=== PATIENT | female | born 1945 | race Caucasian/White ===

== ENCOUNTER 2023-01-19 08:57 | Emergency (ER) | payer MEDICARE, OTHER, SELFPAY ==
[2023-01-19] VITALS (32 sets, daily range): BP systolic 46–154; BP diastolic 27–82; PULSE 54–77; RESP 14–23; TEMP 36.8; O2SAT 68–100; BMI 22.9
[2023-01-19 09:04] LABS: Glucometer 115 mg/dL (74-106)
--- NOTE | 2023-01-19 09:04 | CT_ITS ---
The [address] [address] Patient Name: SONYA SPEAR MRN: [id number] date: 1945 Sex: F Assigned Patient Location: ER Current Patient Location: ER Accession/Order Number: [id number] Exam Date: 01/19/2023 09:00 Report Date: 01/19/2023 09:30 At the request of: MANJINDER PUGA Procedure: CT stroke head/brain wo con EXAMINATION: CT stroke head/brain wo con HISTORY: syncope , slurred speech COMPARISON: CT head 05/13/2014, MRI brain 03/05/2022 TECHNIQUE: Axial CT images were obtained without IV contrast. Dose reduction techniques were achieved by using automated exposure control and/or adjustment of mA and/or kV according to patient size and/or use of iterative reconstruction technique. FINDINGS: BRAIN: Areas of decreased attenuation of the periventricular and subcortical deep white matter. No edema, hemorrhage, mass, acute infarction, or inappropriate atrophy. CSF SPACES: No hydrocephalus, subarachnoid hemorrhage, or mass. Appropriate for age. SKULL: No fracture, mass, or other significant visible lesion. SINUSES: No significant mucosal thickening or fluid on the limited views. ORBITS: No appreciable abnormality on the limited views. OTHER: Negative CT/CT stroke head/brain wo con IMPRESSION: 1. No intracranial hemorrhage or appreciable acute abnormality. 2. Age consistent atrophy and chronic small vessel ischemic changes. Findings discussed with Liv in the emergency department via telephone to be relayed to Dr. Puga. Electronically authenticated by: ANNALEE OSMAN Date: 01/19/2023 09:30
--- NOTE | 2023-01-19 09:04 | XR_ITS ---
The [address] [address] Patient Name: SONYA SPEAR MRN: [id number] date: 1945 Sex: F Assigned Patient Location: ER Current Patient Location: ED.MAIN Accession/Order Number: [id number] Exam Date: 01/19/2023 09:00 Report Date: 01/19/2023 09:33 At the request of: MANJINDER PUGA Procedure: XR chest 1V EXAMINATION: XR chest 1V HISTORY: weak , syncope, slurred speech COMPARISON: No relevant comparison available. FINDINGS: LUNGS: Hyperexpanded lungs suggestive of COPD. No acute infiltrates or suspicious nodules. VASCULATURE: No increased pulmonary vasculature. PLEURA: No pneumothorax, effusion, or pleural thickening. CARDIAC: No cardiomegaly or cardiac silhouette abnormality. MEDIASTINUM: No visible mass or adenopathy. BONES: No fracture or visible bone lesion. OTHER: Negative. XR/XR chest 1V IMPRESSION: 1. No acute cardiopulmonary process. Electronically authenticated by: ANNALEE OSMAN Date: 01/19/2023 09:33
--- NOTE | 2023-01-19 09:05 | ECG_ITS ---
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
[2023-01-19 09:39] LABS: Basophils Absolute Auto 0.1 10^3/uL (0.0-0.1); Basophils Percent Auto 0.4 % (0.2-2.0); Eosinophils Absolute Auto 0.1 10^3/uL (0.0-0.7); Eosinophils Percent Auto 0.6 % (0.9-7.0); Hematocrit 37.3 % (36.0-48.0); Hemoglobin 12.1 g/dL (12.0-16.0); Immature Granulocytes Abs Auto 0.06 10^3/uL (0.00-0.03); Immature Granulocytes Pct Auto 0.4 % (0.0-0.5); Lymphocytes Absolute Auto 1.7 10^3/uL (1.2-3.8); Mean Corpuscular HGB Conc 32.4 g/dL (29.9-35.2); Mean Corpuscular Hemoglobin 30.3 pg (26.7-34.0); Mean Corpuscular Volume 93.3 fL (81.0-99.0); Mean Platelet Volume 10.3 fL (9.5-13.5); Monocytes Absolute Auto 0.7 10^3/uL (0.3-0.8); Monocytes Percent Auto 4.1 % (1.7-12.0); Neutrophils Absolute Auto 13.2 10^3/uL (1.4-6.5); Neutrophils Percent Auto 83.5 % (43.0-75.0); Platelet Count 356 10^3/uL (150-450); Red Cell Distribution Width 12.9 % (11.0-15.0); White Blood Count 15.9 10^3/uL (4.0-11.0)
[2023-01-19 09:50] LABS: Bilirubin Urine NEGATIVE (NEGATIVE); Blood Urine NEGATIVE (NEGATIVE); Clarity Urine CLEAR (CLEAR); Color Urine LT. YELLOW (YELLOW); Glucose Urine UA NEGATIVE (NEGATIVE); Ketones Urine NEGATIVE (NEGATIVE); Leukocyte Esterase Urine SMALL (NEGATIVE); Nitrite Urine NEGATIVE (NEGATIVE); Protein Urine NEGATIVE (NEG/TRACE); pH Urine 7.5 (5.0-9.0)
[2023-01-19 09:53] LABS: Anion Gap 13.9; BUN Creatinine Ratio 18.4; Calcium 9.1 mg/dL (8.5-10.1); Carbon Dioxide 26.7 mmol/L (21.0-32.0); Chloride 97 mmol/L (98-107); Estimated GFR (African America 56 (>=60); Estimated GFR (Non-African Ame 46 (>=60); Glucose 101 mg/dL (74-106); Potassium 3.6 mmol/L (3.5-5.1); Sodium 134 mmol/L (136-145)
[2023-01-19 09:57] LABS: Troponin I High Sensitivity 9.9 pg/mL (4.0-51.3)
[2023-01-19 10:02] LABS: Bacteria Urine MODERATE #/HPF (NONE SEEN); Mucus Urine NONE SEEN (NONE SEEN); RBC Urine 0-2 #/HPF (0-2); Squamous Epithelial Cell Urine FEW #/LPF (NONE/RARE)
[2023-01-19 10:05] LABS: Cast Seen? NONE SEEN #/LPF (NONE SEEN); Crystals Seen? None Seen #/HPF (None Seen)
--- NOTE | 2023-01-19 10:18 | PC.NURSE ---
Meal tray ordered. Patient awake and alert and is talking with significant other, alert and oriented at this time.
[2023-01-19] MEDS: MIDODRINE HCL 5 MG TABLET 10 MG PO (11:54)
[2023-01-19] MEDS: 0.9 % SODIUM CHLORIDE 1,000 ML 1000 ML IV (11:54)
--- NOTE | 2023-01-19 14:03 | ED.GENADUL1 ---
HPI - General Adult General Chief complaint: Neuro Symptoms/Deficit Stated complaint: SYNCOPE Time Seen by Provider: 01/19/23 08:58 Source: medical record and other Source information: EMS Mode of arrival: ambulance Limitations: altered mental status History of Present Illness HPI narrative: 77-year-old female presented because she passed out. She states that [facility] and was at physical therapy when this happened. She was found to have a low blood pressure but by the time she arrived here her blood pressure normalized. When she was able to communicate well with us she had no complaints of headache or fever or weakness. Her provides a great deal of history. She has had episodes of transient hypotension that has been worked up extensively in the past and it appears that she is on [place]rin for this issue at the [facility]. There was no injury. Related Data Home Medications Medication Instructions Recorded Confirmed midodrine 2.5 mg tablet 2.5 mg PO BID 01/19/23 01/19/23 omeprazole 20 mg capsule,delayed 20 mg PO DAILY 01/19/23 01/19/23 release pantoprazole 40 mg tablet,delayed 40 mg PO DAILY 01/19/23 01/19/23 release trospium 20 mg tablet 20 mg PO DAILY 01/19/23 01/19/23 Allergies Allergy/AdvReac Type Severity Reaction Status Date / Time codeine Allergy Unknown Verified 01/19/23 09:11 formoterol [From Dulera] Allergy Unknown Verified 01/19/23 09:11 ibuprofen [From Motrin] Allergy Unknown Verified 01/19/23 09:11 mometasone furoate Allergy Unknown Verified 01/19/23 09:11 [From Dulera] Penicillins Allergy Unknown Verified 01/19/23 09:11 pseudoephedrine Allergy Unknown Verified 01/19/23 09:11 risedronate sodium Allergy Unknown Verified 01/19/23 09:11 tolmetin Allergy Unknown Verified 01/19/23 09:11 triprolidine Allergy Unknown Verified 01/19/23 09:11 Review of Systems ROS Narrative A ten point review of systems is negative except as noted above. PFSH PFSH Social History Smoking status: Unknown if ever smoked Exam Narrative Exam Narrative: Nurses note and vital signs reviewed and patient is not hypoxic. General: The patient appears well and in no apparent distress. Patient is resting comfortably on cart. Skin: Warm, dry, no pallor noted. There is no rash noted. Head: Normocephalic, atraumatic Eye: Normal conjunctiva, no drainage Ears, Nose, Mouth, and Throat: oral mucosa is moist. Nares patent. Cardiovascular: Regular Rate and Rhythm Respiratory: Patient is in no distress, no accessory muscle use, lungs are clear to auscultation, no wheezing, rales or rhonchi Back: non-tender GI: soft and nontender and nondistended Musculoskeletal: The patient has no evidence of calf tenderness, no pitting edema, symmetrical pulses noted bilaterally Neurological: initially she wouldn't follow simple commands but was not communicating with us. Subsequently she was fully awake and alert and oriented and fully communicative. Psychiatric: Cooperative Constitutional Vital Signs, click to edit/add: Last Vital Signs Temp 98.3 F 01/19/23 10:05 Pulse 70 01/19/23 13:30 Resp 15 01/19/23 09:30 BP 140/72 01/19/23 13:30 Pulse Ox 98 01/19/23 13:30 O2 Del Method Room Air 01/19/23 09:02 Course Vital Signs Vital signs: Vital Signs Blood Pressure 145/69 H 01/19/23 09:00 Temperature 98.3 F 01/19/23 10:05 Pulse Rate 70 01/19/23 13:30 Respiratory Rate 15 01/19/23 09:30 Blood Pressure 140/72 01/19/23 13:30 Pulse Oximetry 98 01/19/23 13:30 Oxygen Delivery Method Room Air 01/19/23 09:02 Medical Decision Making MDM Narrative Medical decision making narrative: during her stay in the emergency department she had another episode of transient hypotension. Her explains that this is been happening for months or years and it's been worked up extensively. Blood pressure normalized. They were given the option of being admitted versus being discharged back to [facility]CF and they have elected to go back to ECF. All Differential Diagnosis Differential Diagnosis: hypotension, dehydration, anemia Lab Data Lab results reviewed: Yes I reviewed the patient's lab results Labs: Lab Results 01/19/23 01/19/23 01/19/23 Range/Units 09:03 09:30 09:45 WBC 15.9 H (4.0-11.0) 10^3/uL RBC 4.00 L (4.20-5.40) 10^6/uL Hgb 12.1 (12.0-16.0) g/dL Hct 37.3 (36.0-48.0) % MCV 93.3 (81.0-99.0) fL MCH 30.3 (26.7-34.0) pg MCHC 32.4 (29.9-35.2) g/dL RDW 12.9 (11.0-15.0) % Plt Count 356 (150-450) 10^3/uL MPV 10.3 (9.5-13.5) fL Neut % (Auto) 83.5 H (43.0-75.0) % Lymph % (Auto) 11.0 L (20.5-60.0) % [place] % (Auto) 4.1 (1.7-12.0) % Eos % (Auto) 0.6 L (0.9-7.0) % Baso % (Auto) 0.4 (0.2-2.0) % Neut # (Auto) 13.2 H (1.4-6.5) 10^3/uL Lymph # (Auto) 1.7 (1.2-3.8) 10^3/uL [place] # (Auto) 0.7 (0.3-0.8) 10^3/uL Eos # (Auto) 0.1 (0.0-0.7) 10^3/uL Baso # (Auto) 0.1 (0.0-0.1) 10^3/uL Abs Immat Gran (auto) 0.06 H (0.00-0.03) 10^3/uL Imm/Tot Granulo (auto) 0.4 (0.0-0.5) % Sodium 134 L (136-145) mmol/L Potassium 3.6 (3.5-5.1) mmol/L Chloride 97 L (98-107) mmol/L Carbon Dioxide 26.7 (21.0-32.0) mmol/L Anion Gap 13.9 BUN 21.0 H (7.0-18.0) mg/dL Creatinine 1.14 H (0.55-1.02) mg/dL Est GFR ( Amer) 56 L (>=60) Est GFR (Non-Af Amer) 46 L (>=60) BUN/Creatinine Ratio 18.4 Glucose 101 (74-106) mg/dL Calcium 9.1 (8.5-10.1) mg/dL Troponin I High Sens 9.9 (4.0-51.3) pg/mL Urine Color Lt. yellow (YELLOW) Urine Clarity Clear (CLEAR) Urine pH 7.5 (5.0-9.0) Ur Specific [place] 1.010 (1.005-1.025) Urine Protein Negative (NEG/TRACE) mg/dL Urine Glucose (UA) Negative (NEGATIVE) mg/dL Urine Ketones Negative (NEGATIVE) mg/dL Urine Occult Blood Negative (NEGATIVE) Urine Nitrite Negative (NEGATIVE) Urine Bilirubin Negative (NEGATIVE) Urine Urobilinogen 2.0 A (0.2-1.0) EU/dL Ur Leukocyte Esterase Small A (NEGATIVE) Urine RBC 0-2 (0-2) #/HPF Urine WBC 5-10 A (NONE SEEN) #/HPF Ur Squamous Epith Cells Few A (NONE/RARE) #/LPF Urine Crystals None seen (None Seen) #/HPF Urine Bacteria Moderate A (NONE SEEN) #/HPF Urine Casts None seen (NONE SEEN) #/LPF Urine Mucus None seen (NONE SEEN) POC Glucose 115 H (74-106) mg/dL Imaging Data CT brain: Radiologist's impression: Procedure: CT stroke head/brain wo con EXAMINATION: CT stroke head/brain wo con HISTORY: syncope , slurred speech COMPARISON: CT head 05/13/2014, MRI brain 03/05/2022 TECHNIQUE: Axial CT images were obtained without IV contrast. Dose reduction techniques were achieved by using automated exposure control and/or adjustment of mA and/or kV according to patient size and/or use of iterative reconstruction technique. FINDINGS: BRAIN: Areas of decreased attenuation of the periventricular and subcortical deep white matter. No edema, hemorrhage, mass, acute infarction, or inappropriate atrophy. CSF SPACES: No hydrocephalus, subarachnoid hemorrhage, or mass. Appropriate for age. SKULL: No fracture, mass, or other significant visible lesion. SINUSES: No significant mucosal thickening or fluid on the limited views. ORBITS: No appreciable abnormality on the limited views. OTHER: Negative IMPRESSION: 1. No intracranial hemorrhage or appreciable acute abnormality. 2. Age consistent atrophy and chronic small vessel ischemic changes. Findings discussed with Liv in the emergency department via telephone to be relayed to Dr. Zaragoza. Electronically authenticated by: ANNALEE OSMAN Date: 01/19/2023 09:30 Procedure: XR chest 1V EXAMINATION: XR chest 1V HISTORY: weak , syncope, slurred speech COMPARISON: No relevant comparison available. FINDINGS: LUNGS: Hyperexpanded lungs suggestive of COPD. No acute infiltrates or suspicious nodules. VASCULATURE: No increased pulmonary vasculature. PLEURA: No pneumothorax, effusion, or pleural thickening. CARDIAC: No cardiomegaly or cardiac silhouette abnormality. MEDIASTINUM: No visible mass or adenopathy. BONES: No fracture or visible bone lesion. OTHER: Negative. IMPRESSION: 1. No acute cardiopulmonary process. Electronically authenticated by: ANNALEE OSMAN Date: 01/19/2023 09:33 ECG Data Attestation: I personally reviewed and interpreted this ECG as follows: (EKG on my interpretation shows sinus rhythm with a rate of 80 and no acute findings.) Discharge Plan Discharge Chief Complaint: Neuro Symptoms/Deficit Clinical Impression: Transient hypotension, Syncope Patient Disposition: Home, Self-Care Time of Disposition Decision: 14:02 Condition: Good Mode of Transportation: Private Vehicle Prescriptions / Home Meds: No Action midodrine 2.5 mg tablet 2.5 mg PO BID omeprazole 20 mg capsule,delayed release(DR/EC) 20 mg PO DAILY pantoprazole 40 mg tablet,delayed release (DR/EC) 40 mg PO DAILY trospium 20 mg tablet 20 mg PO DAILY Rx Instructions: administer on an empty stomach Instructions: Syncope (ED), Hypotension (ED), Syncope in Older Adults (ED) Stand Alone Forms: Portal Instructions Referrals: ERICK GALEAS DO [Primary Care Provider] - 1 week
== END 2023-01-19 14:35 | disposition home or self-care (01) ==
PROVIDERS: Emergency Provider Emergency Medicine; PCP Family Medicine
DX: I95.89 Other hypotension (principal); R55 Syncope and collapse; Z79.899 Other long term (current) drug therapy
CPT/HCPCS: 36415; 51702; 70450; 71045; 80048; 81001; 84484; 85025; 87086; 93005; 96360; 99285

== ENCOUNTER 2023-02-18 13:45 | Inpatient (IN) | payer MEDICARE, OTHER, SELFPAY ==
[2023-02-18] VITALS (67 sets, daily range): BP systolic 58–163; BP diastolic 38–100; PULSE 63–95; RESP 12–23; TEMP 36.6–36.9; O2SAT 96–100; BMI 17.0; BMI 15.9
--- NOTE | 2023-02-18 14:12 | PC.NURSE ---
PT DIAGNOSED WITH COVID 02/14 AND UTI. PT SENT FROM [facility] FOR [facility]. PT BASELINE A&O TO SELF ONLY
--- OUTSIDE RECORDS SUMMARY | 2023-02-18 14:24 | XMS_ITS | CCD ---
Author Name Unknown Address [address] [place] [address] Organization [facility] Care Team Providers Care Health And Safety Tech Name Role Phone Cristy Sydnee L Primary Care Provider TOÑA AVALOS Attending Unavailable Fruvaleria, Alfred Moreno Primary Care Unavailable ALFRED PAL Consulting Unavailable Gene Cline Admitting Unavailable Gene Cline Attending Unavailable Fruvaleria, Alfredsandra Moreno Primary Care Unavailable Gene Cline Attending Unavailable Fruvaleria, Alfred Tiffanie Primary Care Unavailable KAE, ALFREDSANDRA MORENO Consulting Unavailable SATURNINO BRASHER Consulting Unavailable Gene Cline Attending Unavailable Kae, Alfred Tiffanie Primary Care Unavailable ALFRED PAL Consulting Unavailable Gene Cline Attending Unavailable SARAHE, SYDNEE CLIFTON Primary Care Unavailable SARAHE, SYDNEE CLIFTON Consulting Unavailable Unavailable Unavailable Yogesh Coffman MD Unavailable [phone] Rine, Sydnee L Primary Care Provider Rine, Sydnee L Primary Care Provider Rine, Sydnee L (Front Desk Administrator) Unavailable [phone] PHANI FRANCIS V Consulting Unavailable KAYLAN FERNANDEZ Attending Unavailable KAYLAN FERNANDEZ Admitting Unavailable KAYLAN FERNANDEZ Consulting Unavailable SHAYNE CONDE Attending Unavailable SHAYNE CONDE Referring Unavailable Rine, Sydnee L Primary Care Provider FAITH CARIAS Referring Unavailable RINE, SYDNEE L Primary Care Unavailable JOANNE HOLBROOK Referring Unavailable RINE, SYDNEE L Primary Care Unavailable FRUTH, ALFRED Referring Unavailable RINE, SYDNEE L Primary Care Unavailable DO Bret Wade Attending Provider Rine, JHONNP Sydnee L Primary Care Provider [phone] Rine, Sydnee L Primary Care Unavailable Bret Wade Attending Unavailabl e Bret Wade Admitting Unavailabl e Rine, Sydnee L Primary Care Unavailable Bret Wade Attending UnavailBret Barth Admitting Unavailabl e KAE, ALFRED Referring Unavailable RINE, SYDNEE L Primary Care Unavailable RINE, SYDNEE L Primary Care Unavailable RINE, SYDNEE L Referring Unavailable SOTO BRADY Attending Unavailable SOTO BRADY Referring Unavailable RINE, SYDNEE L Primary Care Unavailable RINE, SYDNEE L Primary Care Unavailable PHIL DYER Attending Unavailable RINE, SYDNEE L Primary Care Unavailable RINE, SYDNEE L Referring Unavailable RINE, SYDNEE L Primary Care Unavailable DONTE ORDOÑEZ Referring Unavailable RINE, SYDNEE L Attending Unavailable Allergies Allergy Classification Reported Allergen(s) Allergy Type Date of Onset Reaction(s) Facility Aluminum aspirin (3 sources) Aluminum aspirin Drug Allergy 7 [facility] formoterol / Mometasone (3 sources) formoterol / Mometasone Drug Allergy 9 [facility] NSAIDs (3 sources) NSAIDs Drug Allergy 6 [facility] Penicillins (antibiotic) (3 sources) Penicillins Drug Allergy 2 [facility] Risedronate (3 sources) Risedronate Drug Allergy 4 [facility] (14 sources) NSAIDs; Translations: [NSAIDs] Propensity to adverse reactions to drug 6 [place] (15 sources) Penicillins; Translations: [penicillins] Propensity to adverse reactions to drug 2 [place] (15 sources) Risedronate Drug Allergy 4 [place] (14 sources) Aluminum aspirin Drug Allergy 7 [place] (14 sources) formoterol / Mometasone Drug Allergy 9 [place] (1 source) formoterol / Mometasone; Translations: [Dulera] Drug Allergy [facility] Repository (1 source) Penicillins Drug Allergy 2 Rash [facility] (1 source) NSAIDs Drug allergy (disorder) 6 [facility] Repository (1 source) Penicillins Drug allergy (disorder) 5 [facility] Repository (2 sources) Non-steroidal anti-inflammator y agent Propensity to adverse reactions to drug 6 [facility] (2 sources) Penicillins Propensity to adverse reactions to drug 2 [facility] (1 source) Unable to Assess Drug allergy (disorder) 3 [facility] Repository Medications Current Medications Medication Drug Class(es) Dates Sig (Normalized) Sig (Original) acetaminophen 500 mg oral tablet (19 sources) take 1 tablet by mouth every six hours as needed for pain acetaminophen (TYLENOL) 500 MG tablet Take 500 mg by mouth every 6 hours as needed for Pain. 0 Active take 1 tablet by tee th every eight hours as needed acetaminophen (TYLENOL EXTRA STRENGTH) 5 00 mg tablet Take 500 mg by mouth every 8 hours as needed. 0 Active Comment on above: Take 500 mg by mouth every 8 hours as needed. acetaminophen 300 mg / codeine phosphate 30 mg oral tablet (1 source) Opioid Agonist Start: 6 take 1 tablet by mouth every four hours as needed for pain acetaminophen-code ine (TYLENOL/CODEINE #3) 300-30 MG per tablet Take 1 tablet by mouth every 4 hours as needed for Pain 12 tablet 0 06/20/2015 Active [id number] actuat albuterol 0.09 mg/actuat metered dose inhaler (19 sources) beta2-Adrenergic Agonist take 2 puff(s) by inhalation every six hours as needed albuterol (PROVENTIL;VENTOLI N) 90 MCG/ACT inhaler Inhale 2 puffs into the lungs every 6 hours as needed. 0 Active take 2 puff(s) by in halation every six hours as needed for wheezing albuterol HFA (PROVENTIL HFA) 90 mcg/actuation inhaler Inhale 2 Puffs as instructed every 6 hours as needed for wheezing/shortness of breath. 0 Active Comment on above: Inhale 2 Puffs as in structed every 6 hours as needed for wheezing/shortness of breath. amLODIPine 5 mg oral tablet (19 sources) Dihydropyridine Calcium Channel Fanny take 2 tablets by mouth once daily amLODIPine (NORVASC) 5 MG tablet Take 10 mg by mouth daily 0 Active take 1 tablet by mouth once hero y amLODIPine (NORVASC) 10 mg tablet Take 10 mg by mouth once daily. 0 Active take 1 tablet by mouth once hero y amLODIPine (NORVASC) 5 MG tablet Take 5 mg by mouth daily 0 Active Comment on above: Take 10 mg by mouth once daily. atorvastatin 10 mg oral tablet (19 sources) HMG-CoA Reductase Inhibitor take 1 tablet by mouth once daily atorvastatin (LIPITOR) 10 MG tablet Take 10 mg by mouth daily 0 Active Comment on above: Take 10 mg by mouth once daily. cholecalciferol 0.125 mg oral tablet (19 sources) Vitamin D Cholecalciferol (VITAMIN D3) 5000 units TABS Take by mouth daily 0 Active Comment on above: Take 5,000 Units by mouth once daily. 1 ml denosumab 60 mg/ml prefilled syringe (18 sources) RANK Ligand Inhibitor denosumab (PROLIA) 60 MG/ML SOSY SC injection Inject 60 mg into the skin Pt is to receive this TWICE a YEAR. 0 Active Comment on above: Inject 60 mg subcuta neously one time only. Twice yearly fludrocortisone acetate 0.1 mg oral tablet (18 sources) take 1 tablet by mouth once daily fludrocortisone (FLORINEF) 0.1 MG tablet Take 0.1 mg by mouth daily. 0 Active gabapentin 100 mg oral capsule (18 sources) Anti-epileptic Agent Start: 019 take 1 capsule by mouth twice daily as needed gabapentin (NEURONTIN) 100 MG capsule Take 100 mg by mouth 2 times daily as needed. 0 11/08/2018 Active Comment on above: Take 100 mg by mouth twice daily. Magnesium Chloride-Calcium (MAG-SR PLUS CALCIUM PO) (18 sources) Magnesium Chloride-Calcium (MAG-SR PLUS CALCIUM PO) Take by mouth daily 0 Active melatonin 3 mg oral tablet (15 sources) take 1 tablet by mouth once daily melatonin 3 MG TABS tablet Take 3 mg by mouth nightly 0 Active take 3 tablets by mo ut once daily at bedtime melatonin 1 mg tablet Take 3 mg by mouth daily at bedtime. 0 Active Comment on above: Take 3 mg by mouth d aily at bedtime. Multiple Vitamin (MULTI-DAY) TABS (4 sources) Multiple Vitamin (MULTI-DAY) TABS Take by mouth No iron 0 Active NONFORMULARY (14 sources) NONFORMULARY Pt states to be taking Echinacea PRN 0 Active Normal saline (15 sources) Start: 5 saline nasal gel (AYR) GEL by Nasal route as needed for Congestion. 1 Tube 3 06/10/2014 Active omeprazole 20 mg delayed release oral capsule (11 sources) Proton Pump Inhibitor Start: 2 omeprazole (PRILOSEC) 20 MG delayed release capsule Comment on above: Take 20 mg by mouth once daily. potassium chloride 10 meq extended release oral capsule (19 sources) take 2 tablets by mouth once daily potassium chloride (MICRO-K) 10 MEQ extended release capsule Take 10 mEq by mouth daily 2 tabs daily 0 Active take 20 mEq by mouth once daily potassium chloride (MICRO-K ORAL) Take 20 mEq by mouth once daily. 0 Active Comment on above: Take 20 mEq by mouth once daily. primidone 50 mg oral tablet (19 sources) Anti-epileptic Agent Start: 06-19-2021 End: 06-19-2022 take 4 tablets by mouth once daily at bedtime primidone (MYSOLINE) 50 mg tablet Indications: Essential tremor Take 4 tablets by mouth daily at bedtime. 360 tablet 3 06/19/2021 06/19/2022 Active Start: 11-04-2018 End: 06-19-2021 take 1 tablet by mouth once daily primidone (MYSOLINE) 50 MG tablet Take 50 mg by mouth daily 0 11/04/2018 Active Comment on above: Take 4 tablets by mo uth daily at bedtime. Take 50 mg by mouth daily at bedtime. sertraline 25 mg oral tablet (19 sources) Serotonin Reuptake Inhibitor take 2 tablets by mouth once daily sertraline (ZOLOFT) 25 MG tablet Take 50 mg by mouth daily 0 Active Comment on above: Take 50 mg by mouth once daily. sodium chloride [id number] meq/mg nasal gel (3 sources) Start: 015 saline nasal gel (AYR) GEL by Nasal route as needed for Congestion. 1 Tube 3 06/10/2014 Active 28 actuat tiotropium 0.01829 mg/actuat metered dose inhaler (2 sources) Anticholinergic Start: 019 tiotropium (SPIRIVA RESPIMAT) 1.25 MCG/ACT AERS inhaler Inhale 2 puffs into the lungs daily 1 Inhaler 5 12/08/2018 Active traMADol hydrochloride 50 mg oral tablet (5 sources) Opioid Agonist take 1 tablet by mouth every six hours as needed for pain traMADol (ULTRAM) 50 MG tablet Take 50 mg by mouth every 6 hours as needed for Pain. 0 Active 7 actuat umeclidinium 0.0625 mg/actuat dry powder inhaler (11 sources) Anticholinergic Start: 022 take 1 puff(s) by inhalation once daily Umeclidinium [place] (INCRUSE ELLIPTA) 62.5 MCG/INH AEPB Inhale 1 puff into the lungs daily 1 each 11 04/10/2021 Active Start: 12-15-2018 take 1 puff(s) by in halation once daily Umeclidinium [place] (INCRUSE ELLIPTA) 62.5 MCG/INH AEPB Inhale 1 puff into the lungs daily 1 each 5 12/15/2018 Active 30 actuat umeclidinium 0.0625 mg/actuat / vilanterol 0.025 mg/actuat dry powder inhaler (6 sources) Anticholinergic, beta2-Adrenergic Agonist Start: 09-04-2021 take 1 puff(s) by inhalation once daily in the morning umeclidinium-vilanterol (ANORO ELLIPTA) 62.5-25 MCG/INH AEPB inhaler Inhale 1 puff into the lungs every morning 1 each 09/04/2021 Active take 1 puff(s) by in halation once daily umeclidinium-vilanterol (ANORO ELLIPTA) 62.5-25 mcg/actuation inhaler Inhale 1 Puff as instructed once daily. 0 Active Comment on above: Inhale 1 Puff as ins tructed once daily. Vitamin B 12 (18 sources) Vitamin B12 Cyanocobalamin ( VITAMIN B 12 PO) Take by mouth daily 0 Active Completed/Discontinued Medications Medication Drug Class(es) Dates Sig (Normalized) Sig (Original) fludrocortisone oral liquid 0.1 mg/mL (CPD) (1 source) fludrocortisone oral liquid 0.1 mg/mL (CPD) Take by mouth once daily. 0 Active Comment on above: Take by mouth once d aily. gadobenate dimeglumine (MULTIHANCE) injection 10 mL (1 source) Start: 03-05-2022 End: 03-05-2022 gadobenate dimeglumine (MULTIHANCE) injection 10 mL Magnesium Chloride (1 source) MAGNESIUM CHLORI DE ORAL Take by mouth once daily. 0 Active Comment on above: Take by mouth once d aily. technetium sestamibi (CARDIOLITE) injection 30 millicurie (1 source) Start: 12-13-2018 End: 12-13-2018 technetium sestamibi (CARDIOLITE) injection 30 millicurie Problems Active Problems Problem Classification Problem Date Documented Da te Episodic/Chronic Acute cerebrovascular disease (1 source) Cerebral infarction, unspecified; Translations: [Cerebral infarction, unspecified] Onset: 3 Chronic Chronic obstructive pulmonary disease and bronchiectasis (4 sources) Centriacinar emphysema; Translations: [Centrilobular emphysema] Onset: 2 Chronic Deficiency and other anemia (18 sources) Anemia due to blood loss; 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 Disorders of lipid metabolism (1 source) Mixed hyperlipidemia; Translations: [Mixed hyperlipidemia] Chronic E Codes: Fall (1 source) Fall; Translations: [Unspecified fall, initial encounter] Episodic Essential hypertension (4 sources) Intermittent hypertension ; Translations: [Labile hypertension] 06-08-2014 Chronic Genitourinary symptoms and ill-defined conditions (2 sources) Urge incontinence; Translations: [Urge incontinence] Onset: 3 Chronic Osteoarthritis (1 source) Primary osteoarthritis, right shoulder; Translations: [PRIMARY OSTEOARTHRITIS RT SHOULDER] Onset: 2 Chronic Osteoporosis (2 sources) Osteoporosis; Translations: [Age-related osteoporosis without current pathological fracture] Onset: 2 Chronic Other acquired deformities (4 sources) Unspecified acquired deformity of right upper arm; Translations: [UNS ACQUIRED DEFORMITY RT UPPER ARM] Onset: 2 Episodic Other circulatory disease (19 sources) Orthostatic hypotension; Translations: [Orthostatic hypotension] 06-10-2014 Episodic Other circulatory disease (3 sources) Intermittent hypertension ; Translations: [Other specified symptoms and signs involving the circulatory and respiratory systems] 06-08-2014 Episodic Other circulatory disease (11 sources) Labile systemic arterial hypertension; Translations: [Other specified symptoms and signs involving the circulatory and respiratory systems] 06-08-2014 Episodic Other connective tissue disease (1 source) Pain in right arm; Translations: [Pain in right arm] Episodic Other connective tissue disease (1 source) Recurrent falls ; Translations: [Repeated falls] Episodic Other gastrointestinal disorders (18 sources) Constipation; Translations: [Constipation, unspecified] 06-12-2014 Episodic Other hereditary and degenerative nervous system conditions (1 source) Essential tremor; Translations: [Essential tremor] Chronic Other hereditary and degenerative nervous system conditions (1 source) Essential tremor; Translations: [Essential tremor] Onset: 2 Chronic Other injuries and conditions due to external causes (1 source) Injury of left knee; Translations: [Unspecified injury of left lower leg, initial encounter] Episodic Other lower respiratory disease (1 source) Cough; Translations: [Cough] Episodic Other lower respiratory disease (1 source) Rib pain; Translations: [Pleurodynia] Episodic Other lower respiratory disease (1 source) Pleurodynia; Translations: [PLEURODYNIA] Onset: 2 Episodic Other lower respiratory disease (2 sources) Solitary pulmonary nodule; Translations: [SOLITARY PULMONARY NODULE] Onset: 2 Episodic Other nervous system disorders (1 source) Tremor; Translations: [Tremor, unspecified] Episodic Other nervous system disorders (1 source) Shuffling gait; Translations: [Other abnormalities of gait and mobility] Episodic Other non-traumatic joint disorders (2 sources) Shoulder pain; Translations: [Pain in right shoulder] Episodic Other screening for suspected conditions (not mental disorders or infectious disease) (2 sources) Electrocardiogram abnormal; Translations: [Patient encounter status] Episodic Residual codes; unclassified (4 sources) Tobacco user; Translations: [Tobacco use] Onset: 5 06-10-2014 Chronic Residual codes; unclassified (1 source) Confusional state; Translations: [Disorientation, unspecified] Episodic Screening and history of mental health and substance abuse codes (1 source) Tobacco use and exposure - finding; Translations: [Tobacco use] Onset: 5 06-10-2014 Chronic Syncope (19 sources) Syncope; Translations: [Syncope and collapse] Onset: 3 06-09-2014 Episodic Past or Other Problems Problem Classification Problem Date Documented Date Episodic/Chronic Fluid and electrolyte disorders (18 sources) Hypokalemia; Translations: [Hypokalemia] Onset: 06-09-2014 06-09-2014 Episodic Genitourinary symptoms and ill-defined conditions (2 sources) Dysuria; Translations: [Dysuria] Onset: 03-03-2022 Episodic Immunizations and screening for infectious disease (5 sources) Encounter for immunization; Translations: [Encounter For Immunization] Onset: 05-23-2020 Episodic Other connective tissue disease (3 sources) Repeated falls; Translations: [Repeated falls] Onset: 03-03-2022 Episodic Other lower respiratory disease (1 source) Dyspnea on exertion; Translations: [Shortness of breath on exertion] Episodic Other nervous system disorders (3 sources) Tremor, unspecified; Translations: [Tremor, unspecified] Onset: 03-03-2022 Episodic Other nervous system disorders (3 sources) Other abnormalities of gait and mobility; Translations: [Other abnormalities of gait and mobility] Onset: 03-03-2022 Episodic Other non-traumatic joint disorders (4 sources) Pain in right knee; Translations: [Pain in joint, lower leg] Onset: 12-08-2021 Episodic Other upper respiratory disease (18 sources) Bleeding from nose; Translations: [Epistaxis] Onset: 06-06-2014 06-06-2014 Episodic Residual codes; unclassified (3 sources) Preoperative state; Translations: [Pre-operative clearance] Onset: 11-22-2018 Resolved: 12-22-2018 12-22-2018 Episodic Residual codes; unclassified (14 sources) Tobacco use and exposure - finding; Translations: [Tobacco use] Onset: 06-10-2014 06-10-2014 Episodic Residual codes; unclassified (3 sources) Disorientation, unspecified; Translations: [Disorientation, unspecified] Onset: 03-03-2022 Episodic Results Test Name Value Interpretation Reference Range Facility Brain Natri. Peptideon 11-23 Natriuretic peptide B (Bld) [Mass/Vol] 900 pg/mL High <300 [facility] Comment on above: Result Comment: An age-independent cutoff point of 300 pg/ml has a 98% negative predictive value excluding acute heart failure. Performed By: #### B MOTOR SCOOTER MECHANIC #### [facility] [address] [place], [place] [address] [employer]: Phani Patel MD CBC with Diffon 11-23-2022 Abs. Basophil 0.06 k/uL Normal 0.00-0.20 [facility] Comment on above: Performed By: #### C P, TROPI, CDP #### [facility] [address] [place], [place] [address] [employer]: Phani Patel MD Abs.Imm.Granulocyte 0.07 k/uL Normal 0.00-0.30 [facility] Comment on above: Performed By: #### C P TROPI, CDP #### [address] [place], [place] [address] [employer]: Phani Patel MD Abs.Neutrophil (Seg) 11.15 k/uL High 1.50-8.10 [facility] Comment on above: Performed By: #### C P TROPI, CDP #### [address] [place], [place] [address] [employer]: Phani Patel MD Basophils/100 WBC (Bld) 0 % Normal 0-2 [facility] Comment on above: Performed By: #### C P TROPI, CDP #### [address] [place], [place] [address] [employer]: Phani Patel MD Eosinophils (Bld) [#/Vol] 0.12 10*3/uL Normal 0.00-0.44 [facility] Comment on above: Performed By: #### C P, TROPI, CDP #### [facility] [address] [place], [place] [address] [employer]: Phani Patel MD Eosinophils/100 WBC (Bld) 1 % Normal 1-4 [facility] Comment on above: Performed By: #### C P, TROPI, CDP #### [facility] [address] [place] [address] [employer]: Phani Patel MD Erythrocyte distribution width (RBC) [Ratio] 13.6 % Normal 11.8-14.4 [facility] Comment on above: Performed By: #### C P, TROPI, CDP #### [address] [place], [place] [address] [employer]: Phani Patel MD Hematocrit (Bld) [Volume fraction] 32.5 % Low 36.3-47.1 [facility] Comment on above: Performed By: #### C P, TROPI, CDP #### [address] [place] [address] [employer]: Phani Patel MD Hemoglobin (Bld) [Mass/Vol] 10.7 g/dL Low 11.9-15.1 [facility] Comment on above: Performed By: #### C P, TROPI, CDP #### [address] [place], [facility] [employer]: Phani Patel MD Immature granulocytes/100 WBC (Bld) 1 % High 0 [facility] Comment on above: Performed By: #### C P, TROPI, CDP #### [address] [place], [place] [address] [employer]: Phani Patel MD Lymphocytes (Bld) [#/Vol] 1.83 10*3/uL Normal 1.10-3.70 [facility] Comment on above: Performed By: #### C P, TROPI, CDP #### [address] [place], [place] [id number] [employer]: Phani Patel MD Lymphocytes/100 WBC (Bld) 13 % Low 24-43 [facility] Comment on above: Performed By: #### C P, TROPI, CDP #### [facility] [address] [place], [facility] [employer]: Phani Patel MD MCH (RBC) [Entitic mass] 31.4 pg Normal 25.2-33.5 [facility] Comment on above: Performed By: #### C P, TROPI, CDP #### [address] [place], [facility] ( [employer]: Phani Patel MD MCHC (RBC) [Mass/Vol] 32.9 g/dL Normal 28.4-34.8 [facility] Comment on above: Performed By: #### C P, TROPI, CDP #### [address] [place] [address] [employer]: Phani Patel MD MCV (RBC) [Entitic vol] 95.3 fL Normal 82.6-102.9 [facility] Comment on above: Performed By: #### C P, TROPI, CDP #### [address] [place] [address] [employer]: Phani Patel MD Monocytes (Bld) [#/Vol] 0.70 10*3/uL Normal 0.10-1.20 [facility] Comment on above: Performed By: #### C P, TROPI, CDP #### [address] [place], [place] [address] [employer]: Phani Patel MD Monocytes/100 WBC (Bld) 5 % Normal 3-12 [facility] Comment on above: Performed By: #### C P, TROPI, CDP #### [address] [place] [id number] [employer]: Phani Patel MD Neutrophil (Seg) 80 % High 36-65 [facility] Comment on above: Performed By: #### C P, TROPI, CDP #### [address] [place] [facility] [employer]: Phani Patel MD NRBC Automated 0.0 per 100 WBC Normal 0.0 [facility] Comment on above: Performed By: #### C P, TROPI, CDP #### [facility] [address] [place], [place] [id number] [employer]: Phani Patel MD Platelet mean volume (Bld) [Entitic vol] 11.0 fL Normal 8.1-13.5 [facility] Comment on above: Performed By: #### C P, TROPI, CDP #### [facility] [address] [place], [place] [address] [employer]: Phani Patel MD Platelets (Bld) [#/Vol] 217 10*3/uL Normal 138-453 [facility] Comment on above: Performed By: #### C P TROPI, CDP #### [facility] [address] [place], [facility] [employer]: Phani Patel MD RBC (Bld) [#/Vol] 3.41 10*6/uL Low 3.95-5.11 [facility] Comment on above: Performed By: #### C P, TROPI, CDP #### [address] [place], [facility] [employer]: Phani Patel MD WBC (Bld) [#/Vol] 13.9 10*3/uL High 3.5-11.3 [facility] Comment on above: Performed By: #### C P, TROPI, CDP #### [facility] [address] [place], [place] [id number] [employer]: Phani Patel MD Comp Metabolic Profon 2022 Albumin [Mass/Vol] 3.9 g/dL Normal 3.5-5.2 [facility] Comment on above: Performed By: #### C P, TROPI, CDP #### [facility] [address] [place], [place] [id number] [employer]: Phani Patel MD Albumin/Glob Ratio 1.3 Normal 1.0-2.5 [facility] Comment on above: Performed By: #### C P, TROPI, CDP #### [facility] [address] [place], [place] [id number] [employer]: Phani Patel MD Alkaline Phos 62 U/L Normal 35-104 [facility] Comment on above: Performed By: #### C P, TROPI, CDP #### [address] [place], [place] [id number] [employer]: Phani Patel MD ALT [Catalytic activity/Vol] 13 U/L Normal 5-33 [facility] Comment on above: Performed By: #### C P, TROPI, CDP #### [address] [place], [place] [id number] [employer]: Phani Patel MD Anion gap [Moles/Vol] 13 mmol/L Normal 9-17 [facility] Comment on above: Performed By: #### C P, TROPI, CDP #### [address] [place], [place] [phone] [employer]: Phani Patel MD AST [Catalytic activity/Vol] 17 U/L Normal <32 [facility] Comment on above: Performed By: #### C P, TROPI, CDP #### [facility] [address] [place] [address] [place] [place], [place] [phone] [employer]: Phani Patel MD Bilirubin [Mass/Vol] 0.2 mg/dL Low 0.3-1.2 [facility] Comment on above: Performed By: #### C P, TROPI, CDP #### [address] [place], [place] [phone] [employer]: Phani Patel MD BUN/CRE Ratio 13 Normal 9-20 [facility] Comment on above: Performed By: #### C P, TROPI, CDP #### [facility] [address] [place], [place] [phone] [employer]: Phani Patel MD Calcium [Mass/Vol] 8.6 mg/dL Normal 8.6-10.4 [facility] Comment on above: Performed By: #### C P, TROPI, CDP #### [facility] [address] [place], [place] [phone] [employer]: Phani Patel MD Chloride [Moles/Vol] 104 mmol/L Normal 98-107 [facility] Comment on above: Performed By: #### C P, TROPI, CDP #### [facility] [address] [place], [place] [phone] [employer]: Phani Patel MD CO2 [Moles/Vol] 21 mmol/L Normal 20-31 [facility] Comment on above: Performed By: #### C P, TROPI, CDP #### [facility] [address] [place], [place] [phone] [employer]: Phani Patel MD Creatinine [Mass/Vol] 1.1 mg/dL High 0.5-0.9 [facility] Comment on above: Performed By: #### C P, TROPI, CDP #### [facility] [address] [place], [place] [phone] [employer]: Phani Patel MD GFR/1.73 sq M.predicted among non-blacks MDRD (S/P/Bld) [Vol rate/Area] 51 mL/min/{1.73_m2} Low >60 [facility] Comment on above: Result Comment: These results are not intended for use in patients <18 years of age. eGFR results are calculated without a race factor using the 2020 CKD-EPI equation. Careful clinical correlation is recommended, particularly when comparing to results calculated using previous equations. The CKD-EPI equation is less accurate in patients with extremes of muscle mass, extra-renal metabolism of creatine, excessive creatine ingestion, or following therapy that affects renal tubular secretion. Performed By: #### C ONEL Carrizales, CDP #### [facility] [address] [place], [place] [phone] [employer]: Phani Patel MD Glucose [Mass/Vol] 130 mg/dL High 70-99 [facility] Comment on above: Performed By: #### C LAURITA CarrizalesI, CDP #### [facility] [address] [place], [place] [phone] [employer]: Phani Patel MD Potassium [Moles/Vol] 3.6 mmol/L Low 3.7-5.3 [facility] Comment on above: Performed By: #### ONEL Conti, CDP #### [address] [place], [place] [phone] [employer]: Phani Patel MD Protein [Mass/Vol] 6.8 g/dL Normal 6.4-8.3 [facility] Comment on above: Performed By: #### C ONEL Carrizales, CDP #### [address] [place], [place] [phone] [employer]: Phani Patel MD Sodium [Moles/Vol] 138 mmol/L Normal 135-144 [facility] Comment on above: Performed By: #### C ONEL Carrizales, CDP #### [facility] [address] [place], [place] [phone] [employer]: Phani Patel MD Urea nitrogen [Mass/Vol] 14 mg/dL Normal 8-23 [facility] Comment on above: Performed By: #### C ONEL Carrizales, CDP #### [facility] [address] [place] [address] [employer]: Phani Patel MD Troponinon 11-23-2022 Troponin, High Sens 14 ng/L Normal 0-14 [facility] Comment on above: Result Comment: High Sensitivity Troponin values cannot be compared with other Troponin methodologies. Performed By: #### C P, TROPI, CDP #### [facility] [address] [place] [address] [employer]: Phani Patel MD XR CHEST PORTABLEon 11-24-19 XR CHEST PORTABLE EXAMINATION: ONE XRAY VIEW OF THE CHEST 11/23/2022 8:24 pm COMPARISON: 11/06/2022, 08/26/2021 HISTORY: ORDERING SYSTEM PROVIDED HISTORY: syncope TECHNOLOGIST PROVIDED HISTORY: syncope FINDINGS: The cardiomediastinal silhouette is within normal limits. There is no consolidation, pneumothorax or evidence for edema. No evidence for effusion. No acute osseous abnormality is identified. Advanced arthropathy in the right shoulder again demonstrated. IMPRESSION: No acute airspace disease identified. Interpreted by: Matt Zarco MD Signed by: Matt Zarco MD 11/23/22 Final result Normal [facility] CT CHEST LOW DOSE (LDCT)on 0 11-06-2022 CT CHEST LOW DOSE (LDCT) EXAMINATION: LOW DOSE OF THE CT CHEST WITHOUT CONTRAST 11/06/2022 2:31 pm TECHNIQUE: Low Dose of the CT Chest without the administration of intravenous contrast (MA=40). Multiplanar reformatted images are provided for review. Automated exposure control, iterative reconstruction, and/or weight based adjustment of the mA/kV was utilized to reduce the radiation dose to as low as reasonably achievable. COMPARISON: March 21, 2021 HISTORY: ORDERING SYSTEM PROVIDED HISTORY: Lung nodule, solitary TECHNOLOGIST PROVIDED HISTORY: RUL nodule with high risk factor profile;interval change FINDINGS: Mediastinum: Thoracic aorta normal in course and caliber. No enlarged mediastinal or hilar lymph nodes by imaging size criteria. Heart size within normal limits. Coronary artery calcifications present. Lungs/Pleura: Stable emphysema. No consolidation, pneumothorax or pleural effusion. Central airways are patent. Stable right upper lobe and left lung base atelectasis or scar. Stable 7 mm right upper lobe noncalcified pulmonary nodule no new or suspicious nodule has developed. Upper Abdomen: Limited visualization upper abdomen demonstrates no acute findings. Soft Tissues/Bones: Spinal degenerative changes with no acute findings. IMPRESSION: Stable pulmonary nodule right upper lobe. No new or suspicious nodule. Stable emphysema. Coronary artery calcification. LUNG RADS: Lung-RADS 2 - Benign (v2022) Management: 12 month screening LDCT Interpreted by: Flaco Salgado DO Signed by: Flaco Salgado DO 11/06/22 Final result Normal [facility] Creatinine (Bld) [Mass/Vol]O rdered By: Delfino Wade on 04-07-2022 Creatinine [Mass/Vol] 1.1 mg/dL 0.6-1.[address] [facility] Comment on above: ER/ESD physician is notified/shown all ISTAT results.Critical values may be confirmed by laboratory testing ifdeemed necessary by ER attending doctor. ISTAT XRay CREon 04-07-2022 Creatinine [Mass/Vol] 1.1 mg/dL Normal 0.6-1.[address] [facility] Comment on above: Result Comment: ER/E SD physician is notified/shown all ISTAT results. Critical values may be confirmed by laboratory testing if deemed necessary by ER attending doctor. Performed By: #### I SCRE #### [facility] [address] [place] [address] Point of Care testing , ISTAT GFR ( 58 Normal [facility] Comment on above: Result Comment: GFR estimated reference range: According to KDOQI guidelines, <60 ml/min/1.73m2 is sufficient to diagnose a patient with chronic kidney disease. PERFORMED BY: [place] [address] PATHOLOGIST [employer]LECT[employer] RAJ AGUILAR M.D. Performed By: #### I SCRE #### [address] Point of Care testing , ISTAT GFR (Non- Am 48 [facility] Comment on above: Performed By: #### I SCRE #### [address] Point of Care testing , MR angio neck wo/w conon MR angio neck wo/w con [facility] [place] [address] [place] [address] MRI Report Signed Patient: Stephanie Spear MR#: [id number] [birth year] : 1945 Acct:[id number] Age/Sex: 77 / F ADM Date: 04/07/22 Loc: MR Room: Type: [facility] Attending Dr: Bret Wade DO Copies to: Delfino Wade DO Ordering Provider: Delfino Wade DO Date of Service: 04/07/22 MR/MR angio neck wo/w con: I63.9 MRA OF THE CAROTID ARTERIES WITHOUT AND WITH INTRAVENOUS CONTRAST CLINICAL DATA: Balance issues. COMPARISON: None [id number] imaging of the carotid arteries was performed before and after intravenous administration of 10 mL of ProHance. There are patent symmetric caliber vertebral arteries, without focal stenosis or evidence of dissection. The right carotid artery is mildly tortuous. There is a potential short segment of mild narrowing at the proximal right internal carotid artery with the degree of luminal narrowing thought to be less and 50%. There is no significant stenosis involving the carotid artery on the left. 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 NO VASCULAR OCCLUSIVE DISEASE. Impression dictated by: Kierra Field M.D.04/07/2022 5:33 PM Dictation Location: [place] [address] Transcribed By: [facility] 04/07/221732 Dictated By: Kierra Field MD 04/07/221726 Signed By: 04/07/221732 [facility] No Panel InformationOrdered By: Delfino Wade on 04-07-2022 POC Estimated GFR 58 [facility] Comment on above: GFR estimated refere nce range: According to KDOQI guidelines, <60 ml/min/1.73m2 is sufficient to diagnose a patient with chronic kidney disease. POC Estimated GFR Non- Amer 48 [facility] MR angio MR brain w/oon 03-25 MR angio MR brain w/o [facility] Main [place] [address] [place] [address] MRI Report Signed Patient: Stephanie Spear MR#: [id number] [birth year] : 1945 Acct:[id number] Age/Sex: 77 / F ADM Date: 04/03/22 Loc: MR Room: Type: [facility] Attending Dr: Bret Wade DO Copies to: Delfino Wade DO Ordering Provider: Delfino Wade DO Date of Service: 04/03/22 MR/MR angio MR brain w/o: I63.9 MRI/MRA BRAIN WITHOUT CONTRAST CLINICAL DATA: Loss of balance, tremors at the hands and memory issues. COMPARISON: None Multiecho, multiplanar imaging of the brain was performed without contrast. 3-D [id number] imaging of the wiyot of Velasquez was also performed. There is generalized atrophy. The ventricles are within normal limits for size and position. There is mild patchy increased T2 and FLAIR signal within the periventricular and subcortical white matter with extension into the basal ganglia region superiorly, greater on the left. Appearance suggests chronic microvascular disease. There is suspected basal ganglia mineralization on the gradient echo sequence. No additional areas of abnormal signal are seen within the supra or infratentorial brain. No restricted diffusion is identified to suggest a recent ischemic event. There are no extra-axial collections or mass effect. No midline abnormalities are noted. The imaged paranasal sinuses and mastoid air cells are clear. 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 The remaining vessels of the anterior and posterior circulation are patent. There our couple potential areas of luminal narrowing involving the left posterior cerebral artery. No other areas of significant stenosis or suspected thrombosis are identified. No aneurysms are seen. MR/MR angio MR brain w/o IMPRESSION: ATROPHY AND CHRONIC MICROVASCULAR DISEASE. NO VASCULAR OCCLUSIVE DISEASE. NO ACUTE INTRACRANIAL FINDINGS. Impression dictated by: Kierra Field M.D.04/03/2022 5:37 PM Dictation Location: [place] [address] Transcribed By: [facility] 04/03/22 173 Dictated By: Kierra Field MD 04/03/22 172 Signed By: 04/03/221736 [facility] MRI BRAIN W WO CONTRASTon MRI BRAIN W WO CONTRAST EXAM: MRI BRAIN W WO CONTRAST HISTORY: Unsteady gait, frequent falls COMPARISON: Head CT 04/07/2013 TECHNIQUE: Multiplanar, multisequence MR imaging of the head was performed prior to and following the administration of 10 L MultiHance contrast intravenously. FINDINGS: There is a small 4 mm linear focus of restricted diffusion within the left splenium of the corpus callosum. No acute hemorrhage, mass effect, midline shift or extra axial fluid collection. There is moderate cerebral atrophy with concordant prominence of the ventricles. Moderate patchy areas of increased FLAIR signal seen within the periventricular and subcortical white matter. Expected flow voids are noted within the intracranial internal carotid, vertebral and basilar artery. The cerebellopontine angles and internal auditory canals are unremarkable. Pituitary gland and midline structures are unremarkable. Bone marrow signal is within normal limits. Orbits and globes are unremarkable. There has been bilateral cataract eye surgery. Expected signal voids are seen within the paranasal sinuses and mastoid air cells. No abnormal enhancement. Small developmental venous anomaly is noted within the posterior upper right frontal lobe. Note: The radiology staff was asked to call these findings at 2:40 PM on 03/05/2022. IMPRESSION: 1. Nonspecific small 4 mm linear focus of restricted diffusion within the left splenium of the corpus callosum, may reflect an acute to subacute infarct. No hemorrhage, mass effect or abnormal enhancement. Short-term follow-up noncontrast enhanced brain MRI within 3-4 months is recommended. 2. Moderate atrophy and small vessel ischemic changes of the supratentorial white matter. : Interpreted by: Phani Doll MD Signed by: Phani Doll MD 03/05/22 Final result Normal [facility] 1. Nonspecific small 4 mm linear focus of restricted diffusion within the left splenium of the corpus callosum, may reflect an acute to subacute infarct. No hemorrhage, mass effect or abnormal enhancement. Short-term follow-up noncontrast enhanced brain MRI within 3-4 months is recommended. 2. Moderate atrophy and small vessel ischemic changes of the supratentorial white matter. : PN RIS CONSOLIDATED EXAM: MRI BRAIN W WO CONTRAST HISTORY: Unsteady gait, frequent falls COMPARISON: Head CT 04/07/2013 TECHNIQUE: Multiplanar, multisequence MR imaging of the head was performed prior to and following the administration of 10 L MultiHance contrast intravenously. FINDINGS: There is a small 4 mm linear focus of restricted diffusion within the left splenium of the corpus callosum. No acute hemorrhage, mass effect, midline shift or extra axial fluid collection. There is moderate cerebral atrophy with concordant prominence of the ventricles. Moderate patchy areas of increased FLAIR signal seen within the periventricular and subcortical white matter. Expected flow voids are noted within the intracranial internal carotid, vertebral and basilar artery. The cerebellopontine angles and internal auditory canals are unremarkable. Pituitary gland and midline structures are unremarkable. Bone marrow signal is within normal limits. Orbits and globes are unremarkable. There has been bilateral cataract eye surgery. Expected signal voids are seen within the paranasal sinuses and mastoid air cells. No abnormal enhancement. Small developmental venous anomaly is noted within the posterior upper right frontal lobe. Note: The radiology staff was asked to call these findings at 2:40 PM on 03/05/2022. [facility] Phani Newton MD - 03/05/2022 EXAM: MRI BRAIN W WO CONTRAST HISTORY: Unsteady gait, frequent falls COMPARISON: Head CT 04/07/2013 TECHNIQUE: Multiplanar, multisequence MR imaging of the head was performed prior to and following the administration of 10 L MultiHance contrast intravenously. FINDINGS: There is a small 4 mm linear focus of restricted diffusion within the left splenium of the corpus callosum. No acute hemorrhage, mass effect, midline shift or extra axial fluid collection. There is moderate cerebral atrophy with concordant prominence of the ventricles. Moderate patchy areas of increased FLAIR signal seen within the periventricular and subcortical white matter. Expected flow voids are noted within the intracranial internal carotid, vertebral and basilar artery. The cerebellopontine angles and internal auditory canals are unremarkable. Pituitary gland and midline structures are unremarkable. Bone marrow signal is within normal limits. Orbits and globes are unremarkable. There has been bilateral cataract eye surgery. Expected signal voids are seen within the paranasal sinuses and mastoid air cells. No abnormal enhancement. Small developmental venous anomaly is noted within the posterior upper right frontal lobe. Note: The radiology staff was asked to call these findings at 2:40 PM on 03/05/2022. IMPRESSION: 1. Nonspecific small 4 mm linear focus of restricted diffusion within the left splenium of the corpus callosum, may reflect an acute to subacute infarct. No hemorrhage, mass effect or abnormal enhancement. Short-term follow-up noncontrast enhanced brain MRI within 3-4 months is recommended. 2. Moderate atrophy and small vessel ischemic changes of the supratentorial white matter. : [facility] [employer] Work Phone: Radiology Study observation (narrative) [employer] Phone: MRI BRAIN W WO CONTRASTOrder ed By: Phani Doll on 03-05-2022 [facility] Work Phone: Basic Metabolic Panelon 02-22 Anion gap [Moles/Vol] 9 mmol/L 9 - 17 mmol/L [facility] Calcium [Mass/Vol] 8.6 mg/dL 8.6 - 10. 4 mg/dL [facility] Chloride [Moles/Vol] 105 mmol/L 98 - 10 7 mmol/L [facility] CO2 [Moles/Vol] 26 mmol/L 20 - 31 mmol/L [facility] Creatinine [Mass/Vol] 0.93 mg/dL High 0.50 - 0.90 mg/dL [facility] GFR/1.73 sq M.predicted MDRD (S/P/Bld) [Vol rate/Area] - PINF [facility] Comment on above: Effective Nov 24, 2021 These results are not intended for use in patients <18 years of age. eGFR results are calculated without a race factor using the 2020 CKD-EPI equation. Careful clinical correlation is recommended, particularly when comparing to results calculated using previous equations. The CKD-EPI equation is less accurate in patients with extremes of muscle mass, extra-renal metabolism of creatine, excessive creatine ingestion, or following therapy that affects renal tubular secretion. Glucose [Mass/Vol] 83 mg/dL 70 - 99 mg/dL [facility] Interpretation and review of laboratory results Abnormal [facility] Potassium [Moles/Vol] 3.6 mmol/L Low 3.7 - 5.3 mmol/L [facility] Sodium [Moles/Vol] 140 mmol/L 135 - 144 mmol/L [facility] Urea nitrogen (BldV) [Mass/Vol] 15 mg/dL 8 - 23 mg/dL [facility] Urea nitrogen/Creatinine (Bld) [Mass ratio] 16 9 - 20 [facility] [employer] Basic Metabolic Profon 03-03 Anion gap [Moles/Vol] 9 mmol/L Normal 9-17 [facility] Comment on above: Performed By: #### B MP #### [facility] [address] [place], [place] [phone] [employer] Finisher: Phani Patel MD BUN/CRE Ratio 16 Normal 9-20 [facility] Comment on above: Performed By: #### B MP #### [facility] [address] [place], [place] [phone] [employer] Finisher: Phani Patel MD Calcium [Mass/Vol] 8.6 mg/dL Normal 8.6-10.4 [facility] Comment on above: Performed By: #### B MP #### [facility] [address] [place], [place] [phone] [employer] Finisher: Phani Patel MD Chloride [Moles/Vol] 105 mmol/L Normal 98-107 [facility] Comment on above: Performed By: #### B MP #### [facility] [address] [place], [place] [phone] [employer] Finisher: Phani Patel MD CO2 [Moles/Vol] 26 mmol/L Normal 20-31 [facility] Comment on above: Performed By: #### B MP #### [facility] [address] [place], [place] [phone] [employer] Finisher: Phani Patel MD Creatinine [Mass/Vol] 0.93 mg/dL High 0.50-0.90 [facility] Comment on above: Performed By: #### B MP #### [facility] [address] [place], [place] [phone] [employer] Finisher: Phani Patel MD GFR/1.73 sq M.predicted among non-blacks MDRD (S/P/Bld) [Vol rate/Area] mL/min/{1.73_m2} Normal >60 [facility] Comment on above: Result Comment: Effective Nov 24, 2021 These results are not intended for use in patients <18 years of age. eGFR results are calculated without a race factor using the 2020 CKD-EPI equation. Careful clinical correlation is recommended, particularly when comparing to results calculated using previous equations. The CKD-EPI equation is less accurate in patients with extremes of muscle mass, extra-renal metabolism of creatine, excessive creatine ingestion, or following therapy that affects renal tubular secretion. Performed By: #### B MP #### [facility] [address] [place] [address] [place] [address] [employer] Finisher: Phani Patel MD Glucose [Mass/Vol] 83 mg/dL Normal 70-99 [facility] Comment on above: Performed By: #### B MP #### [facility] [address] [place] [address] [employer] Finisher: Phani Patel MD Potassium [Moles/Vol] 3.6 mmol/L Low 3.7-5.3 [facility] Comment on above: Performed By: #### B MP #### [facility] [address] [place] [address] [employer] Finisher: Phani Patel MD Sodium [Moles/Vol] 140 mmol/L Normal 135-144 [facility] Comment on above: Performed By: #### B MP #### [address] [place], [place] [phone] [employer] Finisher: Phani Patel MD Urea nitrogen [Mass/Vol] 15 mg/dL Normal 8-23 [facility] Comment on above: Performed By: #### B MP #### [facility] [address] [place] [address] [place] [address] [employer] Finisher: MD Isha Moore 01-30-2022 CNOV Office Visit (NRESFV ) STEPHANIE SPEAR ([id number]) 1945 F Date Time Provider Department 01/30/22 10:00 AM SHAYNE CONDE NRESFV During your visit today, we recorded the following information about you: Pulse Blood pressure Weight Height 72/minute 159/84 52.2 kg 1.613 m Shayne Conde DO 02/02/2022 11:04 AM Signed [facility] - FOLLOW UP EVALUATION Shayne Conde [id number] [facility] [address] Stephanie Spear is a 76 year old female with a history of essential tremor (ET). She is seen with her . Interval History Since Last Visit: The tremor persists. The primidone(Mysoline) was initially helpful - it has worn off a bit. She is sleepy with it. She shows me how difficult it is to play solitaire on the cell phone due the tremor. She has trouble using a stylus. The made her a wrist weight of 3oz - it was helpful. We reviewed multiple types of arm weights available online. The patient denies any recent illness or infections. The patient denies any hospitalization since the last office visit. The patient denies any changes to their medical history or new diagnoses. The patient denies any surgery/procedure since their last visit. The patient denies any headache, chest pain, palpitations, shortness of breath or abdominal pain. The patient denies any seizures, numbness/tingling, lightheadedness or vertiginous symptoms. The patient denies any recent suicidal ideation or attempts to harm themselves or others. The patient denies any new pain. Movement Disorders Medications Schedule: Medications bedtime primidone 50mg 4 Allergies: ALLERGIES Allergen Reactions Penicillins Rash Current Medications: Current Outpatient Medications Medication Sig omeprazole (PRILOSEC) 20 mg capsule Take 20 mg by mouth once daily. umeclidinium-vilanter ol (ANORO ELLIPTA) 62.5-25 mcg/actuation inhaler Inhale 1 Puff as instructed once daily. melatonin 1 mg tablet Take 3 mg by mouth daily at bedtime. denosumab (PROLIA) 60 mg/mL Inject 60 mg subcutaneously one time only. Twice yearly gabapentin (NEURONTIN) 100 mg capsule Take 100 mg by mouth twice daily. atorvastatin (LIPITOR) 10 mg tablet Take 10 mg by mouth once daily. potassium chloride (MICRO-K ORAL) Take 20 mEq by mouth once daily. cholecalciferol (VITAMIN D-3) 5,000 unit tab Take 5,000 Units by mouth once daily. MAGNESIUM CHLORIDE ORAL Take by mouth once daily. amLODIPine (NORVASC) 10 mg tablet Take 10 mg by mouth once daily. sertraline (ZOLOFT) 25 mg tablet Take 50 mg by mouth once daily. fludrocortisone oral liquid 0.1 mg/mL (CPD) Take by mouth once daily. acetaminophen (TYLENOL EXTRA STRENGTH) 500 mg tablet Take 500 mg by mouth every 8 hours as needed. albuterol HFA (PROVENTIL HFA) 90 mcg/actuation inhaler Inhale 2 Puffs as instructed every 6 hours as needed for wheezing/shortness of breath. primidone (MYSOLINE) 50 mg tablet Take 4 tablets by mouth daily at bedtime. No current facility-administered medications for this visit. Objective: Vital Signs: BP 159/84 Pulse 72 Ht 161.3 cm (5' 3.5 ) Wt 52.2 kg (115 lb) SpO2 98% BMI 20.05 kg/m? General Medical Examination: General Description of Patient: Well appearing, comfortable Head:normocephalic, atraumatic Neck:No bruits, full range of movement, supple Cardiac: Regular rate and rhythm, no murmur Extremities: No leg edema, pulses intact, no rash or venous stasis changes. Neurological Exam Mental Status Awake and alert. Recent and remote memory are intact. Speech is normal. Language is fluent with no aphasia. Attention and concentration are normal. Fund of knowledge is appropriate for level of education. Cranial Nerves CN II to XII reported as normal . Motor No fasciculations present. Strength is 5/5 throughout all four extremities. No focal weakness appreciated on examination. Sensory There is no evidence for a stocking-glove gradient in bilateral extremities. Dual simultaneous stimulation is intact. Reflexes Right Left Brachioradialis 2+ 2+ Biceps 2+ 2+ Triceps 2+ 2+ Hamstring Tr Tr Patellar Tr Tr Right pathological reflexes: Greyson's absent. Left pathological reflexes: Greyson's absent. Coordination Right: [id number] normal. Rapid alternating movement normal.Left: [id number] normal. Rapid alternating movement normal. Gait The patient's gait was not assessed for patient safety reasons. A walker was not available. The patient did require assistive devices to ambulate. Movement Disorders There is no rest tremor. The patient has bilateral mild-moderate action tremor. The patient has no postural tremor. The patient does not have a vocal or lingual tremor. An orthostatic tremor is not noted bilaterally. There is no rigidity on examination. There is no bradykinesia on examination. Ther (more content not included)... Normal [facility] DEXA BONE DENSITY AXIAL SKEL Mar[place]eln 12-17-2021 DEXA BONE DENSITY AXIAL SKELETON EXAMINATION: BONE DENSITOMETRY 12/17/2021 9:26 am TECHNIQUE: A bone density dual x-ray absorptiometry (DXA) scan was performed of the lumbar spine and left hip on a [employer] system. COMPARISON: 12/12/2019 HISTORY: ORDERING SYSTEM PROVIDED HISTORY: Osteoporosis, unspecified osteoporosis type, unspecified pathological fracture presence TECHNOLOGIST PROVIDED HISTORY: Central skeletal Bone AND hip Gender: F Age: 76 y/o FINDINGS: LUMBAR SPINE: L1-L4 BMD: 1.022 g/cm2 T-score: -1.3 Z-score: 0.8 There has been no statistically significant change in the bone mineral density of the lumbar spine since the prior exam date listed above. LEFT TOTAL HIP: BMD: 0.674 g/cm2 T-score: -2.6 Z-score: -0.5 LEFT FEMORAL NECK: BMD: 0.699 g/cm2 T-score: -2.4 Z-score: -0.1 There has been no statistically significant change in the bone mineral density of the total hip since the prior exam date listed above. FRAX: Not Indicated. IMPRESSION: Osteoporosis by WHO criteria. RECOMMENDATIONS: 1. All patients should optimize their calcium and vitamin D intake. 2. Consider FDA-approved medical therapies in postmenopausal women and men aged 50 years and older, based on the following: - A hip or vertebral (clinical or morphometric) fracture - T-score less than or equal to -2.5 at the femoral neck or spine after appropriate evaluation to exclude secondary causes - Low bone density (T-score between -1.0 and -2.5 at the femoral neck or spine) and a 10-year probability of a hip fracture greater than or equal to 3% or a 10-year probability of a major osteoporosis-related fracture greater than or equal to 20% based on FRAX calculation. - Clinician judgment and/or patient preferences may indicate treatment for people with 10-year fracture probabilities above or below these levels - Further guidance on treatment can be found at the National Osteoporosis Foundation's website bonesource.org. 3. Patients with diagnosis of osteoporosis or at high risk for fracture should have regular bone mineral density tests. For patients eligible for Medicare, routine testing is allowed once every 2 years. The testing frequency can be increased to one year for patients who have rapidly progressing disease, those who are receiving or discontinuing medical therapy to restore bone mass or have additional risk factors. Template code: [id number] Interpreted by: Flaco Salgado DO Signed by: Flaco Salgado DO 12/17/21 Final result Normal [facility] XR KNEE RIGHT (3 VIEWS)on XR KNEE RIGHT (3 VIEWS) EXAMINATION: THREE XRAY VIEWS OF THE RIGHT KNEE 12/08/2021 2:35 pm COMPARISON: None. HISTORY: ORDERING SYSTEM PROVIDED HISTORY: Acute pain of right knee FINDINGS: Knee alignment anatomic. No acute osseous abnormality. Generalized osteopenia. No significant joint effusion. Joint spaces preserved. Soft tissues unremarkable. IMPRESSION: No acute findings. Interpreted by: Flaco Salgado DO Signed by: Flaco Salgado DO 12/08/21 Final result Normal [facility] No acute findings. [facility] EXAMINATION: THREE XRAY VIEWS OF THE RIGHT KNEE 12/08/2021 2:35 pm COMPARISON: None. HISTORY: ORDERING SYSTEM PROVIDED HISTORY: Acute pain of right knee FINDINGS: Knee alignment anatomic. No acute osseous abnormality. Generalized osteopenia. No significant joint effusion. Joint spaces preserved. Soft tissues unremarkable. [facility] Flaco Salgado DO - 12/08/2021 EXAMINATION: THREE XRAY VIEWS OF THE RIGHT KNEE 12/08/2021 2:35 pm COMPARISON: None. HISTORY: ORDERING SYSTEM PROVIDED HISTORY: Acute pain of right knee FINDINGS: Knee alignment anatomic. No acute osseous abnormality. Generalized osteopenia. No significant joint effusion. Joint spaces preserved. Soft tissues unremarkable. IMPRESSION: No acute findings. [facility] Phone: Radiology Study observation (narrative) [facility] Phone: XR KNEE RIGHT (3 VIEWS)Order ed By: Flaco Salgado on 12-08-2021 [facility] Phone: [facility] DIGITAL SCREEN SELF REFERRAL W OR WO CAD BILATERALon 10-16-2021 No mammographic evidence of malignancy BIRADS: BIRADS - CATEGORY 1 Negative. Normal interval follow-up is recommended in 12 months. OVERALL ASSESSMENT - NEGATIVE A letter of notification will be sent to the patient regarding the results. The [employer] recommends annual mammograms for women 40 years and older. [facility] EXAMINATION: SCREENING DIGITAL BILATERAL MAMMOGRAM WITH TOMOSYNTHESIS, 10/16/2021 TECHNIQUE: Screening mammography of the bilateral breasts was performed with tomosynthesis. 2D standard and 3D tomosynthesis combination imaging performed through both breasts in the MLO and CC projection. Computer aided detection was utilized in the interpretation of this exam. COMPARISON: December 12, 2019 and December 07, 2017 HISTORY: Screening. FINDINGS: Breasts are composed of scattered fibroglandular density. There is no dominant mass, architectural distortion or concerning grouping of microcalcification in either breast. [facility] Radiology Study observation (narrative) [facility] Phone: [facility] DIGITAL SCREEN SELF REFERRAL W OR WO CAD BILATERALOrdered By: Flaco Salgado on 10-16-2021 [facility] Phone: CT CHEST WO CONon 09-04-2021 CT CHEST WO CON EXAMINATION: CT CHES T WO CON HISTORY: Pleuritic pain , trauma COMPARISON: No relevant comparison available. TECHNIQUE: Multi-planar CT images were created with IV contrast. Axial, Coronal, and Sagittal images. Dose reduction techniques were achieved by using automated exposure control and/or adjustment of mA and/or kV according to patient size and/or use of iterative reconstruction technique. FINDINGS: LUNGS: Mild diffuse centrilobular emphysema. Spiculated nodule identified in the right upper lobe measuring 7 x 4.5 mm axial image 43. Linear opacities in the lung bases, atelectasis. PLEURA: 1 cm right pleural effusion VASCULATURE: No abnormality. NATALIIA: Calcified left hilar lymph nodes MEDIASTINUM: No mass or adenopathy. CARDIAC: No enlargement or pericardial thickening. Moderate coronary atherosclerosis AORTA: Moderate atherosclerosis CHEST WALL: No mass or axillary adenopathy. BONES: No bone lesion or fracture. LIMITED ABDOMEN: No suspicious findings. Limited images of the upper abdomen. OTHER: Negative. IMPRESSION: 6 mm spiculated right upper lobe nodule. This is located detectability limits for PET scan. 3 month follow-up is recommended Small right pleural effusion No acute fracture Electronically authenticated by: PHANI FRANCIS Date: 2021-09-04 07:26 Normal [facility] CT SHOULDER RT WO CONon 08-22 CT SHOULDER RT WO CON EXAMINATION: CT SHOULDER RT WO CON HISTORY: Acquired deformity of right upper arm COMPARISON: No relevant comparison available. TECHNIQUE: Multi-planar CT images were created without IV contrast. Dose reduction techniques were achieved by using automated exposure control and/or adjustment of mA and/or kV according to patient size and/or use of iterative reconstruction technique. FINDINGS: BONES: No acute fracture or dislocation. Severe osteoarthritis of the glenohumeral joint with [id number] articulation. Marginal osteophyte formation. High riding humeral head with remodeling of the acromial process consistent with a chronic rotator cuff tear. SOFT TISSUES: Negative. No visible soft tissue swelling. EFFUSION: None visible. OTHER: Moderate diffuse centrilobular emphysema IMPRESSION: Severe glenohumeral osteoarthritis with likely chronic rotator cuff tear/rupture No acute fracture or dislocation Electronically authenticated by: PHANI FRANCIS Date: 2021-09-03 19:58 Normal [facility] XR RIBS RIGHT (2 VIEWS)on No acute findings. [facility] EXAMINATION: XRAY VIEWS OF THE RIGHT RIBS 08/26/2021 3:00 pm COMPARISON: July 15, 2020 HISTORY: ORDERING SYSTEM PROVIDED HISTORY: Pain in rib FINDINGS: Lungs are clear. No pneumothorax or pleural effusion. Cardiac and mediastinal silhouettes unremarkable. Generalized osteopenia. No acute fracture. Specifically, no acute right rib fracture. [facility] Flaco Salgado DO - 08/27/2021 EXAMINATION: XRAY VIEWS OF THE RIGHT RIBS 08/26/2021 3:00 pm COMPARISON: July 15, 2020 HISTORY: ORDERING SYSTEM PROVIDED HISTORY: Pain in rib FINDINGS: Lungs are clear. No pneumothorax or pleural effusion. Cardiac and mediastinal silhouettes unremarkable. Generalized osteopenia. No acute fracture. Specifically, no acute right rib fracture. IMPRESSION: No acute findings. [facility] Phone: XR RIBS RIGHT (2 VIEWS)Order ed By: Flaco Salgado on 08-27-2021 [employer] Phone: XR SHOULDER RIGHT (MIN 2 VIE WS)on 08-27-2021 Marked degenerative and or post traumatic/postsurgica l changes in the right shoulder. No evidence of significant change when compared to the study of July 15, 2020. [facility] EXAMINATION: THREE XRAY VIEWS OF THE RIGHT SHOULDER 08/26/2021 3:00 pm COMPARISON: MRI of the shoulder January 27, 2007. Plain film images of the right shoulder July 15, 2020. HISTORY: ORDERING SYSTEM PROVIDED HISTORY: Right shoulder pain, unspecified chronicity FINDINGS: There are marked degenerative changes in the right shoulder. Again apparent is absence of the distal right clavicle. There is deformity of the humeral head and the acromion there is marked narrowing of the glenohumeral joint space and the space between the humeral head and the undersurface of the acromion no definite acute process is identified. Suggestion of some calcifications superolateral to the humeral head may represent calcific tendinitis/tendinosis . [facility] Blanquita Richmond MD - 08/27/2021 EXAMINATION: THREE XRAY VIEWS OF THE RIGHT SHOULDER 08/26/2021 3:00 pm COMPARISON: MRI of the shoulder January 27, 2007. Plain film images of the right shoulder July 15, 2020. HISTORY: ORDERING SYSTEM PROVIDED HISTORY: Right shoulder pain, unspecified chronicity FINDINGS: There are marked degenerative changes in the right shoulder. Again apparent is absence of the distal right clavicle. There is deformity of the humeral head and the acromion there is marked narrowing of the glenohumeral joint space and the space between the humeral head and the undersurface of the acromion no definite acute process is identified. Suggestion of some calcifications superolateral to the humeral head may represent calcific tendinitis/tendinosis . IMPRESSION: Marked degenerative and or post traumatic/postsurgica l changes in the right shoulder. No evidence of significant change when compared to the study of July 15, 2020. [facility] Phone: XR SHOULDER RIGHT (MIN 2 VIE WS)Ordered By: Blanquita Richmond on 08-27-2021 [facility] Phone: XR RIBS RIGHT (2 VIEWS)on Radiology Study observation (narrative) [facility] Phone: XR SHOULDER RIGHT (MIN 2 VIE WS)on 08-26-2021 Radiology Study observation (narrative) [facility] Phone: Calciumon 06-26-2021 Calcium [Mass/Vol] 9.6 mg/dL Normal 8.6-10.2 [employer] [place] [place] [employer] Comment on above: Performed By: #### LISA JIMENEZ #### [facility] [address], [place] [id number] Creatinineon 06-26-2021 Creatinine [Mass/Vol] 0.7 mg/dL Normal 0.6-1.4 [facility] Comment on above: Performed By: #### LISA JIMENEZ #### [facility] [address], [place] [id number] eGFRAA 95 mL/min/1.73m2 Normal >60 [facility] Comment on above: Performed By: ###LISA ALTAMIRANO #### [facility] [address], [place] [id number] eGFRNAA 78 mL/min/1.73m2 Normal >60 [facility] Specialist Comment on above: Performed By: #### LISA JIMENEZ #### [facility] [address], [place] [id number] CNOVon 06-19-2021 CNOV Office Visit (NRESAV ) STEPHANIE SPEAR ([id number]) 1945 F Date Time Provider Department 06/19/21 4:00 PM SHAYNE CONDE NRESAV During your visit today, we recorded the following information about you: Pulse Blood pressure 69/minute 157/75 Shayne Conde, 06/27/2021 4:48 PM Signed [facility] - NEW PATIENT EVALUATION Sydnee Tamez MD [address] [facility] [id number] Stephanie Spear is a 76 year old female who is self referred for evaluation of tremor. She is seen with her . History of Present Illness: The patient reports the development of tremor in both hands a couple of years ago. It has recently started to involve her legs. The tremor comes out when she tries to eat - food falls off fork. She will eat with her hands and fingers. Soup will shake off the spoon. The handwriting is all over the place . No smallness reported. She was given primidone(Mysoline) 50mg BID without benefit. No ADRs are reported. No family history of tremor. No use of EtOH is reported. The patient denies any recent illness or infections. The patient denies any hospitalization since the last office visit. The patient denies any changes to their medical history or new diagnoses. The patient denies any surgery/procedure since their last visit. The patient denies any headache, chest pain, palpitations, shortness of breath or abdominal pain. The patient denies any seizures, numbness/tingling, lightheadedness or vertiginous symptoms. The patient denies any recent suicidal ideation or attempts to harm themselves or others. The patient denies any new pain. In addition, the following activities of daily living that may be affected by tremors were evaluated: Speaking: Yes: Feeding: Yes: Bringing Liquids to Mouth: Yes: sometimes - she will use a straw Hygiene: Yes: Dressing: Yes: Writing: Yes: Working: No Depression: yes - takes Zoloft Anxiety: no Finally, the following table shows the patient's overall global physical and mental health using the PROMIS scale: *PROMIS-10 scoring scale: mean = 50, over 50 is above average, under 50 is below average Movement Disorders Medications Schedule: AM bedtime Primidone(Mysoline) 50mg 1 1 Review of Systems Respiratory: Positive for shortness of breath. Negative for difficulty breathing. Cardiovascular: Negative for chest pain. Gastrointestinal: Negative for abdominal pain. All other systems reviewed and are negative. ALLERGIES Allergen Reactions - Penicillins Rash Current Outpatient Medications Medication Sig - omeprazole (PRILOSEC) 20 mg capsule Take 20 mg by mouth once daily. - umeclidinium-vilanter ol (ANORO ELLIPTA) 62.5-25 mcg/actuation inhaler Inhale 1 Puff as instructed once daily. - melatonin 1 mg tablet Take 3 mg by mouth daily at bedtime. - denosumab (PROLIA) 60 mg/mL Inject 60 mg subcutaneously one time only. Twice yearly - gabapentin (NEURONTIN) 100 mg capsule Take 100 mg by mouth twice daily. - atorvastatin (LIPITOR) 10 mg tablet Take 10 mg by mouth once daily. - potassium chloride (MICRO-K ORAL) Take 20 mEq by mouth once daily. - cholecalciferol (VITAMIN D-3) 5,000 unit tab Take 5,000 Units by mouth once daily. - MAGNESIUM CHLORIDE ORAL Take by mouth once daily. - amLODIPine (NORVASC) 10 mg tablet Take 10 mg by mouth once daily. - sertraline (ZOLOFT) 25 mg tablet Take 50 mg by mouth once daily. - fludrocortisone oral liquid 0.1 mg/mL (CPD) Take by mouth once daily. - acetaminophen (TYLENOL EXTRA STRENGTH) 500 mg tablet Take 500 mg by mouth every 8 hours as needed. - albuterol HFA (PROVENTIL HFA) 90 mcg/actuation inhaler Inhale 2 Puffs as instructed every 6 hours as needed for wheezing/shortness of breath. - primidone (MYSOLINE) 50 mg tablet Take 4 tablets by mouth daily at bedtime. No current facility-administered medications for this visit. Past Medical and Surgical History: has a past medical history of Chronic obstructive pulmonary disease (COPD) (HCC) and Other emphysema (HCC). has a past surgical history that includes hysterectomy hx; past surgical history of (Right); and back surgery hx (12/2018). In addition, the patient denies a history of exposure to dopamine receptor blocking agents, denies history of encephalitis/meningit is and denies significant exposure to insecticides/ pesticides/ heavy metals/ carbon monoxide Social History Tobacco Use - Smoking status: Not on file - Smokeless tobacco: Not on file Substance Use Topics - Alcohol use: Not on file - Drug use: Not on file Family History: family history is not on file. In addition, the patient denies any family history of PD/parkinsonism, tremor, other involuntary movement disorders. Objective: Vital Signs: BP 157/75 (BP Site: Left Arm, BP Position: Sitting, BP Cuff Size: Regular Adult) Pulse 69 General Medic (more content not included)... Normal [facility] CBC with Auto Differentialon 05-20-2021 Absolute Eos # 0.35 [facility] th Absolute Immature Granulocyte 0.04 [facility] Absolute Lymph # 2.26 [facility] He alth Absolute Ness # 0.63 [facility] Basophils (Bld) [#/Vol] 0.08 10*3/uL [facility] Basophils/100 WBC (Bld) 1 % 0 - 2 % [facility] Eosinophils/100 WBC (Bld) 3 % 1 - 4 % [facility] Hematocrit (Bld) [Volume fraction] 39.4 % 36.3 - 47.1 % [facility] Hemoglobin.gastrointes tinal spec 1 Ql (Stl) 12.7 g/dL 11.9 - 15.1 g/dL [facility] Immature granulocytes/100 WBC (Bld) 0 % 0 [facility] Interpretation and review of laboratory results Abnormal [facility] Lymphocytes/100 WBC (Bld) 19 % Low 24 - 43 % [facility] MCH (RBC) [Entitic mass] 30.9 pg 25.2 - 33.5 pg [facility] MCHC (RBC) [Mass/Vol] 32.2 g/dL 28.4 - 34.8 g/dL [facility] MCV (RBC) [Entitic vol] 95.9 fL 82.6 - 102.9 fL [facility] Monocytes/100 WBC (Bld) 5 % 3 - 12 % [facility] NRBC Automated 0.0 0.0 per 100 WBC [facility] Platelet distribution width (Bld) [Ratio] 13.9 % 11.8 - 14.4 % [facility] Platelet mean volume (Bld) [Entitic vol] 10.7 fL 8.1 - 13.5 fL [facility] Platelets (Bld) [#/Vol] 271 10*3/uL [facility] RBC (Bld) [#/Vol] 4.11 10*6/uL 3.95 - 5.1 1 m/uL [facility] Segmented neutrophils/100 WBC (Bld) 72 % High 36 - 65 % [facility] Segs Absolute 8.72 High [facility] WBC (Bld) [#/Vol] 12.1 10*3/uL High [facility] 6 Minute Walk Teston 022 Distance Walked ft [facility] Work Phone: [place] [phone] Patient Name: Stephanie Spear 1945 A home oxygen evaluation has been completed. Patient arrived on room air with a walker at this time. SpO2 was 97 % on room air at rest. Patient was walked for 6 minutes. SpO2 was 98 % on room air during walking. Patient does not qualify for home oxygen at this time. [facility] Work Phone: [facility] Work Phone: Calciumon 04-23-2021 Calcium [Mass/Vol] 9.3 mg/dL Normal 8.6-10.2 [employer] [place] [employer] Comment on above: Performed By: #### CARLOTA Fuller CREIsaura #### [facility] [address], [place] [id number] Creatinineon 04-23-2021 Creatinine [Mass/Vol] 0.7 mg/dL Normal 0.6-1.4 [facility] Comment on above: Performed By: #### C Isaura VITD CREA #### [facility] [address], [place] [id number] eGFRAA 96 mL/min/1.73m2 Normal >60 [facility] Specialist Comment on above: Performed By: #### C Isarua VITD CREA #### [facility] [address], [place] [id number] eGFRNAA 80 mL/min/1.73m2 Normal >60 [facility] [employer] Comment on above: Performed By: #### C CARLOTA Delarosa CREA #### [facility] [address], [place] [id number] Vitamin D 25-OHon 04-23-2021 VIT D 25 OH 41 ng/ml Normal >29 [facility] [employer] Comment on above: Result Comment: Sury min D Status Deficiency <20 ng/mL Insufficiency 20-29 ng/mL Optimal 30-100 ng/mL Possible Toxicity >=150 ng/mL Performed By: #### C LISA BENJAMIN #### [facility] [address] [place], [place] [id number] PULMONARY FUNCTION (450)on 0 04-04-2021 PULMONARY FUNCTION (450) [facility] [address] [place] [address] PULMONARY FUNCTION PATIENT NAME: STEPHANIE SPEAR : 1945 MED REC NO: [id number] ROOM: ACCOUNT NO: [id number] ADMIT DATE: 04/03/2021 PROVIDER: Corey Balderas DATE OF PROCEDURE: 04/03/2021 PULMONARY FUNCTION TESTS WITH BRONCHODILATOR AND DLCO ATTENDING PHYSICIAN: Faith Carias MD PRIMARY CARE PROVIDER: Sydnee Tamez, Certified Nurse Practitioner. REASON FOR TEST: Emphysema. SUMMARY: 1. The respiratory therapist reports the patient's effort as being good. 2. The forced vital capacity is decreased at 78% of predicted. 3. The forced exhaled volume in 1 second is decreased at 68% of predicted. 4. The forced exhaled volume in 1 second/forced vital capacity is at 86% of predicted. 5. The forced exhaled flow at 25-75% is decreased at 44% of predicted. 6. A significant improvement was seen in the forced vital capacity, forced exhaled volume in 1 second, and forced exhaled flow at 25-75% after one time dose of bronchodilator. 7. Total lung capacity is normal at 93% of predicted. 8. Residual volume/total lung capacity is increased at 122% of predicted. 9. The DLCO is decreased at 52% of predicted, the DLCO/VA is decreased at 68% of predicted. IMPRESSION: 1. Pulmonary function test results suggest a moderate obstructive pulmonary disease (emphysema). 2. A significant improvement was seen in the forced vital capacity, forced exhaled volume in 1 second, and forced exhaled flow at 25-75% to suggest a significant reversible component (asthma). 3. An increased residual volume/total lung capacity suggests air trapping. 4. The DLCO is moderately decreased. COREY BALDERAS BB/[id number]_I Doc#: [id number] CC: Normal [facility] [place] [id number] 04-03-2021 SARS-CoV-2 (COVID-19) RNA DANIEL+probe Ql (Unsp spec) Not detected Normal NOTDET [facility] [place] Comment on above: Result Comment: Rapid NAAT: The specimen is NEGATIVE for SARS-CoV-2, the novel coronavirus associated with COVID-19. The ID NOW COVID-19 assay is designed to detect the virus that causes COVID-19 in patients with signs and symptoms of infection who are suspected of COVID-19. An individual without symptoms of COVID-19 and who is not shedding SARS-CoV-2 virus would expect to have a negative (not detected) result in this assay. Negative results should be treated as presumptive and, if inconsistent with clinical signs and symptoms or necessary for patient management, should be tested with an alternative molecular assay. Negative results do not preclude SARS-CoV-2 infection and should not be used as the sole basis for patient management decisions. Fact sheet for Healthcare Providers: https://www.fda.gov/media/671329/download Fact sheet for Patients: https://www.fda.gov/media/101204/download Methodology: Isothermal Nucleic Acid Amplification Performed By: #### C OVRB #### [facility] [address] [place] [address] [employer] Finisher: Phani Patel MD Urinalysison 03-12-2021 Bilirubin Urine Negative NEGATIVE [facility] Color, UA Yellow Yellow [facility] Glucose, Ur Negative NEGATIVE [facility] Ketones Ql (U) Negative NEGATIVE [facility] Leukocyte esterase Test strip Ql (U) Negative NEGATIVE [facility] Nitrite, Urine Negative NEGATIVE [facility] pH, UA 7.0 [facility] Protein, UA Negative NEGATIVE [facility] Specific [place], UA 1.010 [facility] Turbidity UA Clear Clear [facility] Urinalysis Comments NOT REPORTED [facility] Urine Hgb Negative NEGATIVE [facility] Urobilinogen, Urine Normal Normal [facility] Complete Blood Count with Au to Diffon 02-20-2021 Basophils (Bld) [#/Vol] 0.05 10*3/uL Normal 0.00-0.20 [facility] [employer] Comment on above: Performed By: #### C BCAD, VITD, FT4, TSH, CMP, LIPD #### [facility] [address], [place] [id number] Basophils/100 WBC (Bld) 0.6 % Normal [facility] [employer] Comment on above: Performed By: #### C BCAD, VITD, FT4, TSH, CMP, LIPD #### [facility] [address], [place] [id number] Eosinophils (Bld) [#/Vol] 0.27 10*3/uL Normal 0.02-0.50 [facility] [employer] Comment on above: Performed By: #### C BCAD, VITD, FT4, TSH, CMP, LIPD #### [facility] [address], [place] [id number] Eosinophils/100 WBC (Bld) 3.1 % Normal [facility] [employer] Comment on above: Performed By: #### C BCAD, VITD, FT4, TSH, CMP, LIPD #### [facility] [address], [place] [id number] Erythrocyte distribution width (RBC) [Ratio] 14.2 % Normal 11.0-15.0 [facility] [employer] Comment on above: Performed By: #### C BCAD, VITD, FT4, TSH, CMP, LIPD #### [facility] [address], [place] [id number] Hematocrit (Bld) [Volume fraction] 39.4 % Normal 35.0-47.0 [facility] [employer] Comment on above: Performed By: #### C BCAD, VITD, FT4, TSH, CMP, LIPD #### [facility] [address], [place] [id number] Hemoglobin (Bld) [Mass/Vol] 12.7 g/dL Normal 11.6-15.5 [facility] [employer] Comment on above: Performed By: #### C BCAD, VITD, FT4, TSH, CMP, LIPD #### [facility] [address], [place] [id number] Lymphocytes (Bld) [#/Vol] 2.0 10*3/uL Normal 0.9-3.9 [facility] Comment on above: Performed By: #### C BCAD, VITD, FT4, TSH, CMP, LIPD #### [facility] [address], [place] [id number] Lymphocytes/100 WBC (Bld) 22.1 % Normal [facility] Comment on above: Performed By: #### C BCAD, VITD, FT4, TSH, CMP, LIPD #### [facility] [address], [place] [id number] MCH (RBC) [Entitic mass] 29.6 pg Normal 27.0-33.0 [facility] Comment on above: Performed By: #### C BCAD, VITD, FT4, TSH, CMP, LIPD #### [facility] [address], [place] [id number] MCHC (RBC) [Mass/Vol] 32.2 g/dL Normal 32.0-36.0 [facility] Comment on above: Performed By: #### C BCAD, VITD, FT4, TSH, CMP, LIPD #### [facility] [address], [place] [id number] MCV (RBC) [Entitic vol] 92 fL Normal 80-100 [facility] Comment on above: Performed By: #### C BCAD, VITD, FT4, TSH, CMP, LIPD #### [facility] [address], [place] [id number] Monocytes (Bld) [#/Vol] 0.7 10*3/uL Normal 0.2-0.9 [facility] Comment on above: Performed By: #### C BCAD, VITD, FT4, TSH, CMP, LIPD #### [facility] [address], [place] [id number] Monocytes/100 WBC (Bld) 7.8 % Normal [facility] Comment on above: Performed By: #### C BCAD, VITD, FT4, TSH, CMP, LIPD #### [facility] [address], [place] [id number] Neutrophils (Bld) [#/Vol] 5.8 10*3/uL Normal 1.5-7.8 [facility] Specialist Comment on above: Performed By: #### C BCAD, VITD, FT4, TSH, CMP, LIPD #### [facility] [address], [place] [id number] Neutrophils/100 WBC (Bld) 66.2 % Normal [facility] Specialist Comment on above: Performed By: #### C BCAD, VITD, FT4, TSH, CMP, LIPD #### [facility] [address], [place] [id number] Platelet mean volume (Bld) [Entitic vol] 11.60 fL Normal 7.50-12.50 [facility] Comment on above: Performed By: #### C BCAD, VITD, FT4, TSH, CMP, LIPD #### [facility] [address], [place] [id number] Platelets (Bld) [#/Vol] 291 10*3/uL Normal 140-400 [facility] Specialist Comment on above: Performed By: #### C BCAD, VITD, FT4, TSH, CMP, LIPD #### [facility] [address], [place] [id number] RBC (Bld) [#/Vol] 4.29 10*6/uL Normal 3.90-5.20 [facility] Specialist Comment on above: Performed By: #### C BCAD, VITD, FT4, TSH, CMP, LIPD #### [facility] [address], [place] [id number] RDW-SD 47.6 fL Normal 37.0-50.0 [facility] Specialist Comment on above: Performed By: #### C BCAD, VITD, FT4, TSH, CMP, LIPD #### [facility] [address], [place] [id number] WBC (Bld) [#/Vol] 8.8 10*3/uL Normal 3.8-11.0 [place] [employer] [facility] Comment on above: Performed By: #### C BCAD, VITD, FT4, TSH, CMP, LIPD #### [facility] [address], [place] [id number] Comprehensive Metabolic Pane pro 02-20-2021 Albumin [Mass/Vol] 4.1 g/dL Normal 3.6-5.1 [place] [employer] [facility] Comment on above: Performed By: #### C BCAD, VITD, FT4, TSH, CMP, LIPD #### [facility] [address], [place] [id number] Albumin/Globulin [Mass ratio] 1.5 {ratio} Normal 1.0-2.5 [facility] [facility] Comment on above: Performed By: #### C BCAD, VITD, FT4, TSH, CMP, LIPD #### [facility] [address], [place] [id number] ALP [Catalytic activity/Vol] 74 U/L Normal 35-119 [facility] [facility] Comment on above: Performed By: #### C BCAD, VITD, FT4, TSH, CMP, LIPD #### [facility] [address], [place] [id number] ALT [Catalytic activity/Vol] 10 U/L Normal 6-33 [facility] [facility] Comment on above: Result Comment: 01/22 Female reference range changed. Performed By: #### C BCAD, VITD, FT4, TSH, CMP, LIPD #### [facility] [address], [place] [id number] Anion gap [Moles/Vol] 15 mmol/L Normal 12-20 [facility] Specialist Comment on above: Result Comment: Effe ctive 02/27/2019 reference range changed. Performed By: #### C BCAD, VITD, FT4, TSH, CMP, LIPD #### [facility] [address], [place] [id number] AST [Catalytic activity/Vol] 18 U/L Normal 9-34 [facility] Comment on above: Performed By: #### C BCAD, VITD, FT4, TSH, CMP, LIPD #### [facility] [address], [place] [id number] Bilirubin [Mass/Vol] 0.36 mg/dL Normal 0.30-1.20 [facility] Comment on above: Performed By: #### C BCAD, VITD, FT4, TSH, CMP, LIPD #### [facility] [address], [place] [id number] BUN/CREA 17 Ratio Normal 6-22 [facility] Comment on above: Performed By: #### C BCAD, VITD, FT4, TSH, CMP, LIPD #### [facility] [address], [place] [id number] Calcium [Mass/Vol] 9.2 mg/dL Normal 8.6-10.2 [facility] Comment on above: Performed By: #### C BCAD, VITD, FT4, TSH, CMP, LIPD #### [facility] [address], [place] [id number] Chloride [Moles/Vol] 102 mmol/L Normal 98-107 [facility] Comment on above: Performed By: #### C BCAD, VITD, FT4, TSH, CMP, LIPD #### [facility] [address], [place] [id number] CO2 [Moles/Vol] 25 mmol/L Normal 20-31 [facility] Comment on above: Performed By: #### C BCAD, VITD, FT4, TSH, CMP, LIPD #### [facility] [address], [place] [id number] Creatinine [Mass/Vol] 0.7 mg/dL Normal 0.6-1.4 [facility] Comment on above: Performed By: #### C BCAD, VITD, FT4, TSH, CMP, LIPD #### [facility] [address], [place] [id number] eGFRAA 103 mL/min/1.73m2 Normal >60 [facility] Comment on above: Performed By: #### C BCAD, VITD, FT4, TSH, CMP, LIPD #### [facility] [address], [place] [id number] eGFRNAA 85 mL/min/1.73m2 Normal >60 [facility] [employer] Comment on above: Performed By: #### C BCAD, VITD, FT4, TSH, CMP, LIPD #### [facility] [address], [place] [id number] Globulin (S) [Mass/Vol] 2.7 g/dL Normal 1.9-3.7 [facility] [employer] Comment on above: Performed By: #### C BCAD, VITD, FT4, TSH, CMP, LIPD #### [facility] [address], [place] [id number] Glucose [Mass/Vol] 80 mg/dL Normal 65-99 [place] [employer] [facility] Comment on above: Result Comment: For FASTING Glucose --- ADA reference ranges: Normal 65-99 mg/dl Prediabetes 100-125 Diabetes >/= 126 Performed By: #### C BCAD, VITD, FT4, TSH, CMP, LIPD #### [facility] [address], [place] [id number] Potassium [Moles/Vol] 3.8 mmol/L Normal 3.5-5.5 [facility] Comment on above: Performed By: #### C BCAD, VITD, FT4, TSH, CMP, LIPD #### [facility] [address], [place] [id number] Protein [Mass/Vol] 6.8 g/dL Normal 6.1-8.1 [place] [employer] [facility] Comment on above: Performed By: #### C BCAD, VITD, FT4, TSH, CMP, LIPD #### [facility] [address], [place] [id number] Sodium [Moles/Vol] 138 mmol/L Normal 135-146 [place] [employer] [facility] Comment on above: Performed By: #### C BCAD, VITD, FT4, TSH, CMP, LIPD #### [facility] [address], [place] [id number] Urea nitrogen [Mass/Vol] 11 mg/dL Normal 7-25 [facility] [facility] Comment on above: Performed By: #### C BCAD, VITD, FT4, TSH, CMP, LIPD #### [facility] [address], [place] [id number] Free T4on 02-20-2021 Free T4 [Mass/Vol] 1.28 ng/dL Normal 0.80-1.80 [facility] Comment on above: Performed By: #### C BCAD, VITD, FT4, TSH, CMP, LIPD #### [facility] [address], [place] [id number] Lipid Panelon 02-20-2021 Cholesterol [Mass/Vol] 164 mg/dL Normal 125-200 [facility] on above: Result Comment: Low risk < 200mg/dL Borderline risk 201-239 mg/dl High risk > or equal to 240 Performed By: #### C BCAD, VITD, FT4, TSH, CMP, LIPD #### [facility] [address], [place] [id number] Cholesterol in HDL [Mass/Vol] 57 mg/dL Normal >40 [facility] Specialist Comment on above: Result Comment: High Cardiovascular Risk HDL <40 mg/dL Low Cardiovascular Risk HDL > or equal to 60 mg/dl Performed By: #### C BCAD, VITD, FT4, TSH, CMP, LIPD #### [facility] [address], [place] [id number] Cholesterol in LDL [Mass/Vol] 92 mg/dL Normal [facility] Comment on above: Result Comment: LDL ATP III CLASSIFICATION LDL less than 100 mg/dl Optimal LDL 100-129 mg/dl Near or above optimal LDL 130-159 Borderline high LDL 160-189 High LDL greater than 189 mg/dl Very High Performed By: #### C BCAD, VITD, FT4, TSH, CMP, LIPD #### [facility] [address], [place] [id number] Cholesterol in VLDL [Mass/Vol] 15 mg/dL Normal [facility] Comment on above: Performed By: #### C BCAD, VITD, FT4, TSH, CMP, LIPD #### [facility] [address], [place] [id number] Cholesterol.total/Chol esterol in HDL [Mass ratio] 3 {ratio} Normal [place] [employer] [facility] Comment on above: Performed By: #### C BCAD, VITD, FT4, TSH, CMP, LIPD #### [facility] [address], [place] [id number] Triglyceride [Mass/Vol] 75 mg/dL Normal 30-150 [facility] [facility] Comment on above: Result Comment: TRIG ATPIII CLASSIFICATIONS TRIG less than 150 mg/dl Normal TRIG 150-199 mg/dl Borderline High TRIG 200-500 mg/dl High TRIG greather than 500 mg/dl Very High Performed By: #### C BCAD, VITD, FT4, TSH, CMP, LIPD #### [facility] [address], [place] [id number] Q - CULTURE,URINE,ROUTINEon 02-20-2021 CULTURE, URINE, ROUTINE SEE NOTE Abnormal [facility] [facility] Comment on above: Order Comment: [facility] performed at: [facility], [facility], [address] [place] [address], [address] [place] [address], [phone], Gluing Crew Leader: Boby Diaz MDQuest Collection Date/Time: [id number] Results Received Date/Time: [id number] Reported Date/Time: Result Comment: CULT URE, URINE, ROUTINE Micro Number: [id number] Test Status: Final Specimen Source: Urine Specimen Quality: Adequate Result: Greater than 100,000 CFU/mL of Escherichia coli E.coli INT GIN AMOX/CLAVULANATE S <=2 AMPICILLIN S 4 AMP/SULBACTAM S <=2 CEFAZOLIN NR <=4 2 CEFEPIME S <=1 CEFTRIAXONE S <=1 CIPROFLOXACIN S <=0.25 ERTAPENEM S <=0.5 GENTAMICIN S <=1 IMIPENEM S <=0.25 LEVOFLOXACIN S <=0.12 NITROFURANTOIN S <=16 PIP/TAZOBACTAM S <=4 TOBRAMYCIN S <=1 TRIMETHOPRIM/SULFA S <=20 S=Susceptible I=Intermediate R=Resistant * = Not Tested NR = Not Reported NN = See Therapy Comments THERAPY COMMENTS Note 1: For infections other than uncomplicated UTI caused by E. coli, K. pneumoniae or P. mirabilis: Cefazolin is resistant if GIN > or = 8 mcg/mL. (Distinguishing susceptible versus intermediate for isolates with GIN < or = 4 mcg/mL requires additional testing.) Note 2: For uncomplicated UTI caused by E. coli, K. pneumoniae or P. mirabilis: Cefazolin is susceptible if GIN <32 mcg/mL and predicts susceptible to the oral agents cefaclor, cefdinir, cefpodoxime, cefprozil, cefuroxime, cephalexin and loracarbef. Performed By: #### LISA JIMENEZ #### [facility] [address], [place] [id number] Q - UR CULT [id number] 2020 REFLEXIVE URINE CULTURE SEE NOTE Normal [facility] Specialist Comment on above: Order Comment: [facility] performed at: [facility], [address] [facility], [address] [place] [address], [phone], Gluing Crew Leader: Boby Ovalle Collection Date/Time: [id number] Results Received Date/Time: [id number] Reported Date/Time: Result Comment: CULT URE INDICATED - RESULTS TO FOLLOW Performed By: #### LISA JIMENEZ #### [facility] [address], [place] [id number] Q - URINALYSIS,COMPLETE,WITH REFLEX TO CULTUREon 02-20-2021 Appearance (U) CLEAR Normal CLEAR [place] Specialist Comment on above: Order Comment: [facility] performed at: [facility], [address] , [address] [place] [address], [phone], Gluing Crew Leader: Boby Ovalle Collection Date/Time: [id number] Results Received Date/Time: [id number] Reported Date/Time: Performed By: #### LISA JIMENEZ #### [facility] [address], [place] [id number] BACTERIA FEW Abnormal NONE SEEN [facility] [facility] Comment on above: Order Comment: [facility] performed at: [facility], [facility], [address] , [address] [place] [address], [phone], Gluing Crew Leader: Boby Ovalle Collection Date/Time: [id number] Results Received Date/Time: [id number] Reported Date/Time: Performed By: #### LISA JIMENEZ #### [facility] [address], [place] [id number] Bilirubin Ql (U) Negative Normal NEGATIVE [facility] [facility] Comment on above: Order Comment: [facility] performed at: [facility], [facility], [address] [facility], [address] [place] [address], [address] [place] [address], Gluing Crew Leader: Boby Ovalle Collection Date/Time: [id number] Results Received Date/Time: [id number] Reported Date/Time: Performed By: #### Susannah BENJAMIN, [place] #### [facility] [address], [place] [id number] Color (U) YELLOW Normal YELLOW [facility] [facility] Comment on above: Order Comment: [facility] performed at: [facility], [address] [facility], [address] [place] [address], [phone], Gluing Crew Leader: Boby Ovalle Collection Date/Time: [id number] Results Received Date/Time: [id number] Reported Date/Time: Performed By: #### Susannah BENJAMIN [place] #### [facility] [address], [place] [id number] Glucose Ql (U) Negative Normal NEGATIVE [facility] [employer] Operator Comment on above: Order Comment: [facility] performed at: [facility], [address], [address] [place] [address], [phone], Gluing Crew Leader: Boby Ovalle Collection Date/Time: [id number] Results Received Date/Time: [id number] Reported Date/Time: Performed By: #### LISA JIMENEZ #### [facility] [address], [place] [id number] HYALINE CAST NONE SEEN Normal NONE SEEN [facility] [employer] [facility] Comment on above: Order Comment: [facility] performed at: [facility], [facility], [address] [place] [address], [address] [place] [address], [address] [place] [address], Gluing Crew Leader: Boby Diaz MDQuest Collection Date/Time: [id number] Results Received Date/Time: [id number] Reported Date/Time: Performed By: #### LISA JIMENEZ #### [facility] [address], [place] [id number] Ketones Ql (U) Negative Normal NEGATIVE [facility] [facility] Comment on above: Order Comment: [facility] performed at: [facility], [facility], [address] [place] [address], [address] [place] [address], [address] [place] [address], Gluing Crew Leader: Boby Diaz MDQuest Collection Date/Time: [id number] Results Received Date/Time: [id number] Reported Date/Time: Performed By: #### LISA JIMENEZ #### [facility] [address], [place] [id number] Leukocyte esterase Test strip Ql (U) 1+ Abnormal NEGATIVE [facility] Specialist Comment on above: Order Comment: [facility] performed at: [facility], [facility], [address] [place] [address], [address] [place] [address], [address] [place] [address], Gluing Crew Leader: Boby Ovalle Collection Date/Time: [id number] Results Received Date/Time: [id number] Reported Date/Time: Performed By: #### LISA JIMENEZ #### [facility] [address], [place] [id number] Nitrite Ql (U) Negative Normal NEGATIVE [facility] [facility] Comment on above: Order Comment: [facility] performed at: [facility], [facility], [address], [address] [place] [address], [phone], Gluing Crew Leader: Boby Ovalle Collection Date/Time: [id number] Results Received Date/Time: [id number] Reported Date/Time: Performed By: #### Susannah BENJAMIN [place] #### [facility] [address], [place] [id number] OCCULT BLOOD TRACE Abnormal NEGATIVE [facility] [employer] [facility] Comment on above: Order Comment: [facility] performed at: [facility], [facility], [address] , [address] [place] [address], [phone], Gluing Crew Leader: Boby Ovalle Collection Date/Time: [id number] Results Received Date/Time: [id number] Reported Date/Time: Performed By: #### Susannah BENJAM[place], [place] #### [facility] [address], [place] [id number] pH (U) 7.5 [pH] Normal 5.0-8.0 [facility] [employer] [facility] Comment on above: Order Comment: [facility] performed at: [facility], [facility], [address], [address] [place] [address], [address], Gluing Crew Leader: Boby Ovalle Collection Date/Time: [id number] Results Received Date/Time: [id number] Reported Date/Time: Performed By: #### Susannah BENJAMIN, [place] #### [facility] [address], [place] [id number] Protein Ql (U) Negative Normal NEGATIVE [facility] [facility] Comment on above: Order Comment: [facility] performed at: [facility], [facility], [address], [address] [place] [address], [address], Gluing Crew Leader: Boby Ovalle Collection Date/Time: [id number] Results Received Date/Time: [id number] Reported Date/Time: Performed By: #### LISA IJMENEZ #### [facility] [address], [place] [id number] RBC NONE SEEN Normal < OR = 2 [facility] Operator Comment on above: Order Comment: [facility] performed at: [facility], [facility], [address] [facility], [address] [place] [address], [address] [place] [address], Gluing Crew Leader: Boby Ovalle Collection Date/Time: [id number] Results Received Date/Time: [id number] Reported Date/Time: Performed By: #### LISA JIMENEZ #### [facility] [address], [place] [id number] Specific gravity (U) [Rel density] 1.007 Normal 1.001-1.035 [facility] Operator Comment on above: Order Comment: [facility] performed at: [facility], [facility], [address] [facility], [address] [place] [address], [address] [place] [address], Gluing Crew Leader: Boby Ovalle Collection Date/Time: [id number] Results Received Date/Time: [id number] Reported Date/Time: Performed By: #### LISA JIMENEZ #### [facility] [address], [place] [id number] SQUAMOUS EPITHELIAL CELLS 0-5 Normal < OR = 5 [facility] Operator Comment on above: Order Comment: [facility] performed at: [facility], [facility], [address] [facility], [address] [place] [address], [address] [place] [address], Gluing Crew Leader: Boby Ovalle Collection Date/Time: [id number] Results Received Date/Time: [id number] Reported Date/Time: Performed By: #### LISA JIMENEZ #### [facility] [address], [place] [id number] WBC 0-5 Normal < OR = 5 [facility] [facility] Operator Comment on above: Order Comment: [facility] performed at: [facility], [facility], [address], [address] [place], [address], Gluing Crew Leader: Boby Diaz MDQuest Collection Date/Time: [id number] Results Received Date/Time: [id number] Reported Date/Time: Performed By: #### C SOURAV, [place] #### [facility] [address], [place] [id number] TSHon 02-20-2021 TSH 1.650 uIU/mL Normal 0.400-4.500 [facility] [facility] Operator Comment on above: Performed By: #### C BCAD, VITD, FT4, TSH, CMP, LIPD #### [facility] [address], [place] [id number] Vitamin D 25-OHon 02-20-2021 VIT D 25 OH 25 ng/ml Low >29 [facility] [employer] Comment on above: Result Comment: Sury min D Status Deficiency <20 ng/mL Insufficiency 20-29 ng/mL Optimal 30-100 ng/mL Possible Toxicity >=150 ng/mL Performed By: #### C BCAD, VITD, FT4, TSH, CMP, LIPD #### [facility] [address], [place] [id number] No Panel InformationOrdered By: Sydnee Tamez on 07-15-2020 Left knee: Mild degenerative changes. No acute osseous abnormality. Right humerus: Advanced arthritic changes in the glenohumeral aspect of the joint without evidence of acute fracture. Right shoulder: Advanced degenerative changes. Apparent resection of the distal right clavicle. No acute fracture. Lexara Phone: EXAMINATION: THREE XRAY VIEWS OF THE LEFT KNEE; TWO XRAY VIEWS OF THE RIGHT HUMERUS; THREE XRAY VIEWS OF THE RIGHT SHOULDER 07/15/2020 3:30 pm COMPARISON: None. HISTORY: ORDERING SYSTEM PROVIDED HISTORY: Injury of left knee, initial encounter FINDINGS: Left knee: Mild degenerative changes are present without acute fracture, dislocation, or effusion. Right humerus: Advanced arthritic changes are present in the shoulder in the glenohumeral aspects of the joint with articular irregularity and sclerosis with inferior spurring in the glenohumeral joint. No acute fracture or dislocation is noted. Right shoulder: The patient has advanced glenohumeral degenerative change with significant joint space narrowing, articular sclerosis and articular irregularity with inferior spurring. Acromiohumeral space is narrowed suggesting chronic rotator cuff disease. The distal right clavicle appears resected. No acute fracture or dislocation is noted. Lexara Phone: Cory, [facility] Incoming Radiant Results From [employer] - 07/15/2020 3:49 PM EDT EXAMINATION: THREE XRAY VIEWS OF THE LEFT KNEE; TWO XRAY VIEWS OF THE RIGHT HUMERUS; THREE XRAY VIEWS OF THE RIGHT SHOULDER 07/15/2020 3:30 pm COMPARISON: None. HISTORY: ORDERING SYSTEM PROVIDED HISTORY: Injury of left knee, initial encounter FINDINGS: Left knee: Mild degenerative changes are present without acute fracture, dislocation, or effusion. Right humerus: Advanced arthritic changes are present in the shoulder in the glenohumeral aspects of the joint with articular irregularity and sclerosis with inferior spurring in the glenohumeral joint. No acute fracture or dislocation is noted. Right shoulder: The patient has advanced glenohumeral degenerative change with significant joint space narrowing, articular sclerosis and articular irregularity with inferior spurring. Acromiohumeral space is narrowed suggesting chronic rotator cuff disease. The distal right clavicle appears resected. No acute fracture or dislocation is noted. IMPRESSION: Left knee: Mild degenerative changes. No acute osseous abnormality. Right humerus: Advanced arthritic changes in the glenohumeral aspect of the joint without evidence of acute fracture. Right shoulder: Advanced degenerative changes. Apparent resection of the distal right clavicle. No acute fracture. Lexara Phone: Lexara Phone: DEXA BONE DENSITY AXIAL SKEL ETONon 12-12-2019 1. The T-score in th e lumbar spine is -1.3, consistent with osteopenia. 2. Lowest T-score in the left hip is -2.7, consistent with osteoporosis. 3. Findings are consistent with osteoporosis. 4. Fracture risk/FRAX: Lumbar spine: 17.0 %. Hip: 5.0 %. World Health Organization classification of bone mass: Normal: T-score Greater than -1. Osteopenia (low bone mass ): T-score between -1 and -2.5. Osteoporosis: T-score less than -2.5. FRAX calculator fracture probability submitted validated front treated postmenopausal women ages 40 years to 90 years and in men ages 50 years and older. The FRAX algorithm may overestimate fracture risk in premenopausal women, postmenopausal women less than 40 years of age, and women and men previously treated with FDA approved therapies for osteoporosis. The FRAX algorithm may underestimate the fracture risk in women and men older than the age of 90 years. DEXA scan for this exam: [employer] RECOMMENDATIONS: The patient is at high risk of an osteoporotic fracture of the left hip. If not already instituted, suggest a assertive therapy to increase bone mass. Follow-up study in 2 years may be considered on a [employer] system. . [facility] EX[facility]ATION: BONE DENSITOMETRY 12/12/2019 10:39 am OT left hip lumbar combination DEXA. TECHNIQUE: DEXA evaluation of the patient's lumbar spine and left hip. COMPARISON: 07 December 2017 HISTORY: Osteoporosis screening. Postmenopausal patient. FINDINGS: Lumbar spine: Mean BMD measured from L1 through L4 is 1.023 grams/cm2, T-score -1.3, consistent with osteopenia. Compared to prior study there has been improvement in the BMD. Left hip: BMD of the entire left hip is 0.673 grams/cm2, consistent with T-score of -2.7 and representing osteoporosis. Compared to prior study, there has been no significant interval change in the BMD. BMD of the left femoral neck is 0.716 grams/cm2, with young adult T-score of -2.3 representing osteopenia. [facility] [place] Cory, [facility] Incoming Radiant Results From [employer] [facility] - 12/12/2019 10:58 AM EDT EXAMINATION: BONE DENSITOMETRY 12/12/2019 10:39 am OT left hip lumbar combination DEXA. TECHNIQUE: DEXA evaluation of the patient's lumbar spine and left hip. COMPARISON: 07 December 2017 HISTORY: Osteoporosis screening. Postmenopausal patient. FINDINGS: Lumbar spine: Mean BMD measured from L1 through L4 is 1.023 grams/cm2, T-score -1.3, consistent with osteopenia. Compared to prior study there has been improvement in the BMD. Left hip: BMD of the entire left hip is 0.673 grams/cm2, consistent with T-score of -2.7 and representing osteoporosis. Compared to prior study, there has been no significant interval change in the BMD. BMD of the left femoral neck is 0.716 grams/cm2, with young adult T-score of -2.3 representing osteopenia. IMPRESSION: 1. The T-score in the lumbar spine is -1.3, consistent with osteopenia. 2. Lowest T-score in the left hip is -2.7, consistent with osteoporosis. 3. Findings are consistent with osteoporosis. 4. Fracture risk/FRAX: Lumbar spine: 17.0 %. Hip: 5.0 %. World Health Organization classification of bone mass: Normal: T-score Greater than -1. Osteopenia (low bone mass ): T-score between -1 and -2.5. Osteoporosis: T-score less than -2.5. FRAX calculator fracture probability submitted validated front treated postmenopausal women ages 40 years to 90 years and in men ages 50 years and older. The FRAX algorithm may overestimate fracture risk in premenopausal women, postmenopausal women less than 40 years of age, and women and men previously treated with FDA approved therapies for osteoporosis. The FRAX algorithm may underestimate the fracture risk in women and men older than the age of 90 years. DEXA scan for this exam: [employer] RECOMMENDATIONS: The patient is at high risk of an osteoporotic fracture of the left hip. If not already instituted, suggest a assertive therapy to increase bone mass. Follow-up study in 2 years may be considered on a [employer] system. . [facility] [place] Neurosurgery Office/Clinic N walter 04-03-2019 Neurosurgery Office/Clinic Note Chief Complaint Patient states being seen for back History of Present Illness Three month post op follow up appointment s/p Left L4-5-S1 hemilaminotomy/forami notomy with left L4-5 discectomy 01/06/2019 Left leg pain is gone now and she is off the narcotic. She still has left sided back pain and she says she can live with that. She is happy she had the surgery. 02/01/2019 visit: One month post op follow up appointment s/p Left L4-5-S1 hemilaminotomy/forami notomy with left L4-5 discectomy 01/06/2019 Stephanie echos the same history as last time with 10 days of relief of leg pain then a return of leg pain. It is slightly better than preop but always present. She requests percocet. She did not see a benefit from the steroid taper. No problems with the healing of her incision. 01/18/2019 visit: Dorothy is here for initial post operative visit after Left L4-5-S1 hemilaminotomy/forami notomy with Left L45 discectomy on 01/06/19. She had resolution of left leg pain until 1.5 weeks post op. Current pain is in a similar distribution to her preoperative pain. She is currently using percocet approximately every 4 hours. She denies any fever, chills, n/v, appetite loss, or incisional concerns. She ambulates with a cane. [1] [1] Review of Systems General Weakness: No Cardiovascular EENMT Gastrointestinal Genitourinary Hematologic/Lymphatic Musculoskeletal Back pain: Yes Neurological Numbness: No Psychiatric Respiratory Skin Physical Exam Vitals & Measurements BP: 144/72 HT: 16.56 cm WT: 54.5 kg DOSE WT: 54.5 kg Additional Vitals Peripheral Pulse Rate: 72 bpm General: [Alert and oriented, well nourished, no acute distress]. Eye: [normal conjunctiva, no scleral icterus]. HENT: [normocephalic, atraumatic, oral mucosa pink and moist, dentition intact]. Pulmonary: [non-labored respiration] Skin: [Normal temperature, turgor, and texture; no rashes]. Psychiatric: [Appropriate judgment and insight, appropriate mood and affect]. NEURO EXAM: Pupils are equal Face is symmetric. Hearing is intact. tongue is midline. Motor: Upper Extremity Strength: 5/5 Lower Extremity Strength: 5/5 Gait: Posture is normal. Gait is steady. Heel, toe intact. Incision: Well healed, well approximated; no erythema, edema or exudate No significant incisional tenderness she is able to heel and toe walk [2] Assessment/Plan Assessment: 1. s/p Left L4-5-S1 hemilaminotomy/forami notomy with Left L45 discectomy on 01/06/19 2. s/p left L34 discectomy 2003, unknown surgeon[facility] 3. tobacco use 1 ppd 4. osteoporosis 5. Xray of the left hip: normal Plan: Follow up as needed. Pain management and PT were offered and she declined both. Problem List/Past Medical History Ongoing Acute rhinitis Angina Back pain Constipation Cough Depression Depression Dry skin Emphysema of lung Epistaxis Foot callus HTN Hyperlipidemia Hypothyroid Impingement syndrome Iron deficiency Murmur Ocular migraine Osteoarthritis Smoker Snores SOB (shortness of breath) on exertion Syncope Tremors of nervous system Historical Ovarian cyst Procedure/Surgical History foot surgeries Hysterectomy SHOULDER ARTHROSCOPY/SURGERY Oophorectomy (1963) lumbar disc repair (2003) SHOULDER ARTHROSCOPY/SURGERY (2005) Extn - Extraction of tooth (02/2014) Cataract extraction (2016) colonscopy (2017) Laminectomy Lumbar Discectomy (Left) (01/06/2019) Medications amLODIPine 2.5 mg oral tablet, 2.5 mg, 1 tabs, Oral, Daily, Still taking, not as prescribed: TAKES IN AM increased to 5 mg atorvastatin 10 mg oral tablet, 10 mg, 1 tabs, Oral, Daily Colace 100 mg oral capsule, 100 mg, 1 caps, Oral, BID, PRN fludrocortisone 0.1 mg oral tablet, 0.1 mg, 1 tabs, Oral, Daily gabapentin 100 mg oral capsule, 100 mg, 1 caps, Oral, qAM Klor-Con, 1 tabs, Oral, Daily levothyroxine 25 mcg (0.025 mg) oral tablet, 25 mcg, 1 tabs, Oral, Daily Percocet 5/325 oral tablet, 1 tabs, Oral, q4hr, PRN Percocet 5/325 oral tablet, 1 tabs, Oral, q4hr, PRN primidone 50 mg oral tablet, 50 mg, 1 tabs, Oral, BID Prolia 60 mg/mL subcutaneous solution, 60 mg, 1 mL, Subcutaneous, q6mo sertraline 50 mg oral tablet, 50 mg, 1 tabs, Oral, Daily traMADol 50 mg oral tablet, 50 mg, 1 tabs, Oral, q4hr, PRN Allergies Dulera (Shaking) NSAIDs (Unknown) penicillins (Rash) Social History Alcohol Never Exercise Home/Environment Lives with Spouse, IS RESPOSIBLE FOR 2 [employer] GR[employer] KIDS. Injuries/Abuse/Neglec t in household: No. Nutrition/Health Regular, Caffeine intake amount: HOT TEA Q AM-. Sleeping concerns: No. Sexual History of sexual abuse: No. Substance Abuse Denies All Tobacco 10 or more cigarettes (1/2 pack or more)/day in last 30 days Use:. Cigarettes, 1 per day. Packs, Second-Hand Exposure, Ready to change: No. Family History Cancer: Mother. Diabetes mellitus: Mother. Heart disease: Mother. Hypertension: Mother and Sibling. Stroke: Mother. Diagnostic Results lumbar flex ex xrays: no intersegmental instability [1] Neurosurgery Office Visit Note; Gene Cline MD 02/01/2019 15:18 EST [2] Neurosurgery Office Visit Note; Gene Cline MD 02/01/2019 15:18 EST [3] Neurosurgery Office Visit Note; Gene Cline MD 02/01/2019 15:18 EST Electronically signed by Gene Cline MD 04/03/19 14:20 EST Electronically signed by Tawnya Maxwell 04/03/2019 14:12 EST [facility] XR Spine Lumbosacral 2/3 Vie ws w/Bendingon 04-03-2019 XR Spine Lumbosacral 2/3 Views w/Bending Procedure: AP, neutral lateral, flexion lateral, and extension lateral views of the lumbar spine. Clinical Information: 74-year-old female for follow-up of lower back surgery 01/06/2019. Current left-sided pain. No numbness or tingling in the legs. Comparison: Intraoperative lumbar spine fluoroscopy 01/06/2019. Findings: Bones: Osteopenia. Mild posterior spondylolisthesis at L5-S1. No radiographic evidence for fracture, dynamic subluxation, or aggressive abnormality. Intervertebral discs: Moderate L4-5 and severe L5-S1 degenerative disc disease. Facet joints: Roughly moderate multilevel degenerative changes. Soft tissues: Unremarkable. IMPRESSION: Advanced middle and lower lumbar degenerative changes. Final Dictated by: Matt Parmar MD Dictated DT/TM: 04/03/2019 3:50 pm Signed by: Ghulam MENDOZA, Matt Naik Signed (Electronic Signature): 04/03/2019 3:52 pm (If Report Is Signed, Electronically Signed in Other Vendor System) [facility] Neurosurgery Office/Clinic N oteon 02-01-2019 Neurosurgery Office/Clinic Note History of Present Illness One month post op follow up appointment s/p Left L4-5-S1 hemilaminotomy/forami notomy with left L4-5 discectomy 01/06/2019 Stephanie echos the same history as last time with 10 days of relief of leg pain then a return of leg pain. It is slightly better than preop but always present. She requests percocet. She did not see a benefit from the steroid taper. No problems with the healing of her incision. 01/18/2019 visit: Dorothy is here for initial post operative visit after Left L4-5-S1 hemilaminotomy/forami notomy with Left L45 discectomy on 01/06/19. She had resolution of left leg pain until 1.5 weeks post op. Current pain is in a similar distribution to her preoperative pain. She is currently using percocet approximately every 4 hours. She denies any fever, chills, n/v, appetite loss, or incisional concerns. She ambulates with a cane. [1] Review of Systems General Weakness: Yes Cardiovascular EENMT Gastrointestinal Genitourinary Hematologic/Lymphatic Musculoskeletal Back pain: No Neurological Numbness: No Psychiatric Respiratory Skin Physical Exam Vitals & Measurements BP: 162/78 HT: 162.56 cm WT: 59.7 kg DOSE WT: 59.7 kg BMI: 22.59 Additional Vitals Body Mass Index Measured: 22.59 kg/m2 Peripheral Pulse Rate: 80 bpm General: [Alert and oriented, well nourished, no acute distress]. Eye: [normal conjunctiva, no scleral icterus]. HENT: [normocephalic, atraumatic, oral mucosa pink and moist, dentition intact]. Pulmonary: [non-labored respiration] Skin: [Normal temperature, turgor, and texture; no rashes]. Psychiatric: [Appropriate judgment and insight, appropriate mood and affect]. NEURO EXAM: Pupils are equal Face is symmetric. Hearing is intact. tongue is midline. Motor: Upper Extremity Strength: 5/5 Lower Extremity Strength: 5/5 Gait: Posture is normal. Gait is steady. Heel, toe intact. Incision: Well healed, well approximated; no erythema, edema or exudate No significant incisional tenderness she is able to heel and toe walk Assessment/Plan Assessment: 1. s/p Left L4-5-S1 hemilaminotomy/forami notomy with Left L45 discectomy on 01/06/19 2. s/p left L34 discectomy 2003, unknown surgeon[facility] 3. tobacco use 1 ppd 4. osteoporosis 5. Xray of the left hip: normal 6. return of left leg pain 10 days after surgery Plan: I offered PT and she declined. I did give her a script for percocet. I will see her back in the office in 2 months with cervical xrays and a new lumbar mri if she is still in pain. Problem List/Past Medical History Ongoing Acute rhinitis Angina Back pain Constipation Cough Depression Depression Dry skin Emphysema of lung Epistaxis Foot callus HTN Hyperlipidemia Hypothyroid Impingement syndrome Iron deficiency Murmur Ocular migraine Osteoarthritis Smoker Snores SOB (shortness of breath) on exertion Syncope Tremors of nervous system Historical Ovarian cyst Procedure/Surgical History foot surgeries Hysterectomy SHOULDER ARTHROSCOPY/SURGERY Oophorectomy (1963) lumbar disc repair (2003) SHOULDER ARTHROSCOPY/SURGERY (2005) Extn - Extraction of tooth (02/2014) Cataract extraction (2016) colonscopy (2017) Laminectomy Lumbar Discectomy (Left) (01/06/2019) Medications amLODIPine 2.5 mg oral tablet, 2.5 mg, 1 tabs, Oral, Daily atorvastatin 10 mg oral tablet, 10 mg, 1 tabs, Oral, Daily Colace 100 mg oral capsule, 100 mg, 1 caps, Oral, BID, PRN fludrocortisone 0.1 mg oral tablet, 0.1 mg, 1 tabs, Oral, Daily gabapentin 100 mg oral capsule, 100 mg, 1 caps, Oral, qAM Klor-Con, 1 tabs, Oral, Daily levothyroxine 25 mcg (0.025 mg) oral tablet, 25 mcg, 1 tabs, Oral, Daily Percocet 5/325 oral tablet, 1 tabs, Oral, q4hr, PRN primidone 50 mg oral tablet, 50 mg, 1 tabs, Oral, BID Prolia 60 mg/mL subcutaneous solution, 60 mg, 1 mL, Subcutaneous, q6mo sertraline 50 mg oral tablet, 50 mg, 1 tabs, Oral, Daily traMADol 50 mg oral tablet, 50 mg, 1 tabs, Oral, q4hr, PRN Allergies Dulera (Shaking) NSAIDs (Unknown) penicillins (Rash) Social History Alcohol Never Exercise Home/Environment Lives with Spouse, IS RESPOSIBLE FOR 2 [employer] GR[employer] KIDS. Injuries/Abuse/Neglec t in household: No. Nutrition/Health Regular, Caffeine intake amount: HOT TEA Q AM-. Sleeping concerns: No. Sexual History of sexual abuse: No. Substance Abuse Denies All Tobacco 10 or more cigarettes (1/2 pack or more)/day in last 30 days Use:. Cigarettes, 1 per day. Packs, Second-Hand Exposure, Ready to change: No. Family History Cancer: Mother. Diabetes mellitus: Mother. Heart disease: Mother. Hypertension: Mother and Sibling. Stroke: Mother. Diagnostic Results none [1] Neurosurgery Office Visit Note; Toña Avalos CNP 01/18/2019 15:48 EST [2] Neurosurgery Office Visit Note; Toña Avalos CNP 01/18/2019 15:48 EST [3] Neurosurgery Office Visit Note; Toña Avalos CNP 01/18/2019 15:48 EST Electronically signed by Gene Cline MD 02/01/19 15:24 EST Electronically signed by Tawnya Maxwell 02/01/2019 15:19 EST [facility] Provider Letteron 02-01-2019 Provider Letter Alfred Pal [address] [facility] [address] [place] [id number] Re: Stephanie Spear Date of Visit: 02/01/2019 Dear Alfred Pal, Thank You for referring Stephanie Spear to our office for care. Attached you will find my office note. Please Contact our office if you have any questions or concerns. Sincerely, Gene Cline MD The following document(s) were included in the letter: February 01, 2019 15:18:29 EST - (02/01/2019) Neurosurgery Office Visit Note [facility] Neurosurgery Office/Clinic N oteon 01-18-2019 Neurosurgery Office/Clinic Note Chief Complaint patient states back History of Present Illness Dorothy is here for initial post operative visit after Left L4-5-S1 hemilaminotomy/forami notomy with Left L45 discectomy on 01/06/19. She had resolution of left leg pain until 1.5 weeks post op. Current pain is in a similar distribution to her preoperative pain. She is currently using percocet approximately every 4 hours. She denies any fever, chills, n/v, appetite loss, or incisional concerns. She ambulates with a cane. Review of Systems as above Physical Exam Vitals & Measurements BP: 138/72 HT: 162 cm WT: 54 kg DOSE WT: 54 kg BMI: 20.58 Additional Vitals Body Mass Index Measured: 20.58 kg/m2 Peripheral Pulse Rate: 76 bpm BP Position/Location: Sitting, Left arm General: [Alert and oriented, well nourished, no acute distress]. Eye: [normal conjunctiva, no scleral icterus]. HENT: [normocephalic, atraumatic, oral mucosa pink and moist, dentition intact]. Pulmonary: [non-labored respiration] Skin: [Normal temperature, turgor, and texture; no rashes]. Psychiatric: [Appropriate judgment and insight, appropriate mood and affect]. NEURO EXAM: Pupils are equal Face is symmetric. Hearing is intact. tongue is midline. Motor: Upper Extremity Strength: 5/5 Lower Extremity Strength: 5/5 Gait: Posture is normal. Gait is steady. Heel, toe intact. Incision: Well healed, well approximated; no erythema, edema or exudate No significant incisional tenderness ofelia removed Assessment: 1. Left L4-5-S1 hemilaminotomy/forami notomy with Left L45 discectomy on 01/06/19 2. s/p left L34 discectomy 2003, unknown surgeon, [facility] 3. tobacco use 1 ppd 4. osteoporosis 5. Xray of the left hip: normal Plan: 1. medrol dose cari 2. refill percocet 3. no change to activity, do not submerge incision 4. f/u here in [address] Cline call with any concerns in the interim Assessment/Plan 1. S/P lumbar laminectomy Ordered: oxyCODONE-acetaminoph en, 1 tabs, Oral, q4hr, PRN, # 42 tabs, 0 Refill(s) Orders: methylPREDNISolone, 1 packets, Oral, As Indicated, as directed on package labeling, X 6 days, # 21 tabs, 0 Refill(s), 01/24/19 15:46:00 EST, Pharmacy: [id number] Problem List/Past Medical History Ongoing Acute rhinitis Angina Back pain Constipation Cough Depression Depression Dry skin Emphysema of lung Epistaxis Foot callus HTN Hyperlipidemia Hypothyroid Impingement syndrome Iron deficiency Murmur Ocular migraine Osteoarthritis Smoker Snores SOB (shortness of breath) on exertion Syncope Tremors of nervous system Historical Ovarian cyst Procedure/Surgical History foot surgeries Hysterectomy SHOULDER ARTHROSCOPY/SURGERY Oophorectomy (1963) lumbar disc repair (2003) SHOULDER ARTHROSCOPY/SURGERY (2005) Extn - Extraction of tooth (02/2014) Cataract extraction (2016) colonscopy (2018) Laminectomy Lumbar Discectomy (Left) (01/06/2019) Medications amLODIPine 2.5 mg oral tablet, 2.5 mg, 1 tabs, Oral, Daily atorvastatin 10 mg oral tablet, 10 mg, 1 tabs, Oral, Daily Colace 100 mg oral capsule, 100 mg, 1 caps, Oral, BID, PRN fludrocortisone 0.1 mg oral tablet, 0.1 mg, 1 tabs, Oral, Daily gabapentin 100 mg oral capsule, 100 mg, 1 caps, Oral, qAM Klor-Con, 1 tabs, Oral, Daily levothyroxine 25 mcg (0.025 mg) oral tablet, 25 mcg, 1 tabs, Oral, Daily Medrol Dosepak 4 mg oral tablet, 1 packets, Oral, As Indicated Percocet 5/325 oral tablet, 1 tabs, Oral, q4hr, PRN primidone 50 mg oral tablet, 50 mg, 1 tabs, Oral, BID Prolia 60 mg/mL subcutaneous solution, 60 mg, 1 mL, Subcutaneous, q6mo sertraline 50 mg oral tablet, 50 mg, 1 tabs, Oral, Daily Allergies Dulera (Shaking) NSAIDs (Unknown) penicillins (Rash) Social History Alcohol Never Exercise Home/Environment Lives with Spouse, IS RESPOSIBLE FOR 2 [employer] GR[employer] KIDS. Injuries/Abuse/Neglec t in household: No. Nutrition/Health Regular, Caffeine intake amount: HOT TEA Q AM-. Sleeping concerns: No. Sexual History of sexual abuse: No. Substance Abuse Denies All Tobacco 10 or more cigarettes (1/2 pack or more)/day in last 30 days Use:. Cigarettes, 1 per day. Packs, Second-Hand Exposure, Ready to change: No. Family History Cancer: Mother. Diabetes mellitus: Mother. Heart disease: Mother. Hypertension: Mother and Sibling. Stroke: Mother. Electronically signed by Toña Avalos CNP 01/18/19 16:45 EST [facility] Provider Letteron 01-18-2019 Provider Letter Alfred Pal, Re: Stephanie Spear Date of Visit: 01/18/2019 Dear Alfred Pal, Thank you for referring Stephanie to my office. Attached you will find my office note. Please let me know if you have any questions or concerns. Sincerely, Toña Avalos CNP [facility] [address] [address] The following document(s) were included in the letter: January 18, 2019 15:48:45 EST - (01/18/2019) Neurosurgery Office Visit Note [facility] Inpatient Clinical Summaryon 01-07-2019 Inpatient Clinical Summary [address] [address] Clinical Summary Person Information Name: HungTaraStephaniela nena Stephens Age: 73 Years : 1945 Sex: Female PCP: Kae LUGO, Alfred Moreno Marital Status: Phone: PCP: [phone] Race: White Ethnicity: Not or Language: Pashto Visit Id: Visit Reason: Speciality: Acuity: Enc Type: Observation Med Service: Surgery Arrival: 01/06/2019 09:24:00 Discharge: Dispo Type: Address: [address] [place] [address] [place] [address] Diagnosis: Status post lumbar discectomy Discharged To: Home Treatments: Devices/Equipment: Walker Professional Skilled Services: Special Services and Community Resources: Other: none Mode of Discharge Transportation: Discharge Orders Diet Instruction Regular home diet Discharge Special Instructions You may drive when you are no longer taking pain medication Discharge Special Instructions Do not resume Aspirin, Plavix (Clopidogrel), Coumadin (Warfarin/Jantoven) and other blood thinners for 7 days, but you may resume all other medications. Discharge Special Instructions You may shower, but keep incision site dry for one week. Discharge Wound Care Remove dressing 72 hr after discharge Allergies penicillins (Rash) NSAIDs (Unknown) Dulera (Shaking) Functional Status: Sensory Deficits: None History of Falls: Mobility Assistance Prior to Admission: ADLs: Minimal assistance Gait: Steady Ambulation Assist: Assistive Device: Special Orthopedic Devices: Current Level of Assistance for Self-Care/Mobility: Cognitive Status: Orientation: Orientation Assessment Oriented x 4 Level of Consciousness: Alert Characteristics of Speech: Clear Aspiration Risk: None Affect/Behavior: Appropriate, Calm, Cooperative Laboratory or Other Results This Visit (last charted value for your 01/06/2019 visit) Chemistry 01/06/2019 10:05 AM Potassium Lvl: 3.7 mmol/L -- Normal range between ( 3.4 and 4.8 ) Blood Bank 12/12/2018 9:35 AM ABO/Rh: A POS Antibody Screen: Negative ABSC Diagnostic Radiology 01/06/2019 2:18 PM XR Spine Lumbosacral 2/3 Views in OR: XR Spine Lumbosacral 2/3 Views in OR Measurements: Height: Weight: Blood Pressure: 135 mmHg / BMI: Respiratory: Respirations: Unlabored Respiratory Symptoms: None Cardiovascular: Heart Sounds: Heart Rhythm: Regular Gastrointestinal: GI Symptoms: Bowel Sounds: Present Vital Signs: Temp Axillary: 35.9 degC Temp Temporal Artery: 36.0 degC Temp Oral: 36.9 degC Temp Rectal: Apical Heart Rate: 61 bpm Peripheral Pulse Rate: 68 bpm Heart Rate: 70 bpm Respiratory Rate: 16 br/min Diet Diet: Feeding Tolerance: Appetite: Fair Arjun Assessment: 19 Procedures Extn - Extraction of tooth (02/2014) Immunizations No Immunizations Documented This Visit HERE ARE THE MEDICATION CHANGES THAT OCCURRED DURING YOUR HOSPITAL STAY New Medications Printed Prescriptions docusate (Colace 100 mg oral capsule) 1 Capsules Oral (given by mouth) 2 times a day as needed for constipation. Refills: 0. Last Dose: ____ oxyCODONE-acetaminoph en (Percocet 5/325 oral tablet) 1 Tabs Oral (given by mouth) every 4 hours as needed for pain for 7 Days. Refills: 0. Last Dose: ____ Medications That Have Not Changed Other Medications amLODIPine (amLODIPine 2.5 mg oral tablet) 1 Tabs Oral (given by mouth) every day. Last Dose: ____ atorvastatin (atorvastatin 10 mg oral tablet) 1 Tabs Oral (given by mouth) every day. Last Dose: ____ denosumab (Prolia 60 mg/mL subcutaneous solution) 1 Milliliter Subcutaneous (under the skin) every 6 months. Last Dose: ____ fludrocortisone (fludrocortisone 0.1 mg oral tablet) 1 Tabs Oral (given by mouth) every day. Last Dose: ____ gabapentin (gabapentin 100 mg oral capsule) 1 Capsules Oral (given by mouth) once a day (in the morning). Last Dose: ____ levothyroxine (levothyroxine 25 mcg (0.025 mg) oral tablet) 1 Tabs Oral (given by mouth) every day. Last Dose: ____ potassium chloride (Klor-Con) 1 Tabs Oral (given by mouth) every day. Last Dose: ____ primidone (primidone 50 mg oral tablet) 1 Tabs Oral (given by mouth) 2 times a day. Last Dose: ____ sertraline (sertraline 50 mg oral tablet) 1 Tabs Oral (given by mouth) every day. Last Dose: ____ These Medications Were Removed and Should No Longer Be Taken acetaminophen (Tylenol) 1,000 Milligram Oral (given by mouth) every 6 hours as needed as needed for pain. Stop Taking Reason: Physician Request albuterol (albuterol 90 mcg/inh inhalation aerosol) 1 Puffs Inhale (breathe in) once as needed as needed for wheezing. Stop Taking Reason: Physician Request cyanocobalamin (Vitamin B12 50 mcg oral tablet) 1 Tabs Oral (given by mouth) every day. Stop Taking Reason: Physician Request levoFLOXacin 500 Milligram Oral (given by mouth) every 24 hours. Stop Taking Reason: Physician Request multivitamin with minerals (Vitamin D with Minerals oral tablet) 1 Tabs Oral (given by mouth) every day. Stop Taking Reason: Physician Request PROVIDED FOR YOU IS A LIST OF YOUR PATIENT?S CURRENT MEDICATIONS Printed Prescriptions docusate (Colace 100 mg oral capsule) 1 Capsules Oral (given by mouth) 2 times a day as needed for constipation. Refills: 0. oxyCODONE-acetaminoph en (Percocet 5/325 oral tablet) 1 Tabs Oral (given by mouth) every 4 hours as needed for pain for 7 Days. Refills: 0. Other Medications amLODIPine (amLODIPine 2.5 mg oral tablet) 1 Tabs Oral (given by mouth) every day. atorvastatin (atorvastatin 10 mg oral tablet) 1 Tabs Oral (given by mouth) every day. denosumab (Prolia 60 mg/mL subcutaneous solution) 1 Milliliter Subcutaneous (under the skin) every 6 months. fludrocortisone (fludrocortisone 0.1 mg oral tablet) 1 Tabs Oral (given by mouth) every day. gabapentin (gabapentin 100 mg oral capsule) 1 Capsules Oral (given by mouth) once a day (in the morning). levothyroxine (levothyroxine 25 mcg (0.025 mg) oral tablet) 1 Tabs Oral (given by mouth) every day. potassium chloride (Klor-Con) 1 Tabs Oral (given by mouth) every day. primidone (primidone 50 mg oral tablet) 1 Tabs Oral (given by mouth) 2 times a day. sertraline (sertraline 50 mg oral tablet) 1 Tabs Oral (given by mouth) every day. Care Team Members: Attending Physician: Gene Cline MD Consulting Physician: Referring Physician: Follow up: With: Address: When: Son MENDOZA, Gene Benavides [address] [place] [phone] Within 2 to 4 weeks Comments: Follow up in 2 weeks with Toña Avalos and follow up in [address] Cline Type Location Start Finish State Post Op Visit [facility] 01/18/2019 15:00:00 01/18/2019 15:30:00 Confirmed Normal [facility] Neurosurgery Progress Noteon 01-07-2019 Neurosurgery Progress Note Objective Vitals & Measurements T: 35.9 ?C (Axillary) T: 36.9 ?C (Oral) T: 36.0 ?C (Temporal Artery) HR: 61 (Apical) HR: 70 (Monitored) RR: 16 BP: 135/65 SpO2: 98% HT: 162 cm WT: 53.8 kg DOSE WT: 53.8 kg BMI: 20.5 Additional Vitals Peripheral Pulse Rate: 68 bpm Lab Results Microbiology No qualifying data available. Diagnostic Results Diagnostic Radiology XR Spine Lumbosacral 2/3 Views in OR 01/06/19 14:52:21 impression: Posterior approach demonstrated. Surgical instruments present at the posterior elements from L4 through S1. Please see the operative report for details. Signed By: Kody James MD Computed Tomography No qualifying data available. Ultrasound No qualifying data available. Magnetic Resonance Imaging No qualifying data available. Nuclear Medicine No qualifying data available. Medications Inpatient acetaminophen, 650 mg, Oral, q4hr, PRN amLODIPine, 2.5 mg, Oral, Daily atorvastatin, 10 mg, Oral, HS (at bedtime) ceFAZolin Colace, 100 mg, Oral, BID Dilaudid, 1 mg, 1 mL, IV Push, q2hr, PRN fludrocortisone, 0.1 mg, Oral, Daily gabapentin, 100 mg, Oral, qAM levothyroxine, 25 mcg, Oral, Daily magnesium hydroxide 8% oral suspension, 30 mL, Oral, TID Normal Saline Flush 0.9% injectable solution, 10 mL, IV Push, As Indicated, PRN Normal Saline Flush 0.9% injectable solution, 10 mL, IV Push, BID Percocet 5/325 oral tablet, 2 tabs, Oral, q4hr, PRN Percocet 5/325 oral tablet, 1 tabs, Oral, q4hr, PRN potassium chloride extended release, 10 mEq, Oral, Daily primidone, 25 mg, Oral, HS (at bedtime) sertraline, 50 mg, Oral, Daily Zofran, 4 mg, 2 mL, IV Push, q4hr, PRN Assessment/Plan Status post lumbar discectomy Subjective: Patient reports she is doing well Has already mobilized with therapy modalities Notes elimination of left radicular pain Denies headache, nausea, vomiting, chest pain, shortness of breath Eating breakfast Objective: general: Cooperative and in no distress lungs: clear abdomen: soft, nontender, nondistended incision: dressed, dry Neuro: mental status: awake, alert, appropriate with normal mental status exam cranial nerves: intract, no visual field deficit motor: 5/5 power all groups gait: [] Assessment/plan: Postoperative day 1 status post left decompression L4 through S1 with discectomy at L4 5 Patient appears to be doing well and has been evaluated by therapy modalities Able to discharge to home Instructions provided verbally and Cerner education form Patient grateful and all questions answered to her satisfaction. Patient indicates her had similar surgery 3 months ago and therefore she is well educated regarding postoperative instructions Electronically signed by Tony NAVARRETE MD, Magdy Morris 01/07/19 08:10 EST Normal [facility] Provider Letteron 01-07-2019 Provider Letter Alfred Pal, [address] [address] Re: Stephanie Spear Date of Visit: 01/06/2019 Dear Alfred Pal, Let me know if you have any questions or concerns. Sincerely, LANDON Dowd MD Providers: The following document(s) were included in the letter: January 07, 2019 08:12:35 EST - (01/07/2019) Discharge Summary Normal [facility] Operative Reporton 9 Operative Report Indication for Surgery 1. low back with left leg pain 2. MRI lumbar 09/21/18- T11 likely hemangioma, ddd, fa, L45 mild bilateral NF, mild/mod bilateral LR; L5S1 mod/severe NF, mild mod LR bilaterally 3. s/p left L34 discectomy 2003, unknown surgeon, [facility] 4. tobacco use 1 ppd 5. osteoporosis 6. XR lumbar flex ex: no intersegmental instability 7. Xray of the left hip: normal Preoperative Diagnosis 1. low back with left leg pain 2. MRI lumbar 09/21/18- T11 likely hemangioma, ddd, fa, L45 mild bilateral NF, mild/mod bilateral LR; L5S1 mod/severe NF, mild mod LR bilaterally 3. s/p left L34 discectomy 2003, unknown surgeon, [facility] 4. tobacco use 1 ppd 5. osteoporosis 6. XR lumbar flex ex: no intersegmental instability 7. Xray of the left hip: normal Postoperative Diagnosis 1. low back with left leg pain 2. MRI lumbar 09/21/18- T11 likely hemangioma, ddd, fa, L45 mild bilateral NF, mild/mod bilateral LR; L5S1 mod/severe NF, mild mod LR bilaterally 3. s/p left L34 discectomy 2003, unknown surgeon, [facility] 4. tobacco use 1 ppd 5. osteoporosis 6. XR lumbar flex ex: no intersegmental instability 7. Xray of the left hip: normal Operation Left L4-5-S1 hemilaminotomy and foraminotomy and Left L4-5 discectomy Surgeon(s) Gene Cline MD [employer] Chapis WEINBERG Anesthesia general endotracheal Estimated Blood Loss 50cc Urine Output no choi Findings stenosis and left L4-5 disc herniation and compression of L5 Specimen(s) none Complications none Technique The patient was brought to the OR under the care of anesthesia and after intubation was carefully turned prone on the deandre table with all pressure points padded. The back was prepped and draped and I created an incision with a scalpel and dissected to the left of midline at L4-5-s1 levels and placed my ammon retractor. I confirmed my level with the c arm image. I drilled a left L4-5 hemilaminotomy with the 6 extra coarse young bit and removed yellow ligament with the 3 punch. I removed the medial facet with the 3 and 4 punch and performed a foraminotomy on the left at L4-5 with the foraminotomy punch. I decompressed proximal L5 as well as L4. The L5 nerve was erythematous and had clearly been compressed in the lateral recess. I retracted the dura and origin of L5 and identified the disc herniation. I incised the annulus and removed disc with the straight and upbiting pituitary rongeur until the disc was flatter. I drilled a left L5-S1 hemilaminotomy with the 6 extra coarse young bit and removed yellow ligament with the 3 punch. I removed the medial facet with the 3 and 4 punch and performed a foraminotomy on the Left at L5-s1 with the foraminotomy punch. I decompressed proximal s1 as well as L5 as it exited through the foramen. I irrigated the back and obtained hemostasis and placed vanco powder superficial to fascia. I closed fascia with interrupted 0 vicryl and closed subcutaneous tissue with inverted interrupted 0 vicryl and closed skin with ofelia. All counts were correct and there were no complications. This surgical procedure was assisted by my physician?s news assistant. Her presence was needed throughout the case for positioning the surgical instruments as well as primarily assisting me through the procedure. Due to the complexity of condition, the skill set of a neurosurgical physician news assistant was needed throughout the case. During the surgical case, the salesperson surgical appliances was working the back table and was not available for assistance. Sponge/Needle Count all accounted for Fluid Count 700cc Electronically signed by Gene Cline MD 01/06/19 13:39 EST Normal [facility] Potassiumon 01-06-2019 Potassium [Moles/Vol] 3.7 mmol/L Normal 3.4-4.8 [facility] Comment on above: Performed By: #### K ####[place] [id number] [place] [id number] XR Spine Lumbosacral 2/3 Antonio Ralph 01-06-2019 XR Spine Lumbosacral 2/3 Views in OR Intraoperative fluoroscopy and 2 C-arm fluoroscopic images lumbosacral spine HISTORY: Left lumbar laminectomy and discectomy L4-S1 Technique and radiation: 3 seconds of fluoroscopy time. 2 C-arm fluoroscopic images. 1.96 mCi of radiation. Report and impression: Posterior approach demonstrated. Surgical instruments present at the posterior elements from L4 through S1. Please see the operative report for details. Final Dictated by: Kody James MD Dictated DT/TM: 01/06/2019 2:52 pm Signed by: Kody James MD Signed (Electronic Signature): 01/06/2019 2:54 pm (If Report Is Signed, Electronically Signed in Other Vendor System) Normal [facility] Neurosurgery Office/Clinic N walter 01-03-2019 Neurosurgery Office/Clinic Note Chief Complaint Patient states back History of Present Illness Stephanie is here preoperatively on behalf of planned L4-5-S1 hemilaminotomy and foraminotomy with L45 discectomy. She is currently scheduled for surgery on 01/06/19. She denies any change symptoms since her last visit. She denies any symptoms of illness today. She did recently complete Zpak for upper respiratory issues. She completed PSS on 10/31/18. She does not consume any blood thinners. She is aware of medications to take the day of surgery. She completed preoperative EKG on 10/31/18, labs on 12/12/18. She was evaluated per pulmonology on 12/08/18. New diagnoses: pulmonary nodule, emphysema. Clearance for surgery was provided. She was evaluated per cardiology on 12/19/18. Clearance for surgery was provided. She was evaluated per her PCP on 12/19/18. Clearance for surgery was provided. From 10/13/18: The purpose of this visit is to review imaging and symptoms and hip xrays and lumbar flex ex xrays and see how we can help her. She has zero interest in pain management based on her spouse's experience. The history was reviewed and is accurate. 10/06/18 visit: 73 year old female with history of osteoporosis, htn, and chronic intermittent epistaxis here for initial evaluation of back with left leg pain. She reports pain onset was early August without known injury. Back: left sided, 3-9/10, sharp, activity dependent Left leg: groin, lateral leg primarily to knee- occ to calf; occasional subjective weakness, constant daily pain since August 2018, 5-6/10 pain. no loss of bowel or bladder, no saddle paresthesia Conservative treatments: heat, chiro, hep, acetaminophen, tramadol Review of Systems CONSTITUTIONAL: No fever or chills RESPIRATORY: No cough GASTROINTESTINAL: No nausea, vomiting or diarrhea MUSCULOSKELETAL: Positive for leg pain NEUROLOGIC: Positive for weakness Physical Exam Vitals & Measurements BP: 124/82 HT: 162 cm WT: 53 kg DOSE WT: 53 kg BMI: 20.2 Additional Vitals Body Mass Index Measured: 20.2 kg/m2 Peripheral Pulse Rate: 82 bpm BP Position/Location: Sitting, Left arm General: [Alert and oriented, well nourished, no acute distress]. Eye: [normal conjunctiva, no scleral icterus]. HENT: [normocephalic, atraumatic, oral mucosa pink and moist, dentition intact]. Neck: [Supple, no carotid bruits]. Pulmonary: [Clear to auscultation, non-labored respiration]. Cardiovascular: [Normal rate, regular rhythm, systolic murmur, no edema, strong pulses with rapid capillary refill]. Abdomen: [soft, nontender] Skin: [Normal temperature and texture; no rashes; no digit clubbing or cyanosis]. Psychiatric: [Appropriate judgment and insight, appropriate mood and affect]. NEURO EXAM: Pupils are equal No eye deviation Face is symmetric Hearing is intact tongue is midline. Motor: Upper Extremity Strength: 5/5 Lower Extremity Strength: 5/5 Reflexes: Reflexes of upper 2+ and lower extremities are 1+. No clonus. Gait: Posture is normal. Gait is antalgic. Base and stride normal. Heel, toe intact. Musculoskeletal: Negative SSLR. Spine: no visible deformities Lumbar spine: tenderness noted in the left lumbar paraspinal musculature. Assessment: 1. low back with left leg pain 2. MRI lumbar 09/21/18- T11 likely hemangioma, ddd, fa, L45 mild bilateral NF, mild/mod bilateral LR; L5S1 mod/severe NF, mild mod LR bilaterally 3. s/p left L34 discectomy 2003, unknown surgeon, [facility] 4. tobacco use 1 ppd 5. osteoporosis 6. XR lumbar flex ex: no intersegmental instability 7. Xray of the left hip: normal Plan: I reviewed preoperative diagnostics, pulmonology, cardiology and PCP notes plan is to proceed with left L4-5-S1 hemilaminotomy and foraminotomy and discectomy L4-5. consents updated, all questions answered Assessment/Plan 1. DDD (degenerative disc disease), lumbar 2. Neuroforaminal stenosis of lumbar spine 3. Protrusion of lumbar intervertebral disc Problem List/Past Medical History Ongoing Acute rhinitis Angina Back pain Constipation Cough Depression Depression Dry skin Emphysema of lung Epistaxis Foot callus HTN Hyperlipidemia Hypothyroid Impingement syndrome Iron deficiency Murmur Ocular migraine Osteoarthritis Smoker Snores SOB (shortness of breath) on exertion Syncope Tremors of nervous system Historical Ovarian cyst Procedure/Surgical History foot surgeries Hysterectomy SHOULDER ARTHROSCOPY/SURGERY Oophorectomy (1963) lumbar disc repair (2003) SHOULDER ARTHROSCOPY/SURGERY (2005) Extn - Extraction of tooth (02/2014) Cataract extraction (2016) colonscopy (2017) Medications albuterol 90 mcg/inh inhalation aerosol, 1 puffs, Inhale, Once, PRN, Not taking amLODIPine 2.5 mg oral tablet, 2.5 mg, 1 tabs, Oral, Daily atorvastatin 10 mg oral tablet, 10 mg, 1 tabs, Oral, Daily fludrocortisone 0.1 mg oral tablet, 0.1 mg, 1 tabs, Oral, Daily gabapentin 100 mg oral capsule, 100 mg, 1 caps, Oral, qAM Klor-Con, 1 tabs, Oral, Daily levoFLOXacin, 500 mg, Oral, q24hr levothyroxine 25 mcg (0.025 mg) oral tablet, 25 mcg, 1 tabs, Oral, Daily primidone 50 mg oral tablet, 50 mg, 1 tabs, Oral, BID Prolia 60 mg/mL subcutaneous solution, 60 mg, 1 mL, Subcutaneous, q6mo sertraline 50 mg oral tablet, 50 mg, 1 tabs, Oral, Daily Tylenol, 1000 mg, Oral, q6hr, PRN Vitamin B12 50 mcg oral tablet, 50 mcg, 1 tabs, Oral, Daily, Not taking Vitamin D with Minerals oral tablet, 1 tabs, Oral, Daily, Not taking Allergies Dulera (Shaking) NSAIDs (Unknown) penicillins (Rash) Social History Alcohol Never Exercise Home/Environment Lives with Spouse, IS RESPOSIBLE FOR 2 [employer]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 Injuries/Abuse/Neglec t in household: No. Nutrition/Health Regular, Caffeine intake amount: HOT TEA Q AM-. Sleeping concerns: No. Sexual History of sexual abuse: No. Substance Abuse Denies All Tobacco 10 or more cigarettes (1/2 pack or more)/day in last 30 days Use:. Cigarettes, 1 per day. Packs, Second-Hand Exposure, Ready to change: No. Family History Cancer: Mother. Diabetes mellitus: Mother. Heart disease: Mother. Hypertension: Mother and Sibling. Stroke: Mother. Electronically signed by Toña Avalos CNP 01/03/19 12:31 EST Normal [facility] Provider Letteron 01-03-2019 Provider Letter Sydnee Tamez RN [facility] [address] [place] [phone] Re: Stephanie Spear Date of Visit: 01/03/2019 Dear Sydnee Tamez, Thank you for referring Stephanie to my office. Attached you will find my office note. Please let me know if you have any questions or concerns. Sincerely, Toña Avalos CNP [facility] [address] [address] The following document(s) were included in the letter: January 03, 2019 12:24:09 EST - (01/03/2019) Neurosurgery Office Visit Note Normal [facility] .UA Microscp Aon 12-12-2018 UA Mucus Present Abnormal Absent [facility] Comment on above: Performed By: #### C [id number] ####[address] [address] UA RBC Quant 0 /HPF Normal 0-5 [facility] Comment on above: Performed By: #### C [id number] ####[address] [address] UA Squepi Cells Quant <1 Normal 0-29 [facility] Comment on above: Performed By: #### C [id number] ####[address] [address] UA WBC Quant 0 /HPF Normal 0-5 [facility] Comment on above: Performed By: #### C [id number] ####[address] [address] .eGFRon 12-12-2018 eGFR AA >60 Normal >=60 [facility] Comment on above: Result Comment: Resu lt = 0-14.9 mL/min/1.73 m2 Kidney failure or Dialysis Result = 15-29 mL/min/1.73 m2 Severe decrease in GFR Result = 30-59 mL/min/1.73 m2 Moderate decrease in GFR Result >= 60 mL/min/1.73 m2 Normal or increased GFR Performed By: #### E GFR ####[place] [id number] eGFR Non-AA >60 Normal >=60 [facility] Comment on above: Result Comment: Resu lt = 0-14.9 mL/min/1.73 m2 Kidney failure or Dialysis Result = 15-29 mL/min/1.73 m2 Severe decrease in GFR Result = 30-59 mL/min/1.73 m2 Moderate decrease in GFR Result >= 60 mL/min/1.73 m2 Normal or increased GFR Chronic kidney disease is defined as either kidney damage or GFR < 60 mL/min/1.73 m2 for >= 3 months. Kidney damage is defined as pathologic abnormalities or markers of damage including abnormalities in blood or urine tests or imaging studies. This GFR is NOT used for medication dosing. Performed By: #### E GFR ####[address] [address] ABO/Rhon 12-12-2018 ABO/Rh SD 11.1.19 DCon: 0 ABO/Rh: A POS Normal [facility] Comment on above: Performed By: #### A ANGY ####[facility] (DEFAULT)[address] [place], [place] [id number] [address] [address] ABSC Autoon 12-12-2018 ABSC Auto Negative Normal [facility] Comment on above: Performed By: #### A SA ####[address] [address] CBC w/ Diffon 12-12-2018 Erythrocyte distribution width (RBC) [Ratio] 14.1 % Normal 11.6-14.8 [facility] Comment on above: Performed By: #### C BC ####[address] [address] Hematocrit (Bld) [Volume fraction] 38.3 % Normal 36.0-46.0 [facility] Comment on above: Performed By: #### C BC ####[address] [address] Hemoglobin (Bld) [Mass/Vol] 12.5 g/dL Normal 12.0-16.0 [facility] Comment on above: Performed By: #### C BC ####[address] [address] MCH (RBC) [Entitic mass] 29.9 pg Normal 27.0-35.0 [facility] Comment on above: Performed By: #### C BC ####[address] [address] MCHC (RBC) [Mass/Vol] 32.6 % Normal 31.0-37.0 [facility] Comment on above: Performed By: #### C BC ####[address] [address] MCV (RBC) [Entitic vol] 91.8 fL Normal 80.0-100.0 [facility] [facility] Comment on above: Performed By: #### C BC ####[address] [address] Platelet mean volume (Bld) [Entitic vol] 9.2 fL Normal 6.7-10.6 [facility] Comment on above: Performed By: #### C BC ####[address] [address] Platelets (Bld) [#/Vol] 331 x10*3/mcL Normal 150-350 [facility] Comment on above: Performed By: #### C BC ####[address] [address] RBC (Bld) [#/Vol] 4.17 x10*6/mcL Normal 3.80-5.20 [facility] Comment on above: Performed By: #### C BC ####[address] [address] WBC (Bld) [#/Vol] 9.1 x10*3/mcL Normal 4.5-11.0 [facility] Comment on above: Performed By: #### C BC ####[address] [address] CMPon 12-12-2018 Albumin [Mass/Vol] 3.8 g/dL Normal 3.2-4.9 [facility] Comment on above: Result Comment: [facility] Laboratory updated the methodology used for albumin testing on 09/29/17. Albumin measurement was performed using a bromcresol purple dye-binding assay. Performed By: #### C OMP ####[address] [address] Albumin/Globulin [Mass ratio] 1.1 {ratio} Normal 1.1-2.2 [facility] Comment on above: Performed By: #### C OMP ####[address] [address] Alk Phos 67 IU/L Normal 32-91 [facility] Comment on above: Performed By: #### C OMP ####[address] [address] ALT [Catalytic activity/Vol] 11 U/L Low 14-54 [facility] Comment on above: Performed By: #### C OMP ####[address] [address] Anion gap [Moles/Vol] 9 mmol/L Normal 7-17 [facility] Comment on above: Performed By: #### C OMP ####[address] [address] AST [Catalytic activity/Vol] 15 U/L Normal 15-41 [facility] Comment on above: Performed By: #### C OMP ####[address] [address] Bili Total 0.8 mg/dL Normal 0.3-1.2 [facility] Comment on above: Performed By: #### C OMP ####[address] [address] Calcium [Mass/Vol] 8.9 mg/dL Normal 8.5-10.3 [facility] Comment on above: Performed By: #### C OMP ####[address] [address] Chloride [Moles/Vol] 104 mmol/L Normal 98-110 [facility] Comment on above: Performed By: #### C OMP ####[address] [address] CO2 [Moles/Vol] 31 mmol/L Normal 22-32 [facility] Comment on above: Performed By: #### C OMP ####[address] [place] [address] Creatinine [Mass/Vol] 0.61 mg/dL Normal 0.44-1.03 [facility] Comment on above: Performed By: #### C OMP ####[address] [place] [address] Glucose [Mass/Vol] 99 mg/dL Normal 74-118 [facility] Comment on above: Performed By: #### C OMP ####[address] [place] [address] Potassium [Moles/Vol] 3.1 mmol/L Low 3.4-4.8 [facility] Comment on above: Performed By: #### C OMP ####[address] [address] Protein [Mass/Vol] 7.2 g/dL Normal 6.5-8.1 [facility] Comment on above: Performed By: #### C OMP ####[address] [address] Sodium [Moles/Vol] 141 mmol/L Normal 133-142 [facility] Comment on above: Performed By: #### C OMP ####[address] [address] Urea nitrogen [Mass/Vol] 10 mg/dL Normal 8-26 [facility] Comment on above: Performed By: #### C OMP ####[address] [address] Urea nitrogen/Creatinine [Mass ratio] 16.4 mg/mg Normal 10.0-20.0 [facility] Comment on above: Performed By: #### C OMP ####[address] [address] Diff Autoon 12-12-2018 Baso Absolute 0.1 x10*3/mcL Normal 0.0-0.2 [facility] Comment on above: Performed By: #### . Automated Diff ####[address] [address] Basophils/100 WBC (Bld) 0.6 % Normal 0.0-1.5 [facility] Comment on above: Performed By: #### . Automated Diff ####[address] [address] Eos Absolute 0.2 x10*3/mcL Normal 0.0-0.4 [facility] Comment on above: Performed By: #### . Automated Diff ####[address] [address] Eosinophils/100 WBC (Bld) 1.7 % Normal 0.0-5.4 [facility] Comment on above: Performed By: #### . Automated Diff ####[address] [address] Lymphocytes (Bld) [#/Vol] 1.5 x10*3/mcL Normal 1.0-4.8 [facility] Comment on above: Performed By: #### . Automated Diff ####[address] [address] Lymphocytes/100 WBC (Bld) 16.9 % Low 27.2-40.8 [facility] Comment on above: Performed By: #### . Automated Diff ####[address] [address] Ness Absolute 0.4 x10*3/mcL Normal 0.1-1.1 [facility] Comment on above: Performed By: #### . Automated Diff ####[address] [address] Monocytes/100 WBC (Bld) 4.6 % Normal 3.7-11.9 [facility] Comment on above: Performed By: #### . Automated Diff ####[address] [address] Neutro Absolute 6.9 x10*3/mcL Normal 1.8-7.7 [facility] Comment on above: Performed By: #### . Automated Diff ####[place] [id number] Neutro Auto 76.2 % High 47.2-70.8 [facility] Comment on above: Performed By: #### . Automated Diff ####[place] [id number] PTon 12-12-2018 INR Coag (PPP) [Relative time] 1.0 {INR} Normal <=3.5 [facility] Comment on above: Result Comment: INR has no normal range. INR Therapeutic range is: 2.0-3.0 (AF, CVA, TIAs, DVT prophylaxis, acute DVT) 2.5-3.5 ([facility] heart valves, recurrent thrombosis/emboli) Performed By: #### P TINR ####[address] [address] PT Coag (PPP) [Time] 10.2 s Normal 9.2-11.7 [facility] Comment on above: Performed By: #### P TINR ####[address] [address] PTTon 12-12-2018 aPTT Coag (Bld) [Time] 25.0 s Normal 20.6-28.0 [facility] Comment on above: Performed By: #### P TT ####[address] [address] UA w Culture if Indon 2018 Color (U) Yellow Normal [facility] Comment on above: Performed By: #### U CI ####[address] [address] Glucose (U) [Mass/Vol] Negative Normal Negative [facility] Comment on above: Performed By: #### U CI ####[address] [address] Ketones Ql (U) Negative Normal Negative [facility] Comment on above: Performed By: #### U CI ####[address] [address] UA Blood Negative Normal Negative [facility] Comment on above: Performed By: #### U CI ####[address] [address] UA Clarity Clear Normal [facility] Comment on above: Performed By: #### U CI ####[address] [address] UA Leukocyte Esterase Negative Normal Negative [facility] Comment on above: Performed By: #### U CI ####[address] [address] UA Nitrite Negative Normal Negative [facility] Comment on above: Performed By: #### U CI ####[address] [address] UA pH 8.0 Abnormal 4.5 - 7.8 [facility] Comment on above: Performed By: #### U CI ####[address] [address] UA Protein Negative Normal Negative [facility] Comment on above: Performed By: #### U CI ####[address] [address] UA Source Clean Catch Normal [facility] Comment on above: Performed By: #### U CI ####[address] [address] UA Spec Grav 1.010 Normal 1.003-1.035 [facility] Comment on above: Performed By: #### U CI ####[address] [address] UA Urobilinogen 0.2 mg/dL Normal 0.2 - 1.0 [facility] Comment on above: Performed By: #### U CI ####[address] [address] Urobilinogen Qn (U) Negative Normal Negative [facility] Comment on above: Performed By: #### U CI ####[address] [address] XR CHEST STANDARD (2 VW)on 0 11-02-2018 No acute cardiopulmonary disease or interval change. COPD[facility] TWO XRA Y VIEWS OF THE CHEST 11/02/2018 3:35 pm COMPARISON: Two-view chest from 11/02/2017 HISTORY: ORDERING SYSTEM PROVIDED HISTORY: Cough History of hypertension and tobacco abuse. Anemia. FINDINGS: Borderline enlarged but stable appearing cardiac silhouette. Mediastinal structures midline unchanged, again with some calcification aortic knob. Hyperinflated lungs without localized pulmonary opacity or blunting of the costophrenic angles. Bones and soft tissues stable. [facility] Incoming Radiant Results From [facility] - 11/02/2018 5:50 PM EDT EXAMINATION: TWO XRAY VIEWS OF THE CHEST 11/02/2018 3:35 pm COMPARISON: Two-view chest from 11/02/2017 HISTORY: ORDERING SYSTEM PROVIDED HISTORY: Cough History of hypertension and tobacco abuse. Anemia. FINDINGS: Borderline enlarged but stable appearing cardiac silhouette. Mediastinal structures midline unchanged, again with some calcification aortic knob. Hyperinflated lungs without localized pulmonary opacity or blunting of the costophrenic angles. Bones and soft tissues stable. IMPRESSION: No acute cardiopulmonary disease or interval change. COPD. [place], [place] .UA Microscp Aon 10-31-2018 UA Bacteria Present Abnormal Absent [facility] Comment on above: Performed By: #### C [id number] ####[address] [address] UA Mucus Present Abnormal Absent [facility] Comment on above: Performed By: #### C [id number] ####[address] [address] UA RBC Quant 0 /HPF Normal 0-5 [facility] Comment on above: Performed By: #### C [id number] ####[address] [address] UA Squepi Cells Quant <1 Normal 0-29 [facility] Comment on above: Performed By: #### C [id number] ####[address] [address] UA WBC Quant 0 /HPF Normal 0-5 [facility] Comment on above: Performed By: #### C [id number] ####[address] [address] .eGFRon 10-31-2018 eGFR Non-AA >60 Normal >=60 [facility] Comment on above: Result Comment: Resu lt = 0-14.9 mL/min/1.73 m2 Kidney failure or Dialysis Result = 15-29 mL/min/1.73 m2 Severe decrease in GFR Result = 30-59 mL/min/1.73 m2 Moderate decrease in GFR Result >= 60 mL/min/1.73 m2 Normal or increased GFR Chronic kidney disease is defined as either kidney damage or GFR < 60 mL/min/1.73 m2 for >= 3 months. Kidney damage is defined as pathologic abnormalities or markers of damage including abnormalities in blood or urine tests or imaging studies. This GFR is NOT used for medication dosing. Performed By: #### E GFR ####[place] [id number] eGFR AA >60 Normal >=60 [facility] Comment on above: Result Comment: Resu lt = 0-14.9 mL/min/1.73 m2 Kidney failure or Dialysis Result = 15-29 mL/min/1.73 m2 Severe decrease in GFR Result = 30-59 mL/min/1.73 m2 Moderate decrease in GFR Result >= 60 mL/min/1.73 m2 Normal or increased GFR Performed By: #### E GFR ####[place] [id number] ABO/Rhon 10-31-2018 ABO/Rh SD 9.20.19 DCon: 0 ABO/Rh: A POS Normal [facility] Comment on above: Performed By: #### A BORH ####[facility] (DEFAULT)[address] [place], [place] [id number] [address] ABSC Autoon 10-31-2018 ABSC Auto Negative Normal [facility] Comment on above: Performed By: #### A SA ####[place] [id number] CBC w/ Diffon 10-31-2018 Erythrocyte distribution width (RBC) [Ratio] 16.6 % High 11.6-14.8 [facility] Comment on above: Performed By: #### C BC #### [address] [address] Hematocrit (Bld) [Volume fraction] 40.0 % Normal 36.0-46.0 [facility] Comment on above: Performed By: #### C BC #### [address] [address] Hemoglobin (Bld) [Mass/Vol] 12.9 g/dL Normal 12.0-16.0 [facility] Comment on above: Performed By: #### C BC #### [address] [address] MCH (RBC) [Entitic mass] 29.5 pg Normal 27.0-35.0 [facility] Comment on above: Performed By: #### C BC #### [address] [address] MCHC (RBC) [Mass/Vol] 32.2 % Normal 31.0-37.0 [facility] Comment on above: Performed By: #### C BC #### [address] [address] MCV (RBC) [Entitic vol] 91.5 fL Normal 80.0-100.0 [facility] Comment on above: Performed By: #### C BC #### [address] [address] Platelet mean volume (Bld) [Entitic vol] 8.8 fL Normal 6.7-10.6 [facility] Comment on above: Performed By: #### C BC #### [address] [address] Platelets (Bld) [#/Vol] 358 x10*3/mcL High 150-350 [facility] Comment on above: Performed By: #### C BC #### [address] [address] RBC (Bld) [#/Vol] 4.37 x10*6/mcL Normal 3.80-5.20 [facility] Comment on above: Performed By: #### C BC #### [address] [address] WBC (Bld) [#/Vol] 12.1 x10*3/mcL High 4.5-11.0 [facility] Comment on above: Performed By: #### C BC #### [address] [address] CMPon 10-31-2018 Albumin [Mass/Vol] 4.1 g/dL Normal 3.2-4.9 [facility] Comment on above: Result Comment: [facility] Laboratory updated the methodology used for albumin testing on 09/29/17. Albumin measurement was performed using a bromcresol purple dye-binding assay. Performed By: #### C OMP ####[address] [address] Albumin/Globulin [Mass ratio] 1.1 {ratio} Normal 1.1-2.2 [facility] Comment on above: Performed By: #### C OMP ####[address] [address] Alk Phos 70 IU/L Normal 32-91 [facility] Comment on above: Performed By: #### C OMP ####[address] [address] ALT [Catalytic activity/Vol] 16 U/L Normal 14-54 [facility] Comment on above: Performed By: #### C OMP ####[address] [address] AST [Catalytic activity/Vol] 19 U/L Normal 15-41 [facility] Comment on above: Performed By: #### C OMP ####[address] [address] Bili Total 0.7 mg/dL Normal 0.3-1.2 [facility] Comment on above: Performed By: #### C OMP ####[address] [address] Creatinine [Mass/Vol] 0.58 mg/dL Normal 0.44-1.03 [facility] Comment on above: Performed By: #### C OMP ####[address] [address] Protein [Mass/Vol] 7.7 g/dL Normal 6.5-8.1 [facility] Comment on above: Performed By: #### C OMP ####[address] [address] Urea nitrogen [Mass/Vol] 10 mg/dL Normal 8-26 [facility] Comment on above: Performed By: #### C OMP ####[address] [address] Urea nitrogen/Creatinine [Mass ratio] 17.2 mg/mg Normal 10.0-20.0 [facility] Comment on above: Performed By: #### C OMP ####[address] [address] Anion gap [Moles/Vol] 16 mmol/L Normal 7-17 [facility] Comment on above: Performed By: #### C OMP ####[address] [address] Calcium [Mass/Vol] 9.1 mg/dL Normal 8.5-10.3 [facility] Comment on above: Performed By: #### C OMP ####[address] [address] Chloride [Moles/Vol] 97 mmol/L Low 98-110 [facility] Comment on above: Performed By: #### C OMP ####[address] [address] CO2 [Moles/Vol] 27 mmol/L Normal 22-32 [facility] Comment on above: Performed By: #### C OMP ####[address] [address] Glucose [Mass/Vol] 92 mg/dL Normal 74-118 [facility] Comment on above: Performed By: #### C OMP ####[address] [address] Potassium [Moles/Vol] 3.4 mmol/L Normal 3.4-4.8 [facility] Comment on above: Performed By: #### C OMP ####[address] [address] Sodium [Moles/Vol] 137 mmol/L Normal 133-142 [facility] Comment on above: Performed By: #### C OMP ####[address] [place] [address] Diff Autoon 10-31-2018 Baso Absolute 0.1 x10*3/mcL Normal 0.0-0.2 [facility] Comment on above: Performed By: #### . Automated Diff #### [address] [address] Basophils/100 WBC (Bld) 0.8 % Normal 0.0-1.5 [facility] Comment on above: Performed By: #### . Automated Diff #### [address] [address] Eos Absolute 0.1 x10*3/mcL Normal 0.0-0.4 [facility] Comment on above: Performed By: #### . Automated Diff #### [address] [address] Eosinophils/100 WBC (Bld) 0.8 % Normal 0.0-5.4 [facility] Comment on above: Performed By: #### . Automated Diff #### [address] [address] Lymphocytes (Bld) [#/Vol] 1.8 x10*3/mcL Normal 1.0-4.8 [facility] Comment on above: Performed By: #### . Automated Diff #### [address] [address] Lymphocytes/100 WBC (Bld) 15.0 % Low 27.2-40.8 [facility] Comment on above: Performed By: #### . Automated Diff #### [address] [address] Ness Absolute 0.7 x10*3/mcL Normal 0.1-1.1 [facility] Comment on above: Performed By: #### . Automated Diff #### [address] [address] Monocytes/100 WBC (Bld) 5.5 % Normal 3.7-11.9 [facility] Comment on above: Performed By: #### . Automated Diff #### [address] [place] [address] Neutro Absolute 9.4 x10*3/mcL High 1.8-7.7 [facility] Comment on above: Performed By: #### . Automated Diff #### [address] [address] Neutro Auto 77.9 % High 47.2-70.8 [facility] Comment on above: Performed By: #### . Automated Diff #### [address] [address] PTon 10-31-2018 INR Coag (PPP) [Relative time] 1.0 {INR} Normal <=3.5 [facility] Comment on above: Result Comment: INR has no normal range. INR Therapeutic range is: 2.0-3.0 (AF, CVA, TIAs, DVT prophylaxis, acute DVT) 2.5-3.5 ([facility] heart valves, recurrent thrombosis/emboli) Performed By: #### P TINR #### [address] [address] PT Coag (PPP) [Time] 10.5 s Normal 9.2-11.7 [facility] Comment on above: Performed By: #### P TINR #### [address] [address] PTTon 10-31-2018 aPTT Coag (Bld) [Time] 25.0 s Normal 20.6-28.0 [facility] Comment on above: Performed By: #### P TT #### [address] [address] UA w Culture if Indon 2018 Color (U) Straw Normal [facility] Comment on above: Performed By: #### U CI #### [address] [address] Glucose (U) [Mass/Vol] Negative Normal Negative [facility] Comment on above: Performed By: #### U CI #### [address] [address] Ketones Ql (U) Negative Normal Negative [facility] Comment on above: Performed By: #### U CI #### [address] [place] [address] UA Blood Negative Normal Negative [facility] Comment on above: Performed By: #### U CI #### [address] [place] [address] UA Clarity Clear Normal [facility] Comment on above: Performed By: #### U CI #### [address] [place] [address] UA Leukocyte Esterase Negative Normal Negative [facility] Comment on above: Performed By: #### U CI #### [address] [place] [address] UA Nitrite Negative Normal Negative [facility] Comment on above: Performed By: #### U CI #### [address] [place] [address] UA pH 8.0 Abnormal 4.5 - 7.8 [facility] Comment on above: Performed By: #### U CI #### [address] [place] [address] UA Protein Negative Normal Negative [facility] Comment on above: Performed By: #### U CI #### [address] [place] [address] UA Source Clean Catch Normal [facility] Comment on above: Performed By: #### U CI #### [address] [place] [address] UA Spec Grav 1.005 Normal 1.003-1.035 [facility] Comment on above: Performed By: #### U CI #### [address] [place] [address] UA Urobilinogen 0.2 mg/dL Normal 0.2 - 1.0 [facility] Comment on above: Performed By: #### U CI #### [address] [place] [address] Urobilinogen Qn (U) Negative Normal Negative [facility] Comment on above: Performed By: #### U CI #### [facility] [address] [place] [address] Neurosurgery Office/Clinic N walter 10-13-2018 Neurosurgery Office/Clinic Note History of Present Illness The purpose of this visit is to review imaging and symptoms and hip xrays and lumbar flex ex xrays and see how we can help her. She has zero interest in pain management based on her spouse's experience. The history was reviewed and is accurate. 10/06/18 visit: 73 year old female with history of osteoporosis, htn, and chronic intermittent epistaxis here for initial evaluation of back with left leg pain. She reports pain onset was early August without known injury. Back: left sided, 3-9/10, sharp, activity dependent Left leg: groin, lateral leg primarily to knee- occ to calf; occasional subjective weakness, constant daily pain since August 2018, 5-6/10 pain. no loss of bowel or bladder, no saddle paresthesia Conservative treatments: heat, chiro, hep, acetaminophen, tramadol [1] Review of Systems General Adult ROS Fatigue: No Appetite change: No Other General: No Weakness: No Weight gain: No Weight Loss: No Cardiovascular EENMT Gastrointestinal Genitourinary Hematologic/Lymphatic Musculoskeletal Back pain: Yes Joint pain: Yes Joint stiffness: No Joint swelling: No Muscle aches: No Other Musculoskeletal: No Neurological Abnormal Gait: No Focal weakness: No Headache: No Incoordination: No Memory problems: No Numbness: Yes Other Neurological: No Seizures: No Slurred speech: No Tremor: Yes Psychiatric Respiratory Skin Physical Exam Additional Vitals No qualifying data available. General: [Alert and oriented, well nourished, no acute distress]. Eye: [normal conjunctiva, no scleral icterus]. HENT: [normocephalic, atraumatic, oral mucosa pink and moist, dentition intact]. Neck: [Supple, no carotid bruits]. Pulmonary: [Clear to auscultation, non-labored respiration]. Cardiovascular: [Normal rate, regular rhythm, systolic murmur, no edema, strong pulses with rapid capillary refill]. Abdomen: [soft, nontender] Skin: [Normal temperature and texture; no rashes; no digit clubbing or cyanosis]. Psychiatric: [Appropriate judgment and insight, appropriate mood and affect]. NEURO EXAM: Pupils are equal bilaterally and reactive to light. No eye deviation at primary gaze. Extraocular movements are full with normal pursuits. Facial sensation is intact. Face is symmetric with normal eye closure and smile Hearing is intact to finger rub bilaterally. Palate elevates symmetrically, shoulder shrug is full strength, tongue is midline. Motor: Upper Extremity Strength: 5/5 Lower Extremity Strength: 5/5 Reflexes: Reflexes of upper and lower extremities are 1+. Cortes?s sign is negative. Absent pectoral reflex. No clonus. Coordination: Tandem intact. Gait: Posture is normal. Gait is antalgic to left. Base and stride normal. Heel, toe, and march intact. Musculoskeletal: Negative SSLR. Positive left Alan?s (lateral hip, SI) Pain with external rotation left hip Spine: no visible deformities Lumbar spine: tenderness noted in the left lumbar paraspinal musculature. [2] Assessment/Plan Assessment: 1. low back with left leg pain 2. MRI lumbar 09/21/18- T11 likely hemangioma, ddd, fa, L45 mild bilateral NF, mild/mod bilateral LR; L5S1 mod/severe NF, mild mod LR bilaterally 3. s/p left L34 discectomy 2003, unknown surgeon[facility] 4. tobacco use 1 ppd 5. osteoporosis 6. XR lumbar flex ex: no intersegmental instability 7. Xray of the left hip: normal Plan: I recommend left L4-5-S1 hemilaminotomy and foraminotomy and discectomy L4-5. She wants to talk it over with her spouse and will call back when she is ready to schedule. Described risks include bleeding, infection, neurological injury, blindness, stroke, , csf leak, continued pain, medical complication, development of instability, and need for further procedures or surgeries. Problem List/Past Medical History Ongoing Acute rhinitis Angina Back pain Depression Epistaxis Foot callus HTN Hyperlipidemia Impingement syndrome Iron deficiency Ocular migraine Osteoarthritis Ovarian cyst Syncope Historical No qualifying data Procedure/Surgical History foot surgeries Hysterectomy SHOULDER ARTHROSCOPY/SURGERY Oophorectomy (1963) lumbar disc repair (2003) SHOULDER ARTHROSCOPY/SURGERY (2005) Cataract extraction (2017) colonscopy (2018) Medications albuterol 90 mcg/inh inhalation aerosol, 1 puffs, Inhale, Once, PRN amLODIPine 2.5 mg oral tablet, 2.5 mg, 1 tabs, Oral, Daily atorvastatin 10 mg oral tablet, 10 mg, 1 tabs, Oral, Daily fludrocortisone 0.1 mg oral tablet, 0.1 mg, 1 tabs, Oral, Daily Klor-Con, 1 tabs, Oral, Daily levothyroxine 25 mcg (0.025 mg) oral tablet, 25 mcg, 1 tabs, Oral, Daily primidone 50 mg oral tablet, 50 mg, 1 tabs, Oral, BID Prolia 60 mg/mL subcutaneous solution, 60 mg, 1 mL, Subcutaneous, q6mo sertraline 50 mg oral tablet, 50 mg, 1 tabs, Oral, Daily traMADol 50 mg oral tablet, 50 mg, 1 tabs, Oral, q4hr, PRN Vitamin B12 50 mcg oral tablet, 50 mcg, 1 tabs, Oral, Daily Vitamin D with Minerals oral tablet, 1 tabs, Oral, Daily Allergies Dulera (Shaking) NSAIDs (Unknown) penicillins (Rash) Social History Alcohol Never Home/Environment Injuries/Abuse/Neglec t in household: No. Sexual History of sexual abuse: No. Substance Abuse Denies All Tobacco 10 or more cigarettes (1/2 pack or more)/day in last 30 days Use:. Ready to change: No. Family History Cancer: Mother. Diabetes mellitus: Mother. Heart disease: Mother. Hypertension: Mother and Sibling. Stroke: Mother. Diagnostic Results Xray Hip 2-3 Views Left Results: IMPRESSION: 1. Normal left hip appearance for age. 2. Degenerative disc disease of the lower lumbar spine. [4] Xray Spine Lumbosacral Results: IMPRESSION: 1. No subluxation throughout. 2. Moderate chronic degenerative disc disease L5-S1 and L4-5 and L3-4. Possible mild arthropathy at L4-5 and L5-S1 as well. [5] [1] Neurosurgery Office Visit Note; Robbie ORTIZ Toña Mariscal 10/06/2018 13:26 EDT [2] Neurosurgery Office Visit Note; Robbie ORTIZ Toña Phany 10/06/2018 13:26 EDT [3] Neurosurgery Office Visit Note; Robbie ORTIZ Toña Mariscal 10/06/2018 13:26 EDT [4] XR Hip 2-3 Views Left; Inés Da Silva 10/06/2018 15:02 EDT [5] XR Spine Lumbosacral Bending 2-3 Views; Inés Da Silva 10/06/2018 15:02 EDT Electronically signed by Gene Cline MD 10/13/18 15:22 EDT Electronically signed by MonicaBri blum Noemi 10/13/2018 15:06 EDT Normal [facility] Neurosurgery Office/Clinic N walter 10-06-2018 Neurosurgery Office/Clinic Note Chief Complaint Patient present for a consult on her back. She states the pain is traveling down into her left leg. History of Present Illness 73 year old female with history of osteoporosis, htn, and chronic intermittent epistaxis here for initial evaluation of back with left leg pain. She reports pain onset was early August without known injury. Back: left sided, 3-9/10, sharp, activity dependent Left leg: groin, lateral leg primarily to knee- occ to calf; occasional subjective weakness no loss of bowel or bladder, no saddle paresthesia Conservative treatments: heat, chiro, hep, acetaminophen, tramadol Medical history: depression, htn, hld, ocular migraine, oa, syncope, epistaxis, osteoporosis, thyroid disease Social history: tobacco 1ppd Medications: as listed Surgical history: 2004- L34 disc (?)- unknown surgeon, [facility] Family history: as listed Imaging: MRI lumbar 09/21/18- T11 likely hemangioma, ddd, fa, L45 mild bilateral NF, mild/mod bilateral LR; L5S1 mod/severe NF, mild mod LR bilaterally Review of Systems General Adult ROS Fatigue: Yes Appetite change: Yes Other General: No Weakness: No Weight gain: No Weight Loss: Yes Cardiovascular Chest pain/pressure: No EENMT Vision Changes: No Gastrointestinal Abdominal pain: Yes Constipation: Yes Diarrhea: No Heartburn: No Nausea: No Vomiting: No Genitourinary Decreased urine output: No Frequency: No Hesitancy: No Hematologic/Lymphatic Bleeding tendencies: No Bruising: Yes Musculoskeletal Back pain: Yes Joint pain: Yes Joint stiffness: No Joint swelling: No Muscle aches: No Other Musculoskeletal: Yes Neurological Abnormal Gait: No Focal weakness: No Headache: No Incoordination: No Memory problems: No Numbness: No Other Neurological: No Seizures: No Slurred speech: No Tremor: Yes Psychiatric Anxiety: No Depression: No Respiratory Cough: No Shortness_of_breath: No Snoring: No Wheezing: No Skin Itching: No Lesion/change in moles: No Rash: No Physical Exam Vitals & Measurements BP: 138/80 HT: 52.3 cm WT: 115.4 kg DOSE WT: 52.3 kg BMI: 421.89 Additional Vitals Body Mass Index Measured: 421.89 kg/m2 Peripheral Pulse Rate: 76 bpm BP Position/Location: Sitting, Left arm General: [Alert and oriented, well nourished, no acute distress]. Eye: [normal conjunctiva, no scleral icterus]. HENT: [normocephalic, atraumatic, oral mucosa pink and moist, dentition intact]. Neck: [Supple, no carotid bruits]. Pulmonary: [Clear to auscultation, non-labored respiration]. Cardiovascular: [Normal rate, regular rhythm, systolic murmur, no edema, strong pulses with rapid capillary refill]. Abdomen: [soft, nontender] Skin: [Normal temperature and texture; no rashes; no digit clubbing or cyanosis]. Psychiatric: [Appropriate judgment and insight, appropriate mood and affect]. NEURO EXAM: Pupils are equal bilaterally and reactive to light. No eye deviation at primary gaze. Extraocular movements are full with normal pursuits. Facial sensation is intact. Face is symmetric with normal eye closure and smile Hearing is intact to finger rub bilaterally. Palate elevates symmetrically, shoulder shrug is full strength, tongue is midline. Motor: Upper Extremity Strength: 5/5 Lower Extremity Strength: 5/5 Reflexes: Reflexes of upper and lower extremities are 1+. Cortes?s sign is negative. Absent pectoral reflex. No clonus. Coordination: Tandem intact. Gait: Posture is normal. Gait is antalgic to left. Base and stride normal. Heel, toe, and march intact. Musculoskeletal: Negative SSLR. Positive left Alan?s (lateral hip, SI) Pain with external rotation left hip Spine: no visible deformities Lumbar spine: tenderness noted in the left lumbar paraspinal musculature. Assessment: 1. low back with left leg pain 2. MRI lumbar 09/21/18- T11 likely hemangioma, ddd, fa, L45 mild bilateral NF, mild/mod bilateral LR; L5S1 mod/severe NF, mild mod LR bilaterally 3. s/p left L34 discectomy 2003, unknown surgeon[facility] 4. tobacco use 1 ppd 5. osteoporosis Plan: 1. XR lumbar flex ex 2. XR left hip 3. f/u on completion referral packet reviewed, she did have XRs of the lumbar/sacrum- report/imaging not available we reviewed MRI imaging in office, with all questions answered recommend XRs lumbar with flex ex views, along with XRs of the left hip (plan to obtain at [facility]) she will f/u with Dr. Cline on completion Assessment/Plan 1. DDD (degenerative disc disease), lumbar Ordered: XR Hip 2-3 Views Left XR Spine Lumbosacral Bending 2-3 Views 2. Neuroforaminal stenosis of lumbar spine Ordered: XR Hip 2-3 Views Left XR Spine Lumbosacral Bending 2-3 Views 3. Facet arthropathy, lumbar Ordered: XR Hip 2-3 Views Left XR Spine Lumbosacral Bending 2-3 Views 4. Lumbago Ordered: XR Hip 2-3 Views Left XR Spine Lumbosacral Bending 2-3 Views Problem List/Past Medical History Ongoing Acute rhinitis Angina Back pain Depression Epistaxis Foot callus HTN Hyperlipidemia Impingement syndrome Iron deficiency Ocular migraine Osteoarthritis Ovarian cyst Syncope Historical No qualifying data Procedure/Surgical History foot surgeries Hysterectomy SHOULDER ARTHROSCOPY/SURGERY Oophorectomy (1963) lumbar disc repair (2003) SHOULDER ARTHROSCOPY/SURGERY (2005) Cataract extraction (2017) colonscopy (2018) Medications albuterol 90 mcg/inh inhalation aerosol, 1 puffs, Inhale, Once, PRN amLODIPine 2.5 mg oral tablet, 2.5 mg, 1 tabs, Oral, Daily atorvastatin 10 mg oral tablet, 10 mg, 1 tabs, Oral, Daily fludrocortisone 0.1 mg oral tablet, 0.1 mg, 1 tabs, Oral, Daily Klor-Con, 1 tabs, Oral, Daily levothyroxine 25 mcg (0.025 mg) oral tablet, 25 mcg, 1 tabs, Oral, Daily primidone 50 mg oral tablet, 50 mg, 1 tabs, Oral, BID Prolia 60 mg/mL subcutaneous solution, 60 mg, 1 mL, Subcutaneous, q6mo sertraline 50 mg oral tablet, 50 mg, 1 tabs, Oral, Daily traMADol 50 mg oral tablet, 50 mg, 1 tabs, Oral, q4hr, PRN Vitamin B12 50 mcg oral tablet, 50 mcg, 1 tabs, Oral, Daily Vitamin D with Minerals oral tablet, 1 tabs, Oral, Daily Allergies Dulera (Shaking) NSAIDs (Unknown) penicillins (Rash) Social History Alcohol Never Home/Environment Injuries/Abuse/Neglec t in household: No. Sexual History of sexual abuse: No. Substance Abuse Denies All Tobacco 10 or more cigarettes (1/2 pack or more)/day in last 30 days Use:. Ready to change: No. Family History Cancer: Mother. Diabetes mellitus: Mother. Heart disease: Mother. Hypertension: Mother and Sibling. Stroke: Mother. Diagnostic Results MRI lumbar 09/21/18- T11 likely hemangioma, ddd, fa, L45 mild bilateral NF, mild/mod bilateral LR; L5S1 mod/severe NF, mild mod LR bilaterally Electronically signed by Toña Avalos CNP 10/06/18 14:25 EDT Electronically signed by Romana Brumfield 10/06/2018 13:27 EDT Normal [facility] Provider Letteron 10-06-2018 Provider Letter Alfred Pal NP [address] [place] [id number] Re: Stephanie Spear Date of Visit: 10/06/2018 Dear Alfred Pal, Thank you for referring Stephanie to my office. Attached you will find my office note. Please let me know if you have any questions or concerns. Sincerely, Toña Avalos CNP [facility] [address] The following document(s) were included in the letter: October 06, 2018 13:26:08 EDT - (10/06/2018) Neurosurgery Office Visit Note Normal [facility] XR Hip 2-3 Views Lefton 09-22 XR Hip 2-3 Views Left AP pelvis and frog-leg view left hip HISTORY: Left lower back pain and left lower extremity radiculopathy TECHNIQUE: AP pelvis and frog-leg view left hip Report: No fracture or acute bony abnormality, no significant chronic or arthritic findings on either side. Soft tissues negative. There are degenerative changes in the lower lumbar spine. IMPRESSION: 1. Normal left hip appearance for age. 2. Degenerative disc disease of the lower lumbar spine. Final Dictated by: Kody James MD Dictated DT/TM: 10/06/2018 8:59 pm Signed by: Kody James MD Signed (Electronic Signature): 10/06/2018 9:00 pm (If Report Is Signed, Electronically Signed in Other Vendor System) Normal [facility] XR Spine Lumbosacral Bending 2-3 Viewson 10-06-2018 XR Spine Lumbosacral Bending 2-3 Views 3 standing bending views lumbosacral spine HISTORY: Left lower back pain and left lower extremity radiculopathy COMPARISON: Outside MRI 09/21/2018 TECHNIQUE: Lateral standing neutral and flexion and extension views. No subluxation with the neutral view, no subluxation elicited with either flexion or extension. Moderate chronic degenerative disc disease at the lower 3 levels. Sclerosis at L4-5 and L5-S1 posterior elements, probably just bony buttressing, could be mild arthropathy lobe. IMPRESSION: 1. No subluxation throughout. 2. Moderate chronic degenerative disc disease L5-S1 and L4-5 and L3-4. Possible mild arthropathy at L4-5 and L5-S1 as well. Final Dictated by: Kody James MD Dictated DT/TM: 10/06/2018 8:56 pm Signed by: Kody James MD Signed (Electronic Signature): 10/06/2018 8:59 pm (If Report Is Signed, Electronically Signed in Other Vendor System) Normal [facility] Vital Signs Date Time Vital Sign Value Performing Clinician Vahid marte 04-07-2022 14:26-0500 Body height 160.02 cm RETA Tamez Work Phone: [facility] 04-07-2022 14:26-0500 Body weight 52.16 kg RETA Tamez Work Phone: [facility] 06-19-2021 15:54-0400 Diastolic blood pressure 75 mm[Hg] Shayne PatsyJaeger DO Work Phone: [facility] 06-19-2021 15:54-0400 Heart rate 69 /min Shayne Elton DO Work Phone: [facility] 06-19-2021 15:54-0400 Systolic blood pressure 157 mm[Hg] Shayne [employer] DO Work Phone: [facility] 04-30-2021 14:00-0500 SaO2% (BldA) [Mass fraction] 97 % [facility] Work Phone: Encounters Encounter Date Encounter Type Care Provider Facility Start: 01-04-2023 End: 01-04-2023 ambulatory SYDNEE TAMEZ Not Available Start: 11-23-2022 End: 11-23-2022 Emergency department patient visit SYDNEE TAMEZ [facility] Start: 11-06-2022 End: 11-09-2022 ambulatory SOTO Delarosa [facility] Start: 04-07-2022 End: 04-07-2022 ambulatory Sydnee L Sarahe Facility:[facility] Start: 04-07-2022 End: 04-07-2022 ambulatory CFNP Sydnee L Cristy Work Phone: [facility] Work Phone: Start: 04-07-2022 End: 04-07-2022 Patient encounter procedure CFPARISH Tamez Work Phone: [facility] [place] Work Phone: Start: 04-03-2022 End: 04-03-2022 ambulatory Sydnee Tamez Facility:[facility] Start: 04-03-2022 End: 04-03-2022 ambulatory RETA Tamez Work Phone: [facility] Work Phone: Start: 04-03-2022 End: 04-03-2022 Patient encounter procedure RETA Tamez Work Phone: [facility] [place] Work Phone: Start: 03-05-2022 End: 03-08-2022 ambulatory [facility] Start: 03-05-2022 End: 03-07-2022 Subsequent hospital visit by physician [facility] MRI Comment on above: Falls frequently; Tremor; Confusion; Shuffling gait Start: 03-03-2022 End: 03-04-2022 ambulatory [facility] Start: 03-03-2022 End: 03-03-2022 Subsequent hospital visit by physician Sydnee Tamez Work Phone: [facility] Start: 01-30-2022 End: 01-30-2022 ambulatory SHAYNE CONDE Facility:[facility] Start: 12-17-2021 End: 12-20-2021 ambulatory SYDNEE L RINE [facility] Start: 12-08-2021 End: 12-11-2021 ambulatory SYDNEE L RINE [facility] Start: 12-08-2021 End: 12-10-2021 Subsequent hospital visit by physician Kaye Guzman Dr Room 4 [facility] Radiology Comment on above: Acute pain of right knee Start: 10-16-2021 End: 10-18-2021 Subsequent hospital visit by physician Kaye Mammography Room At [facility] Mammography Comment on above: Breast cancer screen ing by mammogram Start: 09-03-2021 End: 09-04-[address] PHANI FRANCIS Facility: Start: 08-26-2021 End: 08-28-2021 Subsequent hospital visit by physician Kaye Guzman Dr Room 4 [facility] Radiology Comment on above: Right shoulder pain, unspecified chronicity Pain in rib Start: 06-19-2021 End: 06-19-2021 Patient encounter procedure Shayne Pulido Philselwyn DO Work Phone: Neurology Comment on above: Essential tremor (Pr imary Dx) Start: 05-20-2021 End: 05-20-2021 Subsequent hospital visit by physician Sydnee Tamez Work Phone: [facility] Start: 04-30-2021 End: 04-30-2021 Subsequent hospital visit by physician Kaye Pulmonary Function Room [facility] PFT Comment on above: Centrilobular emphys rivera (HCC) Start: 04-03-2021 End: 04-04-[address] [facility] Start: 04-03-2021 End: 04-03-2021 ambulatory [facility] Start: 03-12-2021 End: 03-12-2021 Subsequent hospital visit by physician Sydnee Tamez Work Phone: [facility] Start: 07-15-2020 End: 07-17-2020 Subsequent hospital visit by physician Kaye Guzman Dr Room 4 [facility] Radiology Comment on above: Injury of left knee, initial encounter Right shoulder pain, unspecified chronicity; Fall, initial encounter; Right arm pain Start: 06-19-2020 End: 05-23-2020 General Olga BedollaD Work Phone: [facility] Work Phone: Start: 05-23-2020 End: 05-23-2020 Patient encounter procedure Shannan Benavides Work Phone: [facility] Work Phone: Start: 12-12-2019 End: 12-14-2019 Subsequent hospital visit by physician Kaye Dexa [facility] Mammography Comment on above: Osteoporosis, unspec ified osteoporosis type, unspecified pathological fracture presence Start: 04-03-2019 End: 04-04-2019 Patient encounter procedure Gene Cline Facility:[facility] Start: 01-24-2019 End: 01-26-2019 Subsequent hospital visit by physician Sydnee Tamez [facility] Radiology Start: 01-06-2019 End: 01-07-2019 Patient encounter procedure Gene Cline Facility:[facility] Start: 12-13-2018 End: 12-13-2018 Subsequent hospital visit by physician Kaye Cardiology Stress Room [facility] Comment on above: Abnormal EKG; Mixed hyperlipidemia; Orthostatic hypotension; Tobacco abuse; Shortness of breath on exertion Start: 12-12-2018 End: 12-13-2018 Patient encounter procedure Gene Cline Facility:[facility] Start: 11-22-2018 End: 12-22-2018 Preoperative state [address] Start: 11-02-2018 End: 11-04-2018 Subsequent hospital visit by physician Kaye Xr Dr Room 2 [facility] Radiology Comment on above: Cough Start: 10-31-2018 End: 11-01-2018 Patient encounter procedure Gene Cline Facility:[facility] Start: 10-06-2018 End: 10-07-2018 Patient encounter procedure TOÑA AVALOS Facility:[facility] Procedures Date Procedure Procedure Detail Performing Clinician Start: 04-07-2022 MRI of neck vessels with contrast CFPARISH Sydnee Cristy Work Phone: Start: 04-03-2022 Magnetic resonance angiography of head without contrast CFNP Sydnee Cristy Work Phone: Start: 03-05-2022 Mri brain brain stem w/o w/contrast material Alfred Fruvaleria Work Phone: Start: 03-03-2022 Basic metabolic pane l calcium total Alfred Fruth Work Phone: Start: 12-08-2021 Radiologic examinati on knee 3 views Sydnee L Rine Work Phone: Start: 10-16-2021 Screening mammograph y bi 2-view breast inc cad Sydnee L Rine Work Phone: Start: 08-26-2021 End: 08-26-2021 Radex shoulder complete minimum 2 views Sydnee L Rine Work Phone: Start: 05-20-2021 Blood count complete auto&auto difrntl wbc Gene Isaura Ham MD Work Phone: Start: 04-30-2021 Pulmonary stress testing Faith Carias MD Work Phone: Start: 03-12-2021 Urnls dip stick/tabl et rgnt auto w/o microscopy Sydnee Tamez Work Phone: Start: 07-15-2020 End: 07-15-2020 Radiologic examination knee 3 views Sydnee L Cristy Work Phone: Start: 06-19-2020 Imm. administration COVID19 Moderna dose 2 Olga Hoyng PharmD Work Phone: Start: 06-19-2020 SARS-CoV-2 vaccine, 0.5ml Moderna Olga Hoyng PharmD Work Phone: Start: 05-23-2020 Imm. administration COVID19 Moderna dose 1 Shannan Kennedy Work Phone: Start: 05-23-2020 SARS-CoV-2 vaccine, 0.5ml Moderna Shannan Kennedy Work Phone: Start: 12-12-2019 Dxa bone density jamshid dy 1/> sites axial skel Sydnee Tamez Work Phone: Start: 11-02-2018 Radiologic exam ches t 2 views Sydnee Tamez Work Phone: Plan of Treatment Date Care Activity Detail Author Start: 09-09-2022 End: 09-09-2022 Patient encounter procedure 09/09/2022 Office Visit Pulmonology Soto Brady, [address] [facility] [address] [place] [address] [facility] Start: 03-05-2022 End: 03-05-2022 Patient encounter procedure 03/05/2022 Appointment Radiology [facility] Start: 02-20-2022 Lipid panel Lipids [facility] Start: 12-08-2021 COVID-19 Vaccine (5 - Booster for Moderna series) COVID-19 Vaccine (5 - Booster for Moderna series) [facility] Start: 10-23-2021 Influenza vaccination Flu vaccine (#1) [facility] Start: 09-22-2021 Influenza vaccination Flu vaccine (#1) [facility] Start: 09-04-2021 End: 09-04-2021 Patient encounter procedure 09/04/2021 Office Visit Pulmonology Vadim Ortiz, 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 ENGINEER - [employer] [address] [facility] [address] [place], [place] [id number] [facility] Start: 08-07-2021 End: 08-07-2021 Patient encounter procedure 08/07/2021 Office Visit Pulmonology Faith Carias MD [address] [facility] [address] [place], [place] [id number] [facility] Start: 04-10-2021 End: 04-10-2021 Patient encounter procedure [facility] Start: 03-31-2021 End: 03-31-2021 Patient encounter procedure 03/31/2021 Appointment [facility]ography [facility] Start: 03-27-2021 Screening for malignant neoplasm of lung Low dose CT lung screening [facility] Start: 02-22-2021 ADVANCE DIRECTIVE DISCUSSION ADVANCE DIRECTIVE DISCUSSION [facility] Start: 12-19-2020 COVID-19 Vaccine (3 - Booster for Moderna series) COVID-19 Vaccine (3 - Booster for Moderna series) [facility] Start: 11-19-2020 COVID-19 Vaccine (3 - Booster for Moderna series) COVID-19 Vaccine (3 - Booster for Moderna series) [facility] Start: 11-04-2020 Lipid screen Lipid screen [facility], [place] Start: 10-23-2020 Influenza vaccination Flu vaccine (#1) [facility] Start: 06-19-2020 2nd Dose- COVID Vaccine [facility] Work Phone: Start: 04-04-2020 End: 04-04-2020 Office Visit 04/04/2020 Office Visit Pulmonology Faith Carias MD [address] [facility] [address] [place] [address] [facility] Start: 02-07-2020 Screening for malignant neoplasm of lung Low dose CT lung screening [place], [place] Start: 12-13-2019 Influenza vaccination Flu vaccine (#1) [place], [place] Comment on above: Postponed from 10/23/2018 (Patient Refus ed) Start: 11-03-[address] lung screening Low dose CT lung screening [place], [place] Start: 06-14-2019 Pneumococcal 65+ years Vaccine (2 - PPSV23 or PCV20) Pneumococcal 65+ years Vaccine (2 - PPSV23 or PCV20) [facility] Start: 06-14-2019 Pneumococcal 65+ years Vaccine (2 of 2 - PPSV23) Pneumococcal 65+ years Vaccine (2 of 2 - PPSV23) [facility] Start: 03-09-2019 End: 03-09-2019 Office Visit 03/09/2019 Office Visit Pulmonology Faith Carias MD [address] [facility] [address] [place] [address] [facility] [place] Start: 02-06-2019 End: 02-06-2019 Appointment 02/06/2019 Appointment Radiology [facility] CT Scan Start: 12-14-2018 End: 12-14-2018 Appointment 12/14/2018 Appointment Stress Lab [facility] Start: 10-23-2018 Influenza vaccination Flu vaccine (#1) [place], [place] Start: 08-14-2018 Annual Wellness Visit (AWV) Annual Wellness Visit (AWV) [facility] Start: 11-04-2016 Lipid panel [facility] Start: 11-04-2016 Lipid screen Lipid screen [place], [place] Start: 2008 BONE DENSITY BONE DENSITY [facility] Start: 2008 Pneumococcal 65+ years Vaccine (2 of 2 - PPSV23) Pneumococcal 65+ years Vaccine (2 of 2 - PPSV23) [place] Start: 2008 PNEUMOVAX AGE 65 AND OVER WITH 5YR LOOKBACK (#1) PNEUMOVAX AGE 65 AND OVER WITH 5YR LOOKBACK (#1) [facility] Start: 1993 Colon cancer screen colonoscopy Colon cancer screen colonoscopy [place], [place] Start: 1993 Shingles Vaccine (1 of 2) Shingles Vaccine (1 of 2) [facility] Start: 1993 SHINGRIX VACCINE (1 of 2) SHINGRIX VACCINE (1 of 2) [facility] Start: 1988 DIABETES SCREEN DIABETES SCREEN [facility] Start: 1962 DTaP/Tdap/Td vaccine (1 - Tdap) DTaP/Tdap/Td vaccine (1 - Tdap) [facility] Start: 1962 Urine microalbumin profile DTAP,TDAP,TD (1 - Tdap) [facility] Start: 1961 HEPATITIS C SCREENING HEPATITIS C SCREENING [facility] Start: 1961 Hepatitis C screening Hepatitis C screen [facility] Start: 1955 Adult depression screening assessment DEPRESSION SCREENING [facility] Start: 1955 Depression Screen Depression Screen [facility] Start: 1954 DTaP/Tdap/Td vaccine (1 - Tdap) DTaP/Tdap/Td vaccine (1 - Tdap) [place] Start: 1943 Annual Wellness Visit (AWV) Annual Wellness Visit (AWV) [facility] Start: 1943 Hepatitis C screening Hepatitis C screen [facility] End: 03-12-2021 Culture, Urine [facility] Work Phone: Comment on above: Once for 1 Occurrences starting 03/12/19 until 03/12/2021 [place] Westley cunha Immunizations Immunization Date Immunization Notes Care Provider Fa aleena 06-19-2020 2nd Dose MODERNA COVID-19 Vaccine; Translations: [Moderna COVID-19 Vaccine] Yogesh Scott MD Work Phone: [facility] Work Phone: Comment on above: Note: Patient tolera heidy well. No signs or symptoms of adverse reactions. Patient waited a minimum of 15 minutes. 05-23-2020 2nd Dose MODERNA COVID-19 Vaccine; Translations: [Moderna COVID-19 Vaccine] [facility] Work Phone: Comment on above: Note: Patient tolera heidy well. No signs or symptoms of adverse reactions. Patient waited a minimum of 15 minutes. Payers Date Payer Category Payer Self-pay 2018 Medicare 2018 Unknown 2014 Medicare MEDICARE MEDICAR E PART A AND B xxxxxxxxxxx 2014-Present [phone] [place] [address] xxxxxxxxxxx [id number] 2014 Unknown [employer] [place] MEDICARE SUPP xxxxxx-[id number] 2014-Present [phone] ATTN INDIVIDUAL CLAIMS 3300 [employer] [place] [address] xxxxxx-xx [id number] 2008 Unknown [id number] .[id number] 2008 Unknown [employer] [place] [employer] [place] MEDICARE SUPPLEMENT [id number] 2008-Present [phone] 3300 [employer] [place] DEEPAKFORMERLY [facility] [place] [address] Indemnity [id number] 2008 Medicare MEDICARE MEDICAR E A AND B [id number] 2008-Present [phone] [place] [address] Medicare [id number] 1959 Medicare [id number] .[id number] 1959 Unknown [id number] 2.16.840.1.914056.3.140.1.729 99.5.10.6.3 1943 Unknown [id number] 2.16.840.1.264016.3.579.2.196 1943 Unknown [id number] 2.16.840.1.275773.3.579.2.196 1943 Unknown [id number] 2.16.840.1.867674.3.579.2.196 1943 Unknown [id number] 2.16.840.1.226248.3.579.2.196 1943 Unknown [id number] 2.840.1.363288.3.579.2.196 1943 Unknown [id number] 2.16.840.1.664067.3.579.2.593 1943 Unknown [id number] 2.16.840.1.739883.3.579.2.174 1943 Unknown [id number] 2.16.840.1.547103.3.579.2.174 1943 Unknown [id number] 2.16.840.1.656169.3.579.2.174 1943 Unknown [id number] 2.16.840.1.407033.3.579.2.173 1943 Unknown [id number] 2.16.840.1.781427.3.579.2.173 1943 Unknown [id number] 2.16.840.1.281303.3.579.2.173 1943 Unknown [id number] 2.16.840.1.917023.3.579.2.173 1943 Unknown [id number] 2.16.840.1.745001.3.579.2.173 1943 Unknown [id number] 2.16.840.1.475060.3.579.2.173 1943 Unknown [id number] 2.16.840.1.153239.3.579.2.125 9 Unknown [id number] 2.16.840.1.788432.3.579.2.531 Unknown [id number] 2.16.840.1.622249.3.579.2.531 Social History Date Type Detail Facility Start: 06-20-2015 [facility] End: 06-04-2014 History of tobacco use Current smoker [place] Start: 06-20-2015 End: 10-16-2021 Cigarettes smoked current (pack per day) - Reported [place] Start: 06-20-2015 End: 12-08-2018 Alcohol intake No [place] Start: 1945 Sex Assigned At Not on file [place] Start: 12-08-2018 End: 10-16-2021 Tobacco smoking status [facility] Current every day smoker [place] Start: 12-08-2018 End: 10-16-2021 Alcohol intake Current non-drinker of alcohol (finding) [place] Start: 03-30-2019 End: 10-16-2021 Tobacco use and exposure Never used [place] Exposure to SARS-CoV -2 (event) Not sure [place] Tobacco smoking status Unknown if ever sm [facility] Work Phone: History of tobacco use Cigarette Smoker M [facility] Start: 1945 Sex Assigned At Female F [facility] Clinical Notes 06-19-2020 to 01-30-2022 Patient InstructionsShayne Conde, - 06/19/2021 4:08 PM Niurka Chowdhury, LEAD [employer]GRAMMER - 04/30/2021 3:30 PM EST Note Date & Type Note Facility 01-30-2022 Note HNO ID: [id number] Author: Shayne Conde, DO Service: ? Author Type: Physician Type: Progress Notes Filed: 02/02/2022 11:04 AM Note Text: [facility] - FOLLOW UP EVALUATION Shayne [place] [address] [facility] [address] Stephanie Spear is a 76 year old female with a history of essential tremor (ET). She is seen with her . Interval History Since Last Visit: The tremor persists. The primidone(Mysoline) was initially helpful - it has worn off a bit. She is sleepy with it. She shows me how difficult it is to play solitaire on the cell phone due the tremor. She has trouble using a stylus. The made her a wrist weight of 3oz - it was helpful. We reviewed multiple types of arm weights available online. The patient denies any recent illness or infections. The patient denies any hospitalization since the last office visit. The patient denies any changes to their medical history or new diagnoses. The patient denies any surgery/procedure since their last visit. The patient denies any headache, chest pain, palpitations, shortness of breath or abdominal pain. The patient denies any seizures, numbness/tingling, lightheadedness or vertiginous symptoms. The patient denies any recent suicidal ideation or attempts to harm themselves or others. The patient denies any new pain. Movement Disorders Medications Schedule: Medications bedtime primidone 50mg 4 Allergies: ALLERGIES Allergen Reactions Penicillins Rash Current Medications: Current Outpatient Medications Medication Sig omeprazole (PRILOSEC) 20 mg capsule Take 20 mg by mouth once daily. umeclidinium-vilanterol (ANORO ELLIPTA) 62.5-25 mcg/actuation inhaler Inhale 1 Puff as instructed once daily. melatonin 1 mg tablet Take 3 mg by mouth daily at bedtime. denosumab (PROLIA) 60 mg/mL Inject 60 mg subcutaneously one time only. Twice yearly gabapentin (NEURONTIN) 100 mg capsule Take 100 mg by mouth twice daily. atorvastatin (LIPITOR) 10 mg tablet Take 10 mg by mouth once daily. potassium chloride (MICRO-K ORAL) Take 20 mEq by mouth once daily. cholecalciferol (VITAMIN D-3) 5,000 unit tab Take 5,000 Units by mouth once daily. MAGNESIUM CHLORIDE ORAL Take by mouth once daily. amLODIPine (NORVASC) 10 mg tablet Take 10 mg by mouth once daily. sertraline (ZOLOFT) 25 mg tablet Take 50 mg by mouth once daily. fludrocortisone oral liquid 0.1 mg/mL (CPD) Take by mouth once daily. acetaminophen (TYLENOL EXTRA STRENGTH) 500 mg tablet Take 500 mg by mouth every 8 hours as needed. albuterol HFA (PROVENTIL HFA) 90 mcg/actuation inhaler Inhale 2 Puffs as instructed every 6 hours as needed for wheezing/shortness of breath. primidone (MYSOLINE) 50 mg tablet Take 4 tablets by mouth daily at bedtime. No current facility-administered medications for this visit. Objective: Vital Signs: BP 159/84 Pulse 72 Ht 161.3 cm (5' 3.5 ) Wt 52.2 kg (115 lb) SpO2 98% BMI 20.05 kg/m? General Medical Examination: General Description of Patient: Well appearing, comfortable Head:normocephalic, atraumatic Neck:No bruits, full range of movement, supple Cardiac: Regular rate and rhythm, no murmur Extremities: No leg edema, pulses intact, no rash or venous stasis changes. Neurological Exam Mental Status Awake and alert. Recent and remote memory are intact. Speech is normal. Language is fluent with no aphasia. Attention and concentration are normal. Fund of knowledge is appropriate for level of education. Cranial Nerves CN II to XII reported as normal . Motor No fasciculations present. Strength is 5/5 throughout all four extremities. No focal weakness appreciated on examination. Sensory There is no evidence for a stocking-glove gradient in bilateral extremities. Dual simultaneous stimulation is intact. Reflexes Right Left Brachioradialis 2+ 2+ Biceps 2+ 2+ Triceps 2+ 2+ Hamstring Tr Tr Patellar Tr Tr Right pathological reflexes: Greyson's absent. Left pathological reflexes: Greyson's absent. Coordination Right: Myskkq-ki-ixid normal. Rapid alternating movement normal.Left: Cserst-er-wlcp normal. Rapid alternating movement normal. Gait The patient's gait was not assessed for patient safety reasons. A walker was not available. The patient did require assistive devices to ambulate. Movement Disorders There is no rest tremor. The patient has bilateral mild-moderate action tremor. The patient has no postural tremor. The patient does not have a vocal or lingual tremor. An orthostatic tremor is not noted bilaterally. There is no rigidity on examination. There is no bradykinesia on examination. There is no reptilian stare. Hypophonia was not present. Assessment and Plan: Ms. Spear is a 76 year old female with essential tremor (ET). The following are the current problems noted and addressed during this visit: Essential tremor (primary encounter (more content not included)... [facility] 06-19-2021 Note HNO ID: [id number] Author: Shayne Conde, DO Service: ? Author Type: Physician Type: Progress Notes Filed: 06/27/2021 4:48 PM Note Text: [facility] - NEW PATIENT EVALUATION Sydnee Tamez MD [address] [facility] [address] Stephanie Spear is a 76 year old female who is self referred for evaluation of tremor. She is seen with her . History of Present Illness: The patient reports the development of tremor in both hands a couple of years ago. It has recently started to involve her legs. The tremor comes out when she tries to eat - food falls off fork. She will eat with her hands and fingers. Soup will shake off the spoon. The handwriting is all over the place . No smallness reported. She was given primidone(Mysoline) 50mg BID without benefit. No ADRs are reported. No family history of tremor. No use of EtOH is reported. The patient denies any recent illness or infections. The patient denies any hospitalization since the last office visit. The patient denies any changes to their medical history or new diagnoses. The patient denies any surgery/procedure since their last visit. The patient denies any headache, chest pain, palpitations, shortness of breath or abdominal pain. The patient denies any seizures, numbness/tingling, lightheadedness or vertiginous symptoms. The patient denies any recent suicidal ideation or attempts to harm themselves or others. The patient denies any new pain. In addition, the following activities of daily living that may be affected by tremors were evaluated: Speaking: Yes: Feeding: Yes: Bringing Liquids to Mouth: Yes: sometimes - she will use a straw Hygiene: Yes: Dressing: Yes: Writing: Yes: Working: No Depression: yes - takes Zoloft Anxiety: no Finally, the following table shows the patient's overall global physical and mental health using the PROMIS scale: *PROMIS-10 scoring scale: mean = 50, over 50 is above average, under 50 is below average Movement Disorders Medications Schedule: AM bedtime Primidone(Mysoline) 50mg 1 1 Review of Systems Respiratory: Positive for shortness of breath. Negative for difficulty breathing. Cardiovascular: Negative for chest pain. Gastrointestinal: Negative for abdominal pain. All other systems reviewed and are negative. ALLERGIES Allergen Reactions - Penicillins Rash Current Outpatient Medications Medication Sig - omeprazole (PRILOSEC) 20 mg capsule Take 20 mg by mouth once daily. - umeclidinium-vilanterol (ANORO ELLIPTA) 62.5-25 mcg/actuation inhaler Inhale 1 Puff as instructed once daily. - melatonin 1 mg tablet Take 3 mg by mouth daily at bedtime. - denosumab (PROLIA) 60 mg/mL Inject 60 mg subcutaneously one time only. Twice yearly - gabapentin (NEURONTIN) 100 mg capsule Take 100 mg by mouth twice daily. - atorvastatin (LIPITOR) 10 mg tablet Take 10 mg by mouth once daily. - potassium chloride (MICRO-K ORAL) Take 20 mEq by mouth once daily. - cholecalciferol (VITAMIN D-3) 5,000 unit tab Take 5,000 Units by mouth once daily. - MAGNESIUM CHLORIDE ORAL Take by mouth once daily. - amLODIPine (NORVASC) 10 mg tablet Take 10 mg by mouth once daily. - sertraline (ZOLOFT) 25 mg tablet Take 50 mg by mouth once daily. - fludrocortisone oral liquid 0.1 mg/mL (CPD) Take by mouth once daily. - acetaminophen (TYLENOL EXTRA STRENGTH) 500 mg tablet Take 500 mg by mouth every 8 hours as needed. - albuterol HFA (PROVENTIL HFA) 90 mcg/actuation inhaler Inhale 2 Puffs as instructed every 6 hours as needed for wheezing/shortness of breath. - primidone (MYSOLINE) 50 mg tablet Take 4 tablets by mouth daily at bedtime. No current facility-administered medications for this visit. Past Medical and Surgical History: has a past medical history of Chronic obstructive pulmonary disease (COPD) (HCC) and Other emphysema (HCC). has a past surgical history that includes hysterectomy hx; past surgical history of (Right); and back surgery hx (12/2018). In addition, the patient denies a history of exposure to dopamine receptor blocking agents, denies history of encephalitis/meningitis and denies significant exposure to insecticides/ pesticides/ heavy metals/ carbon monoxide Social History Tobacco Use - Smoking status: Not on file - Smokeless tobacco: Not on file Substance Use Topics - Alcohol use: Not on file - Drug use: Not on file Family History: family history is not on file. In addition, the patient denies any family history of PD/parkinsonism, tremor, other involuntary movement disorders. Objective: Vital Signs: BP 157/75 (BP Site: Left Arm, BP Position: Sitting, BP Cuff Size: Regular Adult) Pulse 69 General Medical Examination: General Description of Patient: Well appearing, comfortable Head:normocephalic, atraumatic Neck:No bruits, full range of movement, supple Cardiac: Regular rate and rhythm, no murmur Extremities: No leg edema, (more content not included)... [facility] 06-19-2021 Instructions Shayne Conde DO - 06/19/2021 4:41 PM EDT Primidone instructions Start Primidone 50mg for tremor 1 week: Take 1 tablet daily at bedtime. 1 week: Take 2 tablets daily at bedtime. 1 week: Take 3 tablets daily at bedtime. Continue: Take 4 tablets daily at bedtime. The patient will call ([phone]) if sedation, confusion or sleepiness occur. documented in this encounter [facility] 06-19-2021 History of Presen t illness Narrative [facility] - NEW PATIENT EVALUATION Sydnee Tamez MD [address] [facility] [address] Stephanie Spear is a 76 year old female who is self referred for evaluation of tremor. She is seen with her . History of Present Illness: The patient reports the development of tremor in both hands a couple of years ago. It has recently started to involve her legs. The tremor comes out when she tries to eat - food falls off fork. She will eat with her hands and fingers. Soup will shake off the spoon. The handwriting is all over the place . No smallness reported. She was given primidone(Mysoline) 50mg BID without benefit. No ADRs are reported. No family history of tremor. No use of EtOH is reported. The patient denies any recent illness or infections. The patient denies any hospitalization since the last office visit. The patient denies any changes to their medical history or new diagnoses. The patient denies any surgery/procedure since their last visit. The patient denies any headache, chest pain, palpitations, shortness of breath or abdominal pain. The patient denies any seizures, numbness/tingling, lightheadedness or vertiginous symptoms. The patient denies any recent suicidal ideation or attempts to harm themselves or others. The patient denies any new pain. In addition, the following activities of daily living that may be affected by tremors were evaluated: Speaking: Yes: Feeding: Yes: Bringing Liquids to Mouth: Yes: sometimes - she will use a straw Hygiene: Yes: Dressing: Yes: Writing: Yes: Working: No Depression: yes - takes Zoloft Anxiety: no Finally, the following table shows the patient's overall global physical and mental health using the PROMIS scale: *PROMIS-10 scoring scale: mean = 50, over 50 is above average, under 50 is below average Movement Disorders Medications Schedule: AM bedtime Primidone(Mysoline) 50mg 1 1 Review of Systems Respiratory: Positive for shortness of breath. Negative for difficulty breathing. Cardiovascular: Negative for chest pain. Gastrointestinal: Negative for abdominal pain. All other systems reviewed and are negative. ALLERGIES Allergen Reactions Penicillins Rash Current Outpatient Medications Medication Sig omeprazole (PRILOSEC) 20 mg capsule Take 20 mg by mouth once daily. umeclidinium-vilanterol (ANORO ELLIPTA) 62.5-25 mcg/actuation inhaler Inhale 1 Puff as instructed once daily. melatonin 1 mg tablet Take 3 mg by mouth daily at bedtime. denosumab (PROLIA) 60 mg/mL Inject 60 mg subcutaneously one time only. Twice yearly gabapentin (NEURONTIN) 100 mg capsule Take 100 mg by mouth twice daily. atorvastatin (LIPITOR) 10 mg tablet Take 10 mg by mouth once daily. potassium chloride (MICRO-K ORAL) Take 20 mEq by mouth once daily. cholecalciferol (VITAMIN D-3) 5,000 unit tab Take 5,000 Units by mouth once daily. MAGNESIUM CHLORIDE ORAL Take by mouth once daily. amLODIPine (NORVASC) 10 mg tablet Take 10 mg by mouth once daily. sertraline (ZOLOFT) 25 mg tablet Take 50 mg by mouth once daily. fludrocortisone oral liquid 0.1 mg/mL (CPD) Take by mouth once daily. acetaminophen (TYLENOL EXTRA STRENGTH) 500 mg tablet Take 500 mg by mouth every 8 hours as needed. albuterol HFA (PROVENTIL HFA) 90 mcg/actuation inhaler Inhale 2 Puffs as instructed every 6 hours as needed for wheezing/shortness of breath. primidone (MYSOLINE) 50 mg tablet Take 4 tablets by mouth daily at bedtime. No current facility-administered medications for this visit. Past Medical and Surgical History: has a past medical history of Chronic obstructive pulmonary disease (COPD) (HCC) and Other emphysema (HCC). has a past surgical history that includes hysterectomy hx; past surgical history of (Right); and back surgery hx (12/2018). In addition, the patient denies a history of exposure to dopamine receptor blocking agents, denies history of encephalitis/meningitis and denies significant exposure to insecticides/ pesticides/ heavy metals/ carbon monoxide Social History Tobacco Use Smoking status: Not on file Smokeless tobacco: Not on file Substance Use Topics Alcohol use: Not on file Drug use: Not on file Family History: family history is not on file. In addition, the patient denies any family history of PD/parkinsonism, tremor, other involuntary movement disorders. Objective: Vital Signs: BP 157/75 (BP Site: Left Arm, BP Position: Sitting, BP Cuff Size: Regular Adult) Pulse 69 General Medical Examination: General Description of Patient: Well appearing, comfortable Head:normocephalic, atraumatic Neck:No bruits, full range of movement, supple Cardiac: Regular rate and rhythm, no murmur Extremities: No leg edema, pulses intact, no rash or venous stasis changes. Neurological Exam Mental Status Awake and alert. Recent and remote memory are intact. Speech is normal. Language is fluent with no aphasia. Fund of knowledge is appropriate for level of education. Cranial Nerves CN II: Visual acuity is normal. Visual robertson full to confrontation. CN III, IV, : Extraocular movements intact bilaterally. Pupils equal round and reactive to light bilaterally. CN V: Facial sensation is normal. CN VII: Full and symmetric facial movement. CN VIII: Hearing is normal. CN IX, X: Palate elevates symmetrically CN XI: Shoulder shrug strength is normal. CN XII: Tongue midline without atrophy or fasciculations. Motor No fasciculations present. Strength is 5/5 throughout all four extremities. No focal weakness noted on examination. Sensory Sensation is intact to light touch, pinprick, vibration and proprioception in all four extremities. Reflexes Right Left Brachioradialis 2+ 2+ Biceps 2+ 2+ Triceps 2+ 2+ Hamstring 2+ 2+ Patellar 2+ 2+ Right pathological reflexes: Greyson's absent. Left pathological reflexes: Greyson's absent. Coordination Right: Ezimqs-ys-busr normal. Rapid alternating movement normal. Left: Fidpem-nv-zrey normal. Rapid alternating movement normal. Gait Casual gait is normal including stance, stride, and arm swing. The patient did not require assistive devices to ambulate. Movement Disorders There is no rest tremor. The patient has bilateral mild-moderate action tremor. The patient has no postural tremor. The patient does not have a vocal or lingual tremor. An orthostatic tremor is not noted bilaterally. There is no rigidity on examination. There is no bradykinesia on examination. There is no reptilian stare. Hypophonia was not present. Assessment and Plan: Ms. Spear is a 76 year old female with essential tremor (ET). The following are the current problems noted and addressed during this visit: Essential tremor (primary encounter diagnosis) Plan: 1. Increase primidone(Mysoline) Return in about 6 months (around 12/19/2021). Medical decision making was high complexity due to patient's, advancing disease, complex treatment regimen, multiple medications and risk of side effects, difficult medication management, and high side effect risk, counseling and review of mutliple symptoms and significant problems of which treatment limited, counseling, and development of a treatment plan concerning patients cognitvie difficulty, safety risks, caregiver involvement, diagnostic difficulties The total time spent on the patient care was 60 minutes with greater than 50% of the time spent on counseling regarding preparing to see the patient, [id number] patient care, completing clinical documentation, obtaining and/or reviewing separately obtained history, performing a medically appropriate examination, counseling and educating the patient/family/caregiver, ordering medications, tests, or procedures and communicating results to the patient/family/caregiver. I tried to answer all of the patient's questions and concerns during this visit. Shayne Conde DO Senior Staff Neurologist - [facility] documented in this encounter [facility] 04-30-2021 History of Presen t illness Narrative [place] [address] Patient Name: Stephanie Spear 1945 A home oxygen evaluation has been completed. Patient arrived on room air with a walker at this time. SpO2 was 97 % on room air at rest. Patient was walked for 6 minutes. SpO2 was 98 % on room air during walking. Patient does not qualify for home oxygen at this time. documented in this encounter [facility] Phone: 06-19-2020 Evaluation note Includes: Assessments for all patient encounters Findings Encounter for Immunization 2nd Dose- COV ID Vaccine with Olga Carey PharmD 06/19/2020 Encounter for Immunization 1st COVID Vac cine with Shannan Benavides PharmD 05/23/2020 [facility] Work Phone: Evaluation note* Diagnosis Injury of left knee, initial encounter documented in this encounter [facility] Phone: evaluation note* Diagnosis Right shoulder pain, unspecified chronicity Fall, initial encounter Right arm pain Pain in limb documented in this encounter [facility] Phone: evaluation note* Diagnosis Centrilobular emphysema (HCC) Other emphysema documented in this encounter [facility] Phone: evaluation note* Diagnosis Essential tremor- Primary Essential and other specified forms of tremor [facility] Right shoulder pain, unspecified chronicity documented in this encounter LU[facility] ANGEL SAN[facility] [employer] Phone: evaluation note* Diagnosis Pain in rib Chest pain, unspecified documented in this encounter [facility] Work Phone: evaluation note* Diagnosis Breast cancer screening by mammogram documented in this encounter [facility] Phone: evaluation note* Diagnosis Acute pain of right knee documented in this encounter [facility] Phone: evaluation note* Diagnosis Falls frequently Personal history of fall Tremor Abnormal involuntary movements Confusion Unspecified psychosis Shuffling gait Abnormality of gait documented in this encounter [facility] Work Phone: [email or web address] noteNo assessment information available [facility] Work Phone: History general Narrative - Reported Includes: Medical History in patient's chart No Medical History RecordedHealth [employer] [facility] Work Phone: History of Present illness Narrative History of Present Illness not supported for this document type No History of Present Illness Record[facility] [employer] [facility] Work Phone: Instructions Instructions not supported for this document type No Instructions [facility] [employer] [facility] Work Phone: Patient problem outcome Narrative Includes: Evaluations & Outcomes for active Goals No Outcomes [facility] [employer] [facility] Work Phone: Reason for referral (narrative)No Reason for Referral [facility] [employer] [facility] Work Phone: Review of systems Narrative - Reported Review of Systems not supported for this document type No Review of Systems Recorded[facility] Work Phone: Assessments Diagnosis Cough Diagnosis Abnormal EKG Nonspecific abnormal electrocardiogram (ECG) (EKG) Mixed hyperlipidemia Orthostatic hypotension Tobacco abuse Tobacco use disorder Shortness of breath on exertion Shortness of breath Diagnosis Osteoporosis, unspecified osteoporosis type, unspecified pathological fracture presence Findings Encounter Date Encounter for Immunization 1st COVID Vaccine kim Benavides PharmD 05/23/2020 Advance Directives No Advanced Directives Records FoundDocuments on File Type Date Recorded 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 Expl 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 Advance Directives and Living Will Power of Clerk [employer] Latest Code Status on File Code Status Date Activated Date Inactivated Comments Full Code 06/05/2014 11:47 PM 06/10/2014 3:31 PM Documents on File Type Date Recorded 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 Expl anation Advance Directives and Living Will Power of Clerk [employer] Latest Code Status on File Code Status Date Activated Date Inactivated Comments Full Code 06/05/2014 11:47 PM 06/10/2014 3:31 PM Documents on File Type Date Recorded 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 Expl anation ACP-Advance Directive ACP-Power of Clerk [employer] Documents on File Type Date Recorded 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 Expl anation ACP-Advance Directive ACP-Power of Clerk [employer] Advance Directive Response Recorded Date/ Time Advance Directives No March 27, 2022 11:30am Summary Purpose Family History No Family History Records Found Includes: Family History in patient's chart No Family History Recorded Includes: Family History in patient's chart No Family History RecordedNo Family History Records FoundNo Family History Records FoundNo Family History Records FoundNo Family History Records FoundNo Family History Records FoundNo Family History Records FoundNo Family History Records FoundNo Family History Records Found Hospital Course Note Hospital Course Pleasant 73- year-old female with a history of osteoporosis and chronic nicotine abuse who was admitted for elective decompression 01/06/[address] Gene Cline. She underwent uncomplicated L4 5 and L5-S1 hemilaminotomies with L4- L5 microdiscectomy left side. Postoperatively, patient noted elimination of radicular pain. She was hemodynamically stable and tolerant of mobilization. Patient had intact incision. She was evaluated by therapy modalities and deemed appropriate for discharge to home. She therefore is discharged home in good condition on postoperative day 1 Disposition: On postoperative recovery home with Condition: Good Diet: [facility] Follow[facility]: 2 weeks neurosurgery office Procedures while admitted: Left L4-5-S1 hemilaminotomy and foraminotomy and Left L4-5 discectomy Medications Home amLODIPine 2.5 mg oral tablet, 2.5 mg, 1 tabs, Oral, Daily atorvastatin 10 mg oral tablet, 10 mg, 1 tabs, Oral, Daily fludrocor (more content not included)... Reason for Referral Status Reason Specialty Diagnoses / Procedures Referred By Contact Referred To Contact Authorized Cardiology Diagnoses Abnormal EKG Mixed hyperlipidemia Orthostatic hypotension Tobacco abuse Shortness of breath on exertion Procedures Stress test, jose de jesus [place] SEST. REST STRESS MULT James Godoy MD [address] [place] [address] Status Reason Specialty Diagnoses / Procedures Referred By Contact Referred To Contact Pending Review Radiology Diagnoses Osteoporosis, unspecified osteoporosis type, unspecified pathological fracture presence Procedures DEXA BONE DENSITY AXIAL SKELETON Sydnee Tamez [address] [place] [phone] Specialty Diagnoses / Procedures Referred By Contac t Referred To Contact Diagnoses Centrilobular emphysema (HCC) Procedures 6 Minute Walk Test Faith Carias MD [address] [facility] [address] [place] [address] Referral ID Status Reason Start Date Expiration Date Visits Re quested Visits Authorized [id number] Open 04/17/2021 04/17/2022 1 1 Specialty Diagnoses / Procedures Referred By Contac t Referred To Contact [facility] Diagnoses Essential tremor Procedures CONSULT TO FRUIT GROWER OCCUPATIONAL THERAPY EVAL HIGH COMPLEX 60 MINS Shayne Conde, DO [address] [place] [address] [facility] [place] [address] [place] [address] Referral ID Status Reason Start Date Expiration Date Visits Requested Visits Authorized [id number] Authorized PCP Requested Referral Auto-Generate d Referral 06/19/2021 06/19/2022 99 99 Specialty Diagnoses / Procedures Referred By Contac t Referred To Contact Radiology Diagnoses Breast cancer screening by mammogram Procedures SHARON SOLIS DIGITAL SCREEN SELF REFERRAL W OR WO CAD BILATERAL Sydnee Tamez L [address] [place] [address] Referral ID Status Reason Start Date Expiration Date Visits Re quested Visits Authorized [id number] Closed 10/16/2021 10/16/2022 1 1 Specialty Diagnoses / Procedures Referred By Contac t Referred To Contact Radiology Diagnoses Falls frequently Tremor Confusion Shuffling gait Procedures MRI BRAIN W WO CONTRAST Alfred Pal [address] [place] [phone] Referral ID Status Reason Start Date Expiration Date Visits Re quested Visits Authorized [id number] Closed 03/03/2022 03/03/2023 1 1 Instructions Instructions not supported for this document type No Instructions Recorded History of Present Illness History of Present Illness not supported for this document type No History of Present Illness Recorded Review of System Review of Systems not supported for this document type No Review of Systems Recorded Physical Exam Physical Exam not supported for this document type No Physical Exam Recorded Physical Exam not supported for this document type No Physical Exam Recorded Chief Complaint and Reason for Visit Chief Complaint i63.9 Chief Complaint i63.9 i63.9 Additional Source Comments INFORMATION SOURCE (unrecogn ized section and content) DATE CREATED AUTHOR 04/04/2019 [facility] DATE CREATED AUTHOR AUTHOR'S ORGANIZ ATION 06/27/2021 [facility] dical Specialist DATE CREATED AUTHOR AUTHOR'S ORGANIZ ATION 06/28/2021 [facility] DATE CREATED AUTHOR AUTHOR'S ORGANIZ ATION 09/10/2021 [facility] DATE CREATED AUTHOR AUTHOR'S ORGANIZ ATION 02/03/2022 [facility] DATE CREATED AUTHOR AUTHOR'S ORGANIZ ATION 03/07/2022 [facility] DATE CREATED AUTHOR AUTHOR'S ORGANIZ ATION 05/16/2022 [facility] DATE CREATED AUTHOR AUTHOR'S ORGANIZ ATION 11/28/2022 [facility] [place] [facility] DATE CREATED AUTHOR AUTHOR'S ORGANIZ ATION 01/05/2023 [facility] dical Specialists EPIC Reason for Visit (unrecogniz ed section and content) Status Reason Specialty Diagnoses / Procedures Referred By Contact Referred To Contact Authorized Cardiology Diagnoses Abnormal EKG Mixed hyperlipidemia Orthostatic hypotension Tobacco abuse Shortness of breath on exertion Procedures Stress test, lexiscan HC [place] SEST. REST STRESS TRIT James Godoy MD [address] [place] [address] Status Reason Specialty Diagnoses / Procedures Referre d By Contact Referred To Contact Closed Radiology Diagnoses Age-related osteoporosis without current pathological fracture Procedures HC DEXA AXIAL SKELETON Sydnee Tamez [address] [place] [address] [facility] [address] [place] [address] Specialty Diagnoses / Procedures Referred By Contac t Referred To Contact Diagnoses Centrilobular emphysema (HCC) Procedures 6 Minute Walk Test Faith Carias MD [address] [facility] [address] [place] [address] Referral ID Status Reason Start Date Expiration Date Visits Re quested Visits Authorized [id number] Open 04/17/2021 04/17/2022 1 1 Reason Comments New Patient Specialty Diagnoses / Procedures Referred By Contac t Referred To Contact Radiology Diagnoses Breast cancer screening by mammogram Procedures SHARON SOLIS DIGITAL SCREEN SELF REFERRAL W OR WO CAD BILATERAL Sydnee Tamez L [address] [place] [phone] Referral ID Status Reason Start Date Expiration Date Visits Re quested Visits Authorized [id number] Closed 10/16/2021 10/16/2022 1 1 Specialty Diagnoses / Procedures Referred By Contac t Referred To Contact Radiology Diagnoses Falls frequently Tremor Confusion Shuffling gait Procedures MRI BRAIN W WO CONTRAST Fruth, Alfred [address] [place] [id number] Referral ID Status Reason Start Date Expiration Date Visits Re quested Visits Authorized [id number] Closed 03/03/2022 03/03/2023 1 1 Medical History (unrecognize d section and content) Includes: Medical History in patient's chartNo Medical History Recorded Evaluations & Outcomes (unre cognized section and content) Includes: Evaluations & Outcomes for active GoalsNo Outcomes Recorded Care Teams (unrecognized sec tion and content) Health And Safety Tech Relationship Specialty Start Date End Date Sydnee Tamez L [address] [place], [place] [phone] PCP - General 06/20/15 Health And Safety Tech Relationship Specialty Start Date End Date Jayant Tamezri L [address] [place], [place] [phone] PCP - General 06/20/15 Health And Safety Tech Relationship Specialty Start Date End Date Jayant Tamezri L [address] [place] [address] PCP - General 06/20/15 Health And Safety Tech Relationship Specialty Start Date End Date Sydnee Tamez (Front Desk Administrator) [address] [place] [address] Referring Family Practice 03/20/21 Health And Safety Tech Relationship Specialty Start Date End Date Sydnee Tamez [address] [place] [address] PCP - General 06/20/15 Health And Safety Tech Relationship Specialty Start Date End Date Sydnee Tamez [address] [place] [address] PCP - General 06/20/15 Health And Safety Tech Relationship Specialty Start Date End Date Sydnee Tamez [address] [place] [address] PCP - General 06/20/15 Health And Safety Tech Relationship Specialty Start Date End Date Sydnee Tamez [address] [place] [address] PCP - General 06/20/15 Team Status: Inactive Member Role Status Dates Bret Wade DO Attending Provider Active [facility] Primary Care Provider Active Team Status: Active Member Role Status Dates [facility] Primary Care Provider Active Source Comments (unrecognize d section and content) In the event this informatio n is protected by the Federal Confidentiality of Alcohol and Drug Abuse Patient Records regulations: The Federal rules restrict any use of the information to criminally investigate or prosecute any alcohol or drug abuse patient.[facility] Goals (unrecognized section and content) Goals may be documented in a n alternate section FOR RECORDS PERTAINING TO PATIENTS WHO ARE OR HAVE BEEN ENROLLED IN A CHEMICAL DEPENDENCY/SUBSTANCEABUSE PROGRAM, SOME INFORMATION MAY BE OMITTED. This clinical summary was aggregated from multiple sources. Caution should be exercised in using it in the provision of clinical care. This summary normalizes information from multiple sources, and as a consequence, information in this document may materially change the coding, format and clinical context of patient data. In addition, data may be omitted in some cases. CLINICAL DECISIONS SHOULD BE BASED ON THE PRIMARY CLINICAL RECORDS. [facility] [employer] [facility]. provides no warranty or guarantee of the accuracy or completeness of information in this document.
--- NOTE | 2023-02-18 14:26 | ECG_ITS ---
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
[2023-02-18 14:37] LABS: PCO2 VBG 38.2 mmHg (40.0-52.0)
[2023-02-18 14:39] LABS: Hematocrit 38.9 % (36.0-48.0); Hemoglobin 12.2 g/dL (12.0-16.0); Mean Corpuscular HGB Conc 31.4 g/dL (29.9-35.2); Mean Corpuscular Hemoglobin 30.2 pg (26.7-34.0); Mean Corpuscular Volume 96.3 fL (81.0-99.0); Mean Platelet Volume 12.9 fL (9.5-13.5); Platelet Count 274 10^3/uL (150-450); Red Blood Count 4.04 10^6/uL (4.20-5.40); Red Cell Distribution Width 14.3 % (11.0-15.0)
[2023-02-18 14:46] LABS: INR 1.28; Prothrombin Time 13.4 sec (9.0-11.6)
[2023-02-18 14:55] LABS: Anion Gap 18.1
[2023-02-18 14:58] LABS: Band Neutrophils Absolute 1.5 10^3/uL (0.0-0.3); Lymphocytes Absolute Manual 2.94 10^3/uL (1.20-3.80); Monocytes Absolute Manual 2.45 10^3/uL (0.30-0.80); Segmented Neut Absolute Manual 42.14 10^3/uL (1.4-6.5)
--- NOTE | 2023-02-18 14:59 | XR_ITS ---
The [address] [address] Patient Name: SONYA SPEAR MRN: [id number] date: 1945 Sex: F Assigned Patient Location: ER Current Patient Location: ER Accession/Order Number: [id number] Exam Date: 02/18/2023 15:15 Report Date: 02/18/2023 15:43 At the request of: NATALIE LEO Procedure: XR chest 1V EXAM: XR chest 1V HISTORY: sepsis COMPARISON: 01/19/2023 TECHNIQUE: Single view of the chest FINDINGS: [Size normal. No definitive focal consolidation, pleural effusion, pulmonary congestion or pneumothorax. Multiple external leads. XR/XR chest 1V IMPRESSION: No acute findings. Electronically authenticated by: ALOK MCCARTY Date: 02/18/2023 15:43
--- NOTE | 2023-02-18 15:00 | ED_ITS ---
HPI - General Adult General Chief complaint: Upper Respiratory Infection Stated complaint: UTI SYMPTOMS Time Seen by Provider: 02/18/23 14:26 Mode of arrival: ambulance History of Present Illness HPI narrative: this patient was transferred from a local custodial for evaluation of deterioration lethargy malaise fatigue. She did test positive for Covid recently. Also is concern for urinary tract infection. Her blood pressure on arrival was 126/88. She is an extremely poor historian and basically just can answer yes and no to some very simple questions only. I cannot discern on her medical record at this time if she's been on antibiotics. Related Data Home Medications Medication Instructions Recorded Confirmed midodrine 2.5 mg tablet 2.5 mg PO BID 01/19/23 02/18/23 omeprazole 20 mg capsule,delayed 20 mg PO DAILY 01/19/23 02/18/23 release pantoprazole 40 mg tablet,delayed 40 mg PO DAILY 01/19/23 02/18/23 release trospium 20 mg tablet 20 mg PO DAILY 01/19/23 02/18/23 atorvastatin 10 mg tablet 10 mg PO DAILY 02/18/23 02/18/23 bupropion HCl 150 mg 24 hr tablet, 150 mg PO DAILY 02/18/23 02/18/23 extended release (Wellbutrin XL) chlorthalidone 25 mg tablet 25 mg PO DAILY 02/18/23 02/18/23 docusate sodium 100 mg capsule 100 mg PO DAILY 02/18/23 02/18/23 (Col-Rite) gabapentin 100 mg capsule 100 mg PO TID 02/18/23 02/18/23 levothyroxine 50 mcg tablet 50 mcg PO DAILY 02/18/23 02/18/23 nirmatrelvir 300 mg (150 mg See Rx Instructions PO .COMPLEX 02/18/23 02/18/23 x2)-ritonavir 100 mg tablet,dose pack (Paxlovid) primidone 50 mg tablet 150 mg PO DAILY 02/18/23 02/18/23 rivastigmine 9.5 mg/24 hour 9.5 mg transdermal DAILY 02/18/23 02/18/23 transdermal patch sertraline 50 mg tablet 75 mg PO DAILY 02/18/23 02/18/23 tolterodine 4 mg capsule,extended 4 mg PO Q24H 02/18/23 02/18/23 release 24 hr topiramate 25 mg tablet 50 mg PO BID 02/18/23 02/18/23 Allergies Allergy/AdvReac Type Severity Reaction Status Date / Time codeine Allergy Unknown Verified 01/19/23 09:11 formoterol [From Dulera] Allergy Unknown Verified 01/19/23 09:11 ibuprofen [From Motrin] Allergy Unknown Verified 01/19/23 09:11 mometasone furoate Allergy Unknown Verified 01/19/23 09:11 [From Dulera] Penicillins Allergy Unknown Verified 01/19/23 09:11 pseudoephedrine Allergy Unknown Verified 01/19/23 09:11 risedronate sodium Allergy Unknown Verified 01/19/23 09:11 tolmetin Allergy Unknown Verified 01/19/23 09:11 triprolidine Allergy Unknown Verified 01/19/23 09:11 [facility] Social History Smoking status: Unknown if ever smoked Exam Narrative Exam Narrative: patient seen shortly after arrival here. She appears much older than stated age. Vital signs are noted. She moves extremities upon command but does not have an obvious focal weakness. On HEENT mucous membranes are dry. She has dentures upper and lower. There is no scleral icterus or pallor. She has no respiratory distress or labored or labored respirations. Heart rate and rhythm on 12-lead EKG shows a lot of artifact rate ninety-five Her abdomen is soft and nontender again poor skin turgor. Extremities show generalized wasting and emaciation with poor skin turgor but there is no diaphoresis and she does have pulses to the extremities. Constitutional Vital Signs, click to edit/add: Last Vital Signs Temp 97.8 F 02/18/23 13:51 Pulse 95 H 02/18/23 13:51 Resp 20 02/18/23 13:51 BP 141/62 02/18/23 17:30 Pulse Ox 96 02/18/23 13:51 O2 Del Method Room Air 02/18/23 13:51 Course Vital Signs Vital signs: Vital Signs Temperature 97.8 F 02/18/23 13:51 Pulse Rate 95 H 02/18/23 13:51 Respiratory Rate 20 02/18/23 13:51 Blood Pressure 126/88 02/18/23 13:51 Pulse Oximetry 96 02/18/23 13:51 Oxygen Delivery Method Room Air 02/18/23 13:51 Temperature 97.8 F 02/18/23 13:51 Pulse Rate 95 H 02/18/23 13:51 Respiratory Rate 20 02/18/23 13:51 Blood Pressure 141/62 02/18/23 17:30 Pulse Oximetry 96 02/18/23 13:51 Oxygen Delivery Method Room Air 02/18/23 13:51 Medical Decision Making MDM Narrative Medical decision making narrative: this patient has a rather impressive left shift with both bands and increase in her neutrophil count. The chest x-ray does not show any infectious process. The urine is consistent with an infection. After speaking the hospitalist we will get a CT scan to rule out any type of abscess or obstruction. Her BUN/creatinine are substantially elevated from her last visit here. She will be admitted unless there is a urological problem. Lab Data Labs: Lab Results 02/18/23 02/18/23 02/18/23 Range/Units 14:05 14:26 15:52 WBC 49.0 H* (4.0-11.0) 10^3/uL RBC 4.04 L (4.20-5.40) 10^6/uL Hgb 12.2 (12.0-16.0) g/dL Hct 38.9 (36.0-48.0) % MCV 96.3 (81.0-99.0) fL MCH 30.2 (26.7-34.0) pg MCHC 31.4 (29.9-35.2) g/dL RDW 14.3 (11.0-15.0) % Plt Count 274 (150-450) 10^3/uL MPV 12.9 (9.5-13.5) fL Seg Neuts % (Manual) 86.0 Band Neutrophils % 3.0 (0-5) % Lymphocytes % (Manual) 6.0 L (20.5-60.0) % Monocytes % (Manual) 5.0 (1.7-12.0) % Eosinophils % (Manual) 0.0 L (0.9-7.0) % Basophils % (Manual) 0.0 L (0.2-2.0) % Neutrophils # (Manual) 42.14 H (1.4-6.5) 10^3/uL Band Neutrophils # 1.5 H (0.0-0.3) 10^3/uL Lymphocytes # (Manual) 2.94 (1.20-3.80) 10^3/uL Monocytes # (Manual) 2.45 H (0.30-0.80) 10^3/uL Eosinophils # (Manual) 0.00 (0.00-0.70) 10^3/uL Basophils # (Manual) 0.00 (0.00-0.10) 10^3/uL PT 13.4 H (9.0-11.6) sec INR 1.28 D-Dimer 2.35 H* (<=0.59) mg/L FEU VBG pH 7.420 (7.330-7.430) VBG pCO2 38.2 L (40.0-52.0) mmHg Sodium 153 H (136-145) mmol/L Potassium 3.4 L (3.5-5.1) mmol/L Chloride 113 H (98-107) mmol/L Carbon Dioxide 25.3 (21.0-32.0) mmol/L Anion Gap 18.1 BUN 65.0 H (7.0-18.0) mg/dL Creatinine 1.68 H (0.55-1.02) mg/dL Est GFR ( Amer) 36 L (>=60) Est GFR (Non-Af Amer) 29 L (>=60) BUN/Creatinine Ratio 38.7 Glucose 120 H (74-106) mg/dL Lactate 2.6 H* (0.4-2.0) mmol/L Calcium 9.5 (8.5-10.1) mg/dL Total Bilirubin 0.6 (0.2-1.0) mg/dL AST 51 H (15-37) U/L ALT 41 (14-59) U/L Alkaline Phosphatase 86 (46-116) U/L NT-Pro-B Natriuret Pep 3513.0 H* (<=1800.0) pg/mL Total Protein 7.9 (6.4-8.2) g/dL Albumin 3.0 L (3.4-5.0) g/dL Globulin 4.9 g/dL Albumin/Globulin Ratio 0.6 Urine Color Yellow (YELLOW) Urine Clarity Clear (CLEAR) Urine pH 5.5 (5.0-9.0) Ur Specific Warren 1.015 (1.005-1.025) Urine Protein Trace (NEG/TRACE) mg/dL Urine Glucose (UA) Negative (NEGATIVE) mg/dL Urine Ketones Negative (NEGATIVE) mg/dL Urine Occult Blood Moderate A (NEGATIVE) Urine Nitrite Positive A (NEGATIVE) Urine Bilirubin Negative (NEGATIVE) Urine Urobilinogen 0.2 (0.2-1.0) EU/dL Ur Leukocyte Esterase Large A (NEGATIVE) Urine RBC 20-50 A (0-2) #/HPF Urine WBC 50-75 A (NONE SEEN) #/HPF Ur Squamous Epith Cells Moderate A (NONE/RARE) #/LPF Urine Crystals None seen (None Seen) #/HPF Urine Bacteria Large A (NONE SEEN) #/HPF Urine Casts None seen (NONE SEEN) #/LPF Urine Mucus None seen (NONE SEEN) Ur Culture Indicated? Yes 02/18/23 Range/Units 17:00 WBC (4.0-11.0) 10^3/uL RBC (4.20-5.40) 10^6/uL Hgb (12.0-16.0) g/dL Hct (36.0-48.0) % MCV (81.0-99.0) fL MCH (26.7-34.0) pg MCHC (29.9-35.2) g/dL RDW (11.0-15.0) % Plt Count (150-450) 10^3/uL MPV (9.5-13.5) fL Seg Neuts % (Manual) Band Neutrophils % (0-5) % Lymphocytes % (Manual) (20.5-60.0) % Monocytes % (Manual) (1.7-12.0) % Eosinophils % (Manual) (0.9-7.0) % Basophils % (Manual) (0.2-2.0) % Neutrophils # (Manual) (1.4-6.5) 10^3/uL Band Neutrophils # (0.0-0.3) 10^3/uL Lymphocytes # (Manual) (1.20-3.80) 10^3/uL Monocytes # (Manual) (0.30-0.80) 10^3/uL Eosinophils # (Manual) (0.00-0.70) 10^3/uL Basophils # (Manual) (0.00-0.10) 10^3/uL PT (9.0-11.6) sec INR D-Dimer (<=0.59) mg/L FEU VBG pH (7.330-7.430) VBG pCO2 (40.0-52.0) mmHg Sodium (136-145) mmol/L Potassium (3.5-5.1) mmol/L Chloride (98-107) mmol/L Carbon Dioxide (21.0-32.0) mmol/L Anion Gap BUN (7.0-18.0) mg/dL Creatinine (0.55-1.02) mg/dL Est GFR ( Amer) (>=60) Est GFR (Non-Af Amer) (>=60) BUN/Creatinine Ratio Glucose (74-106) mg/dL Lactate 2.8 H* (0.4-2.0) mmol/L Calcium (8.5-10.1) mg/dL Total Bilirubin (0.2-1.0) mg/dL AST (15-37) U/L ALT (14-59) U/L Alkaline Phosphatase (46-116) U/L NT-Pro-B Natriuret Pep (<=1800.0) pg/mL Total Protein (6.4-8.2) g/dL Albumin (3.4-5.0) g/dL Globulin g/dL Albumin/Globulin Ratio Urine Color (YELLOW) Urine Clarity (CLEAR) Urine pH (5.0-9.0) Ur Specific Warren (1.005-1.025) Urine Protein (NEG/TRACE) mg/dL Urine Glucose (UA) (NEGATIVE) mg/dL Urine Ketones (NEGATIVE) mg/dL Urine Occult Blood (NEGATIVE) Urine Nitrite (NEGATIVE) Urine Bilirubin (NEGATIVE) Urine Urobilinogen (0.2-1.0) EU/dL Ur Leukocyte Esterase (NEGATIVE) Urine RBC (0-2) #/HPF Urine WBC (NONE SEEN) #/HPF Ur Squamous Epith Cells (NONE/RARE) #/LPF Urine Crystals (None Seen) #/HPF Urine Bacteria (NONE SEEN) #/HPF Urine Casts (NONE SEEN) #/LPF Urine Mucus (NONE SEEN) Ur Culture Indicated? Discharge Plan Discharge Chief Complaint: Upper Respiratory Infection Clinical Impression: Sepsis Patient Disposition: Admitted As Inpatient Time of Disposition Decision: 18:16 Prescriptions / Home Meds: No Action midodrine 2.5 mg tablet 2.5 mg PO BID omeprazole 20 mg capsule,delayed release(DR/EC) 20 mg PO DAILY Hold Instructions: Order Change pantoprazole 40 mg tablet,delayed release (DR/EC) 40 mg PO DAILY trospium 20 mg tablet 20 mg PO DAILY Hold Instructions: Doctor's Order Rx Instructions: administer on an empty stomach primidone 50 mg tablet 150 mg PO DAILY atorvastatin 10 mg tablet 10 mg PO DAILY tolterodine 4 mg capsule,extended release 24hr 4 mg PO Q24H topiramate 25 mg tablet 50 mg PO BID Hold Instructions: Doctor's Order chlorthalidone 25 mg tablet 25 mg PO DAILY levothyroxine 50 mcg tablet 50 mcg PO DAILY gabapentin 100 mg capsule 100 mg PO TID sertraline 50 mg tablet 75 mg PO DAILY rivastigmine 9.5 mg/24 hour patch 24 hour 9.5 mg transdermal DAILY bupropion HCl [Wellbutrin XL] 150 mg tablet extended release 24 hr 150 mg PO DAILY docusate sodium [Col-Rite] 100 mg capsule 100 mg PO DAILY Paxlovid 300 mg (150 mg x 2)-100 mg tablets,dose pack See Rx Instructions .ROUTE .COMPLEX Rx Instructions: take TWO 150 mg tablets of nirmatrelvir with ONE 100 mg tablet of ritonavir twice daily for 5 days Referrals: ERICK GALEAS DO [Primary Care Provider] - 1 week
[2023-02-18 15:02] LABS: Alanine Aminotransferase 41 U/L (14-59); Albumin Globulin Ratio 0.6; Alkaline Phosphatase 86 U/L (46-116); Aspartate Amino Transferase 51 U/L (15-37); BUN Creatinine Ratio 38.7; Bilirubin Total 0.6 mg/dL (0.2-1.0); Calcium 9.5 mg/dL (8.5-10.1); Carbon Dioxide 25.3 mmol/L (21.0-32.0); Chloride 113 mmol/L (98-107); Estimated GFR (African America 36 (>=60); Estimated GFR (Non-African Ame 29 (>=60); Globulin 4.9 g/dL; Glucose 120 mg/dL (74-106); Potassium 3.4 mmol/L (3.5-5.1); Sodium 153 mmol/L (136-145); Total Protein 7.9 g/dL (6.4-8.2)
[2023-02-18 15:03] LABS: Lactate/Lactic Acid 2.6 mmol/L (0.4-2.0)
[2023-02-18 15:13] LABS: D Dimer 2.35 mg/L FEU (<=0.59)
[2023-02-18 16:17] LABS: Bilirubin Urine NEGATIVE (NEGATIVE); Blood Urine MODERATE (NEGATIVE); Clarity Urine CLEAR (CLEAR); Color Urine YELLOW (YELLOW); Glucose Urine UA NEGATIVE (NEGATIVE); Ketones Urine NEGATIVE (NEGATIVE); Leukocyte Esterase Urine LARGE (NEGATIVE); Nitrite Urine POSITIVE (NEGATIVE); Protein Urine TRACE mg/dL (NEG/TRACE); Specific Gravity Urine 1.015 (1.005-1.025); Urobilinogen Urine 0.2 EU/dL (0.2-1.0); pH Urine 5.5 (5.0-9.0)
[2023-02-18 16:19] LABS: Urine Microscopic Indicated YES
[2023-02-18] MEDS: CIPROFLOXACIN IN 5 % DEXTROSE 400 MG/200 ML PIGGYBACK 200 MG IV (16:24)
[2023-02-18 16:29] LABS: Bacteria Urine LARGE #/HPF (NONE SEEN); Cast Seen? NONE SEEN #/LPF (NONE SEEN); Crystals Seen? None Seen #/HPF (None Seen); Mucus Urine NONE SEEN (NONE SEEN); RBC Urine 20-50 #/HPF (0-2); Squamous Epithelial Cell Urine MODERATE #/LPF (NONE/RARE); Urine Culture Indicated YES; WBC Urine 50-75 #/HPF (NONE SEEN)
[2023-02-18 17:27] LABS: Lactate/Lactic Acid 2.8 mmol/L (0.4-2.0)
--- NOTE | 2023-02-18 18:12 | CT_ITS ---
The [address] [address] Patient Name: SONYA SPEAR MRN: [id number] date: 1945 Sex: F Assigned Patient Location: ED.MAIN Current Patient Location: ER Accession/Order Number: [id number] Exam Date: 02/18/2023 18:20 Report Date: 02/18/2023 18:49 At the request of: NATALIE LEO Procedure: CT abdomen pelvis wo con EXAM: CT scan of the abdomen and pelvis without contrast. Dose reduction technique used: Automated exposure control and/or adjustment of the mA and/or kV according to patient size and/or use of iterative reconstruction technique. REASON FOR EXAM: sepsis COMPARISON: None FINDINGS: Suggestion of mild rectal wall thickening. Small amount of right-sided perirectal and presacral fat stranding. Hysterectomy. Cholelithiasis. Possible nonobstructing bilateral calyceal tip renal stones versus vascular calcifications. Scattered colonic diverticula. No ureteral or bladder calculi. No hydronephrosis. No evidence of appendicitis. No free fluid in the abdomen or pelvis. No free intraperitoneal air. No dilated or thickened loops of small bowel or colon. Liver, pancreas, spleen, bilateral kidneys, and bilateral adrenal glands are otherwise unremarkable within the limitations of noncontrast CT. No lymphadenopathy in the abdomen or pelvis. Remainder unremarkable. CT/CT abdomen pelvis wo con IMPRESSION: 1. Possible changes of proctitis, correlate clinically. 2. Cholelithiasis. Electronically authenticated by: DA DE LA CRUZ Date: 02/18/2023 18:49
[2023-02-18 20:05] LABS: Lactate/Lactic Acid 1.1 mmol/L (0.4-2.0)
--- OUTSIDE RECORDS SUMMARY | 2023-02-18 20:10 | XMS_ITS | CCD ---
Author Name Unknown Address [address] [place] [address] Organization [facility] Care Team Providers Care Child Care Sitter Name Role Phone Cristy Sydnee L Primary Care Provider [phone] TOÑA AVALOS Attending Unavailable Fruvaleria, Alfred Moreno Primary Care Unavailable ALFRED PAL Consulting Unavailable Gene Cline Admitting Unavailable Gene Cline Attending Unavailable Fruvaleria, Alfredsandra Moreno Primary Care Unavailable Gene Cline Attending Unavailable Fruvaleria, Alfred Tiffanie Primary Care Unavailable KAE, ALFREDSANDRA MORENO Consulting Unavailable SATURNINO BRASHER Consulting Unavailable Gene lCine Attending Unavailable Kae, Alfred Tiffanie Primary Care Unavailable ALFRED PAL Consulting Unavailable Gene Cline Attending Unavailable SARAHE, SYDNEE CLIFTON Primary Care Unavailable SARAHE, SYDNEE CLIFTON Consulting Unavailable Unavailable Unavailable Yogesh Coffman MD Unavailable Rine, Sydnee L Primary Care Provider [phone] Rine, Sydnee L Primary Care Provider Rine, Sydnee L (Gas Plumbing Inspector) Unavailable DR PHANI FRANCIS V Consulting Unavailable KAYLAN [...] Care Unavailable DO Bret Wade Attending Provider [phone] Rine, JHONNP Sydnee L Primary Care Provider [phone] Rine, Sydnee L Primary Care Unavailable Bret [...] (3 sources) Aluminum aspirin Drug Allergy 7 [facility] formoterol / Mometasone (3 sources) formoterol / Mometasone Drug Allergy 9 [facility] NSAIDs (3 sources) NSAIDs Drug Allergy 6 [facility] Penicillins (antibiotic) (3 sources) Penicillins Drug Allergy 2 [facility] Risedronate (3 sources) Risedronate Drug Allergy 4 [facility] (14 sources) NSAIDs; Translations: [NSAIDs] Propensity to adverse reactions to drug 6 [place] (15 sources) Penicillins; Translations: [penicillins] Propensity to adverse reactions to drug 2 [place] (15 sources) Risedronate Drug Allergy 4 [place] (14 sources) Aluminum aspirin Drug Allergy 7 [place] (14 sources) formoterol / Mometasone Drug Allergy 9 [place] (1 source) formoterol / Mometasone; Translations: [Dulera] Drug Allergy [facility] Repository (1 source) Penicillins Drug Allergy 2 [facility] (1 source) NSAIDs Drug allergy (disorder) [address] [facility] Repository (1 source) Penicillins Drug allergy (disorder) [address] [facility] Repository (2 sources) Non-steroidal anti-inflammator y agent Propensity to adverse reactions to drug 6 [facility] (2 sources) Penicillins Propensity to adverse reactions to drug 2 [facility] (1 source) Unable to Assess Drug allergy (disorder) 3 [facility] Repository Medications Current Medications Medication Drug [...] for Pain 12 tablet 0 06/20/2015 Active [id number] actuat albuterol 0.09 mg/actuat metered dose [...] Active take 1 tablet by mouth once hreo y amLODIPine (NORVASC) 5 MG tablet Take [...] mg by mouth once daily. sodium chloride 0.1452463 meq/mg nasal gel (3 sources) Start: 015 saline nasal gel (AYR) GEL by Nasal route as needed for Congestion. 1 Tube 3 06/10/2014 Active 28 actuat tiotropium 0.68968 mg/actuat metered dose inhaler (2 sources) Anticholinergic [...] 1 puff(s) by inhalation once daily Umeclidinium [place] (INCRUSE ELLIPTA) 62.5 MCG/INH AEPB Inhale 1 puff into the lungs daily 1 each 11 04/10/2021 Active Start: 12-15-2018 take 1 puff(s) by in halation once daily Umeclidinium [place] (INCRUSE ELLIPTA) 62.5 MCG/INH AEPB Inhale 1 [...] B (Bld) [Mass/Vol] 900 pg/mL High <300 [facility] Comment on above: Result Comment: An age-independent cutoff point of 300 pg/ml has a 98% negative predictive value excluding acute heart failure. Performed By: #### B QUARANTINE OFFICER #### [facility] [address] [place], [place] [address] Cardiothoracic Physiotherapist: Phani Patel MD CBC with Diffon 11-23-2022 Abs. Basophil 0.06 k/uL Normal 0.00-0.20 [facility] Comment on above: Performed By: #### C P, TROPI, CDP #### [facility] [address] [place], [place] [address] Cardiothoracic Physiotherapist: Phani Patel MD Abs.Imm.Granulocyte 0.07 k/uL Normal 0.00-0.30 [facility] Comment on above: Performed By: #### C P TROPI, CDP #### [address] [place], [place] [address] Cardiothoracic Physiotherapist: Phani Patel MD Abs.Neutrophil (Seg) 11.15 k/uL High 1.50-8.10 [facility] Comment on above: Performed By: #### C P TROPI, CDP #### [address] [place], [place] [address] Cardiothoracic Physiotherapist: Phani Patel MD Basophils/100 WBC (Bld) 0 % Normal 0-2 [facility] Comment on above: Performed By: #### C P TROPI, CDP #### [address] [place], [place] [address] Cardiothoracic Physiotherapist: Phani Patel MD Eosinophils (Bld) [#/Vol] 0.12 10*3/uL Normal 0.00-0.44 [facility] Comment on above: Performed By: #### C P, TROPI, CDP #### [facility] [address] [place], [place] [address] Cardiothoracic Physiotherapist: Phani Patel MD Eosinophils/100 WBC (Bld) 1 % Normal 1-4 [facility] Comment on above: Performed By: #### C P, TROPI, CDP #### [facility] [address] [place] [address] Cardiothoracic Physiotherapist: Phani Patel MD Erythrocyte distribution width (RBC) [Ratio] 13.6 % Normal 11.8-14.4 [facility] Comment on above: Performed By: #### C P, TROPI, CDP #### [address] [place], [place] [address] Cardiothoracic Physiotherapist: Phani Patel MD Hematocrit (Bld) [Volume fraction] 32.5 % Low 36.3-47.1 [facility] Comment on above: Performed By: #### C P, TROPI, CDP #### [address] [place] [address] Cardiothoracic Physiotherapist: Phani Patel MD Hemoglobin (Bld) [Mass/Vol] 10.7 g/dL Low 11.9-15.1 [facility] Comment on above: Performed By: #### C P, TROPI, CDP #### [address] [place], [facility]83 Cardiothoracic Physiotherapist: Phani Patel MD Immature granulocytes/100 WBC (Bld) 1 % High 0 [facility] Comment on above: Performed By: #### C P, TROPI, CDP #### [address] [place], [place] [address] Cardiothoracic Physiotherapist: Phani Patel MD Lymphocytes (Bld) [#/Vol] 1.83 10*3/uL Normal 1.10-3.70 [facility] Comment on above: Performed By: #### C P, TROPI, CDP #### [address] [place], [place] [address]83 Cardiothoracic Physiotherapist: Phani Patel MD Lymphocytes/100 WBC (Bld) 13 % Low 24-43 [facility] Comment on above: Performed By: #### C P, TROPI, CDP #### [facility] [address] [place], [facility]83 Cardiothoracic Physiotherapist: Phani Patel MD MCH (RBC) [Entitic mass] 31.4 pg Normal 25.2-33.5 [facility] Comment on above: Performed By: #### C P, TROPI, CDP #### [address] [place], [facility]12 ( Cardiothoracic Physiotherapist: Phani Patel MD MCHC (RBC) [Mass/Vol] 32.9 g/dL Normal 28.4-34.8 [facility] Comment on above: Performed By: #### C P, TROPI, CDP #### [address] [place] [address] Cardiothoracic Physiotherapist: Phani Patel MD MCV (RBC) [Entitic vol] 95.3 fL Normal 82.6-102.9 [facility] Comment on above: Performed By: #### C P, TROPI, CDP #### [address] [place] [address] Cardiothoracic Physiotherapist: Phani Patel MD Monocytes (Bld) [#/Vol] 0.70 10*3/uL Normal 0.10-1.20 [facility] Comment on above: Performed By: #### C P, TROPI, CDP #### [address] [place], [place] [address] Cardiothoracic Physiotherapist: Phani Patel MD Monocytes/100 WBC (Bld) 5 % Normal 3-12 [facility] Comment on above: Performed By: #### C P, TROPI, CDP #### [address] [place] [address] Cardiothoracic Physiotherapist: Phani Patel MD Neutrophil (Seg) 80 % High 36-65 [facility] Comment on above: Performed By: #### C P, TROPI, CDP #### [address] [place] [facility]83 Cardiothoracic Physiotherapist: Phani Patel MD NRBC Automated 0.0 per 100 WBC Normal 0.0 [facility] Comment on above: Performed By: #### C P, TROPI, CDP #### [facility] [address] [place], [place] [id number] Cardiothoracic Physiotherapist: Phani Patel MD Platelet mean volume (Bld) [Entitic vol] 11.0 fL Normal 8.1-13.5 [facility] Comment on above: Performed By: #### C P, TROPI, CDP #### [facility] [address] [place], [place] [address] Cardiothoracic Physiotherapist: Phani Patel MD Platelets (Bld) [#/Vol] 217 10*3/uL Normal 138-453 [facility] Comment on above: Performed By: #### C P TROPI, CDP #### [facility] [address] [place], [facility]83 Cardiothoracic Physiotherapist: Phani Patel MD RBC (Bld) [#/Vol] 3.41 10*6/uL Low 3.95-5.11 [facility] Comment on above: Performed By: #### C P, TROPI, CDP #### [address] [place], [facility]83 Cardiothoracic Physiotherapist: Phani Patel MD WBC (Bld) [#/Vol] 13.9 10*3/uL High 3.5-11.3 [facility] Comment on above: Performed By: #### C P, TROPI, CDP #### [facility] [address] [place], [place] [id number] Cardiothoracic Physiotherapist: Phani Patel MD Comp Metabolic Profon 2022 Albumin [Mass/Vol] 3.9 g/dL Normal 3.5-5.2 [facility] Comment on above: Performed By: #### C P, TROPI, CDP #### [facility] [address] [place], [place] [address]83 Cardiothoracic Physiotherapist: Phani Patel MD Albumin/Glob Ratio 1.3 Normal 1.0-2.5 [facility] Comment on above: Performed By: #### C P, TROPI, CDP #### [facility] [address] [place], [place] 401[address]83 Cardiothoracic Physiotherapist: Phani Patel MD Alkaline Phos 62 U/L Normal 35-104 [facility] Comment on above: Performed By: #### C P, TROPI, CDP #### [address] [place], [place] [address]783 Cardiothoracic Physiotherapist: Phani Patel MD ALT [Catalytic activity/Vol] 13 U/L Normal 5-33 [facility] Comment on above: Performed By: #### C P, TROPI, CDP #### [address] [place], [place] [address]479183 Cardiothoracic Physiotherapist: Phani Patel MD Anion gap [Moles/Vol] 13 mmol/L Normal 9-17 [facility] Comment on above: Performed By: #### C P, TROPI, CDP #### [address] [place], [place] [address]83 Cardiothoracic Physiotherapist: Phani Patel MD AST [Catalytic activity/Vol] 17 U/L Normal <32 [facility] Comment on above: Performed By: #### C P, TROPI, CDP #### [facility] [address] [place] [address] [place] [place], [place] 1498783 Cardiothoracic Physiotherapist: Phani Patel MD Bilirubin [Mass/Vol] 0.2 mg/dL Low 0.3-1.2 [facility] Comment on above: Performed By: #### C P, TROPI, CDP #### [address] [place], [place] 160[address]383 Cardiothoracic Physiotherapist: Phani Patel MD BUN/CRE Ratio 13 Normal 9-20 [facility] Comment on above: Performed By: #### C P, TROPI, CDP #### [facility] [address] [place], [place] [address]83 Cardiothoracic Physiotherapist: Phani Patel MD Calcium [Mass/Vol] 8.6 mg/dL Normal 8.6-10.4 [facility] Comment on above: Performed By: #### C P, TROPI, CDP #### [facility] [address] [place], [place] [address]83 Cardiothoracic Physiotherapist: Phani Patel MD Chloride [Moles/Vol] 104 mmol/L Normal 98-107 [facility] Comment on above: Performed By: #### C P, TROPI, CDP #### [facility] [address] [place], [place] [address]83 Cardiothoracic Physiotherapist: Phani Patel MD CO2 [Moles/Vol] 21 mmol/L Normal 20-31 [facility] Comment on above: Performed By: #### C P, TROPI, CDP #### [facility] [address] [place], [place] [address] Cardiothoracic Physiotherapist: Phani Patel MD Creatinine [Mass/Vol] 1.1 mg/dL High 0.5-0.9 [facility] Comment on above: Performed By: #### C P, TROPI, CDP #### [facility] [address] [place], [place] [address] Cardiothoracic Physiotherapist: Phani Patel MD GFR/1.73 sq M.predicted among non-blacks MDRD (S/P/Bld) [Vol rate/Area] 51 mL/min/{1.73_m2} Low >60 [facility] Comment on above: Result Comment: These results [...] By: #### C ONEL Carrizales, CDP #### [facility] [address] [place], [place] [address] Cardiothoracic Physiotherapist: Phani Patel MD Glucose [Mass/Vol] 130 mg/dL High 70-99 [facility] Comment on above: Performed By: #### C LAURITA CarrizalesI, CDP #### [facility] [address] [place], [place] [address]67[address] Cardiothoracic Physiotherapist: Phani Patel MD Potassium [Moles/Vol] 3.6 mmol/L Low 3.7-5.3 [facility] Comment on above: Performed By: #### ONEL Conti, CDP #### [address] [place], [place] [address]166183 Cardiothoracic Physiotherapist: Phani Patel MD Protein [Mass/Vol] 6.8 g/dL Normal 6.4-8.3 [facility] Comment on above: Performed By: #### C ONEL Carrizales, CDP #### [address] [place], [place] [address]83 Cardiothoracic Physiotherapist: Phani Patel MD Sodium [Moles/Vol] 138 mmol/L Normal 135-144 [facility] Comment on above: Performed By: #### C ONEL Carrizales, CDP #### [facility] [address] [place], [place] [address] Cardiothoracic Physiotherapist: Phani Patel MD Urea nitrogen [Mass/Vol] 14 mg/dL Normal 8-23 [facility] Comment on above: Performed By: #### C ONEL Carrizales, CDP #### [facility] [address] [place] [address] Cardiothoracic Physiotherapist: Phani Patel MD Troponinon 11-23-2022 Troponin, High Sens 14 ng/L Normal 0-14 [facility] Comment on above: Result Comment: High Sensitivity Troponin values cannot be compared with other Troponin methodologies. Performed By: #### C P, TROPI, CDP #### [facility] [address] [place] [address] Cardiothoracic Physiotherapist: Phani Patel MD XR CHEST PORTABLEon 11-24-19 [...] Matt Zarco MD 11/23/22 Final result Normal [facility] CT CHEST LOW DOSE (LDCT)on 0 11-06-2022 [...] Flaco Salgado DO 11/06/22 Final result Normal [facility] Creatinine (Bld) [Mass/Vol]O rdered By: Delfino Wade on 04-07-2022 Creatinine [Mass/Vol] 1.1 mg/dL 0.6-1.3 [facility] Comment on above: ER/ESD physician is notified/shown all ISTAT results.Critical values may be confirmed by laboratory testing ifdeemed necessary by ER attending doctor. ISTAT XRay CREon 04-07-2022 Creatinine [Mass/Vol] 1.1 mg/dL Normal 0.6-1.3 [facility] Comment on above: Result Comment: ER/E SD physician is notified/shown all ISTAT results. Critical values may be confirmed by laboratory testing if deemed necessary by ER attending doctor. Performed By: #### I SCRE #### [facility] [address] [place] [address] Point of Care testing , ISTAT GFR ( 58 Normal [facility] Comment on above: Result Comment: GFR estimated reference range: According to KDOQI guidelines, <60 ml/min/1.73m2 is sufficient to diagnose a patient with chronic kidney disease. PERFORMED BY: [place] [address] PATHOLOGIST TELEVISION HOST RAJ AGUILAR M.D. Performed By: #### I SCRE #### [address] Point of Care testing , ISTAT GFR (Non- Am 48 [facility] Comment on above: Performed By: #### I SCRE #### [address] Point of Care testing , MR angio neck wo/w conon MR angio neck wo/w con [facility] [place] [address] [place] [address] MRI Report Signed Patient: Stephanie Spear MR#: [id number] [birth year] : 1945 Acct:[id number] Age/Sex: 77 / F ADM Date: 04/07/22 Loc: MR Room: Type: [facility] Attending Dr: Bret Wade DO Copies to: Delfino Wade DO Ordering Provider: Delfino Wade DO Date of Service: 04/07/22 MR/MR angio neck wo/w con: I63.9 MRA OF THE CAROTID ARTERIES WITHOUT AND WITH INTRAVENOUS CONTRAST CLINICAL DATA: Balance issues. COMPARISON: None Wfcp-cg-ohyvhj imaging of the carotid arteries was performed [...] Kierra Field M.D.04/07/2022 5:33 PM Dictation Location: [place] [address] Transcribed By: [facility] 04/07/221732 Dictated By: Kierra Field MD 04/07/221726 Signed By: 04/07/221732 [facility] No Panel InformationOrdered By: Delfino Wade on 04-07-2022 POC Estimated GFR 58 [facility] Comment on above: GFR estimated refere nce range: According to KDOQI guidelines, <60 ml/min/1.73m2 is sufficient to diagnose a patient with chronic kidney disease. POC Estimated GFR Non- Amer 48 [facility] MR angio MR brain w/oon 03-25 MR angio MR brain w/o [facility] [place] [address] [place] [address] MRI Report Signed Patient: Stephanie Spear MR#: [id number] 34 : 1945 Acct:[id number] Age/Sex: 77 / F ADM Date: 04/03/22 Loc: MR Room: Type: [facility] Attending Dr: Bret Wade DO Copies to: Delfino Wade DO Ordering Provider: Delfino Wade DO Date of Service: 04/03/22 MR/MR angio MR brain w/o: I63.9 MRI/MRA BRAIN WITHOUT CONTRAST CLINICAL DATA: Loss of balance, tremors at the hands and memory issues. COMPARISON: None Multiecho, multiplanar imaging of the brain was performed without contrast. 3-D liln-hg-mikvjh imaging of the [place] was also performed. There is [...] Kierra Field M.D.04/03/2022 5:37 PM Dictation Location: [place] [address] Transcribed By: [facility] 04/03/22 173 Dictated By: Kierra Field MD 04/03/22 172 Signed By: 04/03/221736 [facility] MRI BRAIN W WO CONTRASTon MRI BRAIN [...] Phani Doll MD 03/05/22 Final result Normal [facility] 1. Nonspecific small 4 mm linear focus [...] these findings at 2:40 PM on 03/05/2022. [facility] Phani Newton MD - 03/05/2022 EXAM: MRI [...] changes of the supratentorial white matter. : [facility] J C Lads Work Phone: Radiology Study observation (narrative) Phigital Phone: MRI BRAIN W WO CONTRASTOrder ed By: Phani Doll on 03-05-2022 [facility] Work Phone: Basic Metabolic Panelon 02-22 Anion gap [Moles/Vol] 9 mmol/L 9 - 17 mmol/L [facility] Calcium [Mass/Vol] 8.6 mg/dL 8.6 - 10. 4 mg/dL [facility] Chloride [Moles/Vol] 105 mmol/L 98 - 10 7 mmol/L [facility] CO2 [Moles/Vol] 26 mmol/L 20 - 31 mmol/L [facility] Creatinine [Mass/Vol] 0.93 mg/dL High 0.50 - 0.90 mg/dL [facility] GFR/1.73 sq M.predicted MDRD (S/P/Bld) [Vol rate/Area] - PINF [facility] Comment on above: Effective Nov 24, 2021 [...] [Mass/Vol] 83 mg/dL 70 - 99 mg/dL [facility] Interpretation and review of laboratory results Abnormal [facility] Potassium [Moles/Vol] 3.6 mmol/L Low 3.7 - 5.3 mmol/L [facility] Sodium [Moles/Vol] 140 mmol/L 135 - 144 mmol/L [facility] Urea nitrogen (BldV) [Mass/Vol] 15 mg/dL 8 - 23 mg/dL [facility] Urea nitrogen/Creatinine (Bld) [Mass ratio] 16 9 - 20 [facility] Basic Metabolic Profon 03-03 Anion gap [Moles/Vol] 9 mmol/L Normal 9-17 [facility] Comment on above: Performed By: #### B MP #### [facility] [address] [place], [place] 5787[address] Cardiothoracic Physiotherapist: Phani Patel MD BUN/CRE Ratio 16 Normal 9-20 [facility] Comment on above: Performed By: #### B MP #### [facility] [address] [place], [place] 1050483 Cardiothoracic Physiotherapist: Phani Patel MD Calcium [Mass/Vol] 8.6 mg/dL Normal 8.6-10.4 [facility] Comment on above: Performed By: #### B MP #### [facility] [address] [place], [place] [address] Cardiothoracic Physiotherapist: Phani Patel MD Chloride [Moles/Vol] 105 mmol/L Normal 98-107 [facility] Comment on above: Performed By: #### B MP #### [facility] [address] [place], [place] [address] Cardiothoracic Physiotherapist: Phani Patel MD CO2 [Moles/Vol] 26 mmol/L Normal 20-31 [facility] Comment on above: Performed By: #### B MP #### [facility] [address] [place], [place] 197[address]83 Cardiothoracic Physiotherapist: Phani Patel MD Creatinine [Mass/Vol] 0.93 mg/dL High 0.50-0.90 [facility] Comment on above: Performed By: #### B MP #### [facility] [address] [place], [place] [address] Cardiothoracic Physiotherapist: Phani Patel MD GFR/1.73 sq M.predicted among non-blacks MDRD (S/P/Bld) [Vol rate/Area] mL/min/{1.73_m2} Normal >60 [facility] Comment on above: Result Comment: Effective Nov [...] secretion. Performed By: #### B MP #### [facility] [address] [place] [address] [place] [address] Cardiothoracic Physiotherapist: Phani Patel MD Glucose [Mass/Vol] 83 mg/dL Normal 70-99 [facility] Comment on above: Performed By: #### B MP #### [facility] [address] [place] [address] Cardiothoracic Physiotherapist: Phani Patel MD Potassium [Moles/Vol] 3.6 mmol/L Low 3.7-5.3 [facility] Comment on above: Performed By: #### B MP #### [facility] [address] [place] [address] Cardiothoracic Physiotherapist: Phani Patel MD Sodium [Moles/Vol] 140 mmol/L Normal 135-144 [facility] Comment on above: Performed By: #### B MP #### [address] [place], [place] [address]383 Cardiothoracic Physiotherapist: Phani Patel MD Urea nitrogen [Mass/Vol] 15 mg/dL Normal 8-23 [facility] Comment on above: Performed By: #### B MP #### [facility] [address] [place] [address] [place] [address] Cardiothoracic Physiotherapist: MD Isha Moore 01-30-2022 CNOV Office Visit (NRESFV ) STEPHANIE SPEAR ([id number]) 1945 F Date Time Provider Department 01/30/22 10:00 AM SHAYNE CONDE NRESFV During your visit today, we recorded the following information about you: Pulse Blood pressure Weight Height 72/minute 159/84 52.2 kg 1.613 m Shayne Conde DO 02/02/2022 11:04 AM Signed [facility] - FOLLOW UP EVALUATION Shayne Conde [address] [facility] [address] Stephanie Spear is a 76 year old [...] Left pathological reflexes: Greyson's absent. Coordination Right: Bwephd-ph-gbon normal. Rapid alternating movement normal.Left: Ffhwtf-dg-adzs normal. Rapid alternating movement normal. Gait The [...] examination. Ther (more content not included)... Normal [facility] DEXA BONE DENSITY AXIAL SKEL [place] 12-17-2021 DEXA BONE DENSITY AXIAL SKELETON EXAMINATION: BONE DENSITOMETRY 12/17/2021 9:26 am TECHNIQUE: A bone density dual x-ray absorptiometry (DXA) scan was performed of the lumbar spine and left hip on a [employer] system. COMPARISON: 12/12/2019 HISTORY: ORDERING SYSTEM PROVIDED [...] Flaco Salgado DO 12/17/21 Final result Normal [facility] XR KNEE RIGHT (3 VIEWS)on XR KNEE [...] Flaco Salgado DO 12/08/21 Final result Normal [facility] No acute findings. [facility] EXAMINATION: THREE XRAY VIEWS OF THE RIGHT KNEE 12/08/2021 2:35 pm COMPARISON: None. HISTORY: ORDERING SYSTEM PROVIDED HISTORY: Acute pain of right knee FINDINGS: Knee alignment anatomic. No acute osseous abnormality. Generalized osteopenia. No significant joint effusion. Joint spaces preserved. Soft tissues unremarkable. [facility] Flaco Salgado DO - 12/08/2021 EXAMINATION: THREE XRAY VIEWS OF THE RIGHT KNEE 12/08/2021 2:35 pm COMPARISON: None. HISTORY: ORDERING SYSTEM PROVIDED HISTORY: Acute pain of right knee FINDINGS: Knee alignment anatomic. No acute osseous abnormality. Generalized osteopenia. No significant joint effusion. Joint spaces preserved. Soft tissues unremarkable. IMPRESSION: No acute findings. [employer] Phone: Radiology Study observation (narrative) [employer] Phone: XR KNEE RIGHT (3 VIEWS)Order ed By: Flaco Salgado on 12-08-2021 Phigital Phone: [facility] SOLIS DIGITAL SCREEN SELF REFERRAL W OR WO CAD BILATERALon 10-16-2021 No mammographic evidence of malignancy BIRADS: BIRADS - CATEGORY 1 Negative. Normal interval follow-up is recommended in 12 months. OVERALL ASSESSMENT - NEGATIVE A letter of notification will be sent to the patient regarding the results. [employer] recommends annual mammograms for women 40 years and older. [facility] EXAMINATION: SCREENING DIGITAL BILATERAL MAMMOGRAM [...] concerning grouping of microcalcification in either breast. [facility] Radiology Study observation (narrative) Phig[employer] Phone: [facility] SOLIS DIGITAL SCREEN SELF REFERRAL W OR WO CAD BILATERALOrdered By: Flaco Salgado on 10-16-2021 Phigital Phone: CT CHEST WO CONon 09-04-2021 CT [...] by: PHANI FRANCIS Date: 2021-09-04 07:[address] [facility] [address] SHOULDER RT WO CONon 08-22 [...] Severe osteoarthritis of the glenohumeral joint with [id number]-[id number] articulation. Marginal osteophyte formation. High riding humeral head with remodeling of the acromial process consistent with a chronic rotator cuff tear. SOFT TISSUES: Negative. No visible soft tissue swelling. EFFUSION: None visible. 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 XR RIBS RIGHT (2 VIEWS)on No acute findings. [facility] EXAMINATION: XRAY VIEWS OF THE RIGHT RIBS 08/26/2021 3:00 pm COMPARISON: July 15, 2020 HISTORY: ORDERING SYSTEM PROVIDED HISTORY: Pain in rib FINDINGS: Lungs are clear. No pneumothorax or pleural effusion. Cardiac and mediastinal silhouettes unremarkable. Generalized osteopenia. No acute fracture. Specifically, no acute right rib fracture. [facility] Flaco Salgado DO - 08/27/2021 EXAMINATION: XRAY VIEWS OF THE RIGHT RIBS 08/26/2021 3:00 pm COMPARISON: July 15, 2020 HISTORY: ORDERING SYSTEM PROVIDED HISTORY: Pain in rib FINDINGS: Lungs are clear. No pneumothorax or pleural effusion. Cardiac and mediastinal silhouettes unremarkable. Generalized osteopenia. No acute fracture. Specifically, no acute right rib fracture. IMPRESSION: No acute findings. [employer] Phone: XR RIBS RIGHT (2 VIEWS)Order ed By: Flaco Salgado on 08-27-2021 [employer] Phone: XR SHOULDER RIGHT (MIN 2 VIE WS)on 08-27-2021 Marked degenerative and or post traumatic/postsurgica l changes in the right shoulder. No evidence of significant change when compared to the study of July 15, 2020. [facility] EXAMINATION: THREE XRAY VIEWS OF [...] humeral head may represent calcific tendinitis/tendinosis . [facility] Blanquita Richmond MD - 08/27/2021 [...] to the study of July 15, 2020. [employer] Phone: XR SHOULDER RIGHT (MIN 2 VIE WS)Ordered By: Blanquita Richmond on 08-27-2021 [employer] Phone: XR RIBS RIGHT (2 VIEWS)on Radiology Study observation (narrative) [employer] Phone: XR SHOULDER RIGHT (MIN 2 VIE WS)on 08-26-2021 Radiology Study observation (narrative) [employer] Phone: Calciumon 06-26-2021 Calcium [Mass/Vol] 9.6 mg/dL Normal 8.6-10.2 [place] [employer] [employer] Comment on above: Performed By: #### LISA JIMENEZ #### [facility] [address], [place] [id number] Creatinineon 06-26-2021 Creatinine [Mass/Vol] 0.7 mg/dL Normal 0.6-1.4 [facility] [place], [facility] Comment on above: Performed By: #### LISA JIMENEZ #### [facility] [address], [place] [id number] eGFRAA 95 mL/min/1.73m2 Normal >60 [facility] Comment on above: Performed By: ###LISA ALTAMIRANO #### [facility] [address], [place] [id number] eGFRNAA 78 mL/min/1.73m2 Normal >60 [facility] Specialist Comment on above: Performed By: #### LISA JIMENEZ #### [facility] [address], [place] [id number] CNOVon 06-19-2021 CNOV Office Visit (NRESAV ) STEPHANIE SPEAR ([id number]) 1945 F Date Time Provider Department 06/19/21 4:00 PM SHAYNE CONDE NRESAV During your visit today, we recorded the following information about you: Pulse Blood pressure 69/minute 157/75 Shayne Conde, 06/27/2021 4:48 PM Signed [facility] - NEW PATIENT EVALUATION Sydnee Tamez MD [address] [facility] [address] Stephanie Spear is a 76 year old [...] General Medic (more content not included)... Normal [facility] CBC with Auto Differentialon 05-20-2021 Absolute Eos # 0.35 [facility] th Absolute Immature Granulocyte 0.04 [employer] Absolute Lymph # 2.26 [facility]th Absolute [place] [facility].63 [facility] Basophils (Bld) [#/Vol] 0.08 10*3/uL [facility] Basophils/100 WBC (Bld) 1 % 0 - 2 % [employer] Eosinophils/100 WBC (Bld) 3 % 1 - 4 % [facility] Hematocrit (Bld) [Volume fraction] 39.4 % 36.3 - 47.1 % [employer] Hemoglobin.gastrointes tinal spec 1 Ql (Stl) 12.7 g/dL 11.9 - 15.1 g/dL [employer] Immature granulocytes/100 WBC (Bld) 0 % 0 [facility] Interpretation and review of laboratory results Abnormal [facility] Lymphocytes/100 WBC (Bld) 19 % Low 24 - 43 % [facility] MCH (RBC) [Entitic mass] 30.9 pg 25.2 - 33.5 pg [facility] MCHC (RBC) [Mass/Vol] 32.2 g/dL 28.4 - 34.8 g/dL [facility] MCV (RBC) [Entitic vol] 95.9 fL 82.6 - 102.9 fL [employer] Monocytes/100 WBC (Bld) 5 % 3 - 12 % [employer] NRBC Automated 0.0 0.0 per 100 WBC [employer] Platelet distribution width (Bld) [Ratio] 13.9 % 11.8 - 14.4 % [employer] Platelet mean volume (Bld) [Entitic vol] 10.7 fL 8.1 - 13.5 fL [employer] Platelets (Bld) [#/Vol] 271 10*3/uL [employer] RBC (Bld) [#/Vol] 4.11 10*6/uL 3.95 - 5.1 1 m/uL [facility] Segmented neutrophils/100 WBC (Bld) 72 % High 36 - 65 % [facility] Segs Absolute 8.[address] [facility] WBC (Bld) [#/Vol] 12.1 10*3/uL High [facility] 6 Minute Walk Teston 022 Distance Walked ft [facility] Work Phone: [place] [phone] Patient Name: Stephanie Spear 1945 A home oxygen evaluation has been completed. Patient arrived on room air with a walker at this time. SpO2 was 97 % on room air at rest. Patient was walked for 6 minutes. SpO2 was 98 % on room air during walking. Patient does not qualify for home oxygen at this time. [facility] Work Phone: [facility] Work Phone: Calciumon 04-23-2021 Calcium [Mass/Vol] 9.3 mg/dL Normal 8.6-10.2 [place] [employer] Comment on above: Performed By: #### CARLOTA Fuller CREIsaura #### [facility] [address], [place] [id number] Creatinineon 04-23-2021 Creatinine [Mass/Vol] 0.7 mg/dL Normal 0.6-1.4 [facility] [place], [facility] Comment on above: Performed By: #### C Isaura VITD CREA #### [facility] [address], [place] [id number] eGFRAA 96 mL/min/1.73m2 Normal >60 [facility] Specialist Comment on above: Performed By: #### C Isaura VITD CREA #### [facility] [address], [place] [id number] eGFRNAA 80 mL/min/1.73m2 Normal >60 [facility] [employer] Comment on above: Performed By: #### C CARLOTA Delarosa CREA #### [facility] [address], [place] [id number] Vitamin D 25-OHon 04-23-2021 VIT D 25 OH 41 ng/ml Normal >29 [facility] [employer] Comment on above: Result Comment: Sury min D Status Deficiency <20 ng/mL Insufficiency 20-29 ng/mL Optimal 30-100 ng/mL Possible Toxicity >=150 ng/mL Performed By: #### C LISA BENJAMIN #### [facility] [address] [place], [place] [id number] PULMONARY FUNCTION (450)on 0 04-04-2021 PULMONARY FUNCTION (450) [facility] [address] [place] [address] PULMONARY FUNCTION PATIENT NAME: STEPHANIE SPEAR : 1945 MED REC NO: [id number] ROOM: ACCOUNT NO: [id number] ADMIT DATE: 04/03/2021 PROVIDER: Corey Balderas DATE OF PROCEDURE: 04/03/2021 PULMONARY FUNCTION TESTS WITH BRONCHODILATOR AND DLCO ATTENDING PHYSICIAN: Faith Carias MD PRIMARY CARE PROVIDER: Sdynee Tamez, Certified Nurse Practitioner. REASON FOR TEST: [...] is moderately decreased. COREY BALDERAS BB/[id number]_I Doc#: [id number] CC: Normal [facility] [id number] 04-03-2021 SARS-CoV-2 (COVID-19) RNA DANIEL+probe Ql (Unsp spec) Not detected Normal NOTDET [facility] Comment on above: Result Comment: Rapid NAAT: [...] management decisions. Fact sheet for Healthcare Providers: https://www.fda.gov/media/756684/download Fact sheet for Patients: https://www.fda.gov/media/237080/download Methodology: Isothermal Nucleic Acid Amplification Performed By: #### C OVRB #### [facility] [address] [place] [address] Cardiothoracic Physiotherapist: Phani Patel MD Urinalysison 03-12-2021 Bilirubin Urine Negative NEGATIVE [facility] Color, UA Yellow Yellow [facility] Glucose, Ur Negative NEGATIVE [facility] Ketones Ql (U) Negative NEGATIVE [facility] Leukocyte esterase Test strip Ql (U) Negative NEGATIVE [facility] Nitrite, Urine Negative NEGATIVE [facility] pH, UA 7.0 [facility] Protein, UA Negative NEGATIVE [facility] Specific [place], UA 1.010 [facility] Turbidity UA Clear Clear [facility] Urinalysis Comments NOT REPORTED [facility] Urine Hgb Negative NEGATIVE [facility] Urobilinogen, Urine Normal Normal [facility] Complete Blood Count with Au to Diffon 02-20-2021 Basophils (Bld) [#/Vol] 0.05 10*3/uL Normal 0.00-0.20 [facility] [employer] Comment on above: Performed By: #### C BCAD, VITD, FT4, TSH, CMP, LIPD #### [facility] [address], [place] [id number] Basophils/100 WBC (Bld) 0.6 % Normal [facility] [employer] Comment on above: Performed By: #### C BCAD, VITD, FT4, TSH, CMP, LIPD #### [facility] [address], [place] [id number] Eosinophils (Bld) [#/Vol] 0.27 10*3/uL Normal 0.02-0.50 [facility] [employer] Comment on above: Performed By: #### C BCAD, VITD, FT4, TSH, CMP, LIPD #### [facility] [address], [place] [id number] Eosinophils/100 WBC (Bld) 3.1 % Normal [facility] [employer] Comment on above: Performed By: #### C BCAD, VITD, FT4, TSH, CMP, LIPD #### [facility] [address], [place] [id number] Erythrocyte distribution width (RBC) [Ratio] 14.2 % Normal 11.0-15.0 [facility] [employer] Comment on above: Performed By: #### C BCAD, VITD, FT4, TSH, CMP, LIPD #### [facility] [address], [place] [id number] Hematocrit (Bld) [Volume fraction] 39.4 % Normal 35.0-47.0 [facility] [employer] Comment on above: Performed By: #### C BCAD, VITD, FT4, TSH, CMP, LIPD #### [facility] [address], [place] [id number] Hemoglobin (Bld) [Mass/Vol] 12.7 g/dL Normal 11.6-15.5 [facility] [employer] Comment on above: Performed By: #### C BCAD, VITD, FT4, TSH, CMP, LIPD #### [facility] [address], [place] [id number] Lymphocytes (Bld) [#/Vol] 2.0 10*3/uL Normal 0.9-3.9 [facility] Comment on above: Performed By: #### C BCAD, VITD, FT4, TSH, CMP, LIPD #### [facility] [address], [place] [id number] Lymphocytes/100 WBC (Bld) 22.1 % Normal [facility] Comment on above: Performed By: #### C BCAD, VITD, FT4, TSH, CMP, LIPD #### [facility] [address], [place] [id number] MCH (RBC) [Entitic mass] 29.6 pg Normal 27.0-33.0 [facility] Comment on above: Performed By: #### C BCAD, VITD, FT4, TSH, CMP, LIPD #### [facility] [address], [place] [id number] MCHC (RBC) [Mass/Vol] 32.2 g/dL Normal 32.0-36.0 [facility] Comment on above: Performed By: #### C BCAD, VITD, FT4, TSH, CMP, LIPD #### [facility] [address], [place] [id number] MCV (RBC) [Entitic vol] 92 fL Normal 80-100 [facility] Comment on above: Performed By: #### C BCAD, VITD, FT4, TSH, CMP, LIPD #### [facility] [address], [place] [id number] Monocytes (Bld) [#/Vol] 0.7 10*3/uL Normal 0.2-0.9 [facility] Comment on above: Performed By: #### C BCAD, VITD, FT4, TSH, CMP, LIPD #### [facility] [address], [place] [id number] Monocytes/100 WBC (Bld) 7.8 % Normal [facility] Comment on above: Performed By: #### C BCAD, VITD, FT4, TSH, CMP, LIPD #### [facility] [address], [place] [id number] Neutrophils (Bld) [#/Vol] 5.8 10*3/uL Normal 1.5-7.8 [facility] Specialist Comment on above: Performed By: #### C BCAD, VITD, FT4, TSH, CMP, LIPD #### [facility] [address], [place] [id number] Neutrophils/100 WBC (Bld) 66.2 % Normal [facility] Specialist Comment on above: Performed By: #### C BCAD, VITD, FT4, TSH, CMP, LIPD #### [facility] [address], [place] [id number] Platelet mean volume (Bld) [Entitic vol] 11.60 fL Normal 7.50-12.50 [facility] Comment on above: Performed By: #### C BCAD, VITD, FT4, TSH, CMP, LIPD #### [facility] [address], [place] [id number] Platelets (Bld) [#/Vol] 291 10*3/uL Normal 140-400 [facility] Specialist Comment on above: Performed By: #### C BCAD, VITD, FT4, TSH, CMP, LIPD #### [facility] [address], [place] [id number] RBC (Bld) [#/Vol] 4.29 10*6/uL Normal 3.90-5.20 [facility] Specialist Comment on above: Performed By: #### C BCAD, VITD, FT4, TSH, CMP, LIPD #### [facility] [address], [place] [id number] RDW-SD 47.6 fL Normal 37.0-50.0 [facility] Specialist Comment on above: Performed By: #### C BCAD, VITD, FT4, TSH, CMP, LIPD #### [facility] [address], [place] [id number] WBC (Bld) [#/Vol] 8.8 10*3/uL Normal 3.8-11.0 [place] [facility] [employer] Comment on above: Performed By: #### C BCAD, VITD, FT4, TSH, CMP, LIPD #### [facility] [address], [place] [id number] Comprehensive Metabolic Pane pro 02-20-2021 Albumin [Mass/Vol] 4.1 g/dL Normal 3.6-5.1 [place] [facility] [place] [employer] Comment on above: Performed By: #### C BCAD, VITD, FT4, TSH, CMP, LIPD #### [facility] [address], [place] [id number] Albumin/Globulin [Mass ratio] 1.5 {ratio} Normal 1.0-2.5 [facility] [employer] Comment on above: Performed By: #### C BCAD, VITD, FT4, TSH, CMP, LIPD #### [facility] [address], [place] [id number] ALP [Catalytic activity/Vol] 74 U/L Normal 35-119 [facility] [employer] Comment on above: Performed By: #### C BCAD, VITD, FT4, TSH, CMP, LIPD #### [facility] [address], [place] [id number] ALT [Catalytic activity/Vol] 10 U/L Normal 6-33 [facility] [employer] Comment on above: Result Comment: 01/22 Female reference range changed. Performed By: #### C BCAD, VITD, FT4, TSH, CMP, LIPD #### [facility] [address], [place] [id number] Anion gap [Moles/Vol] 15 mmol/L Normal 12-20 [facility] Specialist Comment on above: Result Comment: Effe ctive 02/27/2019 reference range changed. Performed By: #### C BCAD, VITD, FT4, TSH, CMP, LIPD #### [facility] [address], [place] [id number] AST [Catalytic activity/Vol] 18 U/L Normal 9-34 [facility] [employer] Comment on above: Performed By: #### C BCAD, VITD, FT4, TSH, CMP, LIPD #### [facility] [address], [place] [id number] Bilirubin [Mass/Vol] 0.36 mg/dL Normal 0.30-1.20 [facility] Comment on above: Performed By: #### C BCAD, VITD, FT4, TSH, CMP, LIPD #### [facility] [address], [place] [id number] BUN/CREA 17 Ratio Normal 6-22 [facility] Comment on above: Performed By: #### C BCAD, VITD, FT4, TSH, CMP, LIPD #### [facility] [address], [place] [id number] Calcium [Mass/Vol] 9.2 mg/dL Normal 8.6-10.2 [facility] Comment on above: Performed By: #### C BCAD, VITD, FT4, TSH, CMP, LIPD #### [facility] [address], [place] [id number] Chloride [Moles/Vol] 102 mmol/L Normal 98-107 [facility] Comment on above: Performed By: #### C BCAD, VITD, FT4, TSH, CMP, LIPD #### [facility] [address], [place] [id number] CO2 [Moles/Vol] 25 mmol/L Normal 20-31 [facility] Comment on above: Performed By: #### C BCAD, VITD, FT4, TSH, CMP, LIPD #### [facility] [address], [place] [id number] Creatinine [Mass/Vol] 0.7 mg/dL Normal 0.6-1.4 [facility] Comment on above: Performed By: #### C BCAD, VITD, FT4, TSH, CMP, LIPD #### [facility] [address], [place] [id number] eGFRAA 103 mL/min/1.73m2 Normal >60 [facility] Comment on above: Performed By: #### C BCAD, VITD, FT4, TSH, CMP, LIPD #### [facility] [address], [place] [id number] eGFRNAA 85 mL/min/1.73m2 Normal >60 [facility] [employer] Comment on above: Performed By: #### C BCAD, VITD, FT4, TSH, CMP, LIPD #### [facility] [address], [place] [id number] Globulin (S) [Mass/Vol] 2.7 g/dL Normal 1.9-3.7 [facility] [employer] Comment on above: Performed By: #### C BCAD, VITD, FT4, TSH, CMP, LIPD #### [facility] [address], [place] [id number] Glucose [Mass/Vol] 80 mg/dL Normal 65-99 [employer] [place] [employer] Comment on above: Result Comment: For FASTING Glucose --- ADA reference ranges: Normal 65-99 mg/dl Prediabetes 100-125 Diabetes >/= 126 Performed By: #### C BCAD, VITD, FT4, TSH, CMP, LIPD #### [facility] [address], [place] [id number] Potassium [Moles/Vol] 3.8 mmol/L Normal 3.5-5.5 [facility] Comment on above: Performed By: #### C BCAD, VITD, FT4, TSH, CMP, LIPD #### [facility] [address], [place] [id number] Protein [Mass/Vol] 6.8 g/dL Normal 6.1-8.1 [employer] [place] [employer] Comment on above: Performed By: #### C BCAD, VITD, FT4, TSH, CMP, LIPD #### [facility] [address], [place] [id number] Sodium [Moles/Vol] 138 mmol/L Normal 135-146 [employer] [place] [employer] Comment on above: Performed By: #### C BCAD, VITD, FT4, TSH, CMP, LIPD #### [facility] [address], [place] [id number] Urea nitrogen [Mass/Vol] 11 mg/dL Normal 7-25 [facility] [employer] Comment on above: Performed By: #### C BCAD, VITD, FT4, TSH, CMP, LIPD #### [facility] [address], [place] [id number] Free T4on 02-20-2021 Free T4 [Mass/Vol] 1.28 ng/dL Normal 0.80-1.80 [facility] Comment on above: Performed By: #### C BCAD, VITD, FT4, TSH, CMP, LIPD #### [facility] [address], [place] [id number] Lipid Panelon 02-20-2021 Cholesterol [Mass/Vol] 164 mg/dL Normal 125-200 [facility] Comment on above: Result Comment: Low risk < 200mg/dL Borderline risk 201-239 mg/dl High risk > or equal to 240 Performed By: #### C BCAD, VITD, FT4, TSH, CMP, LIPD #### [facility] [address], [place] [id number] Cholesterol in HDL [Mass/Vol] 57 mg/dL Normal >40 [facility] Specialist Comment on above: Result Comment: High Cardiovascular Risk HDL <40 mg/dL Low Cardiovascular Risk HDL > or equal to 60 mg/dl Performed By: #### C BCAD, VITD, FT4, TSH, CMP, LIPD #### [facility] [address], [place] [id number] Cholesterol in LDL [Mass/Vol] 92 mg/dL Normal [facility] Comment on above: Result Comment: LDL ATP III CLASSIFICATION LDL less than 100 mg/dl Optimal LDL 100-129 mg/dl Near or above optimal LDL 130-159 Borderline high LDL 160-189 High LDL greater than 189 mg/dl Very High Performed By: #### C BCAD, VITD, FT4, TSH, CMP, LIPD #### [facility] [address], [place] [id number] Cholesterol in VLDL [Mass/Vol] 15 mg/dL Normal [facility] Comment on above: Performed By: #### C BCAD, VITD, FT4, TSH, CMP, LIPD #### [facility] [address], [place] [id number] Cholesterol.total/Chol esterol in HDL [Mass ratio] 3 {ratio} Normal [place] [employer] Comment on above: Performed By: #### C BCAD, VITD, FT4, TSH, CMP, LIPD #### [facility] [address], [place] [id number] Triglyceride [Mass/Vol] 75 mg/dL Normal 30-150 [facility] [employer] Comment on above: Result Comment: TRIG ATPIII CLASSIFICATIONS TRIG less than 150 mg/dl Normal TRIG 150-199 mg/dl Borderline High TRIG 200-500 mg/dl High TRIG greather than 500 mg/dl Very High Performed By: #### C BCAD, VITD, FT4, TSH, CMP, LIPD #### [facility] [address], [place] [id number] Q - CULTURE,URINE,ROUTINEon 02-20-2021 CULTURE, URINE, ROUTINE SEE NOTE Abnormal [facility] [employer] Comment on above: Order Comment: [employer] performed at: [facility], [employer] [facility], [address] [place] [address], [address] [place] [address], [phone], Surgical Instruments Inspector: Boby Diaz MDQuest Collection Date/Time: [id number] Results Received Date/Time: [id number] Reported Date/Time: Result Comment: CULT URE, URINE, ROUTINE Micro Number: [id number] Test Status: Final Specimen Source: Urine Specimen [...] #### LISA JIMENEZ #### [facility] [address], [place] [id number] Q - UR CULT [id number] 2020 REFLEXIVE URINE CULTURE SEE NOTE Normal [facility] Specialist Comment on above: Order Comment: [facility] performed at: [employer] [facility], [facility], [address] [place] [address], [phone], Surgical Instruments Inspector: Boby Ovalle Collection Date/Time: [id number] Results Received Date/Time: [id number] Reported Date/Time: Result Comment: CULT URE INDICATED - RESULTS TO FOLLOW Performed By: #### LISA JIMENEZ #### [facility] [address], [place] [id number] Q - URINALYSIS,COMPLETE,WITH REFLEX TO CULTUREon 02-20-2021 Appearance (U) CLEAR Normal CLEAR [facility] Specialist Comment on above: Order Comment: [facility] performed at: [employer] [facility], [address] , [address] [place] [address], [phone], Surgical Instruments Inspector: Boby Ovalle Collection Date/Time: [id number] Results Received Date/Time: [id number] Reported Date/Time: Performed By: #### LISA JIMENEZ #### [facility] [address], [place] [id number] BACTERIA FEW Abnormal NONE SEEN [facility] [employer] Comment on above: Order Comment: [facility] performed at: [employer], [employer] [facility], [address] , [address] [place] [address], [phone], Surgical Instruments Inspector: Boby Ovalle Collection Date/Time: [id number] Results Received Date/Time: [id number] Reported Date/Time: Performed By: #### LISA JIMENEZ #### [facility] [address], [place] [id number] Bilirubin Ql (U) Negative Normal NEGATIVE [facility] [employer] Comment on above: Order Comment: [facility] performed at: [employer], [employer] [facility], [address] [facility], [address] [place] [address], [address] [place] [address], Surgical Instruments Inspector: Boby Ovalle Collection Date/Time: [id number] Results Received Date/Time: [id number] Reported Date/Time: Performed By: #### Susannah BEN[place], [place] #### [facility] [address], [place] [id number] Color (U) YELLOW Normal YELLOW [facility] [employer] Comment on above: Order Comment: Quest performed at: [facility], [address] [facility], [address] [place] [address], [phone], Surgical Instruments Inspector: Boby Ovalle Collection Date/Time: [id number] Results Received Date/Time: [id number] Reported Date/Time: Performed By: #### Susannah BENJAMIN [place] #### [facility] [address], [place] [id number] Glucose Ql (U) Negative Normal NEGATIVE [facility] [employer] Comment on above: Order Comment: [facility] performed at: [facility], [address], [address] [place] [address], [phone], Surgical Instruments Inspector: Boby Ovalle Collection Date/Time: [id number] Results Received Date/Time: [id number] Reported Date/Time: Performed By: #### LISA JIMENEZ #### [facility] [address], [place] [id number] HYALINE CAST NONE SEEN Normal NONE SEEN [facility] [employer] Comment on above: Order Comment: [facility] performed at: [facility], [facility], [address] [place] [address], [address] [place] [address], [address] [place] [address], Surgical Instruments Inspector: Boby Diaz MDQuest Collection Date/Time: [id number] Results Received Date/Time: [id number] Reported Date/Time: Performed By: #### LISA JIMENEZ #### [facility] [address], [place] [id number] Ketones Ql (U) Negative Normal NEGATIVE [facility] [employer] Comment on above: Order Comment: [facility] performed at: [employer], [facility], [address] [place] [address], [address] [place] [address], [address] [place] [address], Surgical Instruments Inspector: Boby Diaz MDQuest Collection Date/Time: [id number] Results Received Date/Time: [id number] Reported Date/Time: Performed By: #### LISA JIMENEZ #### [facility] [address], [place] [id number] Leukocyte esterase Test strip Ql (U) 1+ Abnormal NEGATIVE [facility] Specialist Comment on above: Order Comment: [facility] performed at: [employer], [facility], [address] [place] [address], [address] [place] [address], [address] [place] [address], Surgical Instruments Inspector: Boby Ovalle Collection Date/Time: [id number] Results Received Date/Time: [id number] Reported Date/Time: Performed By: #### ILSA JIMENEZ #### [facility] [address], [place] [id number] Nitrite Ql (U) Negative Normal NEGATIVE [facility] [employer] Comment on above: Order Comment: [facility] performed at: [employer], [facility], [address], [address] [place] [address], [phone], Surgical Instruments Inspector: Boby Ovalle Collection Date/Time: [id number] Results Received Date/Time: [id number] Reported Date/Time: Performed By: #### Susannah BENJAMIN [place] #### [facility] [address], [place] [id number] OCCULT BLOOD TRACE Abnormal NEGATIVE [facility] [employer] Comment on above: Order Comment: [facility] performed at: [employer], [facility], [address] , [address] [place] [address], [phone], Surgical Instruments Inspector: Boby Ovalle Collection Date/Time: [id number] Results Received Date/Time: [id number] Reported Date/Time: Performed By: #### Susannah [place]EN[place], [place] #### [facility] [address], [place] [id number] pH (U) 7.5 [pH] Normal 5.0-8.0 [facility] [employer] Comment on above: Order Comment: [facility] performed at: [employer], [facility], [address], [address] [place] [address], [address], Surgical Instruments Inspector: Boby Ovalle Collection Date/Time: [id number] Results Received Date/Time: [id number] Reported Date/Time: Performed By: #### Susannah BENJ[place], [place] #### [facility] [address], [place] [id number] Protein Ql (U) Negative Normal NEGATIVE [facility] [employer] Comment on above: Order Comment: [facility] performed at: [employer], [facility], [address], [address] [place] [address], [phone], Surgical Instruments Inspector: Boby Ovalle Collection Date/Time: [id number] Results Received Date/Time: [id number] Reported Date/Time: Performed By: #### LISA JIMENEZ #### [facility] [address], [place] [id number] RBC NONE SEEN Normal < OR = 2 [facility] [employer] Comment on above: Order Comment: [facility] performed at: [employer], [facility], [address] [facility], [address] [place] [address], [address] [place] [address], Surgical Instruments Inspector: Boby Ovalle Collection Date/Time: [id number] Results Received Date/Time: [id number] Reported Date/Time: Performed By: #### LISA JIMENEZ #### [facility] [address], [place] [id number] Specific gravity (U) [Rel density] 1.007 Normal 1.001-1.035 [facility] [employer] Comment on above: Order Comment: [facility] performed at: [employer], [facility], [address] [facility], [address] [place] [address], [address] [place] [address], Surgical Instruments Inspector: Boby Ovalle Collection Date/Time: [id number] Results Received Date/Time: [id number] Reported Date/Time: Performed By: #### LISA JIMENEZ #### [facility] [address], [place] [id number] SQUAMOUS EPITHELIAL CELLS 0-5 Normal < OR = 5 [facility] [employer] Comment on above: Order Comment: [facility] performed at: [employer], [facility], [address] [facility], [address] [place] [address], [address] [place] [address], Surgical Instruments Inspector: Boby Ovalle Collection Date/Time: [id number] Results Received Date/Time: [id number] Reported Date/Time: Performed By: #### LISA JIMENEZ #### [facility] [address], [place] [id number] WBC 0-5 Normal < OR = 5 [facility] [employer] Comment on above: Order Comment: [facility] performed at: [facility], [address], [address] [place], [address], Surgical Instruments Inspector: Boby Diaz MDQuest Collection Date/Time: [id number] Results Received Date/Time: [id number] Reported Date/Time: Performed By: #### C SOU[place]V, [place] #### [facility] [address], [place] [id number] TSHon 02-20-2021 TSH 1.650 uIU/mL Normal 0.400-4.500 [facility] [employer] Architect Comment on above: Performed By: #### C BCAD, VITD, FT4, TSH, CMP, LIPD #### [facility] [address], [place] [id number] Vitamin D 25-OHon 02-20-2021 VIT D 25 OH 25 ng/ml Low >29 [facility] [employer] Comment on above: Result Comment: Sury min D Status Deficiency <20 ng/mL Insufficiency 20-29 ng/mL Optimal 30-100 ng/mL Possible Toxicity >=150 ng/mL Performed By: #### C BCAD, VITD, FT4, TSH, CMP, LIPD #### [facility] [address], [place] [id number] No Panel InformationOrdered By: Sydnee Tamez on 07-15-2020 Left knee: Mild degenerative changes. No acute osseous abnormality. Right humerus: Advanced arthritic changes in the glenohumeral aspect of the joint without evidence of acute fracture. Right shoulder: Advanced degenerative changes. Apparent resection of the distal right clavicle. No acute fracture. [employer] Phone: EXAMINATION: THREE XRAY VIEWS OF THE [...] No acute fracture or dislocation is noted. [employer] Phone: Cory, [facility] Incoming Radiant Results From [employer] - 07/15/2020 3:49 PM EDT EXAMINATION: THREE [...] the distal right clavicle. No acute fracture. [employer] Phone: [employer] Phone: DEXA BONE DENSITY AXIAL SKEL ETONon [...] 88 years. DEXA scan for this exam: PAAY RECOMMENDATIONS: The patient is at high risk of an osteoporotic fracture of the left hip. If not already instituted, suggest a assertive therapy to increase bone mass. Follow-up study in 2 years may be considered on a [employer] system. . [facility] [place] [facility]: BONE DENSITOMETRY 12/12/2019 10:39 am [...] young adult T-score of -2.3 representing osteopenia. [facility] [place] Cory, [facility] Incoming Radiant Results From [employer] - 12/12/2019 10:58 AM EDT EXAMINATION: BONE [...] 88 years. DEXA scan for this exam: PAAY RECOMMENDATIONS: The patient is at high risk of an osteoporotic fracture of the left hip. If not already instituted, suggest a assertive therapy to increase bone mass. Follow-up study in 2 years may be considered on a [employer] system. . [facility], [place] Neurosurgery Office/Clinic N walter 04-03-2019 Neurosurgery [...] by Tawnya Maxwell 04/03/2019 14:12 EST Normal [facility] XR Spine Lumbosacral 2/3 Vie ws w/Bendingon [...] Electronically Signed in Other Vendor System) Normal [facility] Neurosurgery Office/Clinic N oteon 02-01-2019 Neurosurgery Office/Clinic [...] by Tawnya Maxwell 02/01/2019 15:19 EST Normal [facility] Provider Letteron 02-01-2019 Provider Letter Alfred Pal [address] [facility] [address] [place] [id number] Re: Stephanie Spear Date of Visit: 02/01/2019 Dear Alfred Pal, Thank You for referring Stephanie Spear to our office for care. Attached you will find my office note. Please Contact our office if you have any questions or concerns. Sincerely, Gene Cline MD The following document(s) were included in the letter: February 01, 2019 15:18:29 EST - (02/01/2019) Neurosurgery Office Visit Note Normal [facility] Neurosurgery Office/Clinic N oteon 01-18-2019 Neurosurgery Office/Clinic [...] tabs, 0 Refill(s), 01/24/19 15:46:00 EST, Pharmacy: [id number] Problem List/Past Medical History Ongoing Acute rhinitis [...] Toña Avalos CNP 01/18/19 16:45 EST Normal [facility] Provider Letteron 01-18-2019 Provider Letter Alfred Pal, Re: Stephanie Spear Date of Visit: 01/18/2019 Dear Alfred Pal, Thank you for referring Stephanie to my office. Attached you will find my office note. Please let me know if you have any questions or concerns. Sincerely, Toña Avalos CNP [facility] [address] [address] The following document(s) were included in the letter: January 18, 2019 15:48:45 EST - (01/18/2019) Neurosurgery Office Visit Note Normal [facility] Inpatient Clinical Summaryon 01-07-2019 Inpatient Clinical Summary [address] [address] Clinical Summary Person Information Name: HungTaraStepahniela nena Stephens Age: 73 Years : 1945 Sex: Female PCP: Kae LUGO, Alfred Moreno Marital Status: Phone: PCP: [phone] Race: White Ethnicity: Not or Language: Yi Visit Id: Visit Reason: Speciality: Acuity: Enc Type: Observation Med Service: Surgery Arrival: 01/06/2019 09:24:00 Discharge: Dispo Type: Address: [address] [place] [address] [place] [address] Diagnosis: Status post lumbar discectomy Discharged To: [...] With: Address: When: Son MENDOZA, Gene Benavides [address] [place] [id number] [phone] Within 2 to 4 weeks Comments: Follow up in 2 weeks with Toña Avalos and follow up in [address] Cline Type Location Start Finish State Post Op Visit [facility] 01/18/2019 15:00:00 01/18/2019 15:30:00 Confirmed Normal [facility] Neurosurgery Progress Noteon 01-07-2019 Neurosurgery Progress Note [...] MD, Magdy Morris 01/07/19 08:10 EST Normal [facility] Provider Letteron 01-07-2019 Provider Letter Alfred Pal, [address] [address] Re: Stephanie Spear Date of Visit: 01/06/2019 Dear Alfred Pal, Let me know if you have any questions or concerns. Sincerely, LANDON Dowd MD Providers: The following document(s) were included in the letter: January 07, 2019 08:12:35 EST - (01/07/2019) Discharge Summary Normal [facility] Operative Reporton 9 Operative Report Indication for [...] Left L4-5 discectomy Surgeon(s) Gene Cline MD [employer] Chapis [place]IN[place] Anesthesia general endotracheal Estimated Blood [...] surgical procedure was assisted by my physician?s practice assistant. Her presence was needed throughout the case for positioning the surgical instruments as well as primarily assisting me through the procedure. Due to the complexity of condition, the skill set of a neurosurgical physician practice assistant was needed throughout the case. During the surgical case, the surgical services coordinator was working the back table and was not available for assistance. Sponge/Needle Count all accounted for Fluid Count 700cc Electronically signed by Gene Cline MD 01/06/19 13:39 EST Normal [facility] Potassiumon 01-06-2019 Potassium [Moles/Vol] 3.7 mmol/L Normal 3.4-4.8 [facility] Comment on above: Performed By: #### K ####[place] [id number] [place] [id number] XR Spine Lumbosacral 2/3 Antonio Ralph 01-06-2019 [...] Electronically Signed in Other Vendor System) Normal [facility] Neurosurgery Office/Clinic N walter 01-03-2019 Neurosurgery Office/Clinic [...] Toña Avalos CNP 01/03/19 12:31 EST Normal [facility] Provider Letteron 01-03-2019 Provider Letter Sydnee Tamez RN [facility] [address] [place] [phone] Re: Stephanie Spear Date of Visit: 01/03/2019 Dear Sydnee Tamez, Thank you for referring Stephanie to my office. Attached you will find my office note. Please let me know if you have any questions or concerns. Sincerely, Toña Avalos CNP [facility] [address] [address] The following document(s) were included in the letter: January 03, 2019 12:24:09 EST - (01/03/2019) Neurosurgery Office Visit Note Normal [facility] .UA Microscp Aon 12-12-2018 UA Mucus Present Abnormal Absent [facility] Comment on above: Performed By: #### C [id number] ####[address] [address] UA RBC Quant 0 /HPF Normal 0-5 [facility] Comment on above: Performed By: #### C [id number] ####[address] [address] UA Squepi Cells Quant <1 Normal 0-29 [facility] Comment on above: Performed By: #### C D:[id number] ####[address] [address] UA WBC Quant 0 /HPF Normal 0-5 [facility] Comment on above: Performed By: #### C D:[id number] ####[address] [address] .eGFRon 12-12-2018 eGFR AA >60 Normal >=60 [facility] Comment on above: Result Comment: Resu lt = 0-14.9 mL/min/1.73 m2 Kidney failure or Dialysis Result = 15-29 mL/min/1.73 m2 Severe decrease in GFR Result = 30-59 mL/min/1.73 m2 Moderate decrease in GFR Result >= 60 mL/min/1.73 m2 Normal or increased GFR Performed By: #### E GFR ####[place] [id number] eGFR Non-AA >60 Normal >=60 [facility] Comment on above: Result Comment: Resu lt [...] medication dosing. Performed By: #### E GFR ####[address] [address] ABO/Rhon 12-12-2018 ABO/Rh SD 11.1.19 DCon: 0 ABO/Rh: A POS Normal [facility] Comment on above: Performed By: #### A ANGY ####[facility] (DEFAULT)[address] [place], [place] [address]DLSJISEJJ [address] [address] ABSC Autoon 12-12-2018 ABSC Auto Negative Normal [facility] Comment on above: Performed By: #### A SA ####[address] [address] CBC w/ Diffon 12-12-2018 Erythrocyte distribution width (RBC) [Ratio] 14.1 % Normal 11.6-14.8 [facility] Comment on above: Performed By: #### C BC ####[address] [address] Hematocrit (Bld) [Volume fraction] 38.3 % Normal 36.0-46.0 [facility] Comment on above: Performed By: #### C BC ####[address] [address] Hemoglobin (Bld) [Mass/Vol] 12.5 g/dL Normal 12.0-16.0 [facility] Comment on above: Performed By: #### C BC ####[address] [address] MCH (RBC) [Entitic mass] 29.9 pg Normal 27.0-35.0 [facility] Comment on above: Performed By: #### C BC ####[address] [address] MCHC (RBC) [Mass/Vol] 32.6 % Normal 31.0-37.0 [facility] Comment on above: Performed By: #### C BC ####[address] [address] MCV (RBC) [Entitic vol] 91.8 fL Normal 80.0-100.0 [facility] Comment on above: Performed By: #### C BC ####[address] [address] Platelet mean volume (Bld) [Entitic vol] 9.2 fL Normal 6.7-10.6 [facility] Comment on above: Performed By: #### C BC ####[address] [address] Platelets (Bld) [#/Vol] 331 x10*3/mcL Normal 150-350 [facility] Comment on above: Performed By: #### C BC ####[address] [address] RBC (Bld) [#/Vol] 4.17 x10*6/mcL Normal 3.80-5.20 [facility] Comment on above: Performed By: #### C BC ####[address] [address] WBC (Bld) [#/Vol] 9.1 x10*3/mcL Normal 4.5-11.0 [facility] Comment on above: Performed By: #### C BC ####[address] [address] CMPon 12-12-2018 Albumin [Mass/Vol] 3.8 g/dL Normal 3.2-4.9 [facility] Comment on above: Result Comment: [facility] Laboratory updated the methodology used for albumin testing on 09/29/17. Albumin measurement was performed using a bromcresol purple dye-binding assay. Performed By: #### C OMP ####[address] [address] Albumin/Globulin [Mass ratio] 1.1 {ratio} Normal 1.1-2.2 [facility] Comment on above: Performed By: #### C OMP ####[address] [address] Alk Phos 67 IU/L Normal 32-91 [facility] Comment on above: Performed By: #### C OMP ####[address] [address] ALT [Catalytic activity/Vol] 11 U/L Low 14-54 [facility] Comment on above: Performed By: #### C OMP ####[address] [address] Anion gap [Moles/Vol] 9 mmol/L Normal 7-17 [facility] Comment on above: Performed By: #### C OMP ####[address] [address] AST [Catalytic activity/Vol] 15 U/L Normal 15-41 [facility] Comment on above: Performed By: #### C OMP ####[address] [address] Bili Total 0.8 mg/dL Normal 0.3-1.2 [facility] Comment on above: Performed By: #### C OMP ####[address] [address] Calcium [Mass/Vol] 8.9 mg/dL Normal 8.5-10.3 [facility] Comment on above: Performed By: #### C OMP ####[address] [address] Chloride [Moles/Vol] 104 mmol/L Normal 98-110 [facility] Comment on above: Performed By: #### C OMP ####[address] [address] CO2 [Moles/Vol] 31 mmol/L Normal 22-32 [facility] Comment on above: Performed By: #### C OMP ####[address] [place] [address] Creatinine [Mass/Vol] 0.61 mg/dL Normal 0.44-1.03 [facility] Comment on above: Performed By: #### C OMP ####[address] [place] [address] Glucose [Mass/Vol] 99 mg/dL Normal 74-118 [facility] Comment on above: Performed By: #### C OMP ####[address] [place] [address] Potassium [Moles/Vol] 3.1 mmol/L Low 3.4-4.8 [facility] Comment on above: Performed By: #### C OMP ####[address] [address] Protein [Mass/Vol] 7.2 g/dL Normal 6.5-8.1 [facility] Comment on above: Performed By: #### C OMP ####[address] [address] Sodium [Moles/Vol] 141 mmol/L Normal 133-142 [facility] Comment on above: Performed By: #### C OMP ####[address] [address] Urea nitrogen [Mass/Vol] 10 mg/dL Normal 8-26 [facility] Comment on above: Performed By: #### C OMP ####[address] [address] Urea nitrogen/Creatinine [Mass ratio] 16.4 mg/mg Normal 10.0-20.0 [facility] Comment on above: Performed By: #### C OMP ####[address] [address] Diff Autoon 12-12-2018 Baso Absolute 0.1 x10*3/mcL Normal 0.0-0.2 [facility] Comment on above: Performed By: #### . Automated Diff ####[address] [address] Basophils/100 WBC (Bld) 0.6 % Normal 0.0-1.5 [facility] Comment on above: Performed By: #### . Automated Diff ####[address] [address] Eos Absolute 0.2 x10*3/mcL Normal 0.0-0.4 [facility] Comment on above: Performed By: #### . Automated Diff ####[address] [address] Eosinophils/100 WBC (Bld) 1.7 % Normal 0.0-5.4 [facility] Comment on above: Performed By: #### . Automated Diff ####[address] [address] Lymphocytes (Bld) [#/Vol] 1.5 x10*3/mcL Normal 1.0-4.8 [facility] Comment on above: Performed By: #### . Automated Diff ####[address] [address] Lymphocytes/100 WBC (Bld) 16.9 % Low 27.2-40.8 [facility] Comment on above: Performed By: #### . Automated Diff ####[address] [address] [place] Absolute 0.4 x10*3/mcL Normal 0.1-1.1 [facility] Comment on above: Performed By: #### . Automated Diff ####[address] [address] Monocytes/100 WBC (Bld) 4.6 % Normal 3.7-11.9 [facility] Comment on above: Performed By: #### . Automated Diff ####[address] [address] Neutro Absolute 6.9 x10*3/mcL Normal 1.8-7.7 [facility] Comment on above: Performed By: #### . Automated Diff ####[place] [id number] Neutro Auto 76.2 % High 47.2-70.8 [facility] Comment on above: Performed By: #### . Automated Diff ####[place] [id number] PTon 12-12-2018 INR Coag (PPP) [Relative time] 1.0 {INR} Normal <=3.5 [facility] Comment on above: Result Comment: INR has no normal range. INR Therapeutic range is: 2.0-3.0 (AF, CVA, TIAs, DVT prophylaxis, acute DVT) 2.5-3.5 ([facility] heart valves, recurrent thrombosis/emboli) Performed By: #### P TINR ####[address] [address] PT Coag (PPP) [Time] 10.2 s Normal 9.2-11.7 [facility] Comment on above: Performed By: #### P TINR ####[address] [address] PTTon 12-12-2018 aPTT Coag (Bld) [Time] 25.0 s Normal 20.6-28.0 [facility] Comment on above: Performed By: #### P TT ####[address] [address] UA w Culture if Indon 2018 Color (U) Yellow Normal [facility] Comment on above: Performed By: #### U CI ####[address] [address] Glucose (U) [Mass/Vol] Negative Normal Negative [facility] Comment on above: Performed By: #### U CI ####[address] [address] Ketones Ql (U) Negative Normal Negative [facility] Comment on above: Performed By: #### U CI ####[address] [address] UA Blood Negative Normal Negative [facility] Comment on above: Performed By: #### U CI ####[address] [address] UA Clarity Clear Normal [facility] Comment on above: Performed By: #### U CI ####[address] [address] UA Leukocyte Esterase Negative Normal Negative [facility] Comment on above: Performed By: #### U CI ####[address] [address] UA Nitrite Negative Normal Negative [facility] Comment on above: Performed By: #### U CI ####[address] [address] UA pH 8.0 Abnormal 4.5 - 7.8 [facility] Comment on above: Performed By: #### U CI ####[address] [address] UA Protein Negative Normal Negative [facility] Comment on above: Performed By: #### U CI ####[address] [address] UA Source Clean Catch Normal [facility] Comment on above: Performed By: #### U CI ####[address] [address] UA Spec Grav 1.010 Normal 1.003-1.035 [facility] Comment on above: Performed By: #### U CI ####[address] [address] UA Urobilinogen 0.2 mg/dL Normal 0.2 - 1.0 [facility] Comment on above: Performed By: #### U CI ####[address] [address] Urobilinogen Qn (U) Negative Normal Negative [facility] Comment on above: Performed By: #### U CI ####[address] [address] XR CHEST STANDARD (2 VW)on 0 11-02-2018 No acute cardiopulmonary disease or interval change. [facility] TWO XRA Y VIEWS OF THE [...] costophrenic angles. Bones and soft tissues stable. [facility] Cory, Mhpn Incoming Radiant Results From [employer] - 11/02/2018 5:50 PM EDT EXAMINATION: TWO [...] acute cardiopulmonary disease or interval change. COPD. [place], [place] .UA Microscp Aon 10-31-2018 UA Bacteria Present Abnormal Absent [facility] Comment on above: Performed By: #### C [id number] ####[address] [address] UA Mucus Present Abnormal Absent [facility] Comment on above: Performed By: #### C [id number] ####[address] [address] UA RBC Quant 0 /HPF Normal 0-5 [facility] Comment on above: Performed By: #### C [id number] ####[address] [address] UA Squepi Cells Quant <1 Normal 0-29 [facility] Comment on above: Performed By: #### C [id number] ####[address] [address] UA WBC Quant 0 /HPF Normal 0-5 [facility] Comment on above: Performed By: #### C [id number] ####[address] [address] .eGFRon 10-31-2018 eGFR Non-AA >60 Normal >=60 [facility] Comment on above: Result Comment: Resu lt [...] medication dosing. Performed By: #### E GFR ####[place] [id number] eGFR AA >60 Normal >=60 [facility] Comment on above: Result Comment: Resu lt = 0-14.9 mL/min/1.73 m2 Kidney failure or Dialysis Result = 15-29 mL/min/1.73 m2 Severe decrease in GFR Result = 30-59 mL/min/1.73 m2 Moderate decrease in GFR Result >= 60 mL/min/1.73 m2 Normal or increased GFR Performed By: #### E GFR ####[place] [id number] ABO/Rhon 10-31-2018 ABO/Rh SD 9.20.19 DCon: 0 ABO/Rh: A POS Normal [facility] Comment on above: Performed By: #### A BORH ####[facility] (DEFAULT)[address] [place], [place] [id number] [address] ABSC Autoon 10-31-2018 ABSC Auto Negative Normal [facility] Comment on above: Performed By: #### A SA ####[place] [id number] CBC w/ Diffon 10-31-2018 Erythrocyte distribution width (RBC) [Ratio] 16.6 % High 11.6-14.8 [facility] Comment on above: Performed By: #### C BC #### [address] [address] Hematocrit (Bld) [Volume fraction] 40.0 % Normal 36.0-46.0 [facility] Comment on above: Performed By: #### C BC #### [address] [address] Hemoglobin (Bld) [Mass/Vol] 12.9 g/dL Normal 12.0-16.0 [facility] Comment on above: Performed By: #### C BC #### [address] [address] MCH (RBC) [Entitic mass] 29.5 pg Normal 27.0-35.0 [facility] Comment on above: Performed By: #### C BC #### [address] [address] MCHC (RBC) [Mass/Vol] 32.2 % Normal 31.0-37.0 [facility] Comment on above: Performed By: #### C BC #### [address] [address] MCV (RBC) [Entitic vol] 91.5 fL Normal 80.0-100.0 [facility] Comment on above: Performed By: #### C BC #### [address] [address] Platelet mean volume (Bld) [Entitic vol] 8.8 fL Normal 6.7-10.6 [facility] Comment on above: Performed By: #### C BC #### [address] [address] Platelets (Bld) [#/Vol] 358 x10*3/mcL High 150-350 [facility] Comment on above: Performed By: #### C BC #### [address] [address] RBC (Bld) [#/Vol] 4.37 x10*6/mcL Normal 3.80-5.20 [facility] Comment on above: Performed By: #### C BC #### [address] [address] WBC (Bld) [#/Vol] 12.1 x10*3/mcL High 4.5-11.0 [facility] Comment on above: Performed By: #### C BC #### [address] [address] CMPon 10-31-2018 Albumin [Mass/Vol] 4.1 g/dL Normal 3.2-4.9 [facility] Comment on above: Result Comment: [facility] Laboratory updated the methodology used for albumin testing on 09/29/17. Albumin measurement was performed using a bromcresol purple dye-binding assay. Performed By: #### C OMP ####[address] [address] Albumin/Globulin [Mass ratio] 1.1 {ratio} Normal 1.1-2.2 [facility] Comment on above: Performed By: #### C OMP ####[address] [address] Alk Phos 70 IU/L Normal 32-91 [facility] Comment on above: Performed By: #### C OMP ####[address] [address] ALT [Catalytic activity/Vol] 16 U/L Normal 14-54 [facility] Comment on above: Performed By: #### C OMP ####[address] [address] AST [Catalytic activity/Vol] 19 U/L Normal 15-41 [facility] Comment on above: Performed By: #### C OMP ####[address] [address] Bili Total 0.7 mg/dL Normal 0.3-1.2 [facility] Comment on above: Performed By: #### C OMP ####[address] [address] Creatinine [Mass/Vol] 0.58 mg/dL Normal 0.44-1.03 [facility] Comment on above: Performed By: #### C OMP ####[address] [address] Protein [Mass/Vol] 7.7 g/dL Normal 6.5-8.1 [facility] Comment on above: Performed By: #### C OMP ####[address] [address] Urea nitrogen [Mass/Vol] 10 mg/dL Normal 8-26 [facility] Comment on above: Performed By: #### C OMP ####[address] [address] Urea nitrogen/Creatinine [Mass ratio] 17.2 mg/mg Normal 10.0-20.0 [facility] Comment on above: Performed By: #### C OMP ####[address] [address] Anion gap [Moles/Vol] 16 mmol/L Normal 7-17 [facility] Comment on above: Performed By: #### C OMP ####[address] [address] Calcium [Mass/Vol] 9.1 mg/dL Normal 8.5-10.3 [facility] Comment on above: Performed By: #### C OMP ####[address] [address] Chloride [Moles/Vol] 97 mmol/L Low 98-110 [facility] Comment on above: Performed By: #### C OMP ####[address] [address] CO2 [Moles/Vol] 27 mmol/L Normal 22-32 [facility] Comment on above: Performed By: #### C OMP ####[address] [address] Glucose [Mass/Vol] 92 mg/dL Normal 74-118 [facility] Comment on above: Performed By: #### C OMP ####[address] [address] Potassium [Moles/Vol] 3.4 mmol/L Normal 3.4-4.8 [facility] Comment on above: Performed By: #### C OMP ####[address] [address] Sodium [Moles/Vol] 137 mmol/L Normal 133-142 [facility] Comment on above: Performed By: #### C OMP ####[address] [place] [address] Diff Autoon 10-31-2018 Baso Absolute 0.1 x10*3/mcL Normal 0.0-0.2 [facility] Comment on above: Performed By: #### . Automated Diff #### [address] [address] Basophils/100 WBC (Bld) 0.8 % Normal 0.0-1.5 [facility] Comment on above: Performed By: #### . Automated Diff #### [address] [address] Eos Absolute 0.1 x10*3/mcL Normal 0.0-0.4 [facility] Comment on above: Performed By: #### . Automated Diff #### [address] [address] Eosinophils/100 WBC (Bld) 0.8 % Normal 0.0-5.4 [facility] Comment on above: Performed By: #### . Automated Diff #### [address] [address] Lymphocytes (Bld) [#/Vol] 1.8 x10*3/mcL Normal 1.0-4.8 [facility] Comment on above: Performed By: #### . Automated Diff #### [address] [address] Lymphocytes/100 WBC (Bld) 15.0 % Low 27.2-40.8 [facility] Comment on above: Performed By: #### . Automated Diff #### [address] [address] [place] Absolute 0.7 x10*3/mcL Normal 0.1-1.1 [facility] Comment on above: Performed By: #### . Automated Diff #### [address] [address] Monocytes/100 WBC (Bld) 5.5 % Normal 3.7-11.9 [facility] Comment on above: Performed By: #### . Automated Diff #### [address] [place] [address] Neutro Absolute 9.4 x10*3/mcL High 1.8-7.7 [facility] Comment on above: Performed By: #### . Automated Diff #### [address] [address] Neutro Auto 77.9 % High 47.2-70.8 [facility] Comment on above: Performed By: #### . Automated Diff #### [address] [address] PTon 10-31-2018 INR Coag (PPP) [Relative time] 1.0 {INR} Normal <=3.5 [facility] Comment on above: Result Comment: INR has no normal range. INR Therapeutic range is: 2.0-3.0 (AF, CVA, TIAs, DVT prophylaxis, acute DVT) 2.5-3.5 ([facility] heart valves, recurrent thrombosis/emboli) Performed By: #### P TINR #### [address] [address] PT Coag (PPP) [Time] 10.5 s Normal 9.2-11.7 [facility] Comment on above: Performed By: #### P TINR #### [address] [address] PTTon 10-31-2018 aPTT Coag (Bld) [Time] 25.0 s Normal 20.6-28.0 [facility] Comment on above: Performed By: #### P TT #### [address] [address] UA w Culture if Indon 2018 Color (U) Straw Normal [facility] Comment on above: Performed By: #### U CI #### [address] [address] Glucose (U) [Mass/Vol] Negative Normal Negative [facility] Comment on above: Performed By: #### U CI #### [address] [address] Ketones Ql (U) Negative Normal Negative [facility] Comment on above: Performed By: #### U CI #### [address] [place] [address] UA Blood Negative Normal Negative [facility] Comment on above: Performed By: #### U CI #### [address] [place] [address] UA Clarity Clear Normal [facility] Comment on above: Performed By: #### U CI #### [address] [place] [address] UA Leukocyte Esterase Negative Normal Negative [facility] Comment on above: Performed By: #### U CI #### [address] [place] [address] UA Nitrite Negative Normal Negative [facility] Comment on above: Performed By: #### U CI #### [address] [place] [address] UA pH 8.0 Abnormal 4.5 - 7.8 [facility] Comment on above: Performed By: #### U CI #### [address] [place] [address] UA Protein Negative Normal Negative [facility] Comment on above: Performed By: #### U CI #### [address] [place] [address] UA Source Clean Catch Normal [facility] Comment on above: Performed By: #### U CI #### [address] [place] [address] UA Spec Grav 1.005 Normal 1.003-1.035 [facility] Comment on above: Performed By: #### U CI #### [address] [place] [address] UA Urobilinogen 0.2 mg/dL Normal 0.2 - 1.0 [facility] Comment on above: Performed By: #### U CI #### [address] [place] [address] Urobilinogen Qn (U) Negative Normal Negative [facility] Comment on above: Performed By: #### U CI #### [facility] [address] [place] [address] Neurosurgery Office/Clinic N walter 10-13-2018 Neurosurgery Office/Clinic [...] MonicaBri blum Noemi 10/13/2018 15:06 EDT Normal [facility] Neurosurgery Office/Clinic N walter 10-06-2018 Neurosurgery Office/Clinic [...] the left hip (plan to obtain at [facility]) she will f/u with Dr. Cline on [...] by Romana Brumfield 10/06/2018 13:27 EDT Normal [facility] Provider Letteron 10-06-2018 Provider Letter Alfred Pal NP [address] [place] [phone] Re: Stephanie Spear Date of Visit: 10/06/2018 Dear Alfred Pal, Thank you for referring Stephanie to my office. Attached you will find my office note. Please let me know if you have any questions or concerns. Sincerely, Toña Avalos CNP [facility] [address] The following document(s) were included in the letter: October 06, 2018 13:26:08 EDT - (10/06/2018) Neurosurgery Office Visit Note Normal [facility] XR Hip 2-3 Views Lefton 09-22 XR [...] Electronically Signed in Other Vendor System) Normal [facility] XR Spine Lumbosacral Bending 2-3 Viewson [...] Electronically Signed in Other Vendor System) Normal [facility] Vital Signs Date Time Vital Sign Value Performing Clinician Vahid marte 04-07-2022 14:26-0500 Body height 160.02 cm RETA Tamez Work Phone: [facility] 04-07-2022 14:26-0500 Body weight 52.16 kg RETA Tamez Work Phone: [facility] 06-19-2021 15:54-0400 Diastolic blood pressure 75 mm[Hg] Shayne PatsyBrowsy DO Work Phone: [facility] 06-19-2021 15:54-0400 Heart rate 69 /min Shayne Elton DO Work Phone: [facility] 06-19-2021 15:54-0400 Systolic blood pressure 157 mm[Hg] Shayne [email or web address] DO Work Phone: [facility] 04-30-2021 14:00-0500 SaO2% (BldA) [Mass fraction] 97 % [facility] Work Phone: Encounters Encounter Date Encounter Type Care Provider Facility Start: 01-04-2023 End: 01-04-2023 ambulatory SYDNEE TAMEZ Not Available Start: 11-23-2022 End: 11-23-2022 Emergency department patient visit SYDNEE TAMEZ [facility] Start: 11-06-2022 End: 11-09-2022 ambulatory SOTO Delarosa [facility] Start: 04-07-2022 End: 04-07-2022 ambulatory Sydnee L Sarahe Facility:[facility] Start: 04-07-2022 End: 04-07-2022 ambulatory CFNP Sydnee L Cristy Work Phone: [facility] Work Phone: Start: 04-07-2022 End: 04-07-2022 Patient encounter procedure CFPARISH Tamez Work Phone: [facility] [place] Work Phone: Start: 04-03-2022 End: 04-03-2022 ambulatory Sydnee Tamez Facility:[facility] Start: 04-03-2022 End: 04-03-2022 ambulatory RETA Tamez Work Phone: [facility] Work Phone: Start: 04-03-2022 End: 04-03-2022 Patient encounter procedure RETA Tamez Work Phone: [facility] [place] Work Phone: Start: 03-05-2022 End: 03-08-2022 ambulatory [facility] Start: 03-05-2022 End: 03-07-2022 Subsequent hospital visit by physician [facility] MRI Comment on above: Falls frequently; Tremor; Confusion; Shuffling gait Start: 03-03-2022 End: 03-04-2022 [facility] Start: 03-03-2022 End: 03-03-2022 Subsequent hospital visit by physician Sydnee Tamez Work Phone: [facility] Start: 01-30-2022 End: 01-30-2022 ambulatory SHAYNE CONDE Facility:[facility] Start: 12-17-2021 End: 12-20-2021 ambulatory [facility]DNEE L RINE [facility] Start: 12-08-2021 End: 12-11-2021 ambulatory SYDNEE L RINE [facility] Start: 12-08-2021 End: 12-10-2021 Subsequent hospital visit by physician Kaye Guzman Dr Room 4 [facility] Comment on above: Acute pain of right knee Start: 10-16-2021 End: 10-18-2021 Subsequent hospital visit by physician Kaye Mammography Room At [facility] Mammography Comment on above: Breast cancer screen ing by mammogram Start: 09-03-2021 End: 09-04-[address] PHANI FRANCIS Facility: Start: 08-26-2021 End: 08-28-2021 Subsequent hospital visit by physician Kaye Guzman Dr Room 4 [facility] Radiology Comment on above: Right shoulder pain, unspecified chronicity Pain in rib Start: 06-19-2021 End: 06-19-2021 Patient encounter procedure Shayne Pulido Philselwyn DO Work Phone: Neurology Comment on above: Essential tremor (Pr imary Dx) Start: 05-20-2021 End: 05-20-2021 Subsequent hospital visit by physician Sydnee Tamez Work Phone: [facility] Start: 04-30-2021 End: 04-30-2021 Subsequent hospital visit by physician Kaye Pulmonary Function Room [facility] PFT Comment on above: Centrilobular emphys rivera (HCC) Start: 04-03-2021 End: 04-04-2021 ambulatory [facility] Start: 04-03-2021 End: 04-03-2021 ambulatory [facility] Start: 03-12-2021 End: 03-12-2021 Subsequent hospital visit by physician Sydnee Tamez Work Phone: [facility] Start: 07-15-2020 End: 07-17-2020 Subsequent hospital visit by physician Kaye Guzman Dr Room 4 [facility] Radiology Comment on above: Injury of left knee, initial encounter Right shoulder pain, unspecified chronicity; Fall, initial encounter; Right arm pain Start: 06-19-2020 End: 05-23-2020 General Olga BedollaD Work Phone: [facility] Work Phone: Start: 05-23-2020 End: 05-23-2020 Patient encounter procedure Shannan Benavides Work Phone: [facility] Work Phone: Start: 12-12-2019 End: 12-14-2019 Subsequent hospital visit by physician Kaye Dexa [facility] Mammography Comment on above: Osteoporosis, unspec ified osteoporosis type, unspecified pathological fracture presence Start: 04-03-2019 End: 04-04-2019 Patient encounter procedure Gene Cline Facility:[facility] Start: 01-24-2019 End: 01-26-2019 Subsequent hospital visit by physician Sydnee Tamez [facility] Start: 01-06-2019 End: 01-07-2019 Patient encounter procedure Gene Cline Facility:[facility] Start: 12-13-2018 End: 12-13-2018 Subsequent hospital visit by physician Kaye Cardiology Stress Room [facility] Comment on above: Abnormal EKG; Mixed hyperlipidemia; Orthostatic hypotension; Tobacco abuse; Shortness of breath on exertion Start: 12-12-2018 End: 12-13-2018 Patient encounter procedure Gene Cline Facility:[facility] Start: 11-22-2018 End: 12-22-2018 Preoperative state [address] Start: 11-02-2018 End: 11-04-2018 Subsequent hospital visit by physician Kaye Xr Dr Room 2 [facility] Radiology Comment on above: Cough Start: 10-31-2018 End: 11-01-2018 Patient encounter procedure Gene Cline Facility:[facility] Start: 10-06-2018 End: 10-07-2018 Patient encounter procedure TOÑA AVALOS Facility:[facility] Procedures Date Procedure Procedure Detail Performing Clinician [...] 09/09/2022 Office Visit Pulmonology Soto Brady, [address] [facility] [address] [place] [address] [facility] Start: 03-05-2022 End: 03-05-2022 Patient encounter procedure 03/05/2022 Appointment Radiology [facility] Start: 02-20-2022 Lipid panel [facility] Start: 12-08-2021 COVID-19 Vaccine (5 - Booster for Moderna series) COVID-19 Vaccine (5 - Booster for Moderna series) [facility] Start: 10-23-2021 Influenza vaccination Flu vaccine (#1) [facility] Start: 09-22-2021 Influenza vaccination Flu vaccine (#1) [facility] Start: 09-04-2021 End: 09-04-2021 Patient encounter procedure 09/04/2021 Office Visit Pulmonology Vadim Ortiz, [employer]ER [address] [facility] [address] [place], [place] [id number] [facility] Start: 08-07-2021 End: 08-07-2021 Patient encounter procedure 08/07/2021 Office Visit Pulmonology Faith Carias MD [address] [facility] [address] [place], [place] [address] [facility] Start: 04-10-2021 End: 04-10-2021 Patient encounter procedure [facility] Start: 03-31-2021 End: 03-31-2021 Patient encounter procedure 03/31/2021 Appointment [facility]chocardiography [facility] Start: 03-27-2021 Screening for malignant neoplasm of lung Low dose CT lung screening [facility] Start: 02-22-2021 ADVANCE DIRECTIVE DISCUSSION ADVANCE DIRECTIVE DISCUSSION [facility] Start: 12-19-2020 COVID-19 Vaccine (3 - Booster for Moderna series) COVID-19 Vaccine (3 - Booster for Moderna series) [facility] Start: 11-19-2020 COVID-19 Vaccine (3 - Booster for Moderna series) COVID-19 Vaccine (3 - Booster for Moderna series) [facility] Start: 11-04-2020 Lipid screen Lipid screen [facility] [place] Start: 10-23-2020 Influenza vaccination Flu vaccine (#1) [facility] Start: 06-19-2020 2nd Dose- COVID Vaccine [facility] Work Phone: Start: 04-04-2020 End: 04-04-2020 Office Visit 04/04/2020 Office Visit Pulmonology Faith Carias MD [address] [facility] [address] [place] [address] [facility] Part of [facility] Start: 02-07-2020 Screening for malignant neoplasm of lung Low dose CT lung screening [place], [place] Start: 12-13-2019 Influenza vaccination Flu vaccine (#1) [place], [place] Comment on above: Postponed from 10/23/2018 (Patient Refus ed) Start: 11-03-[address] lung screening Low dose CT lung screening [place], [place] Start: 06-14-2019 Pneumococcal 65+ years Vaccine (2 - PPSV23 or PCV20) Pneumococcal 65+ years Vaccine (2 - PPSV23 or PCV20) [facility] Start: 06-14-2019 Pneumococcal 65+ years Vaccine (2 of 2 - PPSV23) Pneumococcal 65+ years Vaccine (2 of 2 - PPSV23) [facility] Start: 03-09-2019 End: 03-09-2019 Office Visit 03/09/2019 Office Visit Pulmonology Faith Carias MD [address] [facility] [address] [place] [address] Specialist [facility] [place] Start: 02-06-2019 End: 02-06-2019 Appointment 02/06/2019 Appointment Radiology [facility] CT Scan Start: 12-14-2018 End: 12-14-2018 Appointment 12/14/2018 Appointment Stress Lab [facility] Start: 10-23-2018 Influenza vaccination Flu vaccine (#1) [place] Start: 08-14-2018 Annual Wellness Visit (AWV) Annual Wellness Visit (AWV) [facility] Start: 11-04-2016 Lipid panel [facility] Start: 11-04-2016 Lipid screen Lipid screen [place], [place] Start: 2008 BONE DENSITY BONE DENSITY [facility] Start: 2008 Pneumococcal 65+ years Vaccine (2 of 2 - PPSV23) Pneumococcal 65+ years Vaccine (2 of 2 - PPSV23) [place] Start: 2008 PNEUMOVAX AGE 65 AND OVER WITH 5YR LOOKBACK (#1) PNEUMOVAX AGE 65 AND OVER WITH 5YR LOOKBACK (#1) [facility] Start: 1993 Colon cancer screen colonoscopy Colon cancer screen colonoscopy [place] Start: 1993 Shingles Vaccine (1 of 2) Shingles Vaccine (1 of 2) [facility] Start: 1993 SHINGRIX VACCINE (1 of 2) SHINGRIX VACCINE (1 of 2) [facility] Start: 1988 DIABETES SCREEN DIABETES SCREEN [facility] Start: 1962 DTaP/Tdap/Td vaccine (1 - Tdap) DTaP/Tdap/Td vaccine (1 - Tdap) [facility] Start: 1962 Urine microalbumin profile DTAP,TDAP,TD (1 - Tdap) [facility] Start: 1961 HEPATITIS C SCREENING HEPATITIS C SCREENING [facility] Start: 1961 Hepatitis C screening Hepatitis C screen [facility] Start: 1955 Adult depression screening assessment DEPRESSION SCREENING [facility] Start: 1955 Depression Screen Depression Screen [facility] Start: 1954 DTaP/Tdap/Td vaccine (1 - Tdap) DTaP/Tdap/Td vaccine (1 - Tdap) [place] Start: 1943 Annual Wellness Visit (AWV) Annual Wellness Visit (AWV) [facility] Start: 1943 Hepatitis C screening Hepatitis C screen [facility] End: 03-12-2021 Culture, Urine [facility] Work Phone: Comment on above: Once for 1 Occurrences starting 03/12/19 until 03/12/2021 Mcadoo Westley cunha Immunizations Immunization Date Immunization Notes Care Provider Fa aleena 06-19-2020 2nd Dose MODERNA COVID-19 Vaccine; Translations: [Moderna COVID-19 Vaccine] Yogesh Scott MD Work Phone: [facility] Work Phone: Comment on above: Note: Patient tolera heidy well. No signs or symptoms of adverse reactions. Patient waited a minimum of 15 minutes. 05-23-2020 2nd Dose MODERNA COVID-19 Vaccine; Translations: [Moderna COVID-19 Vaccine] [facility] Work Phone: Comment on above: Note: Patient tolera heidy well. No signs or symptoms of adverse reactions. Patient waited a minimum of 15 minutes. Payers Date Payer Category Payer Self-pay 2018 Medicare 2018 Unknown 2014 Medicare MEDICARE MEDICAR E PART A AND B xxxxxxxxxxx 2014-Present [phone] [place] [address] xxxxxxxxxxx [id number] 2014 Unknown [employer] MEDICARE SUPP [id number] 2014-Present [phone] ATTN INDIVIDUAL CLAIMS [id number] [employer] [facility] [address] [id number] [id number] 2008 Unknown [id number] .[id number] 2008 Unknown [employer] MEDICARE SUPPLEMENT [id number] 2008-Present [phone] [address] [employer] [address], [facility] [place] [address] Indemnity [id number] 2008 Medicare MEDICARE MEDICAR E A AND B [id number] 2008-Present [phone] [place] [address] Medicare [id number] 1959 Medicare [id number] .[id number] 1959 Unknown [id number] 2.16.840.1.576419.3.140.1.729 99.5.10.6.3 1943 Unknown [id number] 2.16.840.1.173570.3.579.2.196 1943 Unknown [id number] 2.16.840.1.348681.3.579.2.196 1943 Unknown [id number] 2.16.840.1.793386.3.579.2.196 1943 Unknown [id number] 2.16.840.1.601385.3.579.2.196 1943 Unknown [id number] 2.840.1.871381.3.579.2.196 1943 Unknown [id number] 2.16.840.1.552824.3.579.2.593 1943 Unknown [id number] 2.16.840.1.986353.3.579.2.174 1943 Unknown [id number] 2.16.840.1.855107.3.579.2.174 1943 Unknown [id number] 2.16.840.1.860663.3.579.2.174 1943 Unknown [id number] 2.16.840.1.505946.3.579.2.173 1943 Unknown [id number] 2.16.840.1.090705.3.579.2.173 1943 Unknown [id number] 2.16.840.1.000885.3.579.2.173 1943 Unknown [id number] 2.16.840.1.651144.3.579.2.173 1943 Unknown [id number] 2.16.840.1.826289.3.579.2.173 1943 Unknown [id number] 2.16.840.1.473533.3.579.2.173 1943 Unknown [id number] 2.16.840.1.226325.3.579.2.125 9 Unknown [id number] 2.16.840.1.764097.3.579.2.531 Unknown [id number] 2.16.840.1.652303.3.579.2.531 Social History Date Type Detail Facility [facility] End: 06-04-2014 History of tobacco use Current [place] Start: 06-20-2015 End: 10-16-2021 Cigarettes smoked current (pack per day) - Reported [place] Start: 06-20-2015 End: 12-08-2018 Alcohol intake No [place], [place] Start: 1945 Sex Assigned At Not on file M [place], [place] Start: 12-08-2018 End: 10-16-2021 Tobacco smoking status UTIS Current every day [place]oker [place] Start: 12-08-2018 End: 10-16-2021 Alcohol intake Current non-drinker of alcohol (finding) [place] Start: 03-30-2019 End: 10-16-2021 Tobacco use and exposure Never used [place] Exposure to SARS-CoV -2 (event) Not sure [place] Tobacco smoking status Unknown if ever sm [facility] Work Phone: History of tobacco use Cigarette Smoker M [facility] [place] Start: 1945 Sex Assigned At Female F [facility] Clinical Notes 06-19-2020 to 01-30-2022 Patient InstructionsShayne Conde, - 06/19/2021 4:08 PM Niurka Chowdhury, REFORESTATION WORKER - 04/30/2021 3:30 PM EST Note Date & Type Note Facility 01-30-2022 Note HNO ID: [id number] Author: Shayne Conde, DO Service: ? Author Type: Physician Type: Progress Notes Filed: 02/02/2022 11:04 AM Note Text: [facility] - FOLLOW UP EVALUATION Shayne Pulido [place] [address] [facility] [address] Stephanie Spear is a 76 year old [...] Left pathological reflexes: Greyson's absent. Coordination Right: Rdijpd-sk-ghob normal. Rapid alternating movement normal.Left: Kuafut-kr-gygd normal. Rapid alternating movement normal. Gait The [...] tremor (primary encounter (more content not included)... [facility] 06-19-2021 Note HNO ID: [id number] Author: Shayne Conde, DO Service: ? Author Type: Physician Type: Progress Notes Filed: 06/27/2021 4:48 PM Note Text: [facility] - NEW PATIENT EVALUATION Sydnee Tamez MD [address] [facility] [address] Stephanie Spear is a 76 year old [...] No leg edema, (more content not included)... [facility] 06-19-2021 Instructions Shayne Conde DO - 06/19/2021 4:41 PM EDT Primidone instructions Start Primidone 50mg for tremor 1 week: Take 1 tablet daily at bedtime. 1 week: Take 2 tablets daily at bedtime. 1 week: Take 3 tablets daily at bedtime. Continue: Take 4 tablets daily at bedtime. The patient will call ([phone]) if sedation, confusion or sleepiness occur. documented in this encounter [facility] 06-19-2021 History of Presen t illness Narrative [facility] - NEW PATIENT EVALUATION Sydnee Tamez MD [address] [facility] [address] Stephanie Spear is a 76 year old [...] Left pathological reflexes: Greyson's absent. Coordination Right: Myiejo-oo-bdjt normal. Rapid alternating movement normal. Left: Yfzlbm-dv-jjle normal. Rapid alternating movement normal. Gait Casual [...] counseling regarding preparing to see the patient, xkxb-bu-zgnb patient care, completing clinical documentation, obtaining and/or reviewing separately obtained history, performing a medically appropriate examination, counseling and educating the patient/family/caregiver, ordering medications, tests, or procedures and communicating results to the patient/family/caregiver. I tried to answer all of the patient's questions and concerns during this visit. Shayne Conde DO Senior Staff Neurologist - [facility] documented in this encounter [facility] 04-30-2021 History of Presen t illness Narrative [place] [address] Patient Name: Stephanie Spear 1945 A home oxygen evaluation has been completed. Patient arrived on room air with a walker at this time. SpO2 was 97 % on room air at rest. Patient was walked for 6 minutes. SpO2 was 98 % on room air during walking. Patient does not qualify for home oxygen at this time. documented in this encounter [employer] Phone: 06-19-2020 Evaluation note Includes: Assessments for all patient encounters Findings Encounter for Immunization 2nd Dose- COV ID Vaccine with Olga Carey PharmD 06/19/2020 Encounter for Immunization 1st COVID Vac cine with Shannan Benavides PharmD 05/23/2020 [facility] Work Phone: Evaluation note* Diagnosis Injury of left knee, initial encounter documented in this encounter [employer] Phone: evaluation note* Diagnosis Right shoulder pain, unspecified chronicity Fall, initial encounter Right arm pain Pain in limb documented in this encounter [employer] Phone: evaluation note* Diagnosis Centrilobular emphysema (HCC) Other emphysema documented in this encounter [employer] Phone: evaluation note* Diagnosis Essential tremor- Primary Essential and other specified forms of tremor [facility] Diagnosis Right shoulder pain, unspecified chronicity documented in this encounter LUIS ANGEL SANZ [employer] Phone: evaluation note* Diagnosis Pain in rib Chest pain, unspecified documented in this encounter [facility] Work Phone: evaluation note* Diagnosis Breast cancer screening by mammogram documented in this encounter [employer] Phone: evaluation note* Diagnosis Acute pain of right knee documented in this encounter [employer] Phone: evaluation note* Diagnosis Falls frequently Personal history of fall Tremor Abnormal involuntary movements Confusion Unspecified psychosis Shuffling gait Abnormality of gait documented in this encounter [facility] Work Phone: evalwrizql noteNo assessment information available [facility] Work Phone: History general Narrative - Reported Includes: Medical History in patient's chart No Medical History [facility] Work Phone: History of Present illness Narrative History of Present Illness not supported for this document type No History of Present Illness [facility] Work Phone: Instructions Instructions not supported for this document type No Instructions [facility] Work Phone: Patient problem outcome Narrative Includes: Evaluations & Outcomes for active Goals No Outcomes [facility] Work Phone: Reason for referral (narrative)No Reason for Referral [facility] Work Phone: Review of systems Narrative - Reported Review of Systems not supported for this document type No Review of Systems [facility] [employer] [facility] Work Phone: Assessments Diagnosis Cough Diagnosis [...] FoundDocuments on File Type Date Recorded Patient Tube Pusher Expl anation Advance Directives and Living Will Power of Filler Block Inserter Remover Latest Code Status on File Code Status Date Activated Date Inactivated Comments Full Code 06/05/2014 11:47 PM 06/10/2014 3:31 PM Documents on File Type Date Recorded Patient Tube Pusher Expl anation Advance Directives and Living Will Power of Filler Block Inserter Remover Latest Code Status on File Code Status Date Activated Date Inactivated Comments Full Code 06/05/2014 11:47 PM 06/10/2014 3:31 PM Documents on File Type Date Recorded Patient Tube Pusher Expl anation ACP-Advance Directive ACP-Power of Filler Block Inserter Remover Documents on File Type Date Recorded Patient Tube Pusher Expl anation ACP-Advance Directive ACP-Power of Filler Block Inserter Remover Advance Directive Response Recorded Date/ Time Advance [...] home with Condition: Good Diet: Regular [facility] Follow-up: 2 weeks neurosurgery [...] James Godoy MD [address] [place] [address] Status Reason Specialty Diagnoses / Procedures Referred By Contact Referred To Contact Pending Review Radiology Diagnoses Osteoporosis, unspecified osteoporosis type, unspecified pathological fracture presence Procedures DEXA BONE DENSITY AXIAL SKELETON Sydnee Tamez [address] [place] [address] Specialty Diagnoses / Procedures Referred By Contac t Referred To Contact Diagnoses Centrilobular emphysema (HCC) Procedures 6 Minute Walk Test Faith Carias MD [address] [facility] [address] [place] [address] Referral ID Status Reason Start Date Expiration Date Visits Re quested Visits Authorized [id number] Open 04/17/2021 04/17/2022 1 1 Specialty Diagnoses / Procedures Referred By Contac t Referred To Contact [facility] Diagnoses Essential tremor Procedures CONSULT TO MONITOR TECHNICIAN OCCUPATIONAL THERAPY EVAL HIGH COMPLEX 60 MINS Shayne Conde, DO [address] [place] [address] [facility] [place] [address] [place] [address] Referral ID Status Reason Start Date Expiration Date Visits Requested Visits Authorized [id number] Authorized PCP Requested Referral Auto-Generate d Referral 06/19/2021 06/19/2022 99 99 Specialty Diagnoses / Procedures Referred By Contac t Referred To Contact Radiology Diagnoses Breast cancer screening by mammogram Procedures SHARON SOLIS DIGITAL SCREEN SELF REFERRAL W OR WO CAD BILATERAL Sydnee Tamez L [address] [place] [address] Referral ID Status Reason Start Date Expiration Date Visits Re quested Visits Authorized [id number] Closed 10/16/2021 10/16/2022 1 1 Specialty Diagnoses / Procedures Referred By Contac t Referred To Contact Radiology Diagnoses Falls frequently Tremor Confusion Shuffling gait Procedures MRI BRAIN W WO CONTRAST Alfred Pal [address] [place] [address] Referral ID Status Reason Start Date Expiration Date Visits Re quested Visits Authorized [id number] Closed 03/03/2022 03/03/2023 1 1 Instructions Instructions [...] section and content) DATE CREATED AUTHOR 04/04/2019 [facility] DATE CREATED AUTHOR AUTHOR'S ORGANIZ ATION 06/27/2021 [facility] dical Specialist DATE CREATED AUTHOR AUTHOR'S ORGANIZ ATION 06/28/2021 [facility] DATE CREATED AUTHOR AUTHOR'S ORGANIZ ATION 09/10/2021 [facility] DATE CREATED AUTHOR AUTHOR'S ORGANIZ ATION 02/03/2022 [facility] DATE CREATED AUTHOR AUTHOR'S ORGANIZ ATION 03/07/2022 [facility] DATE CREATED AUTHOR AUTHOR'S ORGANIZ ATION 05/16/2022 [facility] DATE CREATED AUTHOR AUTHOR'S ORGANIZ ATION 11/28/2022 [facility] [place] [facility] DATE CREATED AUTHOR AUTHOR'S ORGANIZ ATION 01/05/2023 [facility] dical Specialists EPIC Reason for Visit (unrecogniz ed section and content) Status Reason Specialty Diagnoses / Procedures Referred By Contact Referred To Contact Authorized Cardiology Diagnoses Abnormal EKG Mixed hyperlipidemia Orthostatic hypotension Tobacco abuse Shortness of breath on exertion Procedures Stress test, lexiscan HC NM SEST. REST STRESS TRIT James Godoy MD [address] [place] [address] Status Reason Specialty Diagnoses / Procedures Referre d By Contact Referred To Contact Closed Radiology Diagnoses Age-related osteoporosis without current pathological fracture Procedures HC DEXA AXIAL SKELETON Sydnee Tamez [address] [place] [address] [facility] [address] [place] [address] Specialty Diagnoses / Procedures Referred By Contac t Referred To Contact Diagnoses Centrilobular emphysema (HCC) Procedures 6 Minute Walk Test Faith Carias MD [address] [facility] [address] [place] [address] Referral ID Status Reason Start Date Expiration Date Visits Re quested Visits Authorized [id number] Open 04/17/2021 04/17/2022 1 1 Reason Comments New Patient Specialty Diagnoses / Procedures Referred By Contac t Referred To Contact Radiology Diagnoses Breast cancer screening by mammogram Procedures SHARON SOLIS DIGITAL SCREEN SELF REFERRAL W OR WO CAD BILATERAL Sydnee Tamez L [address] [place] [address] Referral ID Status Reason Start Date Expiration Date Visits Re quested Visits Authorized [id number] Closed 10/16/2021 10/16/2022 1 1 Specialty Diagnoses / Procedures Referred By Contac t Referred To Contact Radiology Diagnoses Falls frequently Tremor Confusion Shuffling gait Procedures MRI BRAIN W WO CONTRAST Fruth, Alfred [address] [place] [address] Referral ID Status Reason Start Date Expiration Date Visits Re quested Visits Authorized [id number] Closed 03/03/2022 03/03/2023 1 1 Medical History (unrecognize d section and content) Includes: Medical History in patient's chartNo Medical History Recorded Evaluations & Outcomes (unre cognized section and content) Includes: Evaluations & Outcomes for active GoalsNo Outcomes Recorded Care Teams (unrecognized sec tion and content) Child Care Sitter Relationship Specialty Start Date End Date Sydnee Tamez L [address] [place], [place] [phone] PCP - General 06/20/15 Child Care Sitter Relationship Specialty Start Date End Date Jayant Tamezri L [address] [place], [place] [phone] PCP - General 06/20/15 Child Care Sitter Relationship Specialty Start Date End Date Jayant Tamezri L [address] [place] [address] PCP - General 06/20/15 Child Care Sitter Relationship Specialty Start Date End Date Sydnee Tamez (Gas Plumbing Inspector) [address] [place] [address] Referring Family Practice 03/20/21 Child Care Sitter Relationship Specialty Start Date End Date Sydnee Tamez [address] [place] [address] PCP - General 06/20/15 Child Care Sitter Relationship Specialty Start Date End Date Sydnee Tamez [address] [place] [address] PCP - General 06/20/15 Child Care Sitter Relationship Specialty Start Date End Date Sydnee Tamez [address] [place] [address] PCP - General 06/20/15 Child Care Sitter Relationship Specialty Start Date End Date Sydnee Tamez [address] [place] [address] PCP - General 06/20/15 Team Status: Inactive [...] BE BASED ON THE PRIMARY CLINICAL RECORDS. [facility]. provides no warranty or guarantee of the accuracy or completeness of information in this document.
[2023-02-19] VITALS (120 sets, daily range): BP systolic 138–161; BP diastolic 75–100; PULSE 63–124; RESP 8–28; TEMP 36.6–36.8; O2SAT 79–100; BMI 15.9
--- NOTE | 2023-02-19 04:20 | W.PM.TELEPN ---
Progress Note: Subjective Subjective Interval history: Worsening confusion HPI: This is a 77 years old female transferred over from local nursing facility for evaluation of worsening confusion, lethargy. Apparently patient tested positive for COVID 19 recently and continue to take Paxlovid. Patient is very poor historian and unable to provide any information. Majority of the data obtained from the medical records. On presentation to emergency room patient's blood pressure actually was normal. She found to have urinary tract infection and triggered sepsis criteria. After fluid resuscitation in blood cultures been obtained patient was started on quinolone antibiotics. Exam Narrative Exam Narrative: Physical Exam: Not in distress, pleasant, frail, cooperative, Head - atraumatic, eyes - pupils equal, round, reactive to light, extra ocular movement intact, dry mucous membranes Neck - supple, thyroid not enlarged, LN not palpated Lungs - clear to auscultation, no dullness on percussion CVS - heart sounds S1, S2, no additional murmurs gallop, regular rate and rhythm Gastrointestinal?abdomen is soft, non-tender, non-distended, no organomegaly, positive bowel sounds Extremities no clubbing, cyanosis or edema Neurological?cranial nerve II?XII grossly intact, no meningeal signs, no cerebellar signs, no sensory deficit Musculoskeletal - DJD related changes in multiple joints, no effusions, ROM preserved Dermatological - the skin dry, warm, no rashes Psychiatric?patient has normal affect Constitutional Vital Signs, click to edit/add: Last Vital Signs Temp 98 F 02/19/23 00:00 Pulse 70 02/19/23 00:00 Resp 16 02/19/23 00:00 BP 139/100 H 02/19/23 00:00 Pulse Ox 98 02/19/23 00:00 O2 Del Method Room Air 02/19/23 00:00 Progress Note: Objective Labs Labs: Short CBC 02/18/23 Range/Units 14:26 WBC 49.0 H* (4.0-11.0) 10^3/uL Hgb 12.2 (12.0-16.0) g/dL Hct 38.9 (36.0-48.0) % Plt Count 274 (150-450) 10^3/uL BMP 02/18/23 14:05 Sodium 153 H Potassium 3.4 L Chloride 113 H Carbon Dioxide 25.3 BUN 65.0 H Creatinine 1.68 H Glucose 120 H Calcium 9.5 Liver Function 02/18/23 Range/Units 14:05 Total Bilirubin 0.6 (0.2-1.0) mg/dL AST 51 H (15-37) U/L ALT 41 (14-59) U/L Alkaline Phosphatase 86 (46-116) U/L Albumin 3.0 L (3.4-5.0) g/dL Urine 02/18/23 Range/Units 15:52 Urine Color Yellow (YELLOW) Urine Clarity Clear (CLEAR) Urine pH 5.5 (5.0-9.0) Ur Specific Christine 1.015 (1.005-1.025) Urine Protein Trace (NEG/TRACE) mg/dL Urine Glucose (UA) Negative (NEGATIVE) mg/dL Progress Note: A&P Assessment and Plan (1) Sepsis: Assessment and Plan: SEPSIS: source of sepsis: aggressive fluid resuscitation empiric broad spectrum Abxs with consideration to patient's allergies probiotics while on ABxs trend lactate F/U Cxs and tailor Abxs accordingly consider an ID consult (2) COVID-19: Assessment and Plan: Patient tested positive for COVID-19 Continue with enhanced isolation precautions Continue to utilize whole gear PPE Cotinue with O2 supplementation to keep puls Ox at least above 92% Dexamethason 6 mg daily paxlovid as per protocol (3) JIM (acute kidney injury): Assessment and Plan: Continue with gentle, judicious IV fluid resuscitation. Avoid use of nephrotoxic medications (4) Hypothyroidism: Assessment and Plan: Continue with home dose of supplemental levothyroxine (5) Hyperlipidemia: Assessment and Plan: Continue with home dose of statin Plan As the provider for the telehealth service, I attest that I introduced myself to the patient, provided my credentials, disclosed by location and determined that based on a review of the patient's chart and discussion with members of the patient's treatment team, telemedicine via real-time, 2 way, and interactive audio and video platform is an appropriate and effective means of providing the service. ?The patient and I mutually agree this visit is appropriate for telemedicine. ?The virtual encounter was taken place from? [facility] [place]. ?The encounter took approximately 35 minutes. ?The nurse was present during the entire time and I was able to move the stethoscope in appropriate directions. ?The patient was evaluated at the Hospital ? Portions of this note may be dictated using Dragon voice recognition software. Variances in spelling and vocabulary are possible and unintentional. Not all errors may be caught and/or corrected. Please notify the author if any discrepancies are noted and/or if the meaning of any statement is unclear.? ? Patient verbally consented for treatment via video visit with patient currently located at the [facility] and provider located in [place]. Telemedicine Attestation Telemedicine Attestation I conducted this encounter from [[place]] via secure live, [id number] video conference with the patient, located at [facility] with [sepsis]. Prior to the interview, the risks and benefits of telemedicine were discussed with the patient and verbal consent was obtained.
[2023-02-19] MEDS: 0.9 % SODIUM CHLORIDE 1,000 ML 100 ML IV (06:05)
--- NOTE | 2023-02-19 06:45 | PM.HP ---
H&P: HPI History of Present Illness Chief complaint: UTI SYMPTOMS Narrative: 77 y o female was sent from assisted for increasing confusion, generalized weakness, shortness of breath and cough. Patient was at [facility] for seizure disorder and discharged to assisted for acute rehab. Patient is confused, drowsy but arousable and unable to provide any information whatsoever. Patient appears extremely dry on clinical exam, was noted to be have a productive cough. She was brought over to ED last evening and admitted for severe sepsis sec to UTI and possible proctatitis. Patient received aggressive IV hydration overnight with minimal UO and very mild if any improvement in her overall clinical status. Review of Systems ROS Status of ROS unobtainable due to mental status [facility] Medical History (Updated 02/19/23 @ 15:09 by Shaikh Fahad MD) Seizure disorder ?G40.909 - Epilepsy, unspecified, not intractable, without status epilepticus (ICD-10) Seizure ?R56.9 - Unspecified convulsions (ICD-10) Age-related osteoporosis without current pathological fracture ?M81.0 - Age-related osteoporosis without current pathological fracture (ICD-10) Essential tremor ?G25.0 - Essential tremor (ICD-10) Adjustment disorder with anxiety ?F43.22 - Adjustment disorder with anxiety (ICD-10) Major depressive disorder ?F32.9 - Major depressive disorder, single episode, unspecified (ICD-10) Hyperlipidemia ?E78.5 - Hyperlipidemia, unspecified (ICD-10) Hypothyroidism ?E03.9 - Hypothyroidism, unspecified (ICD-10) Osteoarthritis ?M19.90 - Unspecified osteoarthritis, unspecified site (ICD-10) Hypotension ?I95.9 - Hypotension, unspecified (ICD-10) Syncope and collapse ?R55 - Syncope and collapse (ICD-10) COPD (chronic obstructive pulmonary disease) ?J44.9 - Chronic obstructive pulmonary disease, unspecified (ICD-10) Chronic kidney disease, stage 3 unspecified ?N18.30 - Chronic kidney disease, stage 3 unspecified (ICD-10) Hypokalemia ?E87.6 - Hypokalemia (ICD-10) Surgical History (Updated 02/18/23 @ 23:12 by Brandee Luz) Hx of foot surgery ?Z98.890 - Other specified postprocedural states (ICD-10) Hx of rotator cuff surgery ?Z98.890 - Other specified postprocedural states (ICD-10) Social History Smoking status: Unknown if ever smoked Highest level of school completed/degree received: don't know Meds Home Medications and Allergies Home Medications Medication Instructions Recorded Confirmed Type midodrine 2.5 mg tablet 2.5 mg PO BID 01/19/23 02/18/23 History omeprazole 20 mg capsule,delayed 20 mg PO DAILY 01/19/23 02/18/23 History release pantoprazole 40 mg tablet,delayed 40 mg PO DAILY 01/19/23 02/18/23 History release trospium 20 mg tablet 20 mg PO DAILY 01/19/23 02/18/23 History acetaminophen 500 mg tablet 1,000 mg PO Q6H PRN fever or pain 02/18/23 02/18/23 History atorvastatin 10 mg tablet 10 mg PO DAILY 02/18/23 02/18/23 History bupropion HCl 150 mg 24 hr tablet, 150 mg PO DAILY 02/18/23 02/18/23 History extended release (Wellbutrin XL) chlorthalidone 25 mg tablet 25 mg PO DAILY 02/18/23 02/18/23 History docusate sodium 100 mg capsule 100 mg PO DAILY 02/18/23 02/18/23 History (Col-Rite) gabapentin 100 mg capsule 100 mg PO TID 02/18/23 02/18/23 History levothyroxine 50 mcg tablet 50 mcg PO DAILY 02/18/23 02/18/23 History nirmatrelvir 300 mg (150 mg See Rx Instructions PO .COMPLEX 02/18/23 02/18/23 History x2)-ritonavir 100 mg tablet,dose pack (Paxlovid) primidone 50 mg tablet 150 mg PO DAILY 02/18/23 02/18/23 History rivastigmine 9.5 mg/24 hour 9.5 mg transdermal DAILY 02/18/23 02/18/23 History transdermal patch sertraline 50 mg tablet 75 mg PO DAILY 02/18/23 02/18/23 History tolterodine 4 mg capsule,extended 4 mg PO Q24H 02/18/23 02/18/23 History release 24 hr topiramate 25 mg tablet 50 mg PO BID 02/18/23 02/18/23 History Allergies Allergy/AdvReac Type Severity Reaction Status Date / Time codeine Allergy Unknown Verified 01/19/23 09:11 formoterol [From Dulera] Allergy Unknown Verified 01/19/23 09:11 ibuprofen [From Motrin] Allergy Unknown Verified 01/19/23 09:11 mometasone furoate Allergy Unknown Verified 01/19/23 09:11 [From Dulera] Penicillins Allergy Unknown Verified 01/19/23 09:11 pseudoephedrine Allergy Unknown Verified 01/19/23 09:11 risedronate sodium Allergy Unknown Verified 01/19/23 09:11 tolmetin Allergy Unknown Verified 01/19/23 09:11 triprolidine Allergy Unknown Verified 01/19/23 09:11 Exam Constitutional Vital Signs, click to edit/add: Last Vital Signs Temp 98.3 F 02/19/23 05:45 Pulse 82 02/19/23 06:21 Resp 19 02/19/23 06:21 BP 140/87 02/19/23 05:46 Pulse Ox 98 02/19/23 06:21 O2 Del Method Room Air 02/19/23 00:00 Documenting provider has reviewed patient's vital signs: yes General appearance: lethargic, ill appearing and frail appearing HENMT Common normals: normocephalic and head/scalp atraumatic Respiratory Common normals: no use of accessory muscles Effort & inspection: decreased respiratory effort Other: Coarse breath sounds, wheezing on exam. Cardio Common normals: no JVD, regular rhythm and S1 normal heart sound GI Common normals: Normal to inspection, nondistended, normoactive bowel sounds present, soft to palpation and non-tender Extremity Common normals: normal to inspection and full ROM Neuro [place] Coma Scale: document GCS findings [place] coma scale eye opening: To sound [place] coma scale verbal response: Confused [place] coma scale motor response: Localising [place] coma scale total score: 12 Common normals: moves all extremities Sensorium/orientation: orientation impaired and somnolent Speech: abnormal speech Psych Speech: incoherent Thought process: confused Attention/concentration: concentration grossly impaired Insight: poor Judgement: poor Results Labs Labs: Short CBC 02/18/23 Range/Units 14:26 WBC 49.0 H* (4.0-11.0) 10^3/uL Hgb 12.2 (12.0-16.0) g/dL Hct 38.9 (36.0-48.0) % Plt Count 274 (150-450) 10^3/uL BMP 02/18/23 14:05 Sodium 153 H Potassium 3.4 L Chloride 113 H Carbon Dioxide 25.3 BUN 65.0 H Creatinine 1.68 H Glucose 120 H Calcium 9.5 Liver Function 02/18/23 Range/Units 14:05 Total Bilirubin 0.6 (0.2-1.0) mg/dL AST 51 H (15-37) U/L ALT 41 (14-59) U/L Alkaline Phosphatase 86 (46-116) U/L Albumin 3.0 L (3.4-5.0) g/dL Urine 02/18/23 Range/Units 15:52 Urine Color Yellow (YELLOW) Urine Clarity Clear (CLEAR) Urine pH 5.5 (5.0-9.0) Ur Specific [place] 1.015 (1.005-1.025) Urine Protein Trace (NEG/TRACE) mg/dL Urine Glucose (UA) Negative (NEGATIVE) mg/dL ABG ABG results: 02/18/23 14:05 VBG pH 7.420 VBG pCO2 38.2 L Assessment and Plan Assessment and Plan (1) Sepsis: Assessment and Plan: SIRS (WBC > 48K, rr> 20) likely sec to UTI with possibility of Proctitis based on CT imaging. Received aggressive IV hydration overnight. Stable hemodynamics. On IV abx - levaquin/flagyl. f/u blood and urine cx. Qualifiers: Sepsis acute organ dysfunction status: without acute organ dysfunction Sepsis type: sepsis due to unspecified organism Qualified Code(s): A41.9 - Sepsis, unspecified organism (2) UTI (urinary tract infection): Assessment and Plan: Likely responsible for patient's clinical presentation. C/w Levaquin (PCN allergy). F/u blood and urine cx Qualifiers: Hematuria presence: without hematuria Urinary tract infection type: site unspecified Qualified Code(s): N39.0 - Urinary tract infection, site not specified (3) Proctitis: Assessment and Plan: Possible rectal inflammation on CT. Added Flagyl to Levaquin to cover for proctitis. (4) Metabolic encephalopathy: Assessment and Plan: Drowsy, disoriented likely due to sepsis, severe dehydration, hypernatremia, hyperammonimenia. CTH - no acute pathology noted. Non focal exam. Treat underlying cause, correct electrolytes, underlying infection and monitor closely. (5) COVID-19: Assessment and Plan: Cough, wheezing noted on exam. CXR - no infiltrate. Added decadron IV along with inhaled bronchodilators. (6) JIM (acute kidney injury): Assessment and Plan: Baseline Cr is 1.2 , Likely pre renal. Cr went upto 1.7. On IVF. Monitor UO,. creatinine. Minimal UO, severe dehydration. C/w aggressive IV hydration (7) Leukocytosis: Assessment and Plan: Severe leukocytosis. Was 15 K about a month ago. It is possible that patient may have underlying myeloproliferative disorder but this is certainly leukemoid reaction due to sepsis, UTI and severe dehydration. C/w IVF, IV abx. monitor Qualifiers: Leukocytosis type: leukemoid reaction Qualified Code(s): D72.823 - Leukemoid reaction (8) Hyperammonemia: Assessment and Plan: likely contributing to her mental function. Added lactulose. Unable to take PO. Will order rectal lactulose. (9) Hypernatremia: Assessment and Plan: likely hypovolemic hypernatremia. Received judicious IVF. Monitor UO, Serum sodium closely. Persistent after about 3-4 L IVF. Switch to D5-0.45 AT 150/hr Recheck BMP at 5. (10) Hypokalemia: Assessment and Plan: replete as needed (11) Hypothyroidism: Assessment and Plan: Check TSH. On levothyroxine. Qualifiers: Hypothyroidism type: unspecified Qualified Code(s): E03.9 - Hypothyroidism, unspecified (12) Hyperlipidemia: Assessment and Plan: c/w statin Qualifiers: Hyperlipidemia type: unspecified Qualified Code(s): E78.5 - Hyperlipidemia, unspecified (13) Major depressive disorder: Assessment and Plan: c/w sertraline. Qualifiers: Active/Remission status: remission status unspecified Major depression recurrence: unspecified whether recurrent Qualified Code(s): F32.9 - Major depressive disorder, single episode, unspecified (14) Essential tremor: Assessment and Plan: C/w primidone, topamax. (15) Lactic acidosis: Assessment and Plan: due to dehydration. Improved with IVF. (16) Seizure disorder: Assessment and Plan: Recent hospital admission for it. On topamax. Unsure if anything else was added to her meds. Need to confirm meds. (17) Severe dehydration: Assessment and Plan: Severe dehydration and still clinically dry after receiving about 3 L IVF. On D5-0.45 at 150 now. Monitor UO, intake/output. Urinary Catheter Management Urinary Catheter Management Straight: Cath placed during this visit: yes Urethral indwelling: Yes Reason for continuing: measure accurate output Insertion date: 02/18/23 Insertion time: 15:53
[2023-02-19 06:48] LABS: Hematocrit 36.9 % (36.0-48.0); Hemoglobin 11.3 g/dL (12.0-16.0); Mean Corpuscular HGB Conc 30.6 g/dL (29.9-35.2); Mean Corpuscular Hemoglobin 29.6 pg (26.7-34.0); Mean Corpuscular Volume 96.6 fL (81.0-99.0); Mean Platelet Volume 12.4 fL (9.5-13.5); Platelet Count 244 10^3/uL (150-450); Red Blood Count 3.82 10^6/uL (4.20-5.40); Red Cell Distribution Width 14.3 % (11.0-15.0)
[2023-02-19 06:49] LABS: White Blood Count 48.8 10^3/uL (4.0-11.0)
[2023-02-19 06:57] LABS: Anion Gap 15.3; BUN Creatinine Ratio 34.3; Calcium 8.9 mg/dL (8.5-10.1); Carbon Dioxide 26.9 mmol/L (21.0-32.0); Chloride 113 mmol/L (98-107); Estimated GFR (African America 35 (>=60); Estimated GFR (Non-African Ame 29 (>=60); Glucose 102 mg/dL (74-106); Potassium 3.2 mmol/L (3.5-5.1); Sodium 152 mmol/L (136-145)
[2023-02-19 06:59] LABS: Band Neutrophils Absolute 3.4 10^3/uL (0.0-0.3); Lymphocytes Absolute Manual 2.92 10^3/uL (1.20-3.80); Monocytes Absolute Manual 2.92 10^3/uL (0.30-0.80); Segmented Neut Absolute Manual 39.52 10^3/uL (1.4-6.5)
[2023-02-19 07:00] LABS: Anisocytosis 1+
[2023-02-19] MEDS: LACTATED RINGER'S SOLUTION 1,000 ML 2000 ML IV ×2 (08:00→11:13)
--- NOTE | 2023-02-19 09:34 | CM.NOTE ---
Pt unable to answer questions at this time.
[2023-02-19] MEDS: METRONIDAZOLE/SODIUM CHLORIDE 500 MG/100 ML PREMIX 100 MG IV ×2 (10:13→16:55)
[2023-02-19] MEDS: LEVOFLOXACIN IN DEXTROSE 5 % 750 MG/150 ML IV.SOLN 100 MG IV (10:15)
[2023-02-19] MEDS: 0.9 % SODIUM CHLORIDE 1,000 ML 150 ML IV (10:16)
[2023-02-19] MEDS: DEXAMETHASONE SOD PHOS 4 MG/ML VIAL 6 MG IV (11:22)
[2023-02-19 11:29] LABS: Anion Gap 15.6; BUN Creatinine Ratio 34.9; Calcium 8.4 mg/dL (8.5-10.1); Chloride 116 mmol/L (98-107); Estimated GFR (African America 40 (>=60); Estimated GFR (Non-African Ame 33 (>=60); Glucose 93 mg/dL (74-106); Potassium 3.6 mmol/L (3.5-5.1); Sodium 153 mmol/L (136-145)
--- NOTE | 2023-02-19 12:31 | CT_ITS ---
The [address] [address] Patient Name: SONYA SPEAR MRN: [facility]:[id number] date: 1945 Sex: F Assigned Patient Location: ICU Current Patient Location: ICU Accession/Order Number: [id number] Exam Date: 02/19/2023 12:50 Report Date: 02/19/2023 13:13 At the request of: SHAIKH JAX Procedure: CT head/brain wo con EXAM: CT head/brain wo con HISTORY: confusion COMPARISON: CT head 01/11/2023, MR brain 03/05/2022. TECHNIQUE: Axial noncontrast CT imaging of the head was performed with coronal and sagittal reformats. This CT exam was performed using one or more of the following dose reduction techniques: Automated exposure control, adjustment of the MA and/or kV according to patient size, or use of iterative reconstruction technique. FINDINGS: Calvarium/skull base: No evidence of acute fracture or destructive lesion. Mastoids and middle ears demonstrate no substantial mucosal disease. Bilateral [place] ocular lens replacements. Paranasal sinuses: No air fluid levels. Mild ethmoid and inferior right frontal sinus mucosal thickening. Brain: No acute intracranial hemorrhage. No acute large vascular territory infarct. Symmetric hypoattenuation is present involving the supratentorial white matter with moderate parenchymal volume loss. In this age group this most commonly relates to sequela small vessel disease. No mass lesion or mass effect. No hydrocephalus. CT/CT head/brain wo con IMPRESSION: 1. No CT evidence for acute intracranial process. 2. Grossly similar senescent change. Electronically authenticated by: HUGO TALBERT Date: 02/19/2023 13:13
[2023-02-19] MEDS: DEXTROSE 5 %-0.45 % SOD CHLORD 1,000 ML 150 ML IV ×2 (13:10→20:28)
[2023-02-19 13:18] LABS: Ammonia 54 umol/L (11-32)
[2023-02-19 13:24] LABS: Allen Test POS (POSITIVE); Base Excess ABG 0.8 mmol/L (-2.0-2.0); HCO3 ABG 24.5 mmol/L (22.0-26.0); Oxygen Saturation ABG 96.2 %; PO2 ABG 67.2 mmHg (80.0-100.0); pH ABG 7.466 (7.350-7.450)
[2023-02-19 13:25] LABS: O2 Mode ROOM AIR; Puncture Site R RADIAL
--- NOTE | 2023-02-19 13:49 | CM.NOTE ---
Pt. from [facility] as [facility] patient. Plan is to return upon discharge once medically stable.
--- NOTE | 2023-02-19 13:59 | DIETREC ---
Nutrition Recommendations: 1) Change diet to pureed texture, thin liquids 2) Add Ensure Original BID 3) If patient unable to improve po intake, recommend enteral nutrition to meet estimated needs See Nutrition Assessment for more information. RD following
[2023-02-19] MEDS: DEXAMETHASONE SOD PHOS 100 MG/10 ML MDV 6 MG IV ×2 (15:50→21:21)
--- NOTE | 2023-02-19 16:27 | XR_ITS ---
[address] [address] Patient Name: SONYA SPEAR MRN: [id number] date: 1945 Sex: F Assigned Patient Location: ICU Current Patient Location: ICU Accession/Order Number: [id number] Exam Date: 02/19/2023 16:35 Report Date: 02/19/2023 17:21 At the request of: SHAIKH JAX Procedure: XR chest 1V EXAM: XR chest 1V HISTORY: NG tube placement COMPARISON: Chest x-ray 02/18/2023 TECHNIQUE: Single view FINDINGS: IMPRESSION: Enteric tube has been placed. The tip is at the GE junction. The side holes within the diaphragm. The lung parenchyma is free of consolidation or infiltrate. No pneumothorax or pleural effusion. The cardiac, mediastinal and hilar contours are unremarkable. No visualized osseous abnormality Electronically authenticated by: PHANI MAYES Date: 02/19/2023 17:21
[2023-02-19] MEDS: LACTULOSE 10 GM/15 ML (237ML) SOLUTION 20 GM PO ×2 (17:35→21:21)
[2023-02-19 18:28] LABS: Anion Gap 12.2; BUN Creatinine Ratio 28.9; Carbon Dioxide 27.2 mmol/L (21.0-32.0); Chloride 112 mmol/L (98-107); Estimated GFR (African America 41 (>=60); Estimated GFR (Non-African Ame 34 (>=60); Glucose 178 mg/dL (74-106); Potassium 3.4 mmol/L (3.5-5.1); Sodium 148 mmol/L (136-145)
[2023-02-19 18:34] LABS: Thyroid Stimulating Hormone 1.812 uIU/mL (0.358-3.740)
[2023-02-19] MEDS: ALBUTEROL SULFATE 2.5 MG/3 ML VIAL NEB IH ×2 (19:50→23:53)
[2023-02-19] MEDS: GABAPENTIN 100 MG CAPSULE PO (21:21)
[2023-02-19] MEDS: TOPIRAMATE 25 MG TABLET 50 MG PO (21:21)
[2023-02-19] MEDS: MIDODRINE HCL 5 MG TABLET 2.5 MG PO (21:21)
[2023-02-20] VITALS (31 sets, daily range): BP systolic 127–142; BP diastolic 68–87; PULSE 67–104; RESP 11–24; TEMP 36.6; O2SAT 96–99
[2023-02-20] MEDS: METRONIDAZOLE/SODIUM CHLORIDE 500 MG/100 ML PREMIX 100 MG IV ×3 (00:24→15:56)
[2023-02-20] MEDS: DEXTROSE 5 %-0.45 % SOD CHLORD 1,000 ML 150 ML IV ×2 (03:59→13:47)
[2023-02-20 04:27] LABS: Basophils Percent Auto 0.1 % (0.2-2.0); Hematocrit 25.8 % (36.0-48.0); Hemoglobin 8.1 g/dL (12.0-16.0); Immature Granulocytes Abs Auto 0.87 10^3/uL (0.00-0.03); Immature Granulocytes Pct Auto 3.9 % (0.0-0.5); Lymphocytes Absolute Auto 1.1 10^3/uL (1.2-3.8); Lymphocytes Percent Auto 4.9 % (20.5-60.0); Mean Corpuscular HGB Conc 31.4 g/dL (29.9-35.2); Mean Corpuscular Hemoglobin 30.5 pg (26.7-34.0); Monocytes Absolute Auto 0.6 10^3/uL (0.3-0.8); Monocytes Percent Auto 2.9 % (1.7-12.0); Neutrophils Absolute Auto 19.8 10^3/uL (1.4-6.5); Neutrophils Percent Auto 88.2 % (43.0-75.0); Platelet Count 193 10^3/uL (150-450); Red Blood Count 2.66 10^6/uL (4.20-5.40); Red Cell Distribution Width 14.2 % (11.0-15.0); White Blood Count 22.4 10^3/uL (4.0-11.0)
[2023-02-20 04:47] LABS: Alanine Aminotransferase 48 U/L (14-59); Albumin Globulin Ratio 0.7; Albumin Level 2.1 g/dL (3.4-5.0); Alkaline Phosphatase 59 U/L (46-116); Anion Gap 11.1; Aspartate Amino Transferase 65 U/L (15-37); BUN Creatinine Ratio 23.9; Bilirubin Total 0.2 mg/dL (0.2-1.0); Calcium 7.2 mg/dL (8.5-10.1); Carbon Dioxide 25.2 mmol/L (21.0-32.0); Chloride 111 mmol/L (98-107); Estimated GFR (African America 45 (>=60); Estimated GFR (Non-African Ame 37 (>=60); Globulin 3.2 g/dL; Glucose 161 mg/dL (74-106); Sodium 145 mmol/L (136-145); Total Protein 5.3 g/dL (6.4-8.2)
[2023-02-20 04:49] LABS: Potassium 2.3 mmol/L (3.5-5.1)
[2023-02-20] MEDS: LEVOTHYROXINE SODIUM 25 MCG TABLET 50 MCG PO (06:00)
[2023-02-20] MEDS: GABAPENTIN 100 MG CAPSULE PO ×3 (06:00→20:32)
[2023-02-20] MEDS: LACTULOSE 10 GM/15 ML (237ML) SOLUTION 20 GM PO ×3 (06:00→21:53)
[2023-02-20] MEDS: DEXAMETHASONE SOD PHOS 100 MG/10 ML MDV 6 MG IV ×3 (06:01→21:54)
[2023-02-20] MEDS: ALBUTEROL SULFATE 2.5 MG/3 ML VIAL NEB IH ×5 (07:34→23:36)
[2023-02-20] MEDS: SERTRALINE HCL 50 MG TABLET 75 MG PO (08:06)
[2023-02-20] MEDS: ATORVASTATIN CALCIUM 10 MG TABLET PO (08:06)
[2023-02-20] MEDS: OMEPRAZOLE 40 MG CAPSULE.DR PO (08:06)
[2023-02-20] MEDS: PRIMIDONE 50 MG TABLET 150 MG PO (08:07)
[2023-02-20] MEDS: MIDODRINE HCL 5 MG TABLET 2.5 MG PO ×2 (08:07→20:32)
[2023-02-20] MEDS: TOPIRAMATE 25 MG TABLET 50 MG PO ×2 (08:07→20:33)
[2023-02-20] MEDS: SOLIFENACIN SUCCINATE 10 MG TABLET PO (08:07)
[2023-02-20] MEDS: OXYCODONE HCL 5 MG TABLET PO (09:23)
--- NOTE | 2023-02-20 10:00 | REH.PTDLY ---
Physical Therapy Daily Note PT Daily Note/Assess Start: 02/20/23 09:55 Freq: Status: Active Protocol: Document 02/20/23 09:55 MAXX (Rec: 02/20/23 10:00 KARLRAMÓNRAMIREZ [id number]) Physical Therapy Daily Note/Assessment Time In 09:12 Time Out 09:21 Subjective Nursing reports pt is fine to be seen, nursing just got pt up to chair and reports she did well. Pt does not open eyes when being spoken to initially, once asked she does open eyes and then closes them again. All pt says is ' back hurts' to therapist. Therapeutic Exercise Minutes (minutes) 8 Therapeutic Exercise Units 1 Therapeutic Exercise Treatment Instructed in [place] GUZMÁN exs, per nursing report was expecting pt to actively participate in exs, but pt does not. PROM with AP, SLR, heel slides and hip abd 10x ea with cues throughout for pt to assist but no response. When asked if pt needs anything she reports again back hurts, wants to go back to bed. Nursing reports pt needs to stay in chair as she has only been up for 10 mins. Total Therapy Minutes 8 Total Physical Therapy Units 1 Daily Note Summary Little participation from patient with therapy this morning which results in PROM with B LE exs.
[2023-02-20 10:38] LABS: Ammonia 40 umol/L (11-32)
[2023-02-20] MEDS: PROSTAT 15 GM PROTEIN/100 CAL 30 ML LIQUID PACKET PO ×2 (13:45→20:33)
[2023-02-20] MEDS: POTASSIUM CHLORIDE IN 0.9%NACL 1,000 ML 100 MEQ IV (13:46)
--- NOTE | 2023-02-20 16:00 | PM.PN ---
Progress Note: Subjective Subjective Interval history: Patient slightly improved this am. Alert for nursing staff and had some oral intake. NG placed yesterday due to decreased intake. Drowsy during exam and minimal talking. Denies pain or complaints. Denies SOB. Afebrile. WBC improved. Exam Constitutional Vital Signs, click to edit/add: Last Vital Signs Temp 97.8 F 02/20/23 14:00 Pulse 68 02/20/23 15:48 Resp 18 02/20/23 15:48 BP 127/68 02/20/23 06:20 Pulse Ox 98 02/20/23 15:48 O2 Del Method Room Air 02/20/23 06:20 O2 Flow Rate 98 02/19/23 10:37 Common normals: no apparent distress General appearance: lethargic HENMT Common normals: normocephalic Eye Common normals: PERRL and EOMs intact bilaterally Respiratory Common normals: normal respiratory effort and clear to auscultation bilaterally Cardio Common normals: regular rate, regular rhythm, no gallops, no murmurs and no rub GI Common normals: Normal to inspection, nondistended, normoactive bowel sounds present and non-tender Extremity Common normals: no pedal edema Progress Note: Objective Labs Labs: Short CBC 02/20/23 Range/Units 04:10 WBC 22.4 H (4.0-11.0) 10^3/uL Hgb 8.1 L (12.0-16.0) g/dL Hct 25.8 L (36.0-48.0) % Plt Count 193 (150-450) 10^3/uL BMP 02/19/23 02/20/23 18:00 04:10 Sodium 148 H 145 Potassium 3.4 L 2.3 L* Chloride 112 H 111 H Carbon Dioxide 27.2 25.2 BUN 43.0 H 33.0 H Creatinine 1.49 H 1.38 H Glucose 178 H 161 H Calcium 8.0 L 7.2 L Liver Function 02/20/23 Range/Units 04:10 Total Bilirubin 0.2 (0.2-1.0) mg/dL AST 65 H (15-37) U/L ALT 48 (14-59) U/L Alkaline Phosphatase 59 (46-116) U/L Albumin 2.1 L (3.4-5.0) g/dL Progress Note: A&P Assessment and Plan (1) Sepsis: Qualifiers: Sepsis acute organ dysfunction status: without acute organ dysfunction Sepsis type: sepsis due to unspecified organism Qualified Code(s): A41.9 - Sepsis, unspecified organism (2) UTI (urinary tract infection): Qualifiers: Urinary tract infection type: site unspecified Hematuria presence: without hematuria Qualified Code(s): N39.0 - Urinary tract infection, site not specified (3) COVID-19: (4) JIM (acute kidney injury): (5) Hyperammonemia: (6) Metabolic encephalopathy: (7) Severe dehydration: (8) Hypokalemia: (9) Hypernatremia: (10) Seizure disorder: (11) Proctitis: Plan Patient improved but remains drowsy and decreased oral intake. Continue IV fluids. Potassium critically low and replace. Will change IV fluids. Add prostat for decreased intake. Continue antibiotics and steroid. Flagyl added for possible proctitis on CT but unlikely. Continue PT/OT Urinary Catheter Management Urinary Catheter Management Straight: Cath placed during this visit: yes Urethral indwelling: Yes Reason for continuing: prolonged immobilization Insertion date: 02/19/23 Insertion time: 09:15
[2023-02-21] VITALS (30 sets, daily range): BP systolic 121–137; BP diastolic 67–83; PULSE 70–112; RESP 13–20; TEMP 36.6–37.4; O2SAT 95–99
[2023-02-21] MEDS: POTASSIUM CHLORIDE IN 0.9%NACL 1,000 ML 100 MEQ IV ×3 (00:50→21:07)
[2023-02-21] MEDS: METRONIDAZOLE/SODIUM CHLORIDE 500 MG/100 ML PREMIX 100 MG IV ×2 (00:50→09:31)
[2023-02-21 04:14] LABS: Basophils Percent Auto 0.1 % (0.2-2.0); Hematocrit 26.3 % (36.0-48.0); Hemoglobin 8.2 g/dL (12.0-16.0); Immature Granulocytes Abs Auto 0.76 10^3/uL (0.00-0.03); Immature Granulocytes Pct Auto 4.2 % (0.0-0.5); Lymphocytes Absolute Auto 1.3 10^3/uL (1.2-3.8); Mean Corpuscular HGB Conc 31.2 g/dL (29.9-35.2); Mean Corpuscular Hemoglobin 29.8 pg (26.7-34.0); Mean Corpuscular Volume 95.6 fL (81.0-99.0); Mean Platelet Volume 12.2 fL (9.5-13.5); Monocytes Absolute Auto 0.5 10^3/uL (0.3-0.8); Monocytes Percent Auto 2.7 % (1.7-12.0); Neutrophils Absolute Auto 15.7 10^3/uL (1.4-6.5); Platelet Count 179 10^3/uL (150-450); Red Blood Count 2.75 10^6/uL (4.20-5.40); Red Cell Distribution Width 14.4 % (11.0-15.0); White Blood Count 18.2 10^3/uL (4.0-11.0)
[2023-02-21 04:33] LABS: Alanine Aminotransferase 50 U/L (14-59); Albumin Globulin Ratio 0.7; Albumin Level 2.1 g/dL (3.4-5.0); Alkaline Phosphatase 61 U/L (46-116); Anion Gap 11.8; Aspartate Amino Transferase 64 U/L (15-37); BUN Creatinine Ratio 18.2; Bilirubin Total 0.3 mg/dL (0.2-1.0); Calcium 6.8 mg/dL (8.5-10.1); Carbon Dioxide 22.1 mmol/L (21.0-32.0); Chloride 113 mmol/L (98-107); Estimated GFR (African America 58 (>=60); Estimated GFR (Non-African Ame 48 (>=60); Globulin 3.1 g/dL; Glucose 112 mg/dL (74-106); Sodium 144 mmol/L (136-145); Total Protein 5.2 g/dL (6.4-8.2)
[2023-02-21 04:34] LABS: Potassium 2.9 mmol/L (3.5-5.1)
[2023-02-21] MEDS: DEXAMETHASONE SOD PHOS 100 MG/10 ML MDV 6 MG IV ×3 (05:39→21:03)
[2023-02-21] MEDS: PROSTAT 15 GM PROTEIN/100 CAL 30 ML LIQUID PACKET PO ×3 (05:40→21:04)
[2023-02-21] MEDS: LACTULOSE 10 GM/15 ML (237ML) SOLUTION 20 GM PO ×2 (05:40→17:41)
[2023-02-21] MEDS: LEVOTHYROXINE SODIUM 25 MCG TABLET 50 MCG PO (05:40)
[2023-02-21] MEDS: GABAPENTIN 100 MG CAPSULE PO ×2 (05:40→21:06)
[2023-02-21] MEDS: ALBUTEROL SULFATE 2.5 MG/3 ML VIAL NEB IH ×5 (07:15→23:04)
[2023-02-21] MEDS: OMEPRAZOLE 40 MG CAPSULE.DR PO (09:33)
[2023-02-21] MEDS: POTASSIUM CHLORIDE 10 MEQ ER TABLET 40 MEQ PO (09:33)
[2023-02-21] MEDS: TOPIRAMATE 25 MG TABLET 50 MG PO ×2 (09:33→21:04)
[2023-02-21] MEDS: SOLIFENACIN SUCCINATE 10 MG TABLET PO (09:34)
[2023-02-21] MEDS: PRIMIDONE 50 MG TABLET 150 MG PO (09:34)
[2023-02-21] MEDS: SERTRALINE HCL 50 MG TABLET 75 MG PO (09:34)
[2023-02-21] MEDS: ATORVASTATIN CALCIUM 10 MG TABLET PO (09:34)
[2023-02-21 10:11] LABS: Ammonia 46 umol/L (11-32)
[2023-02-21] MEDS: LEVOFLOXACIN IN DEXTROSE 5 % 750 MG/150 ML IV.SOLN 100 MG IV (10:46)
[2023-02-21] MEDS: LIPASE/PROTEASE/AMYLASE CAPSULE 2 CAP G-TUBE (12:08)
--- NOTE | 2023-02-21 12:44 | ECG_ITS ---
The [facility] Test Date: 2023-02-21 Pat Name: SONYA SPEAR Department: Room: [facility] Gender: Female [employer]: : 1945 Requested By: ERICK GALEAS Order Number: [id number] Reading MD: ROBINSON CARRIZALES Measurements Intervals [place] Rate: 106 P: 60 UT: 132 QRS: 56 QRSD: 66 T: 75 QT: 360 QTc: 422 Interpretive Statements 1120 Sinus tachycardia 3414 Cannot rule out septal myocardial infarction, age undetermined [address] depression 9150 abnormal ECG Electronically Signed On 02-22-2023 17:39:26 EST by ROBINSON CARRIZALES
--- NOTE | 2023-02-21 15:01 | PM.PN ---
Progress Note: Subjective Subjective Interval history: Patient improved this am. More alert and talkative. Remains confused but answers questions appropriately. Continues to have decreased oral intake. Denies pain or complaints. Denies SOB. Afebrile. WBC improved. Exam Constitutional Vital Signs, click to edit/add: Last Vital Signs Temp 98 F 02/20/23 22:05 Pulse 100 H 02/21/23 14:00 Resp 17 02/21/23 04:34 BP 134/74 02/21/23 09:35 Pulse Ox 96 02/21/23 12:00 O2 Del Method Room Air 02/21/23 11:19 O2 Flow Rate 98 02/19/23 10:37 Common normals: no apparent distress and alert HENMT Common normals: normocephalic Eye Common normals: PERRL and EOMs intact bilaterally Respiratory Common normals: normal respiratory effort and clear to auscultation bilaterally Cardio Common normals: regular rate, no gallops, no murmurs and no rub GI Common normals: Normal to inspection, nondistended, normoactive bowel sounds present and non-tender Extremity Common normals: no pedal edema Progress Note: Objective Labs Labs: Short CBC 02/21/23 Range/Units 03:50 WBC 18.2 H (4.0-11.0) 10^3/uL Hgb 8.2 L (12.0-16.0) g/dL Hct 26.3 L (36.0-48.0) % Plt Count 179 (150-450) 10^3/uL BMP 02/21/23 03:50 Sodium 144 Potassium 2.9 L* Chloride 113 H Carbon Dioxide 22.1 BUN 20.0 H Creatinine 1.10 H Glucose 112 H Calcium 6.8 L Liver Function 02/21/23 Range/Units 03:50 Total Bilirubin 0.3 (0.2-1.0) mg/dL AST 64 H (15-37) U/L ALT 50 (14-59) U/L Alkaline Phosphatase 61 (46-116) U/L Albumin 2.1 L (3.4-5.0) g/dL Progress Note: A&P Assessment and Plan (1) Sepsis: Qualifiers: Sepsis acute organ dysfunction status: without acute organ dysfunction Sepsis type: sepsis due to unspecified organism Qualified Code(s): A41.9 - Sepsis, unspecified organism (2) UTI (urinary tract infection): Qualifiers: Urinary tract infection type: site unspecified Hematuria presence: without hematuria Qualified Code(s): N39.0 - Urinary tract infection, site not specified (3) COVID-19: (4) JIM (acute kidney injury): (5) Hyperammonemia: (6) Metabolic encephalopathy: (7) Severe dehydration: (8) Hypokalemia: (9) Hypernatremia: (10) Seizure disorder: (11) Proctitis: Plan Patient continues to improve and more alert but confused. Poor oral intake and start ensure per NG. Nursing reports interested in tube feeds. Urine culture showed UTI due to E. coli and sensitive to levaquin. Continue PT/OT. Potassium remains low and replace PO. Urinary Catheter Management Urinary Catheter Management Straight: Cath placed during this visit: yes Urethral indwelling: Yes Reason for continuing: prolonged immobilization Insertion date: 02/19/23 Insertion time: 09:15
--- NOTE | 2023-02-21 15:40 | XR_ITS ---
The [address] [address] Patient Name: SONYA SPEAR MRN: [id number] date: 1945 Sex: F Assigned Patient Location: ICU Current Patient Location: ICU Accession/Order Number: [id number] Exam Date: 02/21/2023 15:50 Report Date: 02/21/2023 16:54 At the request of: ANGELICA EWING Procedure: XR chest 1V EXAM: XR chest 1V REASON FOR EXAM: Female, 77 years, NGT replaced d/t clogging. TECHNIQUE: A single AP view of the chest is performed. COMPARISON: 02/19/2023. FINDINGS: Cardiac monitoring leads overlie the chest. The enteric tube projects within the stomach, with the sidehole likely at or just above the GE junction. Right upper extremity PICC catheter is seen with the tip at the cavoatrial junction. There is minimal left basilar opacity. Normal pleura. Normal size heart. Normal mediastinum and tyrone. Normal visualized pulmonary arteries. There is calcification of the aortic knob. Normal visualized thoracic spine. Normal visualized ribs, clavicles, and shoulders. There is no demonstrated abnormality of the visualized soft tissue structures of the upper abdomen. XR/XR chest 1V IMPRESSION: Life support tubes and catheters, as described above. Minimal left basilar opacity. Electronically authenticated by: GOLDEN BOGGS Date: 02/21/2023 16:54
[2023-02-21] MEDS: LACTOSE -REDUCED (ENSURE ORIGINAL 237 ML LIQUID) 10 ML G-TUBE ×5 (17:40→22:15)
[2023-02-21] MEDS: PANTOPRAZOLE SODIUM 40 MG VIAL IV (17:41)
[2023-02-21] MEDS: MIDODRINE HCL 5 MG TABLET 2.5 MG PO (21:04)
[2023-02-22] VITALS (45 sets, daily range): BP systolic 139–171; BP diastolic 74–95; PULSE 66–100; RESP 12–18; TEMP 36.6–37.3; O2SAT 96–100
[2023-02-22] MEDS: LACTOSE -REDUCED (ENSURE ORIGINAL 237 ML LIQUID) 10 ML G-TUBE ×8 (00:55→05:54)
--- NOTE | 2023-02-22 03:51 | RESP.RT ---
No HHN given and PEP not done. Pt sleeping. Med to be given while awake.
[2023-02-22 04:07] LABS: Basophils Percent Auto 0.2 % (0.2-2.0); Eosinophils Percent Auto 0.1 % (0.9-7.0); Hematocrit 27.5 % (36.0-48.0); Hemoglobin 8.4 g/dL (12.0-16.0); Lymphocytes Absolute Auto 1.4 10^3/uL (1.2-3.8); Lymphocytes Percent Auto 8.6 % (20.5-60.0); Mean Corpuscular HGB Conc 30.5 g/dL (29.9-35.2); Mean Corpuscular Hemoglobin 29.8 pg (26.7-34.0); Mean Corpuscular Volume 97.5 fL (81.0-99.0); Mean Platelet Volume 11.7 fL (9.5-13.5); Monocytes Absolute Auto 0.7 10^3/uL (0.3-0.8); Monocytes Percent Auto 4.2 % (1.7-12.0); Neutrophils Absolute Auto 13.6 10^3/uL (1.4-6.5); Neutrophils Percent Auto 80.9 % (43.0-75.0); Platelet Count 174 10^3/uL (150-450); Red Blood Count 2.82 10^6/uL (4.20-5.40); Red Cell Distribution Width 14.8 % (11.0-15.0); White Blood Count 16.8 10^3/uL (4.0-11.0)
[2023-02-22 04:18] LABS: Ammonia 20 umol/L (11-32)
[2023-02-22 04:21] LABS: Alanine Aminotransferase 41 U/L (14-59); Albumin Globulin Ratio 0.6; Albumin Level 1.9 g/dL (3.4-5.0); Alkaline Phosphatase 58 U/L (46-116); Anion Gap 14.6; Aspartate Amino Transferase 39 U/L (15-37); BUN Creatinine Ratio 17.1; Bilirubin Total 0.2 mg/dL (0.2-1.0); Calcium 6.6 mg/dL (8.5-10.1); Carbon Dioxide 18.3 mmol/L (21.0-32.0); Chloride 115 mmol/L (98-107); Estimated GFR (African America 57 (>=60); Estimated GFR (Non-African Ame 47 (>=60); Globulin 3.2 g/dL; Glucose 112 mg/dL (74-106); Potassium 3.9 mmol/L (3.5-5.1); Sodium 144 mmol/L (136-145); Total Protein 5.1 g/dL (6.4-8.2)
[2023-02-22] MEDS: GABAPENTIN 100 MG CAPSULE PO ×3 (05:52→21:15)
[2023-02-22] MEDS: LACTULOSE 10 GM/15 ML (237ML) SOLUTION 20 GM PO ×2 (05:52→21:20)
[2023-02-22] MEDS: DEXAMETHASONE SOD PHOS 100 MG/10 ML MDV 6 MG IV ×3 (05:53→21:17)
[2023-02-22] MEDS: PROSTAT 15 GM PROTEIN/100 CAL 30 ML LIQUID PACKET PO ×3 (05:53→21:16)
[2023-02-22] MEDS: LEVOTHYROXINE SODIUM 25 MCG TABLET 50 MCG PO (05:53)
[2023-02-22] MEDS: POTASSIUM CHLORIDE IN 0.9%NACL 1,000 ML 100 MEQ IV (08:32)
[2023-02-22] MEDS: MIDODRINE HCL 5 MG TABLET 2.5 MG PO ×2 (08:32→21:15)
[2023-02-22] MEDS: SERTRALINE HCL 50 MG TABLET 75 MG PO (08:33)
[2023-02-22] MEDS: TOPIRAMATE 25 MG TABLET 50 MG PO ×2 (08:33→21:14)
[2023-02-22] MEDS: PRIMIDONE 50 MG TABLET 150 MG PO (08:33)
[2023-02-22] MEDS: LACTOSE -REDUCED (ENSURE ORIGINAL 237 ML LIQUID) G-TUBE (10:52)
--- NOTE | 2023-02-22 15:11 | PM.PN ---
Progress Note: Subjective Subjective Interval history: Patient continues to improve. Remains alert and talkative. Still confused but answers questions appropriately. Continues to have decreased oral intake. Denies pain or complaints. Denies SOB. Afebrile. WBC improved. Family interested in feeding tube. Ammonia normal. Exam Constitutional Vital Signs, click to edit/add: Last Vital Signs Temp 99.1 F 02/22/23 12:00 Pulse 82 02/22/23 13:51 Resp 16 02/22/23 12:00 BP 150/88 H 02/22/23 12:00 Pulse Ox 96 02/22/23 12:00 O2 Del Method Room Air 02/22/23 12:00 O2 Flow Rate 98 02/19/23 10:37 Documenting provider has reviewed patient's vital signs: yes Common normals: no apparent distress and alert HENMT Common normals: normocephalic Eye Common normals: PERRL and EOMs intact bilaterally Respiratory Common normals: normal respiratory effort and clear to auscultation bilaterally Cardio Common normals: no gallops, no murmurs and no rub Rhythm: abnormal rhythm irregularly irregular GI Common normals: Normal to inspection, nondistended, normoactive bowel sounds present and non-tender Extremity Common normals: no pedal edema Progress Note: Objective Labs Labs: Short CBC 02/22/23 Range/Units 03:59 WBC 16.8 H (4.0-11.0) 10^3/uL Hgb 8.4 L (12.0-16.0) g/dL Hct 27.5 L (36.0-48.0) % Plt Count 174 (150-450) 10^3/uL BMP 02/22/23 03:59 Sodium 144 Potassium 3.9 Chloride 115 H Carbon Dioxide 18.3 L BUN 19.0 H Creatinine 1.11 H Glucose 112 H Calcium 6.6 L Liver Function 02/22/23 Range/Units 03:59 Total Bilirubin 0.2 (0.2-1.0) mg/dL AST 39 H (15-37) U/L ALT 41 (14-59) U/L Alkaline Phosphatase 58 (46-116) U/L Albumin 1.9 L (3.4-5.0) g/dL Progress Note: A&P Assessment and Plan (1) Sepsis: Qualifiers: Sepsis acute organ dysfunction status: without acute organ dysfunction Sepsis type: sepsis due to unspecified organism Qualified Code(s): A41.9 - Sepsis, unspecified organism (2) UTI (urinary tract infection): Qualifiers: Urinary tract infection type: site unspecified Hematuria presence: without hematuria Qualified Code(s): N39.0 - Urinary tract infection, site not specified (3) COVID-19: (4) JIM (acute kidney injury): (5) Hyperammonemia: (6) Metabolic encephalopathy: (7) Severe dehydration: (8) Adult failure to thrive: (9) Hypokalemia: (10) Hypernatremia: (11) Seizure disorder: Assessment and Plan: Patient more alert and talkative and labs improved. UTI due to E coli and sensitive to levaquin. Continues to have poor oral intake and feeds started per NG. Family wants PEG and consult surgeon. Continue PT/OT. Ammonia normal and decrease lactulose. Urinary Catheter Management Urinary Catheter Management Straight: Cath placed during this visit: yes Urethral indwelling: Yes Reason for continuing: prolonged immobilization Insertion date: 02/19/23 Insertion time: 09:15
[2023-02-22] MEDS: PANTOPRAZOLE SODIUM 40 MG VIAL IV (15:34)
[2023-02-22] MEDS: POTASSIUM CHLORIDE 40 MEQ in 0.9 % SODIUM CHLORIDE 1,000 ML 100 MEQ IV (18:25)
[2023-02-23] VITALS (19 sets, daily range): BP systolic 125–150; BP diastolic 68–83; PULSE 60–82; RESP 12–16; TEMP 36.8–37.1; O2SAT 94–99
[2023-02-23] MEDS: POTASSIUM CHLORIDE IN 0.9%NACL 1,000 ML 100 MEQ IV ×2 (04:57→14:40)
[2023-02-23] MEDS: PROSTAT 15 GM PROTEIN/100 CAL 30 ML LIQUID PACKET PO ×3 (05:57→21:56)
[2023-02-23] MEDS: DEXAMETHASONE SOD PHOS 100 MG/10 ML MDV 6 MG IV ×3 (05:57→22:01)
[2023-02-23] MEDS: GABAPENTIN 100 MG CAPSULE PO ×3 (05:58→21:56)
[2023-02-23] MEDS: LEVOTHYROXINE SODIUM 25 MCG TABLET 50 MCG PO (05:58)
[2023-02-23 06:12] LABS: Basophils Percent Auto 0.1 % (0.2-2.0); Hematocrit 27.3 % (36.0-48.0); Hemoglobin 8.3 g/dL (12.0-16.0); Immature Granulocytes Pct Auto 3.5 % (0.0-0.5); Lymphocytes Absolute Auto 1.8 10^3/uL (1.2-3.8); Lymphocytes Percent Auto 12.4 % (20.5-60.0); Mean Corpuscular HGB Conc 30.4 g/dL (29.9-35.2); Mean Corpuscular Volume 98.6 fL (81.0-99.0); Mean Platelet Volume 12.5 fL (9.5-13.5); Monocytes Absolute Auto 0.7 10^3/uL (0.3-0.8); Monocytes Percent Auto 4.7 % (1.7-12.0); Neutrophils Absolute Auto 11.2 10^3/uL (1.4-6.5); Neutrophils Percent Auto 79.3 % (43.0-75.0); Platelet Count 156 10^3/uL (150-450); Red Blood Count 2.77 10^6/uL (4.20-5.40); Red Cell Distribution Width 15.4 % (11.0-15.0); White Blood Count 14.1 10^3/uL (4.0-11.0)
[2023-02-23 06:21] LABS: Ammonia 35 umol/L (11-32)
[2023-02-23 07:47] LABS: Alanine Aminotransferase 42 U/L (14-59); Albumin Globulin Ratio 0.6; Albumin Level 1.9 g/dL (3.4-5.0); Alkaline Phosphatase 47 U/L (46-116); Anion Gap 15.5; Aspartate Amino Transferase 43 U/L (15-37); BUN Creatinine Ratio 23.9; Bilirubin Total 0.2 mg/dL (0.2-1.0); Calcium 7.1 mg/dL (8.5-10.1); Carbon Dioxide 17.4 mmol/L (21.0-32.0); Chloride 118 mmol/L (98-107); Estimated GFR (African America >60 (>=60); Estimated GFR (Non-African Ame >60 (>=60); Glucose 109 mg/dL (74-106); Potassium 4.9 mmol/L (3.5-5.1); Sodium 146 mmol/L (136-145); Total Protein 4.9 g/dL (6.4-8.2)
[2023-02-23] MEDS: LEVOFLOXACIN IN DEXTROSE 5 % 750 MG/150 ML IV.SOLN 150 MG IV (08:39)
--- NOTE | 2023-02-23 11:43 | CM.NOTE ---
Rounds made with Dr. Monroe. No plan for discharge today. Awaiting General Surgery assessment to determine need for PEG tube.
--- NOTE | 2023-02-23 11:45 | PM.PN ---
Progress Note: Subjective Subjective Interval history: Patient stable this am. Remains alert but confused. Continues to have decreased oral intake and on tube feeds. Family wants feeding tube placed. Denies pain or complaints. Denies SOB. Afebrile. WBC improved. Ammonia slightly elevated. Continues to have severe weakness. Exam Constitutional Vital Signs, click to edit/add: Last Vital Signs Temp 98.2 F 02/23/23 06:09 Pulse 72 02/23/23 10:00 Resp 12 02/23/23 06:09 BP 147/83 H 02/23/23 02:58 Pulse Ox 98 02/23/23 06:09 O2 Del Method Room Air 02/22/23 23:15 O2 Flow Rate 98 02/19/23 10:37 Documenting provider has reviewed patient's vital signs: yes Common normals: no apparent distress and alert HENMT Common normals: normocephalic Eye Common normals: PERRL and EOMs intact bilaterally Respiratory Common normals: normal respiratory effort and clear to auscultation bilaterally Cardio Common normals: regular rate, regular rhythm, no gallops, no murmurs and no rub GI Common normals: Normal to inspection, nondistended, normoactive bowel sounds present and non-tender Extremity Common normals: no pedal edema Progress Note: Objective Labs Labs: Short CBC 02/23/23 Range/Units 05:30 WBC 14.1 H (4.0-11.0) 10^3/uL Hgb 8.3 L (12.0-16.0) g/dL Hct 27.3 L (36.0-48.0) % Plt Count 156 (150-450) 10^3/uL BMP 02/23/23 05:30 Sodium 146 H Potassium 4.9 Chloride 118 H Carbon Dioxide 17.4 L BUN 21.0 H Creatinine 0.88 Glucose 109 H Calcium 7.1 L Liver Function 02/23/23 Range/Units 05:30 Total Bilirubin 0.2 (0.2-1.0) mg/dL AST 43 H (15-37) U/L ALT 42 (14-59) U/L Alkaline Phosphatase 47 (46-116) U/L Albumin 1.9 L (3.4-5.0) g/dL Progress Note: A&P Assessment and Plan (1) Sepsis: Qualifiers: Sepsis acute organ dysfunction status: without acute organ dysfunction Sepsis type: sepsis due to unspecified organism Qualified Code(s): A41.9 - Sepsis, unspecified organism (2) UTI (urinary tract infection): Qualifiers: Urinary tract infection type: site unspecified Hematuria presence: without hematuria Qualified Code(s): N39.0 - Urinary tract infection, site not specified (3) COVID-19: (4) JIM (acute kidney injury): (5) Hyperammonemia: (6) Metabolic encephalopathy: (7) Severe dehydration: (8) Severe protein-calorie malnutrition: (9) Adult failure to thrive: (10) Hypokalemia: (11) Hypernatremia: (12) Seizure disorder: Plan Patient stable. Continues to have poor oral intake and severe PCM. Family requests feeding tube and general surgery consulted. Continue levaquin for UTI. Continue PT/OT for weakness. Monitor labs and vitals. Once start tube feeds and tolerate will be ready to return to SNF. Urinary Catheter Management Urinary Catheter Management Straight: Cath placed during this visit: yes Urethral indwelling: Yes Reason for continuing: prolonged immobilization Insertion date: 02/19/23 Insertion time: 09:15
--- NOTE | 2023-02-23 12:37 | NUTR.NU ---
Recommend: Jevity 1.5 @ 10 ml / h cont via peg tube; 100 ml H20 q 4 h via peg tube. check gastric residuals q 4 hours; Increase tube feeding 10 ml q 24 hours to reach goal 30 ml/h continuous Jevity 1.5 via peg tube to furnish goal 990 kcal; 41.5 g protein 1095 ml fluids not including nursing flushes. Tube feeding formula initiated at modulated rate to promote tolerance and minimize risks
--- NOTE | 2023-02-23 14:36 | CM.NOTE ---
Updated faxed to [facility].
[2023-02-23] MEDS: PANTOPRAZOLE SODIUM 40 MG VIAL IV (15:44)
--- NOTE | 2023-02-23 20:06 | PM.GSCN ---
History of Present Illness Consult details Consult date: 02/23/23 Reason for consult: other (PEG tube) Requesting physician: Lucio Monroe Narrative: 77 yo female with h/o seizure d/o, hypothyroidism, hyperlipidemia, COPD, essential tremor, CKD, admitted 5 days ago from [facility] due to confusion, dehydration, urosepsis; sent to [facility] after hospitializtion at [place] for seizure d/o; patient improved with antibiotics and hydration; has malnutrition and poor po intake, has been getting NG tube feeds; family has requested feeding tube insertion; patient is poor historian, no known previous abd operations; no asa or anticoagulants. Review of Systems ROS Constitutional Reports: fatigue and malaise Ears, nose, mouth, and throat Reports: difficulty swallowing Cardiovascular Reports: shortness of breath with exertion Neurological Reports: difficulty communicating thoughts, seizure-like activity and involuntary movements [facility] Medical History (Updated 02/23/23 @ 11:34 by Lucio Monroe MD) Leukocytosis ?D72.829 - Elevated white blood cell count, unspecified (ICD-10) Lactic acidosis ?E87.20 - Acidosis, unspecified (ICD-10) Syncope ?R55 - Syncope and collapse (ICD-10) Transient hypotension ?I95.9 - Hypotension, unspecified (ICD-10) Seizure ?R56.9 - Unspecified convulsions (ICD-10) Age-related osteoporosis without current pathological fracture ?M81.0 - Age-related osteoporosis without current pathological fracture (ICD-10) Essential tremor ?G25.0 - Essential tremor (ICD-10) Adjustment disorder with anxiety ?F43.22 - Adjustment disorder with anxiety (ICD-10) Major depressive disorder ?F32.9 - Major depressive disorder, single episode, unspecified (ICD-10) Hyperlipidemia ?E78.5 - Hyperlipidemia, unspecified (ICD-10) Hypothyroidism ?E03.9 - Hypothyroidism, unspecified (ICD-10) Osteoarthritis ?M19.90 - Unspecified osteoarthritis, unspecified site (ICD-10) Hypotension ?I95.9 - Hypotension, unspecified (ICD-10) Syncope and collapse ?R55 - Syncope and collapse (ICD-10) COPD (chronic obstructive pulmonary disease) ?J44.9 - Chronic obstructive pulmonary disease, unspecified (ICD-10) Chronic kidney disease, stage 3 unspecified ?N18.30 - Chronic kidney disease, stage 3 unspecified (ICD-10) Surgical History (Updated 02/18/23 @ 23:12 by Brandee Luz) Hx of foot surgery ?Z98.890 - Other specified postprocedural states (ICD-10) Hx of rotator cuff surgery ?Z98.890 - Other specified postprocedural states (ICD-10) Social History Smoking status: Unknown if ever smoked Highest level of school completed/degree received: don't know Meds Home Medications and Allergies Home Medications Medication Instructions Recorded Confirmed Type midodrine 2.5 mg tablet 2.5 mg PO BID 01/19/23 02/18/23 History omeprazole 20 mg capsule,delayed 20 mg PO DAILY 01/19/23 02/18/23 History release pantoprazole 40 mg tablet,delayed 40 mg PO DAILY 01/19/23 02/18/23 History release trospium 20 mg tablet 20 mg PO DAILY 01/19/23 02/18/23 History acetaminophen 500 mg tablet 1,000 mg PO Q6H PRN fever or pain 02/18/23 02/18/23 History atorvastatin 10 mg tablet 10 mg PO DAILY 02/18/23 02/18/23 History bupropion HCl 150 mg 24 hr tablet, 150 mg PO DAILY 02/18/23 02/18/23 History extended release (Wellbutrin XL) chlorthalidone 25 mg tablet 25 mg PO DAILY 02/18/23 02/18/23 History docusate sodium 100 mg capsule 100 mg PO DAILY 02/18/23 02/18/23 History (Col-Rite) gabapentin 100 mg capsule 100 mg PO TID 02/18/23 02/18/23 History levothyroxine 50 mcg tablet 50 mcg PO DAILY 02/18/23 02/18/23 History nirmatrelvir 300 mg (150 mg See Rx Instructions PO .COMPLEX 02/18/23 02/18/23 History x2)-ritonavir 100 mg tablet,dose pack (Paxlovid) primidone 50 mg tablet 150 mg PO DAILY 02/18/23 02/18/23 History rivastigmine 9.5 mg/24 hour 9.5 mg transdermal DAILY 02/18/23 02/18/23 History transdermal patch sertraline 50 mg tablet 75 mg PO DAILY 02/18/23 02/18/23 History tolterodine 4 mg capsule,extended 4 mg PO Q24H 02/18/23 02/18/23 History release 24 hr topiramate 25 mg tablet 50 mg PO BID 02/18/23 02/18/23 History Allergies Allergy/AdvReac Type Severity Reaction Status Date / Time codeine Allergy Unknown Verified 01/19/23 09:11 formoterol [From Dulera] Allergy Unknown Verified 01/19/23 09:11 ibuprofen [From Motrin] Allergy Unknown Verified 01/19/23 09:11 mometasone furoate Allergy Unknown Verified 01/19/23 09:11 [From Dulera] Penicillins Allergy Unknown Verified 01/19/23 09:11 pseudoephedrine Allergy Unknown Verified 01/19/23 09:11 risedronate sodium Allergy Unknown Verified 01/19/23 09:11 tolmetin Allergy Unknown Verified 01/19/23 09:11 triprolidine Allergy Unknown Verified 01/19/23 09:11 Exam Narrative Exam Narrative: awake/arousable, confused, answers some questions appropriately Constitutional Vital Signs, click to edit/add: Last Vital Signs Temp 98.8 F 02/23/23 11:54 Pulse 68 02/23/23 15:41 Resp 16 02/23/23 15:41 BP 142/75 H 02/23/23 11:54 Pulse Ox 98 02/23/23 16:21 O2 Del Method Room Air 02/23/23 16:21 O2 Flow Rate 98 02/19/23 10:37 Respiratory Common normals: normal respiratory effort Effort & inspection: able to speak in complete sentences Auscultation: clear to auscultation bilaterally and diminished lung sounds (bases) Cardio Common normals: regular rate and regular rhythm GI Other: soft, normal bs, nontender, nondistended, no masses or HSM, no scars or hernias noted Extremity Common normals: no clubbing, cyanosis or edema Results Labs Labs: Abnormal lab results 02/23/23 Range/Units 05:30 WBC 14.1 H (4.0-11.0) 10^3/uL RBC 2.77 L (4.20-5.40) 10^6/uL Hgb 8.3 L (12.0-16.0) g/dL Hct 27.3 L (36.0-48.0) % RDW 15.4 H (11.0-15.0) % Neut % (Auto) 79.3 H (43.0-75.0) % Lymph % (Auto) 12.4 L (20.5-60.0) % Eos % (Auto) 0.0 L (0.9-7.0) % Baso % (Auto) 0.1 L (0.2-2.0) % Neut # (Auto) 11.2 H (1.4-6.5) 10^3/uL Abs Immat Gran (auto) 0.50 H (0.00-0.03) 10^3/uL Imm/Tot Granulo (auto) 3.5 H (0.0-0.5) % Sodium 146 H (136-145) mmol/L Chloride 118 H (98-107) mmol/L Carbon Dioxide 17.4 L (21.0-32.0) mmol/L BUN 21.0 H (7.0-18.0) mg/dL Glucose 109 H (74-106) mg/dL Calcium 7.1 L (8.5-10.1) mg/dL AST 43 H (15-37) U/L Ammonia 35 H (11-32) umol/L Total Protein 4.9 L (6.4-8.2) g/dL Albumin 1.9 L (3.4-5.0) g/dL Diabetes panel 02/23/23 Range/Units 05:30 Sodium 146 H (136-145) mmol/L Potassium 4.9 (3.5-5.1) mmol/L Chloride 118 H (98-107) mmol/L Carbon Dioxide 17.4 L (21.0-32.0) mmol/L BUN 21.0 H (7.0-18.0) mg/dL Creatinine 0.88 (0.55-1.02) mg/dL Glucose 109 H (74-106) mg/dL Calcium 7.1 L (8.5-10.1) mg/dL AST 43 H (15-37) U/L ALT 42 (14-59) U/L Alkaline Phosphatase 47 (46-116) U/L Total Protein 4.9 L (6.4-8.2) g/dL Albumin 1.9 L (3.4-5.0) g/dL Calcium panel 02/23/23 Range/Units 05:30 Calcium 7.1 L (8.5-10.1) mg/dL Albumin 1.9 L (3.4-5.0) g/dL Pituitary panel 02/23/23 Range/Units 05:30 Sodium 146 H (136-145) mmol/L Potassium 4.9 (3.5-5.1) mmol/L Chloride 118 H (98-107) mmol/L Carbon Dioxide 17.4 L (21.0-32.0) mmol/L BUN 21.0 H (7.0-18.0) mg/dL Creatinine 0.88 (0.55-1.02) mg/dL Glucose 109 H (74-106) mg/dL Calcium 7.1 L (8.5-10.1) mg/dL Adrenal panel 02/23/23 Range/Units 05:30 Sodium 146 H (136-145) mmol/L Potassium 4.9 (3.5-5.1) mmol/L Chloride 118 H (98-107) mmol/L Carbon Dioxide 17.4 L (21.0-32.0) mmol/L BUN 21.0 H (7.0-18.0) mg/dL Creatinine 0.88 (0.55-1.02) mg/dL Glucose 109 H (74-106) mg/dL Calcium 7.1 L (8.5-10.1) mg/dL Total Bilirubin 0.2 (0.2-1.0) mg/dL AST 43 H (15-37) U/L ALT 42 (14-59) U/L Alkaline Phosphatase 47 (46-116) U/L Total Protein 4.9 L (6.4-8.2) g/dL Albumin 1.9 L (3.4-5.0) g/dL All other labs normal. Assessment and Plan Assessment and Plan (1) Sepsis: Qualifiers: Sepsis acute organ dysfunction status: without acute organ dysfunction Sepsis type: sepsis due to unspecified organism Qualified Code(s): A41.9 - Sepsis, unspecified organism (2) UTI (urinary tract infection): Qualifiers: Urinary tract infection type: site unspecified Hematuria presence: without hematuria Qualified Code(s): N39.0 - Urinary tract infection, site not specified (3) COVID-19: (4) JIM (acute kidney injury): (5) Hyperammonemia: (6) Metabolic encephalopathy: (7) Severe dehydration: (8) Severe protein-calorie malnutrition: Assessment and Plan: plan PEG tube insertion under anesthesia; informed consent obtained from patient's . npo after MDN. (9) Adult failure to thrive: (10) Hypokalemia: (11) Hypernatremia: (12) Seizure disorder:
[2023-02-23] MEDS: TOPIRAMATE 25 MG TABLET 50 MG PO (21:56)
[2023-02-23] MEDS: MIDODRINE HCL 5 MG TABLET 2.5 MG PO (21:56)
[2023-02-23] MEDS: LACTULOSE 10 GM/15 ML (237ML) SOLUTION 20 GM PO (21:58)
[2023-02-24] VITALS (13 sets, daily range): BP systolic 136–163; BP diastolic 64–84; PULSE 70–90; RESP 13–20; TEMP 36.3–36.8; O2SAT 93–99
[2023-02-24] MEDS: POTASSIUM CHLORIDE IN 0.9%NACL 1,000 ML 100 MEQ IV (01:06)
[2023-02-24 04:55] LABS: Basophils Percent Auto 0.1 % (0.2-2.0); Eosinophils Percent Auto 0.1 % (0.9-7.0); Hematocrit 27.4 % (36.0-48.0); Hemoglobin 8.3 g/dL (12.0-16.0); Immature Granulocytes Abs Auto 0.51 10^3/uL (0.00-0.03); Immature Granulocytes Pct Auto 3.1 % (0.0-0.5); Lymphocytes Absolute Auto 1.7 10^3/uL (1.2-3.8); Lymphocytes Percent Auto 10.2 % (20.5-60.0); Mean Corpuscular HGB Conc 30.3 g/dL (29.9-35.2); Mean Corpuscular Hemoglobin 29.5 pg (26.7-34.0); Mean Corpuscular Volume 97.5 fL (81.0-99.0); Mean Platelet Volume 12.4 fL (9.5-13.5); Monocytes Absolute Auto 0.8 10^3/uL (0.3-0.8); Monocytes Percent Auto 4.6 % (1.7-12.0); Neutrophils Absolute Auto 13.5 10^3/uL (1.4-6.5); Neutrophils Percent Auto 81.9 % (43.0-75.0); Platelet Count 158 10^3/uL (150-450); Red Blood Count 2.81 10^6/uL (4.20-5.40); Red Cell Distribution Width 15.5 % (11.0-15.0); White Blood Count 16.4 10^3/uL (4.0-11.0)
[2023-02-24 05:06] LABS: Ammonia 16 umol/L (11-32)
[2023-02-24 05:18] LABS: Alanine Aminotransferase 54 U/L (14-59); Albumin Globulin Ratio 0.6; Albumin Level 1.9 g/dL (3.4-5.0); Alkaline Phosphatase 47 U/L (46-116); Anion Gap 12.2; Aspartate Amino Transferase 60 U/L (15-37); BUN Creatinine Ratio 24.1; Bilirubin Total 0.2 mg/dL (0.2-1.0); Calcium 7.2 mg/dL (8.5-10.1); Chloride 116 mmol/L (98-107); Estimated GFR (African America >60 (>=60); Estimated GFR (Non-African Ame >60 (>=60); Glucose 103 mg/dL (74-106); Potassium 5.2 mmol/L (3.5-5.1); Sodium 141 mmol/L (136-145); Total Protein 4.9 g/dL (6.4-8.2)
--- NOTE | 2023-02-24 09:25 | CM.NOTE ---
Spoke with pt's regarding discharge planning. Pt states they will not go back to [place], they would like to look at another facility. not aware of how many skilled days pt still has available. Explained to I would submit clinical to another facility and they could tell us how many skilled days pt has available. Husbands choice is [facility], [facility], and then [facility] as 3rd choice after provided Medicare 5 star rating list. Clinical faxed to [facility]. Important Message From medicare also discussed with pt's , he voices understanding and signs paper. Original given to and copy placed in pt's chart.
--- NOTE | 2023-02-24 10:10 | CM.NOTE ---
Spoke with Jessica at [facility], no bed availability.
--- NOTE | 2023-02-24 10:32 | PT.DAILY ---
Physical Therapy Daily Note PT Daily Note/Assess Start: 02/20/23 09:55 Freq: Status: Active Protocol: Document 02/24/23 10:30 BURKE (Rec: 02/24/23 10:32 BURKE [id number]) Visit Not Completed Visit Not Completed Visit Not Completed Due to: Other Other Reason Visit Not Completed Having feed tube placed. PT POC expires 02/25/23 will need updated. Physical Therapy Daily Note/Assessment Time In/Time Out Time In 10:00 Time Out 10:00 GG. Functional Abilities and Goals-Complete for Swing Bed Patients Only [id number]. Self-Care [id number]. Mobility
--- NOTE | 2023-02-24 10:36 | CM.NOTE ---
Talked with for update, no beds at [facility]. Clinical faxed to [facility]. verbalizes understanding.
--- NOTE | 2023-02-24 10:38 | OP_ITS ---
OP Note ? OPERATION DATE: ??02/24/2023 ? PREOPERATIVE DIAGNOSIS:? Dysphagia, severe malnutrition. ? POSTOPERATIVE DIAGNOSIS:? Dysphagia, severe malnutrition. ? PROCEDURE:? EGD with PEG tube insertion. ? ANESTHESIA:? Monitored anesthesia care as well as local with 1% lidocaine. ? ESTIMATED BLOOD LOSS:? Less than 2 mL. ? INDICATIONS AND CONSENT:? Patient is a 77-year-old female with dementia, seizure disorder, recently admitted with sepsis and poor p.o. intake, difficulty swallowing and eating to maintain her nutrition.? She has been getting NG tube feeds and her family has requested PEG tube.? Indications, risks, benefits, alternatives of proceeding with PEG tube insertion were explained extensively to the patient?s , including the risks of bleeding, aspiration, esophageal/gastric/duodenal/colon injury, gastric leak, blood clot, pulmonary embolus, need for further surgery or open procedure.? This was all explained in detail and informed consent was obtained.? ? PROCEDURE:? Patient brought to the operating room, placed in the partial right lateral decubitus position.? Monitored anesthesia care was provided.? Bite block was placed in the patient?s mouth.? Scope was inserted into the oropharynx.? Under direct visualization, it was advanced into the esophagus, past the cricopharyngeus, down into the stomach.? The stomach was insufflated with air.? Area in the epigastrium was transilluminated and palpated and found to be a good position for the PEG tube.? Her NG tube was removed.? The area was prepped and draped and anesthetized with 1% lidocaine.? A small incision was made with the #11 blade.? The Angiocath was then inserted under direct visualization, into the stomach which was visualized from the inside.? The blue looped wire was then inserted and grasped with the snare.? It was then pulled out through the oropharynx.? The PEG tube was attached and lubricated.? It was then pulled out through the anterior abdominal wall.? The scope was then inserted back into the oropharynx and, under direct visualization, to the esophagus, down into the stomach.? The bumper was identified.? There was good hemostasis.? It was pulled up against the abdominal wall without undo tension.? It rotated easily.? The scope was then withdrawn.? Tube was trimmed.? The bumper was applied.? A small amount of antibiotic ointment was applied to the site, as well as the dressing sponge and Medipore tape.? The end cap as well as the clamp were applied to the tube.? The tube was then secured with tape to the anterior abdominal wall.? It was covered with an abdominal binder.? Sponge and needle counts were correct x2 per nursing personnel.? Patient tolerated procedure well, was sent back to the floor in good condition.? ? CC:? Lucio Monroe M.D. ? Dav Diana D.O.? NEL
--- NOTE | 2023-02-24 11:26 | CM.NOTE ---
[facility] called with questions regarding pt, questions answered. Oumou will get back with me on cost and if they will be able to accept pt at discharge.
--- NOTE | 2023-02-24 11:43 | PC.NURSE ---
1057: PEG tube incision to right abdomen. 2x2 with triple antibiotic applied. No drainage noted.
--- NOTE | 2023-02-24 11:52 | PC.NURSE ---
no changes from previous assessment 02/24/23 11:02
--- NOTE | 2023-02-24 11:57 | PC.NURSE ---
no changes from previous assessment 02/24/23 11:07
[2023-02-24] MEDS: LACTOSE -REDUCED (ENSURE ORIGINAL 237 ML LIQUID) G-TUBE (12:02)
--- NOTE | 2023-02-24 12:10 | PM.PN ---
Progress Note: Subjective Subjective Interval history: Patient continues to improve. Remains alert and talkative. Minimal confusion. PEG placed and procedure went well. Continues to have decreased oral intake and poor appetite. Denies pain or complaints. Denies SOB. Afebrile. WBC continues to improve. Ammonia normal. Continues to have weakness. Exam Constitutional Vital Signs, click to edit/add: Last Vital Signs Temp 97.4 F L 02/24/23 11:07 Pulse 74 02/24/23 11:07 Resp 18 02/24/23 11:07 BP 162/70 H 02/24/23 11:07 Pulse Ox 98 02/24/23 11:07 O2 Del Method Room Air 02/24/23 11:07 O2 Flow Rate 98 02/19/23 10:37 Documenting provider has reviewed patient's vital signs: yes Common normals: no apparent distress, oriented x3 and alert HENMT Common normals: normocephalic Eye Common normals: PERRL and EOMs intact bilaterally Respiratory Common normals: normal respiratory effort and clear to auscultation bilaterally Cardio Common normals: regular rate, regular rhythm, no gallops, no murmurs and no rub GI Common normals: Normal to inspection, nondistended, normoactive bowel sounds present and non-tender Extremity Common normals: no pedal edema Progress Note: Objective Labs Labs: Short CBC 02/24/23 Range/Units 04:30 WBC 16.4 H (4.0-11.0) 10^3/uL Hgb 8.3 L (12.0-16.0) g/dL Hct 27.4 L (36.0-48.0) % Plt Count 158 (150-450) 10^3/uL BMP 02/24/23 04:30 Sodium 141 Potassium 5.2 H Chloride 116 H Carbon Dioxide 18.0 L BUN 21.0 H Creatinine 0.87 Glucose 103 Calcium 7.2 L Liver Function 02/24/23 Range/Units 04:30 Total Bilirubin 0.2 (0.2-1.0) mg/dL AST 60 H (15-37) U/L ALT 54 (14-59) U/L Alkaline Phosphatase 47 (46-116) U/L Albumin 1.9 L (3.4-5.0) g/dL Progress Note: A&P Assessment and Plan (1) Sepsis: Qualifiers: Sepsis acute organ dysfunction status: without acute organ dysfunction Sepsis type: sepsis due to unspecified organism Qualified Code(s): A41.9 - Sepsis, unspecified organism (2) UTI (urinary tract infection): Qualifiers: Urinary tract infection type: site unspecified Hematuria presence: without hematuria Qualified Code(s): N39.0 - Urinary tract infection, site not specified (3) COVID-19: (4) JIM (acute kidney injury): (5) Hyperammonemia: (6) Metabolic encephalopathy: (7) Severe dehydration: (8) Severe protein-calorie malnutrition: (9) Adult failure to thrive: (10) Hypokalemia: (11) Hypernatremia: (12) Seizure disorder: Plan Patient continues to improve. PEG placed and will start tube feeds today. Dietary recommends Jevity with goal of 30 mL per hour and will titrate. Continue PT/OT. Likely will be ready for discharge in am. Urinary Catheter Management Urinary Catheter Management Straight: Cath placed during this visit: yes Urethral indwelling: Yes Reason for continuing: prolonged immobilization Insertion date: 02/19/23 Insertion time: 09:15
--- NOTE | 2023-02-24 12:11 | PC.NURSE ---
no change since initial assessment 02/24/23 11:12
--- NOTE | 2023-02-24 12:18 | PC.NURSE ---
no changes since initial assessment 02/24/23 1113
[2023-02-24] MEDS: GABAPENTIN 100 MG CAPSULE PO ×2 (13:57→20:48)
[2023-02-24] MEDS: DEXAMETHASONE SOD PHOS 100 MG/10 ML MDV 6 MG IV ×2 (13:57→20:48)
[2023-02-24] MEDS: PROSTAT 15 GM PROTEIN/100 CAL 30 ML LIQUID PACKET PO ×2 (13:57→20:49)
--- NOTE | 2023-02-24 13:59 | CM.NOTE ---
Called [facility] to see if decision has been made, Oumou is speaking with the clinical administrator and will call back.
--- NOTE | 2023-02-24 14:39 | CM.NOTE ---
Spoke with Oumou in admissions at [facility], they are unable to accept pt at this time. Discussed this with pt's . He would now like Case Management to contact [facility] as a 3rd option.
--- NOTE | 2023-02-24 15:07 | CM.NOTE ---
Called [facility] and message left with admissions, clinical faxed for new referral.
[2023-02-24] MEDS: PANTOPRAZOLE SODIUM 40 MG VIAL IV (15:58)
[2023-02-24] MEDS: JEVITY 1.5 CAL 237 ML LIQUID G-TUBE (20:48)
[2023-02-24] MEDS: TOPIRAMATE 25 MG TABLET 50 MG PO (20:48)
[2023-02-24] MEDS: LACTULOSE 10 GM/15 ML (237ML) SOLUTION 20 GM PO (20:50)
--- NOTE | 2023-02-24 23:13 | PC.NURSE ---
Dressing to abdomen is clean, dry, and intact. Open area to coccyx no drainage observed. triad paste intact to skin.
[2023-02-25 03:46] VITALS: O2SAT 95
[2023-02-25 05:10] LABS: Ammonia 23 umol/L (11-32)
[2023-02-25] MEDS: PROSTAT 15 GM PROTEIN/100 CAL 30 ML LIQUID PACKET PO (05:17)
[2023-02-25] MEDS: JEVITY 1.5 CAL 237 ML LIQUID G-TUBE (05:17)
[2023-02-25] MEDS: LEVOTHYROXINE SODIUM 25 MCG TABLET 50 MCG PO (05:17)
[2023-02-25] MEDS: GABAPENTIN 100 MG CAPSULE PO (05:17)
[2023-02-25] MEDS: DEXAMETHASONE SOD PHOS 100 MG/10 ML MDV 6 MG IV (05:18)
[2023-02-25 05:19] VITALS: BP 148/82; PULSE 71; RESP 18; TEMP 36.6; O2SAT 95
--- NOTE | 2023-02-25 08:54 | CM.NOTE ---
[facility] called and will accept pt. Spoke with pt's and updated on status of [facility] accepting pt. ok with transfer to [facility] for skilled therapy when medically stable.
[2023-02-25] MEDS: LEVOFLOXACIN IN DEXTROSE 5 % 750 MG/150 ML IV.SOLN 100 MG IV (09:01)
[2023-02-25] MEDS: TOPIRAMATE 25 MG TABLET 50 MG PO (09:02)
[2023-02-25] MEDS: SERTRALINE HCL 50 MG TABLET 75 MG PO (09:02)
[2023-02-25] MEDS: PRIMIDONE 50 MG TABLET 150 MG PO (09:02)
--- NOTE | 2023-02-25 09:03 | CM.NOTE ---
Notified Herb Julio, pt and have decided on [facility].
--- NOTE | 2023-02-25 11:01 | CM.NOTE ---
Rounding with brayden Simpson to discharge to [facility] for skilled therapy.
--- NOTE | 2023-02-25 11:26 | P.DS_ITS ---
DS: Providers Provider Date of admission: 02/19/23 06:40 Primary care physician: ERICK GALEAS DO Consults: 02/18/23 Consult to Dietitian Routine Reason For Exam: under weight Reason for consultation: poor intake, weight loss, under weight Has provider been notified: No 02/19/23 06:40 Occupational Therapy Eval and Treat Routine Reason for consultation: Ambulatory dysfunction/weakness Physical Therapy Eval and Treat Routine Reason for consultation: Ambulatory dysfunction/weakness 02/21/23 Speech Therapy Eval and Treat Routine Reason for consultation: History of dysphagia, possible PEG Has provider been notified: Yes 02/22/23 12:23 Consult to General Surgeon Routine Consulting Provider: Hospitalist Reason for consultation: PEG tube DS: Diagnosis Discharge Diagnosis (1) Sepsis: Qualifiers: Sepsis acute organ dysfunction status: without acute organ dysfunction Sepsis type: sepsis due to unspecified organism Qualified Code(s): A41.9 - Sepsis, unspecified organism (2) UTI (urinary tract infection): Qualifiers: Urinary tract infection type: site unspecified Hematuria presence: without hematuria Qualified Code(s): N39.0 - Urinary tract infection, site not specified (3) COVID-19: (4) JIM (acute kidney injury): (5) Hyperammonemia: (6) Metabolic encephalopathy: (7) Severe dehydration: (8) Severe protein-calorie malnutrition: (9) Adult failure to thrive: (10) Hypokalemia: (11) Hypernatremia: (12) Seizure disorder: DS: Summary Hospital Course Hospital Course: Reason for admission: See ER note and H&P for details. 77 y/o female sent from SNF with altered mental status. Recent URI symptoms and Covid-19 positive. Started on paxlovid. Noticed increased confusion and altered mental status. To ER and WBC 49 with elevated lactate. Ammonia also elevated and UA showed UTI. Admitted for treatment. Hospital course: Started levaquin for UTI and IV fluids for sepsis. CT with question of proctitis and given flagyl. Added decadron for Covid and lactulose for elevated ammonia. Slowly improved. WBC started to improve and patient gradually became more alert. Ammonia decreased and normal. Stopped flagyl. Patient seen by PT and noted to have severe weakness. Poor oral intake which reports has been ongoing for weeks. NG placed and started tube feeds through NG. Afebrile. Urine culture showed UTI due to E. coli and sensitive to Levaquin. Continued to improve and more alert. Discussed options with family and wanted feeding tube placed. WBC continued to improve. General surgery consulted and PEG placed. Started tube feeds with Jevity and tolerated well. Dietary recommended 30 mL/hr. Completed treatment of covid with Paxlovid and received 7 doses of levaquin to treat UTI. Transferred to SNF in stable c ondition. Resume medication as directed. Time Spent with Patient Time attestation: Total time spent providing and/or coordinating discharge services: Exam Constitutional Vital Signs, click to edit/add: Last Vital Signs Temp 97.9 F 02/25/23 05:19 Pulse 71 02/25/23 05:19 Resp 18 02/25/23 05:19 BP 148/82 H 02/25/23 05:19 Pulse Ox 95 02/25/23 05:19 O2 Del Method Room Air 02/25/23 05:19 O2 Flow Rate 98 02/19/23 10:37 Documenting provider has reviewed patient's vital signs: yes Common normals: no apparent distress and alert HENMT Common normals: normocephalic Eye Common normals: PERRL and EOMs intact bilaterally Respiratory Common normals: normal respiratory effort and clear to auscultation bilaterally Cardio Common normals: regular rate, regular rhythm, no gallops, no murmurs and no rub GI Common normals: Normal to inspection, nondistended, normoactive bowel sounds present and non-tender Extremity Common normals: no pedal edema DS: Data Data Completed and Pending Labs on day of discharge: Labs from last 24 hours 02/25/23 04:43 Ammonia 23 Discharge Plan Discharge Disposition: Xfer SNF Discharge Medications: New ipratropium-albuterol 0.5 mg-3 mg(2.5 mg base)/3 mL Solution For Nebulization 3 ml inhalation Q4H PRN (Reason: Shortness Of Breath Or Wheezing) Qty: 90 0RF midodrine 5 mg Tablet 2.5 mg PO BID Qty: 0 0RF benzonatate 100 mg Capsule 200 mg PO Q8H PRN (Reason: cough) Qty: 1 0RF lactulose [Constulose] 10 gram/15 mL Solution 20 g PO BID Qty: 0 0RF Jevity 1.5 Tony 0.06 gram-1.5 kcal/mL Liquid 1 ea G-tube Q8H Qty: 237 0RF dexamethasone 4 mg tablet 4 mg PO DAILY 4 Days Qty: 4 0RF Continued midodrine 2.5 mg tablet 2.5 mg PO BID omeprazole 20 mg capsule,delayed release(DR/EC) 20 mg PO DAILY Hold Instructions: Order Change pantoprazole 40 mg tablet,delayed release (DR/EC) 40 mg PO DAILY trospium 20 mg tablet 20 mg PO DAILY Hold Instructions: Doctor's Order Rx Instructions: administer on an empty stomach primidone 50 mg tablet 150 mg PO DAILY atorvastatin 10 mg tablet 10 mg PO DAILY tolterodine 4 mg capsule,extended release 24hr 4 mg PO Q24H topiramate 25 mg tablet 50 mg PO BID Hold Instructions: Doctor's Order chlorthalidone 25 mg tablet 25 mg PO DAILY levothyroxine 50 mcg tablet 50 mcg PO DAILY gabapentin 100 mg capsule 100 mg PO TID sertraline 50 mg tablet 75 mg PO DAILY rivastigmine 9.5 mg/24 hour patch 24 hour 9.5 mg transdermal DAILY bupropion HCl [Wellbutrin XL] 150 mg tablet extended release 24 hr 150 mg PO DAILY docusate sodium [Col-Rite] 100 mg capsule 100 mg PO DAILY acetaminophen 500 mg tablet 1,000 mg PO Q6H PRN (Reason: fever or pain) Discontinued Paxlovid 300 mg (150 mg x 2)-100 mg tablets,dose pack See Rx Instructions .ROUTE .COMPLEX Rx Instructions: take TWO 150 mg tablets of nirmatrelvir with ONE 100 mg tablet of ritonavir twice daily for 5 days Activity Restrictions/Additional Instructions: PEG tube clamped with abd binder in place Forms: Portal Instructions
--- NOTE | 2023-02-25 12:31 | CM.NOTE ---
Faxed discharge summary, CRF, and med list for discharge. Called [facility] for transport 1:45 for pick-up. Updated pt, RN and .
== END 2023-02-25 14:05 | DRG 871 ==
LOC: ER 18:16 → ICU 20:07 → MS 02-23 16:13
PROVIDERS: Internal Medicine; Surgery; Admitting Provider Family Medicine; Emergency Provider Emergency Medicine Emergency Medical Services; PCP Family Medicine; Visit Provider Family Medicine
PROC: 0DH63UZ Insertion of Feeding Device into Stomach, Percutaneous Approach (ICD-10-PCS; principal; 2023-02-24 09:15)
DX: A41.9 Sepsis, unspecified organism (principal); E43 Unspecified severe protein-calorie malnutrition; G93.41 Metabolic encephalopathy; U07.1 COVID-19; N39.0 Urinary tract infection, site not specified; N17.9 Acute kidney failure, unspecified; E87.0 Hyperosmolality and hypernatremia; E72.20 Disorder of urea cycle metabolism, unspecified; R65.20 Severe sepsis without septic shock; B96.20 Unspecified Escherichia coli [E. coli] as the cause of diseases classified elsewhere; K62.89 Other specified diseases of anus and rectum; E03.9 Hypothyroidism, unspecified; E87.6 Hypokalemia; E78.5 Hyperlipidemia, unspecified; F32.9 Major depressive disorder, single episode, unspecified; G25.0 Essential tremor; R13.10 Dysphagia, unspecified; E86.0 Dehydration; G40.909 Epilepsy, unspecified, not intractable, without status epilepticus; M81.0 Age-related osteoporosis without current pathological fracture; M19.90 Unspecified osteoarthritis, unspecified site; J44.9 Chronic obstructive pulmonary disease, unspecified; N18.30 Chronic kidney disease, stage 3 unspecified; Z68.20 Body mass index [BMI] 20.0-20.9, adult; Z79.890 Hormone replacement therapy; Z79.899 Other long term (current) drug therapy; Z88.5 Allergy status to narcotic agent; Z88.0 Allergy status to penicillin; Z88.8 Allergy status to other drugs, medicaments and biological substances; Z88.6 Allergy status to analgesic agent
CPT/HCPCS: 36415; 36569; 36592; 36600; 51702; 70450; 71045; 74176; 80048; 80053; 81001; 82140; 82800; 82805; 83605; 83880; 84443; 85007; 85025; 85027; 85378; 85610; 87040; 87086; 92526; 92610; 93005; 94640; 94667; 94668; 94761; 96361; 96365; 96366; 96367; 96368; 96375; 96376; 97110; 97161; 97165; 97535; 99285; C1887; G0378; J1100; J2704; J3480; Q3014

== ENCOUNTER 2023-04-26 12:46 | Emergency (ER) | payer MEDICARE, OTHER, SELFPAY ==
[2023-04-26 12:50] VITALS: BP 145/88; PULSE 79; RESP 18; TEMP 36.1; O2SAT 100; BMI 19.5
--- NOTE | 2023-04-26 13:00 | ED_ITS ---
HPI - Seizure General Chief Complaint: Seizure Stated Complaint: seizure Time Seen by Provider: 04/26/23 12:51 Source: patient Mode of arrival: ambulance Limitations: altered mental status Limitations comment: Seizure/postictal History of Present Illness HPI Narrative: This patient brought to us by squad for possible seizure. She is unable to provide any history as she does not remember the event. Her is to arrive here. However I have reviewed her previous records and in fact she has a seizure disorder and her medication list shows that she is taking Topamax. The patient is actually a very good historian she is awake alert answering all questions appropriately. She said she felt crappy earlier today but now she feels better. She denies any pain or shortness of breath. She has not been running a fever that we know off. Her last admission here was for severe sepsis. Today she is not running any fever or and her vital signs are essentially normal. Related Data Home Medications Medication Instructions Recorded Confirmed midodrine 2.5 mg tablet 2.5 mg PO BID 01/19/23 02/18/23 omeprazole 20 mg capsule,delayed 20 mg PO DAILY 01/19/23 02/18/23 release pantoprazole 40 mg tablet,delayed 40 mg PO DAILY 01/19/23 02/18/23 release trospium 20 mg tablet 20 mg PO DAILY 01/19/23 02/18/23 acetaminophen 500 mg tablet 1,000 mg PO Q6H PRN fever or pain 02/18/23 02/18/23 atorvastatin 10 mg tablet 10 mg PO DAILY 02/18/23 02/18/23 bupropion HCl 150 mg 24 hr tablet, 150 mg PO DAILY 02/18/23 02/18/23 extended release (Wellbutrin XL) chlorthalidone 25 mg tablet 25 mg PO DAILY 02/18/23 02/18/23 docusate sodium 100 mg capsule 100 mg PO DAILY 02/18/23 02/18/23 (Col-Rite) gabapentin 100 mg capsule 100 mg PO TID 02/18/23 02/18/23 levothyroxine 50 mcg tablet 50 mcg PO DAILY 02/18/23 02/18/23 primidone 50 mg tablet 150 mg PO DAILY 02/18/23 02/18/23 rivastigmine 9.5 mg/24 hour 9.5 mg transdermal DAILY 02/18/23 02/18/23 transdermal patch sertraline 50 mg tablet 75 mg PO DAILY 02/18/23 02/18/23 tolterodine 4 mg capsule,extended 4 mg PO Q24H 02/18/23 02/18/23 release 24 hr topiramate 25 mg tablet 50 mg PO BID 02/18/23 02/18/23 Previous Rx's Medication Instructions Recorded benzonatate 100 mg capsule 200 mg (2 x 100 mg) PO Q8H PRN 02/25/23 cough #1 cap dexamethasone 4 mg tablet 4 mg PO DAILY 4 days #4 tabs 02/25/23 ipratropium 0.5 mg-albuterol 3 mg 3 ml inhalation Q4H PRN Shortness 02/25/23 (2.5 mg base)/3 mL nebulization Of Breath Or Wheezing #90 mL soln lactose-reduced food with fiber 1 ea G-tube Q8H #237 mL 02/25/23 0.06 gram-1.5 kcal/mL oral liquid (Jevity 1.5 Tony) lactulose 10 gram/15 mL oral 20 g (30 mL) PO BID #0 mL 02/25/23 solution (Constulose) midodrine 5 mg tablet 2.5 mg (1/2 x 5 mg) PO BID #0 tabs 02/25/23 Allergies Allergy/AdvReac Type Severity Reaction Status Date / Time codeine Allergy Unknown Verified 01/19/23 09:11 formoterol [From Dulera] Allergy Unknown Verified 01/19/23 09:11 ibuprofen [From Motrin] Allergy Unknown Verified 01/19/23 09:11 mometasone furoate Allergy Unknown Verified 01/19/23 09:11 [From Dulera] Penicillins Allergy Unknown Verified 01/19/23 09:11 pseudoephedrine Allergy Unknown Verified 01/19/23 09:11 risedronate sodium Allergy Unknown Verified 01/19/23 09:11 tolmetin Allergy Unknown Verified 01/19/23 09:11 triprolidine Allergy Unknown Verified 01/19/23 09:11 [facility] Medical History (Updated 04/26/23 @ 16:44 by Joshua Venegas MD) Severe protein-calorie malnutrition ?E43 - Unspecified severe protein-calorie malnutrition (ICD-10) Hyperammonemia ?E72.20 - Disorder of urea cycle metabolism, unspecified (ICD-10) Metabolic encephalopathy ?G93.41 - Metabolic encephalopathy (ICD-10) Seizure disorder ?G40.909 - Epilepsy, unspecified, not intractable, without status epilepticus (ICD-10) Leukocytosis ?D72.829 - Elevated white blood cell count, unspecified (ICD-10) Lactic acidosis ?E87.20 - Acidosis, unspecified (ICD-10) Syncope ?R55 - Syncope and collapse (ICD-10) Transient hypotension ?I95.9 - Hypotension, unspecified (ICD-10) Seizure ?R56.9 - Unspecified convulsions (ICD-10) Age-related osteoporosis without current pathological fracture ?M81.0 - Age-related osteoporosis without current pathological fracture (ICD- 10) Essential tremor ?G25.0 - Essential tremor (ICD-10) Adjustment disorder with anxiety ?F43.22 - Adjustment disorder with anxiety (ICD-10) Major depressive disorder ?F32.9 - Major depressive disorder, single episode, unspecified (ICD-10) Hyperlipidemia ?E78.5 - Hyperlipidemia, unspecified (ICD-10) Hypothyroidism ?E03.9 - Hypothyroidism, unspecified (ICD-10) Osteoarthritis ?M19.90 - Unspecified osteoarthritis, unspecified site (ICD-10) Hypotension ?I95.9 - Hypotension, unspecified (ICD-10) Syncope and collapse ?R55 - Syncope and collapse (ICD-10) COPD (chronic obstructive pulmonary disease) ?J44.9 - Chronic obstructive pulmonary disease, unspecified (ICD-10) Chronic kidney disease, stage 3 unspecified ?N18.30 - Chronic kidney disease, stage 3 unspecified (ICD-10) Surgical History (Updated 02/18/23 @ 23:12 by Brandee Luz) Hx of foot surgery ?Z98.890 - Other specified postprocedural states (ICD-10) Hx of rotator cuff surgery ?Z98.890 - Other specified postprocedural states (ICD-10) Social History Smoking status: Former smoker Highest level of school completed/degree received: don't know Exam Narrative Exam Narrative: Patient arrived and was evaluated on arrival. She does not appear ill or toxic or septic at this time. I have reviewed some of her previous records and then the came and also gave further insight. She just went to their home today after being in a care facility for several weeks. To supplement her nutritional status they put in a feeding tube so she is taking both oral and feeding tube medications and supplements. He has been trained to do crushed medications and giving in her tube so she has not missed any of her medications including the Topamax. He indicates that today she just rolled her eyes back and had a seizure like she has done before. She did not have any trauma or injury during the seizure and when she was here did not have any incontinence of urine and did not bite her tongue. She was afebrile. She was not ictal when I interviewed her as she was quite coherent with all of the questions. She specifically denies any pain or shortness of breath at this time. Skin is warm and dry mucous membranes are moist and pink her tongue is wet. There is no evidence of thrush or intraoral lesions. Her lungs were clear with no wheeze rales or rhonchi there is no cough or respiratory distress and her pulse oximetry is excellent. Heart rate and rhythm are normal with no murmur. Abdomen has a feeding tube but there is no evidence of abdominal wall cellulitis infection. She has no discomfort with palpation. She had a little bit of stool on her thighs but was not incontinent of urine. She has full movement of all the extremities with no evidence of motor deficit. Constitutional Vital Signs, click to edit/add: Last Vital Signs Temp 97.0 F L 04/26/23 12:50 Pulse 82 04/26/23 16:07 Resp 18 04/26/23 16:07 BP 128/60 04/26/23 16:07 Pulse Ox 99 04/26/23 16:07 O2 Del Method Room Air 04/26/23 12:50 Course Vital Signs Vital signs: Vital Signs Temperature 97.0 F L 04/26/23 12:50 Pulse Rate 79 04/26/23 12:50 Respiratory Rate 18 04/26/23 12:50 Blood Pressure 145/88 H 04/26/23 12:50 Pulse Oximetry 100 04/26/23 12:50 Oxygen Delivery Method Room Air 04/26/23 12:50 Temperature 97.0 F L 04/26/23 12:50 Pulse Rate 82 04/26/23 16:07 Respiratory Rate 18 04/26/23 16:07 Blood Pressure 128/60 04/26/23 16:07 Pulse Oximetry 99 04/26/23 16:07 Oxygen Delivery Method Room Air 04/26/23 12:50 MDM - Seizure MDM Narrative Medical decision making narrative: I was able to review previous records and it is known that she has a seizure disorder and has been taking Topamax. We did do a urinalysis on her to make sure she does not have another case of urosepsis and fortunately the urine is normal. Somewhat surprisingly her BUN is substantially elevated from previous laboratory values. For that reason I decided to give her cautious intravenous crystalloid solution. She tolerated that very well. Her chest x-ray did not show any evidence of pneumonia. Urinalysis was normal. I believe she does not have an emergency medical condition that needs hospitalization at this time. We will discharge her to her 's care. She was given 1 extra dose of Topamax here in the hospital. As explained to her that she could have breakthrough seizures and that she should be observed very carefully. He was also encouraged to give her level of extra fluids through the feeding tube if she has not taking oral fluids. Lab Data Labs: Lab Results 04/26/23 04/26/23 Range/Units 13:23 13:45 WBC 12.6 H (4.0-11.0) 10^3/uL RBC 2.91 L (4.20-5.40) 10^6/uL Hgb 9.1 L (12.0-16.0) g/dL Hct 29.7 L (36.0-48.0) % MCV 102.1 H (81.0-99.0) fL MCH 31.3 (26.7-34.0) pg MCHC 30.6 (29.9-35.2) g/dL RDW 15.1 H (11.0-15.0) % Plt Count 283 (150-450) 10^3/uL MPV 11.7 (9.5-13.5) fL Neut % (Auto) 83.6 H (43.0-75.0) % Lymph % (Auto) 5.9 L (20.5-60.0) % [place] % (Auto) 7.3 (1.7-12.0) % Eos % (Auto) 2.1 (0.9-7.0) % Baso % (Auto) 0.5 (0.2-2.0) % Neut # (Auto) 10.6 H (1.4-6.5) 10^3/uL Lymph # (Auto) 0.7 L (1.2-3.8) 10^3/uL [place] # (Auto) 0.9 H (0.3-0.8) 10^3/uL Eos # (Auto) 0.3 (0.0-0.7) 10^3/uL Baso # (Auto) 0.1 (0.0-0.1) 10^3/uL Abs Immat Gran (auto) 0.07 H (0.00-0.03) 10^3/uL Imm/Tot Granulo (auto) 0.6 H (0.0-0.5) % Sodium 138 (136-145) mmol/L Potassium 4.1 (3.5-5.1) mmol/L Chloride 104 (98-107) mmol/L Carbon Dioxide 23.5 (21.0-32.0) mmol/L Anion Gap 14.6 BUN 38.0 H (7.0-18.0) mg/dL Creatinine 0.93 (0.55-1.02) mg/dL Est GFR ( Amer) >60 (>=60) Est GFR (Non-Af Amer) 58 L (>=60) BUN/Creatinine Ratio 40.9 Glucose 96 (74-106) mg/dL Lactate 2.1 H (0.4-2.0) mmol/L Calcium 8.2 L (8.5-10.1) mg/dL Total Bilirubin 0.3 (0.2-1.0) mg/dL AST 17 (15-37) U/L ALT 19 (14-59) U/L Alkaline Phosphatase 56 (46-116) U/L Total Protein 6.8 (6.4-8.2) g/dL Albumin 2.8 L (3.4-5.0) g/dL Globulin 4.0 g/dL Albumin/Globulin Ratio 0.7 Urine Color Lt. yellow (YELLOW) Urine Clarity Clear (CLEAR) Urine pH 7.5 (5.0-9.0) Ur Specific [place] 1.015 (1.005-1.025) Urine Protein Negative (NEG/TRACE) mg/dL Urine Glucose (UA) Negative (NEGATIVE) mg/dL Urine Ketones Negative (NEGATIVE) mg/dL Urine Occult Blood Negative (NEGATIVE) Urine Nitrite Negative (NEGATIVE) Urine Bilirubin Negative (NEGATIVE) Urine Urobilinogen 0.2 (0.2-1.0) EU/dL Ur Leukocyte Esterase Negative (NEGATIVE) Discharge Plan Discharge Chief Complaint: Seizure Clinical Impression: Breakthrough seizure Patient Disposition: Home, Self-Care Time of Disposition Decision: 16:44 Prescriptions / Home Meds: No Action midodrine 2.5 mg tablet 2.5 mg PO BID omeprazole 20 mg capsule,delayed release(DR/EC) 20 mg PO DAILY Hold Instructions: Order Change pantoprazole 40 mg tablet,delayed release (DR/EC) 40 mg PO DAILY trospium 20 mg tablet 20 mg PO DAILY Hold Instructions: Doctor's Order Rx Instructions: administer on an empty stomach primidone 50 mg tablet 150 mg PO DAILY atorvastatin 10 mg tablet 10 mg PO DAILY tolterodine 4 mg capsule,extended release 24hr 4 mg PO Q24H topiramate 25 mg tablet 50 mg PO BID Hold Instructions: Doctor's Order chlorthalidone 25 mg tablet 25 mg PO DAILY levothyroxine 50 mcg tablet 50 mcg PO DAILY gabapentin 100 mg capsule 100 mg PO TID sertraline 50 mg tablet 75 mg PO DAILY rivastigmine 9.5 mg/24 hour patch 24 hour 9.5 mg transdermal DAILY bupropion HCl [Wellbutrin XL] 150 mg tablet extended release 24 hr 150 mg PO DAILY docusate sodium [Col-Rite] 100 mg capsule 100 mg PO DAILY acetaminophen 500 mg tablet 1,000 mg PO Q6H PRN (Reason: fever or pain) ipratropium-albuterol 0.5 mg-3 mg(2.5 mg base)/3 mL Solution For Nebulization 3 ml inhalation Q4H PRN (Reason: Shortness Of Breath Or Wheezing) Qty: 90 0RF midodrine 5 mg Tablet 2.5 mg PO BID Qty: 0 0RF benzonatate 100 mg Capsule 200 mg PO Q8H PRN (Reason: cough) Qty: 1 0RF lactulose [Constulose] 10 gram/15 mL Solution 20 g PO BID Qty: 0 0RF Jevity 1.5 Tony 0.06 gram-1.5 kcal/mL Liquid 1 ea G-tube Q8H Qty: 237 0RF dexamethasone 4 mg tablet 4 mg PO DAILY 4 Days Qty: 4 0RF Additional Instructions: Resume previous medications care and fluids but do give her a little bit of extra fluids through the tube as needed Referrals: ERICK GALEAS DO [Physician] - 1 week Stand Alone Forms: Portal Instructions
--- NOTE | 2023-04-26 13:02 | XR_ITS ---
The [address] [address] Patient Name: SONYA SPEAR MRN: [id number] date: 1945 Sex: F Assigned Patient Location: ER Current Patient Location: ER Accession/Order Number: [id number] Exam Date: 04/26/2023 13:49 Report Date: 04/26/2023 14:02 At the request of: NATALIE LEO Procedure: XR chest 1V EXAM: XR chest 1V at 1344 hours HISTORY: Seizure COMPARISON: 02/21/2023 TECHNIQUE: AP upright portable chest x-ray FINDINGS: The various tubes and lines have been removed. The heart is not significantly enlarged and the vasculature is not distended. No acute infiltrate, effusion or pneumothorax is identified. Degenerative changes are seen throughout the shoulder girdle. XR/XR chest 1V IMPRESSION: No acute infiltrate or evidence of cardiac decompensation. Except for removal of the various tubes and lines, as well as clearing at the left lung base, the overall appearance is unchanged. Electronically authenticated by: MARLEE HAYES Date: 04/26/2023 14:02
[2023-04-26] MEDS: 0.9 % SODIUM CHLORIDE 1,000 ML 100 ML IV (13:10)
--- OUTSIDE RECORDS SUMMARY | 2023-04-26 13:34 | XMS_ITS | CCD ---
Author Name Unknown Address [address] [place] [address] Organization [facility] Care Team Providers Care Change Management Name Role Phone Jayant Tamezri Noemi Primary Care Provider [phone] TOÑA AVALOS Attending Unavailable Frubecka, Alfred Moreno Primary Care Unavailable ALFRED PAL Consulting Unavailable Gene Cline Admitting Unavailable Gene Cline Attending Unavailable Fruth, Alfred Tiffanie Primary Care Unavailable Gene Cline Attending Unavailable Fruth, Alfred Tiffanie Primary Care Unavailable FRUTH, ALFRED TIFFANIE Consulting Unavailable SATURNINO BRASHER Consulting Unavailable Gene Cline Attending Unavailable Fruth, Alfred Tiffanie Primary Care Unavailable FRUTH, ALFREDSANDRA MORENO Consulting Unavailable Gene Cline Attending Unavailable RINE, SYDNEE CLIFTON Primary Care Unavailable SYDNEE TAMEZ Consulting Unavailable Unavailable Unavailable Unavailable Yogesh Scott MD Unavailable Cristy Sydnee L Primary Care Provider Gilae, Sydnee L Primary Care Provider Cristy Sydnee L (Manager Research) Unavailable DR PHANI FRANCIS V Consulting Unavailable [...] Care Unavailable DO Bret Wade Attending Provider GilajuanRETA Sydnee L Primary Care Provider Rine, Sydnee L Primary Care Unavailable Bret Wade Attending Unavailabl e Bret Wade Admitting Unavailabl e Rine, Sydnee L Primary Care Unavailable Bret Wade Attending Unavailabl e Bret Wade Admitting Unavailabl e RINE, SYDNEE L Attending Unavailable SHAIKH CAMARA Referring Unavailable Geoff JOSEPH Attending Unavailable RAHAT VICK Referring Unavailable RINE, SYDNEE L Primary Care Unavailable SOTO BRADY Attending Unavailable SOTO BRADY Referring Unavailable RINE, SYDNEE L Primary Care Unavailable RINE, SYDNEE L Primary Care Unavailable PHIL DYER Attending Unavailable Allergies Allergy Classification Reported Allergen(s) Allergy Type Date of Onset Reaction(s) Facility Aluminum aspirin (3 sources) Aluminum aspirin Drug Allergy 7 [facility] formoterol / Mometasone (3 sources) formoterol / Mometasone Drug Allergy 9 [facility] NSAIDs (3 sources) NSAIDs Drug Allergy 6 [facility] Penicillins (antibiotic) (3 sources) Penicillins Drug Allergy 2 [facility] Risedronate (3 sources) Risedronate Drug Allergy 4 [facility] (14 sources) NSAIDs; Translations: [NSAIDs] Propensity to adverse reactions to drug 6 [place] (15 sources) Penicillins; Translations: [penicillins] Propensity to adverse reactions to drug 2 [place] (16 sources) Risedronate Drug Allergy 4 [place] (15 sources) Aluminum aspirin Drug Allergy 7 [place] (15 sources) formoterol / Mometasone Drug Allergy 9 [place] (1 source) formoterol / Mometasone; Translations: [Dulera] Drug Allergy [facility] (1 source) Penicillins Drug Allergy 2 [facility] (1 source) NSAIDs Drug allergy (disorder) 6 [facility] (1 source) Penicillins Drug allergy (disorder) 5 [facility] (3 sources) Non-steroidal anti-inflammator y agent Propensity to adverse reactions to drug 6 [facility] (3 sources) Penicillins Propensity to adverse reactions to drug 2 [facility] (1 source) Unable to Assess Drug allergy (disorder) 3 [facility] Medications Current Medications Medication Drug Class(es) Dates Sig (Normalized) Sig (Original) acetaminophen 500 mg oral tablet (20 sources) take 1 tablet by mouth every six hours as needed for pain acetaminophen (TYLENOL) 500 MG tablet Take 1 tablet by mouth every 6 hours as needed for Pain 0 Active take 1 tablet by tee [...] for Pain 12 tablet 0 06/20/2015 Active [id number] actuat albuterol 0.09 mg/actuat metered dose [...] of breath. amLODIPine 5 mg oral tablet (20 sources) Dihydropyridine Calcium Channel Fanny take 2 tablets by mouth once daily amLODIPine (NORVASC) 5 MG tablet Take 2 tablets by mouth daily 0 Active take 1 tablet by mouth once hero y amLODIPine (NORVASC) 10 mg tablet Take 10 mg by mouth once daily. 0 Active take 1 tablet by mouth once hero y amLODIPine (NORVASC) 5 MG tablet Take 5 mg by mouth daily 0 Active Comment on above: Take 10 mg by mouth once daily. atorvastatin 10 mg oral tablet (20 sources) HMG-CoA Reductase Inhibitor take 1 tablet by mouth once daily atorvastatin (LIPITOR) 10 MG tablet Take 1 tablet by mouth daily 0 Active Comment on above: Take 10 mg by mouth once daily. cholecalciferol 0.125 mg oral tablet (20 sources) Vitamin D Cholecalciferol (VITAMIN D3) 5000 units TABS Take by mouth daily 0 Active Comment on above: Take 5,000 Units by mouth once daily. 1 ml denosumab 60 mg/ml prefilled syringe (19 sources) RANK Ligand Inhibitor denosumab (PROLIA) 6 0 MG/ML SOSY SC injection Inject 1 mL into the skin Pt is to receive this TWICE a YEAR. 0 Active Comment on above: Inject 60 mg subcuta neously one time only. Twice yearly fludrocortisone acetate 0.1 mg oral tablet (19 sources) take 1 tablet by mouth once daily fludrocortisone (FLORINEF) 0.1 MG tablet Take 1 tablet by mouth daily 0 Active gabapentin 100 mg oral capsule (19 sources) Anti-epileptic Agent Start: 2018 take 1 capsule by mouth twice daily as needed gabapentin (NEURONTIN) 100 MG capsule Take 1 capsule by mouth 2 times daily as needed. 0 11/08/2018 Active Comment on above: Take 100 mg by mouth twice daily. 200 actuat levalbuterol 0.045 mg/actuat metered dose inhaler (1 source) beta2-Adrenergic Agonist Start: 2022 take 2 puff(s) by inhalation every six hours as needed for wheezing levalbuterol (XOPENEX HFA) 45 MCG/ACT inhaler Indications: Stage 2 moderate COPD by GOLD classification (HCC) Inhale 2 puffs into the lungs every 6 hours as needed for Wheezing 1 each 09/09/2022 Active levothyroxine sodium 0.05 mg oral tablet (1 source) l-Thyroxine Start: 2022 take 1 tablet by mouth once daily levothyroxine (SYNTHROID) 50 MCG tablet Take 1 tablet by mouth Daily 0 08/10/2022 Active Magnesium Chloride-Calcium (MAG-SR PLUS CALCIUM PO) (19 sources) Magnesium Chloride-Calcium (MAG-SR PLUS CALCIUM PO) Take by mouth daily 0 Active melatonin 3 mg oral tablet (16 sources) take 1 tablet by mouth once daily melatonin 3 MG TABS tablet Take 1 tablet by mouth nightly 0 Active take 3 tablets by mo uth once daily at bedtime melatonin 1 mg tablet Take 3 mg by mouth daily at bedtime. 0 Active Comment on above: Take 3 mg by mouth d aily at bedtime. Multiple Vitamin (MULTI-DAY) TABS (4 sources) Multiple Vitamin (MULTI-DAY) TABS Take by mouth No iron 0 Active NONFORMULARY (15 sources) NONFORMULARY Pt states to be taking Echinacea PRN 0 Active Normal saline (16 sources) Start: 06-11-19 15 saline nasal gel (AYR) GEL by Nasal route as needed for Congestion. 1 Tube 3 06/10/2014 Active 10 actuat olodaterol 0.0025 mg/actuat / tiotropium 0.0025 mg/actuat inhalation spray (1 source) Anticholinergic, beta2-Adrenergic Agonist Start: 09-10-19 23 tiotropium-olodaterol (STIOLTO RESPIMAT) 2.5-2.5 MCG/ACT AERS Indications: Stage 2 moderate COPD by GOLD classification ([facility]) Inhale 2 puffs into the lungs every morning 1 each 11 09/09/2022 Active omeprazole 20 mg delayed release oral capsule (12 sources) Proton Pump Inhibitor Start: 03-17-19 22 omeprazole (PRILOSEC) 20 MG delayed release capsule Comment on above: Take 20 mg by mouth once daily. potassium chloride 10 meq extended release oral capsule (20 sources) take 1 capsule by mouth once daily, then take 2 capsules by mouth once daily potassium chloride (MICRO-K) 10 MEQ extended release capsule Take 1 capsule by mouth daily 2 tabs daily 0 Active take 2 tablets by mouth once hannah ly potassium chloride (MICRO-K) 10 MEQ extended release capsule Take 10 mEq by mouth daily 2 tabs daily 0 Active take 20 mEq by mouth once daily potassium chloride (MICRO-K ORAL) Take 20 mEq by mouth once daily. 0 Active Comment on above: Take 20 mEq by mouth once daily. primidone 50 mg oral tablet (20 sources) Anti-epileptic Agent Start: 06-19-2021 End: 06-19-2022 take 4 tablets by mouth once daily at bedtime primidone (MYSOLINE) 50 mg tablet Indications: Essential tremor Take 4 tablets by mouth daily at bedtime. 360 tablet 3 06/19/2021 06/19/2022 Active Start: 11-04-2018 End: 06-19-2021 take 1 tablet by mouth once daily primidone (MYSOLINE) 50 MG tablet Take 1 tablet by mouth daily 0 11/04/2018 Active Comment on above: Take 4 tablets by mo uth daily at bedtime. Take 50 mg by mouth daily at bedtime. sertraline 25 mg oral tablet (20 sources) Serotonin Reuptake Inhibitor take 2 tablets by mouth once daily sertraline (ZOLOFT) 25 MG tablet Take 2 tablets by mouth daily 0 Active Comment on above: Take 50 mg by mouth once daily. sodium chloride [id number] meq/mg nasal gel (3 sources) Start: 015 saline nasal gel (AYR) GEL by Nasal route as needed for Congestion. 1 Tube 3 06/10/2014 Active 28 actuat tiotropium 0.96498 mg/actuat metered dose inhaler (2 sources) Anticholinergic Start: 019 tiotropium (SPIRIVA RESPIMAT) 1.25 MCG/ACT AERS inhaler Inhale 2 puffs into the lungs daily 1 Inhaler 5 12/08/2018 Active 24 hr tolterodine tartrate 4 mg extended release oral capsule (1 source) Cholinergic Muscarinic Antagonist Start: 023 tolterodine (DETROL LA) 4 MG extended release capsule 1 capsule daily 0 07/24/2022 Active traMADol hydrochloride 50 mg oral tablet (6 sources) Opioid Agonist take 1 tablet by mouth every six hours as needed for pain traMADol (ULTRAM) 50 MG tablet Take 50 mg by mouth every 6 hours as needed for Pain. 0 Active 7 actuat umeclidinium 0.0625 mg/actuat dry powder inhaler (11 sources) Anticholinergic Start: 022 take 1 puff(s) by inhalation once daily Umeclidinium Cushing (INCRUSE ELLIPTA) 62.5 MCG/INH AEPB Inhale 1 puff into the lungs daily 1 each 11 04/10/2021 Active Start: 12-15-2018 take 1 puff(s) by in halation once daily Umeclidinium Cushing (INCRUSE ELLIPTA) 62.5 MCG/INH AEPB Inhale 1 [...] ins tructed once daily. 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 Disorders of lipid metabolism (1 source) Mixed hyperlipidemia; Translations: [Mixed hyperlipidemia] Chronic E Codes: Fall (1 source) Fall; Translations: [Unspecified fall, initial encounter] Episodic Essential hypertension (4 sources) Intermittent hypertension ; Translations: [Labile hypertension] 06-08-2014 Chronic Osteoarthritis (1 source) Primary osteoarthritis, right shoulder; Translations: [PRIMARY OSTEOARTHRITIS RT SHOULDER] Onset: 2 Chronic Osteoporosis (1 source) Osteoporosis; Translations: [Osteoporosis, unspecified osteoporosis type, unspecified pathological fracture presence] Chronic Other acquired deformities (4 sources) Unspecified acquired deformity of right upper arm; Translations: [UNS ACQUIRED DEFORMITY RT UPPER ARM] Onset: 2 Episodic Other circulatory disease (20 sources) Orthostatic hypotension; Translations: [Orthostatic hypotension] 06-10-2014 Episodic Other circulatory disease (3 sources) Intermittent hypertension ; Translations: [Other specified symptoms and signs involving the circulatory and respiratory systems] 06-08-2014 Episodic Other circulatory disease (12 sources) Labile systemic arterial hypertension; Translations: [Other specified symptoms and signs involving the circulatory and respiratory systems] 06-08-2014 Episodic Other connective tissue disease (1 source) Pain in right arm; Translations: [Pain in right arm] Episodic Other connective tissue disease (1 source) Recurrent falls ; Translations: [Repeated falls] Episodic Other connective tissue disease (1 source) Repeated falls; Translations: [Repeated falls] Onset: 3 Episodic Other gastrointestinal disorders (19 sources) Constipation; Translations: [Constipation, unspecified] 06-12-2014 Episodic [...] Pleurodynia; Translations: [PLEURODYNIA] Onset: 2 Episodic Other nervous system disorders (1 source) Tremor; Translations: [Tremor, unspecified] Episodic Other nervous system disorders (1 source) Shuffling gait; Translations: [Other abnormalities of gait and mobility] Episodic Other nervous system disorders (1 source) Tremor, unspecified; Translations: [Tremor, unspecified] Onset: 3 Episodic Other nervous system disorders (1 source) Other abnormalities of gait and mobility; Translations: [Other abnormalities of gait and mobility] Onset: 3 Episodic Other non-traumatic joint disorders (2 sources) Shoulder pain; Translations: [Pain in right shoulder] Episodic Other non-traumatic joint disorders (1 source) Pain in right knee; Translations: [Pain in joint, lower leg] Episodic Other screening for suspected conditions (not mental disorders or infectious disease) (2 sources) Electrocardiogram abnormal; Translations: [Patient encounter status] Episodic Residual codes; unclassified (4 sources) Tobacco user; Translations: [Tobacco use] Onset: 5 06-10-2014 Chronic Residual codes; unclassified (1 source) Confusional state; Translations: [Disorientation, unspecified] Episodic Residual codes; unclassified (1 source) Disorientation, unspecified; Translations: [Disorientation, unspecified] Onset: 3 Episodic Screening and history of mental health and substance abuse codes (1 source) Tobacco use and exposure - finding; Translations: [Tobacco use] Onset: 5 06-10-2014 Chronic Unclassified (2 sources) See order; Translations: [See order] Onset: 4 Past or Other Problems Problem Classification Problem Date Documented Da te Episodic/Chronic Fluid and electrolyte disorders (19 sources) Hypokalemia; Translations: [Hypokalemia] Onset: 06-09-2014 06-09-2014 Episodic Immunizations and screening for infectious disease (5 sources) Encounter for immunization; Translations: [Encounter For Immunization] Onset: 05-23-2020 Episodic Other lower respiratory disease (1 source) Dyspnea on exertion; Translations: [Shortness of breath on exertion] Episodic Other lower respiratory disease (2 sources) Solitary pulmonary nodule; Translations: [SOLITARY PULMONARY NODULE] Onset: 09-04-2021 Episodic Other upper respiratory disease (19 sources) Bleeding from nose; Translations: [Epistaxis] Onset: 06-06-2014 06-06-2014 Episodic Residual codes; unclassified (3 sources) Preoperative state; Translations: [Pre-operative clearance] Onset: 11-22-2018 Resolved: 12-22-2018 12-22-2018 Episodic Residual codes; unclassified (15 sources) Tobacco use and exposure - finding; Translations: [Tobacco use] Onset: 06-10-2014 06-10-2014 Episodic Syncope (20 sources) Syncope; Translations: [Syncope and collapse] Onset: 11-23-2022 06-09-2014 Episodic Results Test Name Value Interpretation Reference Range Facility Consultation Noteon 02-26-19 24 Consultation Note [id number] .[id number] Normal [facility] Operative Reporton 4 Operative Report [id number] .[id number] Normal [facility] Brain Natri. Peptideon 11-23 Natriuretic peptide B (Bld) [Mass/Vol] 900 pg/mL High <300 [facility] Comment on above: Result Comment: An age-independent cutoff point of 300 pg/ml has a 98% negative predictive value excluding acute heart failure. Performed By: #### B HOSTLER HELPER #### [facility] [address] [place] [address] Temperature Regulator: Phani Patel MD CBC with Diffon 11-23-2022 Abs. Basophil 0.06 k/uL Normal 0.00-0.20 [facility] Comment on above: Performed By: #### C P, TROPI, CDP #### [facility] [address] [place], [place] [address] Temperature Regulator: Phani Patel MD Abs.Imm.Granulocyte 0.07 k/uL Normal 0.00-0.30 [facility] Comment on above: Performed By: #### C P, TROPI, CDP #### [facility] [address] [place] [address] [place] [address] Temperature Regulator: Phani Patel MD Abs.Neutrophil (Seg) 11.15 k/uL High 1.50-8.10 [facility] Comment on above: Performed By: #### C P, TROPI, CDP #### [address] [place] [address] Temperature Regulator: Phani Patel MD Basophils/100 WBC (Bld) 0 % Normal 0-2 [facility] Comment on above: Performed By: #### C P, TROPI, CDP #### [address] [place], [place] [address] Temperature Regulator: Phani Patel MD Eosinophils (Bld) [#/Vol] 0.12 10*3/uL Normal 0.00-0.44 [facility] Comment on above: Performed By: #### C P, TROPI, CDP #### [address] [place] [address] Temperature Regulator: Phani Patel MD Eosinophils/100 WBC (Bld) 1 % Normal 1-4 [facility] Comment on above: Performed By: #### C P, TROPI, CDP #### [address] [place], [facility] Temperature Regulator: Phani Patel MD Erythrocyte distribution width (RBC) [Ratio] 13.6 % Normal 11.8-14.4 [facility] Comment on above: Performed By: #### C P, TROPI, CDP #### [address] [place], [place] [address] Temperature Regulator: Phani Patel MD Hematocrit (Bld) [Volume fraction] 32.5 % Low 36.3-47.1 [facility] Comment on above: Performed By: #### C P TROPI, CDP #### [facility] [address] [place] [address] Dr[place], [place] [id number] Temperature Regulator: Phani Patel MD Hemoglobin (Bld) [Mass/Vol] 10.7 g/dL Low 11.9-15.1 [facility] Comment on above: Performed By: #### C P, TROPI, CDP #### [address] [place], [place] [id number] Temperature Regulator: Phani Patel MD Immature granulocytes/100 WBC (Bld) 1 % High 0 [facility] Comment on above: Performed By: #### C P TROPI, CDP #### [address] [place], [place] [address] Temperature Regulator: Phani Patel MD Lymphocytes (Bld) [#/Vol] 1.83 10*3/uL Normal 1.10-3.70 [facility] Comment on above: Performed By: #### C PLAURITAI, CDP #### [address] [place], [place] [id number] Temperature Regulator: Phani Patel MD Lymphocytes/100 WBC (Bld) 13 % Low 24-43 [facility] Comment on above: Performed By: #### C P, TROPI, CDP #### [facility] [address] [place] [address] Dr[place], [facility] Temperature Regulator: Phani Patel MD MCH (RBC) [Entitic mass] 31.4 pg Normal 25.2-33.5 [facility] Comment on above: Performed By: #### C P, TROPI, CDP #### [address] [place], [place] [id number] Temperature Regulator: Phani Patel MD MCHC (RBC) [Mass/Vol] 32.9 g/dL Normal 28.4-34.8 [facility] Comment on above: Performed By: #### ONEL Conti, CDP #### [address] [place], [place] [id number] Temperature Regulator: Phani Patel MD MCV (RBC) [Entitic vol] 95.3 fL Normal 82.6-102.9 [facility] Comment on above: Performed By: #### ONEL Conti, CDP #### [address] [place] [address] Temperature Regulator: Phani Patel MD Monocytes (Bld) [#/Vol] 0.70 10*3/uL Normal 0.10-1.20 [facility] Comment on above: Performed By: #### ONEL Conti, CDP #### [address] [place], [place] [id number] Temperature Regulator: Phani Patel MD Monocytes/100 WBC (Bld) 5 % Normal 3-12 [facility] Comment on above: Performed By: #### ONEL Conti, CDP #### [address] [place], [place] [id number] Temperature Regulator: Phani Patel MD Neutrophil (Seg) 80 % High 36-65 [facility] Comment on above: Performed By: #### ONEL Conti, CDP #### [address] [place], [place] [address]83 Temperature Regulator: Phani Patel MD NRBC Automated 0.0 per 100 WBC Normal 0.0 [facility] Comment on above: Performed By: #### ONEL Conti, CDP #### [address] [place], [place] [id number] Temperature Regulator: Phani Patel MD Platelet mean volume (Bld) [Entitic vol] 11.0 fL Normal 8.1-13.5 [facility] Comment on above: Performed By: #### C P, TROPI, CDP #### [facility] [address] [place], [place] [id number] Temperature Regulator: Phani Patel MD Platelets (Bld) [#/Vol] 217 10*3/uL Normal 138-453 [facility] Comment on above: Performed By: #### C P, TROPI, CDP #### [facility] [address] [place] [address] Temperature Regulator: Phani Patel MD RBC (Bld) [#/Vol] 3.41 10*6/uL Low 3.95-5.11 [facility] Comment on above: Performed By: #### C P, TROPI, CDP #### [facility] [address] [place], [place] [id number] Temperature Regulator: Phani Patel MD WBC (Bld) [#/Vol] 13.9 10*3/uL High 3.5-11.3 [facility] Comment on above: Performed By: #### C P, TROPI, CDP #### [address] [place] [address] Temperature Regulator: Phani Patel MD Comp Metabolic Profon 2022 Albumin [Mass/Vol] 3.9 g/dL Normal 3.5-5.2 [facility] Comment on above: Performed By: #### C P, TROPI, CDP #### [facility] [address] [place], [place] [id number] Temperature Regulator: Phani Patel MD Albumin/Glob Ratio 1.3 Normal 1.0-2.5 [facility] Comment on above: Performed By: #### C P, TROPI, CDP #### [facility] [address] [place] [address] Temperature Regulator: Phani Patel MD Alkaline Phos 62 U/L Normal 35-104 [facility] Comment on above: Performed By: #### C P, TROPI, CDP #### [facility] [address] [place], [place] [id number] Temperature Regulator: Phani Patel MD ALT [Catalytic activity/Vol] 13 U/L Normal 5-33 [facility] Comment on above: Performed By: #### C P, TROPI, CDP #### [facility] [address] [place], [place] [id number] Temperature Regulator: Phani Patel MD Anion gap [Moles/Vol] 13 mmol/L Normal 9-17 [facility] Comment on above: Performed By: #### C P, TROPI, CDP #### [facility] [address] [place], [place] [id number] Temperature Regulator: Phani Patel MD AST [Catalytic activity/Vol] 17 U/L Normal <32 [facility] Comment on above: Performed By: #### C P, TROPI, CDP #### [facility] [address] [place], [place] [id number] Temperature Regulator: Phani Patel MD Bilirubin [Mass/Vol] 0.2 mg/dL Low 0.3-1.2 [facility] Comment on above: Performed By: #### C P, TROPI, CDP #### [facility] [address] [place] [address] [place], [place] [id number] Temperature Regulator: Phani Patel MD BUN/CRE Ratio 13 Normal 9-20 [facility] Comment on above: Performed By: #### C P, TROPI, CDP #### [facility] [address] [place] [address] Temperature Regulator: Phani Patel MD Calcium [Mass/Vol] 8.6 mg/dL Normal 8.6-10.4 [facility] Comment on above: Performed By: #### C P, TROPI, CDP #### [facility] [address] [place], [place] [id number] Temperature Regulator: Phani Patel MD Chloride [Moles/Vol] 104 mmol/L Normal 98-107 [facility] Comment on above: Performed By: #### C P, TROPI, CDP #### [facility] [address] [place], [place] [id number] Temperature Regulator: Phani Patel MD CO2 [Moles/Vol] 21 mmol/L Normal 20-31 [facility] Comment on above: Performed By: #### C P, TROPI, CDP #### [facility] [address] [place], [place] [id number] Temperature Regulator: Phani Patel MD Creatinine [Mass/Vol] 1.1 mg/dL High 0.5-0.9 [facility] Comment on above: Performed By: #### C P TROPI, CDP #### [facility] [address] [place], [place] [id number] Temperature Regulator: Phani Patel MD GFR/1.73 sq M.predicted among non-blacks MDRD (S/P/Bld) [Vol rate/Area] 51 mL/min/{1.73_m2} Low >60 [facility] Comment on above: Result Comment: These results [...] renal tubular secretion. Performed By: #### C P, TROPI, CDP #### [facility] [address] [place] [address] Temperature Regulator: Phani Patel MD Glucose [Mass/Vol] 130 mg/dL High 70-99 [facility] Comment on above: Performed By: #### C P, TROPI, CDP #### [facility] [address] [place], [place] [id number] Temperature Regulator: Phani Patel MD Potassium [Moles/Vol] 3.6 mmol/L Low 3.7-5.3 [facility] Comment on above: Performed By: #### C P, TROPI, CDP #### [facility] [address] [place], [place] [phone] Temperature Regulator: Phani Patel MD Protein [Mass/Vol] 6.8 g/dL Normal 6.4-8.3 [facility] Comment on above: Performed By: #### C P, TROPI, CDP #### [facility] [address] [place] [address] [place]. [place], [place] [id number] Temperature Regulator: Phani Patel MD Sodium [Moles/Vol] 138 mmol/L Normal 135-144 [facility] Comment on above: Performed By: #### C P, TROPI, CDP #### [facility] [address] [place] [address] Dr. [place], [place] [phone] Temperature Regulator: Phani Patel MD Urea nitrogen [Mass/Vol] 14 mg/dL Normal 8-23 [facility] Comment on above: Performed By: #### C P, TROPI, CDP #### [facility] [address] [place] [address] Dr. [place], [place] [phone] Temperature Regulator: Phani Patel MD Troponinon 11-23-2022 Troponin, High Sens 14 ng/L Normal 0-14 [facility] Comment on above: Result Comment: High Sensitivity Troponin values cannot be compared with other Troponin methodologies. Performed By: #### C P, TROPI, CDP #### [facility] [address] [place] [address] Temperature Regulator: Phani Patel MD XR CHEST PORTABLEon 11-24-19 [...] Matt Zarco MD 11/23/22 Final result Normal [facility] CT CHEST LOW DOSE (LDCT)on 0 11-06-2022 [...] Flaco Salgado DO 11/06/22 Final result Normal [facility] Creatinine (Bld) [Mass/Vol]O rdered By: Delfino Wade on 04-07-2022 Creatinine [Mass/Vol] 1.1 mg/dL 0.6-1.3 [facility] Comment on above: ER/ESD physician is notified/shown all ISTAT results.Critical values may be confirmed by laboratory testing ifdeemed necessary by ER attending doctor. ISTAT XRay CREon 04-07-2022 Creatinine [Mass/Vol] 1.1 mg/dL Normal 0.6-1.3 [facility] Comment on above: Result Comment: ER/E SD physician is notified/shown all ISTAT results. Critical values may be confirmed by laboratory testing if deemed necessary by ER attending doctor. Performed By: #### I SCRE #### [address] Point of Care testing , ISTAT GFR ( 58 [facility] Comment on above: Result Comment: GFR estimated reference range: According to KDOQI guidelines, <60 ml/min/1.73m2 is sufficient to diagnose a patient with chronic kidney disease. PERFORMED BY: [place] [address] PATHOLOGIST CLINICAL SERVICES SPECIALIST RAJ AGUILAR M.D. Performed By: #### I SCRE #### [address] Point of Care testing , ISTAT GFR (Non- Am 48 [facility] Comment on above: Performed By: #### I SCRE #### [address] Point of Care testing , MR angio neck wo/w conon MR angio neck wo/w con [facility] Main [place] [address] [place] [address] MRI Report Signed Patient: Stephanie Spear MR#: [id number] 32 : 1945 Acct:[id number] Age/Sex: 77 / F ADM Date: 04/07/22 Loc: MR Room: Type: [facility] Attending Dr: Bret Wade DO Copies to: Delfino Wade DO Ordering Provider: Delfino Wade DO Date of Service: 04/07/22 MR/MR angio neck wo/w con: I63.9 MRA OF THE CAROTID ARTERIES WITHOUT AND WITH INTRAVENOUS CONTRAST CLINICAL DATA: Balance issues. COMPARISON: None Ykip-nm-catjgq imaging of the carotid arteries was performed [...] Kierra Field M.D.04/07/2022 5:33 PM Dictation Location: [place] [address] Transcribed By: [facility] 04/07/221732 Dictated By: Kierra Field MD 04/07/221726 Signed By: 04/07/221732 Normal [facility] No Panel InformationOrdered By: Delfino Wade on 04-07-2022 POC Estimated GFR 58 [facility] Comment on above: GFR estimated refere nce range: According to KDOQI guidelines, <60 ml/min/1.73m2 is sufficient to diagnose a patient with chronic kidney disease. POC Estimated GFR Non- Amer 48 [facility] MR angio MR brain w/oon 03-25 MR angio MR brain w/o [facility] [place] [address] MRI Report Signed Patient: Stephanie Spear MR#: [id number] [birth year] : 1945 Acct:[id number] Age/Sex: 77 / F ADM Date: 04/03/22 Loc: MR Room: Type: [facility] Attending Dr: Bret Wade DO Copies to: Delfino Wade DO Ordering Provider: Delfino Wade DO Date of Service: 04/03/22 MR/MR angio MR brain w/o: I63.9 MRI/MRA BRAIN WITHOUT CONTRAST CLINICAL DATA: Loss of balance, tremors at the hands and memory issues. COMPARISON: None Multiecho, multiplanar imaging of the brain was performed without contrast. 3-D kvun-er-kkrntn imaging of the wiyot of [place] was [...] Kierra Field M.D.04/03/2022 5:37 PM Dictation Location: [place] [address] Transcribed By: [facility] 04/03/22 173 Dictated By: Kierra Field MD 04/03/22 172 Signed By: 04/03/221736 [facility] MRI BRAIN W WO CONTRASTon MRI BRAIN [...] MD 03/05/22 Final result Normal [facility] 1. Nonspecific small 4 mm linear focus [...] these findings at 2:40 PM on 03/05/2022. [facility] Phani Newton MD - 03/05/2022 EXAM: [...] changes of the supratentorial white matter. : [place] Phone: Radiology Study observation (narrative) [place] Phone: MRI BRAIN W WO CONTRASTOrder ed By: Phani Doll on 03-05-2022 [place] Phone: Basic Metabolic Panelon 02-22 Anion gap [Moles/Vol] 9 mmol/L 9 - 17 mmol/L [facility] Calcium [Mass/Vol] 8.6 mg/dL 8.6 - 10. 4 mg/dL [facility] [employer] Chloride [Moles/Vol] 105 mmol/L 98 - 10 7 mmol/L [facility] CO2 [Moles/Vol] 26 mmol/L 20 - 31 mmol/L [facility] Creatinine [Mass/Vol] 0.93 mg/dL High 0.50 - 0.90 mg/dL [facility] [employer] GFR/1.73 sq M.predicted MDRD (S/P/Bld) [Vol rate/Area] - PINF [facility] Comment on above: Effective Nov 24, 2021 [...] [Mass/Vol] 83 mg/dL 70 - 99 mg/dL [facility] Interpretation and review of laboratory results Abnormal [facility] [employer] Potassium [Moles/Vol] 3.6 mmol/L Low 3.7 - 5.3 mmol/L [facility] Sodium [Moles/Vol] 140 mmol/L 135 - 144 mmol/L [facility] Urea nitrogen (BldV) [Mass/Vol] 15 mg/dL 8 - 23 mg/dL [facility] Urea nitrogen/Creatinine (Bld) [Mass ratio] 16 9 - 20 [facility]SVisionarityFIRSTHE[facility] RICHMONDVisionarityUN[facility] CNOVchelly 01-30-2022 CNOV Office Visit (NRESFV ) STEPHANIE SPEAR ([id number]) 1945 F Date Time Provider Department 01/30/22 10:00 AM SHAYNE CONDE NRESFV During your visit today, we recorded the following information about you: Pulse Blood pressure Weight Height 72/minute 159/84 52.2 kg 1.613 m Shayne T DO [place] 02/02/2022 11:04 AM Signed [facility] - FOLLOW UP EVALUATION Shayne Pulido [place] [address] [facility] [address] Stephanie Spear is a 76 year old [...] Left pathological reflexes: Greyson's absent. Coordination Right: Giisim-lb-rbiq normal. Rapid alternating movement normal.Left: Wshzqs-if-ynhl normal. Rapid alternating movement normal. Gait The [...] examination. Ther (more content not included)... Normal [facility] XR KNEE RIGHT (3 VIEWS)on No acute findings. [facility] EXAMINATION: THREE XRAY VIEWS OF THE RIGHT KNEE 12/08/2021 2:35 pm COMPARISON: None. HISTORY: ORDERING SYSTEM PROVIDED HISTORY: Acute pain of right knee FINDINGS: Knee alignment anatomic. No acute osseous abnormality. Generalized osteopenia. No significant joint effusion. Joint spaces preserved. Soft tissues unremarkable. [facility] Flaco Salgado DO - 12/08/2021 EXAMINATION: THREE XRAY VIEWS OF THE RIGHT KNEE 12/08/2021 2:35 pm COMPARISON: None. HISTORY: ORDERING SYSTEM PROVIDED HISTORY: Acute pain of right knee FINDINGS: Knee alignment anatomic. No acute osseous abnormality. Generalized osteopenia. No significant joint effusion. Joint spaces preserved. Soft tissues unremarkable. IMPRESSION: No acute findings. [place] Phone: Radiology Study observation (narrative) [place] Phone: XR KNEE RIGHT (3 VIEWS)Order ed By: Flaco Salgado on 12-08-2021 [place] Phone: [facility] DIGITAL SCREEN SELF REFERRAL W OR WO CAD BILATERALon 10-16-2021 No mammographic evidence of malignancy BIRADS: BIRADS - CATEGORY 1 Negative. Normal interval follow-up is recommended in 12 months. OVERALL ASSESSMENT - NEGATIVE A letter of notification will be sent to the patient regarding the results. [employer] recommends annual mammograms for women 40 years and older. [facility] EXAMINATION: SCREENING DIGITAL BILATERAL MAMMOGRAM [...] concerning grouping of microcalcification in either breast. [facility] Radiology Study observation (narrative) [place] Phone: [facility] DIGITAL SCREEN SELF REFERRAL W OR WO CAD BILATERALOrdered By: Flaco Salgado on 10-16-2021 [place] Phone: CT CHEST WO CONon 09-04-2021 CT [...] by: PHANI FRANCIS Date: 2021-09-04 07:26 Normal [facility] CT SHOULDER RT WO CONon 08-22 [...] Severe osteoarthritis of the glenohumeral joint with lrmn-ta-cqbq articulation. Marginal osteophyte formation. High riding humeral head with remodeling of the acromial process consistent with a chronic rotator cuff tear. SOFT TISSUES: Negative. No visible soft tissue swelling. EFFUSION: None visible. 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 [facility] EXAMINATION: XRAY VIEWS OF THE RIGHT RIBS 08/26/2021 3:00 pm COMPARISON: July 15, 2020 HISTORY: ORDERING SYSTEM PROVIDED HISTORY: Pain in rib FINDINGS: Lungs are clear. No pneumothorax or pleural effusion. Cardiac and mediastinal silhouettes unremarkable. Generalized osteopenia. No acute fracture. Specifically, no acute right rib fracture. [facility] Flaco Salgado DO - 08/27/2021 EXAMINATION: XRAY VIEWS OF THE RIGHT RIBS 08/26/2021 3:00 pm COMPARISON: July 15, 2020 HISTORY: ORDERING SYSTEM PROVIDED HISTORY: Pain in rib FINDINGS: Lungs are clear. No pneumothorax or pleural effusion. Cardiac and mediastinal silhouettes unremarkable. Generalized osteopenia. No acute fracture. Specifically, no acute right rib fracture. IMPRESSION: No acute findings. [facility] Work Phone: XR RIBS RIGHT (2 VIEWS)Order ed By: Flaco Salgado on 08-27-2021 [facility] [employer] Work Phone: XR SHOULDER RIGHT (MIN 2 VIE WS)on 08-27-2021 Marked degenerative and or post traumatic/postsurgica l changes in the right shoulder. No evidence of significant change when compared to the study of July 15, 2020. [facility] EXAMINATION: THREE XRAY VIEWS OF [...] humeral head may represent calcific tendinitis/tendinosis . [facility] Blanquita Bowman MD - 08/27/2021 EXAMINATION: THREE XRAY VIEWS [...] to the study of July 15, 2020. [place] Phone: XR SHOULDER RIGHT (MIN 2 VIE WS)Ordered By: Blanquita Richmond on 08-27-2021 [place] Phone: XR RIBS RIGHT (2 VIEWS)on Radiology Study observation (narrative) [place] Phone: XR SHOULDER RIGHT (MIN 2 VIE WS)on 08-26-2021 Radiology Study observation (narrative) [place] Phone: Calciumon 06-26-2021 Calcium [Mass/Vol] 9.6 mg/dL Normal 8.6-10.2 [place] [facility] [employer] Comment on above: Performed By: #### C LISA BENJAMIN #### [facility] [address] [place] [id number] Creatinineon 06-26-2021 Creatinine [Mass/Vol] 0.7 mg/dL Normal 0.6-1.4 [facility] Comment on above: Performed By: #### LISA JIMENEZ #### [facility] [address] [place], [place] [id number] eGFRAA 95 mL/min/1.73m2 Normal >60 [facility] Specialist Comment on above: Performed By: #### LISA JIMENEZ #### [facility] [address] [place], [place] [id number] eGFRNAA 78 mL/min/1.73m2 Normal >60 [facility] Specialist Comment on above: Performed By: #### LISA JIMENEZ #### [facility] [address] [place], [place] [id number] CNOVon 06-19-2021 CNOV Office Visit (NRESAV ) STEPHANIE SPEAR ([id number]) 1945 F Date Time Provider Department 06/19/21 4:00 PM SHAYNE CONDE NRSARAH During your visit today, we recorded the following information about you: Pulse Blood pressure 69/minute 157/75 Shayne Conde DO 06/27/2021 4:48 PM Signed [facility] - NEW PATIENT EVALUATION Sydnee Tamez MD [address] [facility] [address] Stephanie Spear is a 76 year old [...] General Medic (more content not included)... Normal [facility] CBC with Auto Differentialon 05-20-2021 Absolute Eos # 0.35 [facility] Immature Granulocyte 0.04 [facility] Absolute Lymph # 2.26 [facility] Absolute [place] # 0.63 [facility] Basophils (Bld) [#/Vol] 0.08 10*3/uL [facility] Basophils/100 WBC (Bld) 1 % 0 - 2 % [facility] Eosinophils/100 WBC (Bld) 3 % 1 - 4 % [facility] Hematocrit (Bld) [Volume fraction] 39.4 % 36.3 - 47.1 % [facility] Hemoglobin.gastrointes tinal spec 1 Ql (Stl) 12.7 g/dL 11.9 - 15.1 g/dL [facility] Immature granulocytes/100 WBC (Bld) 0 % 0 [facility] Interpretation and review of laboratory results Abnormal [facility] Lymphocytes/100 WBC (Bld) 19 % Low 24 - 43 % [facility] MCH (RBC) [Entitic mass] 30.9 pg 25.2 - 33.5 pg [facility] MCHC (RBC) [Mass/Vol] 32.2 g/dL 28.4 - 34.8 g/dL [facility] MCV (RBC) [Entitic vol] 95.9 fL 82.6 - 102.9 fL [facility] Monocytes/100 WBC (Bld) 5 % 3 - 12 % [facility] NRBC Automated 0.0 0.0 per 100 WBC [facility] Platelet distribution width (Bld) [Ratio] 13.9 % 11.8 - 14.4 % [facility] Platelet mean volume (Bld) [Entitic vol] 10.7 fL 8.1 - 13.5 fL [facility] Platelets (Bld) [#/Vol] 271 10*3/uL [facility] RBC (Bld) [#/Vol] 4.11 10*6/uL 3.95 - 5.1 1 m/uL [facility] Segmented neutrophils/100 WBC (Bld) 72 % High 36 - 65 % [facility] Segs Absolute 8.72 High [facility]alt [facility] WBC (Bld) [#/Vol] 12.1 10*3/uL High [facility] 6 Minute Walk Teston 022 Distance Walked ft [facility] Work Phone: [place] [phone] Patient Name: Stephanie Spear 1945 A home oxygen evaluation has been completed. Patient arrived on room air with a walker at this time. SpO2 was 97 % on room air at rest. Patient was walked for 6 minutes. SpO2 was 98 % on room air during walking. Patient does not qualify for home oxygen at this time. [facility] Work Phone: [facility] Work Phone: Calciumon 04-23-2021 Calcium [Mass/Vol] 9.3 mg/dL Normal 8.6-10.2 [facility] [employer] Comment on above: Performed By: #### C A, VITD, CREA #### [facility] [address] [place], [place] [id number] Creatinineon 04-23-2021 Creatinine [Mass/Vol] 0.7 mg/dL Normal 0.6-1.4 [facility] Specialist Comment on above: Performed By: #### C A, VITD, CREA #### [facility] [address] [place], [place] [id number] eGFRAA 96 mL/min/1.73m2 Normal >60 [facility] Specialist Comment on above: Performed By: #### C A, VITD, CREA #### [facility] [address] [place], [place] [id number] eGFRNAA 80 mL/min/1.73m2 Normal >60 [facility] Specialist Comment on above: Performed By: #### C A, VITD, CREA #### [facility] [address] [place], [place] [id number] Vitamin D 25-OHon 04-23-2021 VIT D 25 OH 41 ng/ml Normal >29 [facility] Comment on above: Result Comment: Sury min D Status Deficiency <20 ng/mL Insufficiency 20-29 ng/mL Optimal 30-100 ng/mL Possible Toxicity >=150 ng/mL Performed By: #### C SOURAV, [place] #### [facility] [address] [place], [place] [id number] PULMONARY FUNCTION (450)on 0 04-04-2021 PULMONARY FUNCTION (450) [facility] [address] [place] [address] PULMONARY FUNCTION PATIENT NAME: STEPHANIE SPEAR : 1945 MED REC NO: [id number] ROOM: ACCOUNT NO: [id number] ADMIT DATE: 04/03/2021 PROVIDER: Corey Balderas DATE [...] 4. The DLCO is moderately decreased. COREY JOHNATHAN MARILU/V_TTRAD_I Doc#: [id number] CC: Normal [facility] GYEX-[id number]-[id number] 04-03-2021 SARS-CoV-2 (COVID-19) RNA DANIEL+probe Ql (Unsp spec) Not detected Normal [facility] Comment on above: Result Comment: Rapid NAAT: [...] management decisions. Fact sheet for Healthcare Providers: https://www.fda.gov/media/784988/download Fact sheet for Patients: https://www.fda.gov/media/700477/download Methodology: Isothermal Nucleic Acid Amplification Performed By: #### C OVRB #### [facility] [address] [place] [address] Temperature Regulator: Phani Patel MD Urinalysison 03-12-2021 Bilirubin Urine Negative NEGATIVE [facility] Color, UA Yellow Yellow [facility] Glucose, Ur Negative NEGATIVE [facility] Ketones Ql (U) Negative NEGATIVE [facility] Leukocyte esterase Test strip Ql (U) Negative NEGATIVE [facility] Nitrite, Urine Negative NEGATIVE [facility] pH, UA 7.0 [facility] Protein, UA Negative NEGATIVE [facility] Specific Sabael, UA 1.010 [facility] Turbidity UA Clear Clear [facility] Urinalysis Comments NOT REPORTED [facility] Urine Hgb Negative NEGATIVE [facility] Urobilinogen, Urine Normal Normal [facility] Complete Blood Count with Au to Diffon 02-20-2021 Basophils (Bld) [#/Vol] 0.05 10*3/uL Normal 0.00-0.20 [facility] [employer] Comment on above: Performed By: #### C BCAD, VITD, FT4, TSH, CMP, LIPD #### [facility] [address] [place], [place] [id number] Basophils/100 WBC (Bld) 0.6 % Normal [facility] [employer] Comment on above: Performed By: #### C BCAD, VITD, FT4, TSH, CMP, LIPD #### [facility] [address] [place], [place] [id number] Eosinophils (Bld) [#/Vol] 0.27 10*3/uL Normal 0.02-0.50 [facility] [employer] Comment on above: Performed By: #### C BCAD, VITD, FT4, TSH, CMP, LIPD #### [facility] [address] [place], [place] [id number] Eosinophils/100 WBC (Bld) 3.1 % Normal [facility] Specialist Comment on above: Performed By: #### C BCAD, VITD, FT4, TSH, CMP, LIPD #### [facility] [address] [place], [place] [id number] Erythrocyte distribution width (RBC) [Ratio] 14.2 % Normal 11.0-15.0 [facility] Specialist Comment on above: Performed By: #### C BCAD, VITD, FT4, TSH, CMP, LIPD #### [facility] [address] [place], [place] [id number] Hematocrit (Bld) [Volume fraction] 39.4 % Normal 35.0-47.0 [facility] Specialist Comment on above: Performed By: #### C BCAD, VITD, FT4, TSH, CMP, LIPD #### [facility] [address] [place], [place] [id number] Hemoglobin (Bld) [Mass/Vol] 12.7 g/dL Normal 11.6-15.5 [facility] Specialist Comment on above: Performed By: #### C BCAD, VITD, FT4, TSH, CMP, LIPD #### [facility] [address] [place], [place] [id number] Lymphocytes (Bld) [#/Vol] 2.0 10*3/uL Normal 0.9-3.9 [facility] Comment on above: Performed By: #### C BCAD, VITD, FT4, TSH, CMP, LIPD #### [facility] [address] [place], [place] [id number] Lymphocytes/100 WBC (Bld) 22.1 % Normal [facility] Comment on above: Performed By: #### C BCAD, VITD, FT4, TSH, CMP, LIPD #### [facility] [address] [place], [place] [id number] MCH (RBC) [Entitic mass] 29.6 pg Normal 27.0-33.0 [facility]ist Comment on above: Performed By: #### C BCAD, VITD, FT4, TSH, CMP, LIPD #### [facility] [address] [place], [place] [id number] MCHC (RBC) [Mass/Vol] 32.2 g/dL Normal 32.0-36.0 [facility] Comment on above: Performed By: #### C BCAD, VITD, FT4, TSH, CMP, LIPD #### [facility] [address] [place], [place] [id number] MCV (RBC) [Entitic vol] 92 fL Normal 80-100 [facility]ist Comment on above: Performed By: #### C BCAD, VITD, FT4, TSH, CMP, LIPD #### [facility] [address] [place], [place] [id number] Monocytes (Bld) [#/Vol] 0.7 10*3/uL Normal 0.2-0.9 [facility] Comment on above: Performed By: #### C BCAD, VITD, FT4, TSH, CMP, LIPD #### [facility] [address] [place], [place] [id number] Monocytes/100 WBC (Bld) 7.8 % Normal [facility] Comment on above: Performed By: #### C BCAD, VITD, FT4, TSH, CMP, LIPD #### [facility] [address] [place], [place] [id number] Neutrophils (Bld) [#/Vol] 5.8 10*3/uL Normal 1.5-7.8 [facility] Specialist Comment on above: Performed By: #### C BCAD, VITD, FT4, TSH, CMP, LIPD #### [facility] [address] [place], [place] [id number] Neutrophils/100 WBC (Bld) 66.2 % Normal [facility] Comment on above: Performed By: #### C BCAD, VITD, FT4, TSH, CMP, LIPD #### [facility] [address] [place], [place] [id number] Platelet mean volume (Bld) [Entitic vol] 11.60 fL Normal 7.50-12.[address] [facility] Comment on above: Performed By: #### C BCAD, VITD, FT4, TSH, CMP, LIPD #### [facility] [address] [place], [place] [id number] Platelets (Bld) [#/Vol] 291 10*3/uL Normal 140-400 [facility] [employer] Comment on above: Performed By: #### C BCAD, VITD, FT4, TSH, CMP, LIPD #### [facility] [address] [place], [place] [id number] RBC (Bld) [#/Vol] 4.29 10*6/uL Normal 3.90-5.20 [facility] [employer] Comment on above: Performed By: #### C BCAD, VITD, FT4, TSH, CMP, LIPD #### [facility] [address] [place], [place] [id number] RDW-SD 47.6 fL Normal 37.0-50.0 [facility] [employer] Comment on above: Performed By: #### C BCAD, VITD, FT4, TSH, CMP, LIPD #### [facility] [address] [place], [place] [id number] WBC (Bld) [#/Vol] 8.8 10*3/uL Normal 3.8-11.0 [facility] [employer] Comment on above: Performed By: #### C BCAD, VITD, FT4, TSH, CMP, LIPD #### [facility] [address] [place], [place] [id number] Comprehensive Metabolic Pane [facility] 02-20-2021 Albumin [Mass/Vol] 4.1 g/dL Normal 3.6-5.1 [facility] [employer] Comment on above: Performed By: #### C BCAD, VITD, FT4, TSH, CMP, LIPD #### [facility] [address] [place], [place] [id number] Albumin/Globulin [Mass ratio] 1.5 {ratio} Normal 1.0-2.5 [facility] [employer] Comment on above: Performed By: #### C BCAD, VITD, FT4, TSH, CMP, LIPD #### [facility] [address], [place] [id number] ALP [Catalytic activity/Vol] 74 U/L Normal 35-119 [place] [facility] [employer] Comment on above: Performed By: #### C BCAD, VITD, FT4, TSH, CMP, LIPD #### [facility] [address], [place] [id number] ALT [Catalytic activity/Vol] 10 U/L Normal 6-33 [facility] Comment on above: Result Comment: 01/22 Female reference range changed. Performed By: #### C BCAD, VITD, FT4, TSH, CMP, LIPD #### [facility] [address], [place] [id number] Anion gap [Moles/Vol] 15 mmol/L Normal 12-20 [facility] Comment on above: Result Comment: Effe ctive 02/27/2019 reference range changed. Performed By: #### C BCAD, VITD, FT4, TSH, CMP, LIPD #### [facility] [address], [place] [id number] AST [Catalytic activity/Vol] 18 U/L Normal 9-34 [facility] Comment on above: Performed By: #### C BCAD, VITD, FT4, TSH, CMP, LIPD #### [facility] [address], [place] [id number] Bilirubin [Mass/Vol] 0.36 mg/dL Normal 0.30-1.20 [facility] Comment on above: Performed By: #### C BCAD, VITD, FT4, TSH, CMP, LIPD #### [facility] [address], [place] [id number] BUN/CREA 17 Ratio Normal 6-22 [facility] Comment on above: Performed By: #### C BCAD, VITD, FT4, TSH, CMP, LIPD #### [facility] [address], [place] [id number] Calcium [Mass/Vol] 9.2 mg/dL Normal 8.6-10.2 [facility] Comment on above: Performed By: #### C BCAD, VITD, FT4, TSH, CMP, LIPD #### [facility] [address], [place] [id number] Chloride [Moles/Vol] 102 mmol/L Normal 98-107 [facility] Comment on above: Performed By: #### C BCAD, VITD, FT4, TSH, CMP, LIPD #### [facility] [address], [place] [id number] CO2 [Moles/Vol] 25 mmol/L Normal 20-31 [facility] Comment on above: Performed By: #### C BCAD, VITD, FT4, TSH, CMP, LIPD #### [facility] [address], [place] [id number] Creatinine [Mass/Vol] 0.7 mg/dL Normal 0.6-1.4 [facility] Comment on above: Performed By: #### C BCAD, VITD, FT4, TSH, CMP, LIPD #### [facility] [address], [place] [id number] eGFRAA 103 mL/min/1.73m2 Normal >60 [facility] Comment on above: Performed By: #### C BCAD, VITD, FT4, TSH, CMP, LIPD #### [facility] [address], [place] [id number] eGFRNAA 85 mL/min/1.73m2 Normal >60 [facility] Comment on above: Performed By: #### C BCAD, VITD, FT4, TSH, CMP, LIPD #### [facility] [address], [place] [id number] Globulin (S) [Mass/Vol] 2.7 g/dL Normal 1.9-3.7 [facility] Comment on above: Performed By: #### C BCAD, VITD, FT4, TSH, CMP, LIPD #### [facility] [address], [place] [id number] Glucose [Mass/Vol] 80 mg/dL Normal 65-99 [facility] Comment on above: Result Comment: For FASTING Glucose --- ADA reference ranges: Normal 65-99 mg/dl Prediabetes 100-125 Diabetes >/= 126 Performed By: #### C BCAD, VITD, FT4, TSH, CMP, LIPD #### [facility] [address] [place], [place] [id number] Potassium [Moles/Vol] 3.8 mmol/L Normal 3.5-5.5 [facility] Comment on above: Performed By: #### C BCAD, VITD, FT4, TSH, CMP, LIPD #### [facility] [address], [place] [id number] Protein [Mass/Vol] 6.8 g/dL Normal 6.1-8.1 [facility] [place] [facility] [employer] [facility] Comment on above: Performed By: #### C BCAD, VITD, FT4, TSH, CMP, LIPD #### [facility] [address], [place] [id number] Sodium [Moles/Vol] 138 mmol/L Normal 135-146 [place] [place] [facility] [employer] [facility] Comment on above: Performed By: #### C BCAD, VITD, FT4, TSH, CMP, LIPD #### [facility] [address], [place] [id number] Urea nitrogen [Mass/Vol] 11 mg/dL Normal 7-25 [facility] [employer] Comment on above: Performed By: #### C BCAD, VITD, FT4, TSH, CMP, LIPD #### [facility] [address], [place] [id number] Free T4on 02-20-2021 Free T4 [Mass/Vol] 1.28 ng/dL Normal 0.80-1.80 [facility] [employer] Comment on above: Performed By: #### C BCAD, VITD, FT4, TSH, CMP, LIPD #### [facility] [address], [place] [id number] Lipid Panelon 02-20-2021 Cholesterol [Mass/Vol] 164 mg/dL Normal 125-200 [facility] Comment on above: Result Comment: Low risk < 200mg/dL Borderline risk 201-239 mg/dl High risk > or equal to 240 Performed By: #### C BCAD, VITD, FT4, TSH, CMP, LIPD #### [facility] [address], [place] [id number] Cholesterol in HDL [Mass/Vol] 57 mg/dL Normal >40 [facility] [employer] Comment on above: Result Comment: High Cardiovascular Risk HDL <40 mg/dL Low Cardiovascular Risk HDL > or equal to 60 mg/dl Performed By: #### C BCAD, VITD, FT4, TSH, CMP, LIPD #### [facility] [address], [place] [id number] Cholesterol in LDL [Mass/Vol] 92 mg/dL Normal [facility] [employer] Comment on above: Result Comment: LDL ATP III CLASSIFICATION LDL less than 100 mg/dl Optimal LDL 100-129 mg/dl Near or above optimal LDL 130-159 Borderline high LDL 160-189 High LDL greater than 189 mg/dl Very High Performed By: #### C BCAD, VITD, FT4, TSH, CMP, LIPD #### [facility] [address], [place] [id number] Cholesterol in VLDL [Mass/Vol] 15 mg/dL Normal [facility] [employer] Comment on above: Performed By: #### C BCAD, VITD, FT4, TSH, CMP, LIPD #### [facility] [address], [place] [id number] Cholesterol.total/Chol esterol in HDL [Mass ratio] 3 {ratio} Normal [facility]ist Comment on above: Performed By: #### C BCAD, VITD, FT4, TSH, CMP, LIPD #### [facility] [address], [place] [id number] Triglyceride [Mass/Vol] 75 mg/dL Normal 30-150 [facility] [employer] Comment on above: Result Comment: TRIG ATPIII CLASSIFICATIONS TRIG less than 150 mg/dl Normal TRIG 150-199 mg/dl Borderline High TRIG 200-500 mg/dl High TRIG greather than 500 mg/dl Very High Performed By: #### C BCAD, VITD, FT4, TSH, CMP, LIPD #### [facility] [address], [place] [id number] Q - CULTURE,URINE,ROUTINEon 02-20-2021 CULTURE, URINE, ROUTINE SEE NOTE Abnormal [facility] [employer] Comment on above: Order Comment: [facility] performed at: QPT, [facility], [address] [place] [address], [address] [place], [address], [employer] Operator: Boby Diaz MDQuest Collection Date/Time: [id number] Results Received Date/Time: [id number] Reported Date/Time: Result Comment: CULT URE, URINE, ROUTINE Micro Number: [id number] Test Status: Final Specimen Source: Urine Specimen [...] cefuroxime, cephalexin and loracarbef. Performed By: #### C LISA BENJAMIN #### [facility] [address] [place], [place] [id number] Q - UR CULT [id number] 2020 REFLEXIVE URINE CULTURE SEE NOTE Normal [facility] [employer] Comment on above: Order Comment: [facility] performed at: QPT, [facility], [address], [address] [place] [address], [address], [employer] Up Operator: Boby Ovalle Collection Date/Time: [id number] Results Received Date/Time: [id number] Reported Date/Time: Result Comment: CULT URE INDICATED - RESULTS TO FOLLOW Performed By: #### LISA JIMENEZ #### [facility] [address], [place] [id number] Q - URINALYSIS,COMPLETE,WITH REFLEX TO CULTUREon 02-20-2021 Appearance (U) CLEAR Normal CLEAR [facility] [employer] Comment on above: Order Comment: [facility] performed at: [facility] [facility], [address] [place] [address], [address] [place] [address], [phone], [employer] Up Operator: Boby Ovalle Collection Date/Time: [id number] Results Received Date/Time: [id number] Reported Date/Time: Performed By: #### LISA JIMENEZ #### [facility] [address], [place] [id number] BACTERIA FEW Abnormal NONE SEEN [facility] [employer] Comment on above: Order Comment: [facility] performed at: [facility], [address] [place] [address], [address] [place] [address], [address] [place] [address], [employer] Up Operator: Boby Ovalle Collection Date/Time: Results Received Date/Time: [id number] Reported Date/Time: Performed By: #### LISA JIMENEZ #### [facility] [address], [place] [id number] Bilirubin Ql (U) Negative Normal NEGATIVE [facility] [employer] Comment on above: Order Comment: [facility] performed at: [facility], [address] [place] [address], [address] [place] [address], [phone], [employer] Up Operator: Boby Ovalle Collection Date/Time: [id number] Results Received Date/Time: [id number] Reported Date/Time: Performed By: #### [place], [place] #### [facility] [address], [place] [id number] Color (U) YELLOW Normal YELLOW [facility] [employer] Comment on above: Order Comment: [facility] performed at: [facility], [facility], [address] [facility], [address] [place] [address], [address] [place] [address], [employer] Up Operator: Boby Ovalle Collection Date/Time: [id number] Results Received Date/Time: [id number] Reported Date/Time: Performed By: #### Susannah BENJAMIN [place] #### [facility] [address], [place] [id number] Glucose Ql (U) Negative Normal NEGATIVE [facility] [employer] Comment on above: Order Comment: [facility] performed at: [facility], [facility], [address] [place] [address], [address] [place] [address], [address] [place] [address], [employer] Up Operator: Boby Ovalle Collection Date/Time: [id number] Results Received Date/Time: [id number] Reported Date/Time: Performed By: #### Susannah BENJAMIN [place] #### [facility] [address], [place] [id number] HYALINE CAST NONE SEEN Normal NONE SEEN [facility] [employer] Comment on above: Order Comment: [facility] performed at: [facility], [facility], [address] [place] [address], [address] [place] [address], [address] [place] [address], [employer] Up Operator: Boby Ovalle Collection Date/Time: [id number] Results Received Date/Time: [id number] Reported Date/Time: Performed By: #### [place], [place] #### [facility] [address], [place] [id number] Ketones Ql (U) Negative Normal NEGATIVE [facility] [employer] Comment on above: Order Comment: [facility] performed at: [facility], [facility], [address] [facility], [address] [place] [address], [address] [place] [address], [employer] Up Operator: Boby Ovalle Collection Date/Time: [id number] Results Received Date/Time: [id number] Reported Date/Time: Performed By: #### LISA JIMENEZ #### [facility] [address], [place] [id number] Leukocyte esterase Test strip Ql (U) 1+ Abnormal NEGATIVE [facility] [employer] Comment on above: Order Comment: [facility] performed at: [facility], [address] [place] [address], [address] [place] [address], [address] [place] [address], [employer] Up Operator: Boby Ovalle Collection Date/Time: [id number] Results Received Date/Time: [id number] Reported Date/Time: Performed By: #### LISA JIMENEZ #### [facility] [address], [place] [id number] Nitrite Ql (U) Negative Normal NEGATIVE [facility] [employer] Comment on above: Order Comment: [facility] performed at: [facility], [address] [place] [address], [address] [place] [address], [address] [place] [address], [employer] Up Operator: Boby Ovalle Collection Date/Time: [id number] Results Received Date/Time: [id number] Reported Date/Time: Performed By: #### [place] BENJAMIN [place] #### [facility] [address], [place] [id number] OCCULT BLOOD TRACE Abnormal NEGATIVE [facility] [employer] Comment on above: Order Comment: [facility] performed at: [facility], [address] [facility], [address] [place] [address], [address] [place] [address], [employer] Set Up Operator: Boby Ovalle Collection Date/Time: [id number] Results Received Date/Time: [id number] Reported Date/Time: Performed By: #### LISA JIMENEZ #### [facility] [address], [place] [id number] pH (U) 7.5 [pH] Normal 5.0-8.0 [facility] [employer] Comment on above: Order Comment: [facility] performed at: [facility], [facility], [address] [place] [address], [address] [place] [address], [address] [place] [address], [employer] Up Operator: Boby Diaz MDQuest Collection Date/Time: [id number] Results Received Date/Time: [id number] Reported Date/Time: Performed By: #### LISA JIMENEZ #### [facility] [address], [place] [id number] Protein Ql (U) Negative Normal NEGATIVE [facility] Specialist Comment on above: Order Comment: [facility] performed at: [facility] [facility] [employer], [address] [place] [address], [address] [place] [address], [address] [place] [address], [employer] Up Operator: Boby Ovalle Collection Date/Time: [id number] Results Received Date/Time: [id number] Reported Date/Time: Performed By: #### LISA JIMENEZ #### [facility] [address], [place] [id number] RBC NONE SEEN Normal < OR = 2 [facility] [employer] Comment on above: Order Comment: [facility] performed at: [facility] [facility], [address] [place] [address], [address] [place] [address], [address] [place] [address], [employer] Up Operator: Boby Ovalle Collection Date/Time: [id number] Results Received Date/Time: [id number] Reported Date/Time: Performed By: #### LISA JIMENEZ #### [facility] [address], [place] [id number] Specific gravity (U) [Rel density] 1.007 Normal 1.001-1.035 [facility] [employer] Comment on above: Order Comment: [facility] performed at: [facility], [address] , [address] [place] [address], [address] [place] [address], [employer] Set Up Operator: Boby Ovalle Collection Date/Time: [id number] Results Received Date/Time: [id number] Reported Date/Time: Performed By: #### LISA JIMENEZ #### [facility] [address], [place] [id number] SQUAMOUS EPITHELIAL CELLS 0-5 Normal < OR = 5 [facility] [employer] Comment on above: Order Comment: [facility] performed at: [facility], [address] , [address] [place] [address], [address] [place] [address], [employer] Set Up Operator: Boby Ovalle Collection Date/Time: [id number] Results Received Date/Time: [id number] Reported Date/Time: Performed By: #### LISA JIMENEZ #### [facility] [address], [place] [id number] WBC 0-5 Normal < OR = 5 [facility] [employer] Comment on above: Order Comment: [facility] performed at: [facility], [address] , [address] [place] [address], [address] [place] [address], [employer] Set Up Operator: Boby Ovalle Collection Date/Time: [id number] Results Received Date/Time: [id number] Reported Date/Time: Performed By: #### LISA JIMENEZ #### [facility] [address], [place] [id number] TSHon 02-20-2021 TSH 1.650 uIU/mL Normal 0.400-4.500 [facility] [employer] Comment on above: Performed By: #### C BCAD, VITD, FT4, TSH, CMP, LIPD #### [facility] [address] [place] [id number] Vitamin D 25-OHon 02-20-2021 VIT D 25 OH 25 ng/ml Low >29 [facility] [employer] Comment on above: Result Comment: Sury min D Status Deficiency <20 ng/mL Insufficiency 20-29 ng/mL Optimal 30-100 ng/mL Possible Toxicity >=150 ng/mL Performed By: #### C BCAD, VITD, FT4, TSH, CMP, LIPD #### [facility] [address] [place], [place] [id number] No Panel InformationOrdered By: Sydnee Tamez on 07-15-2020 Left knee: Mild degenerative changes. No acute osseous abnormality. Right humerus: Advanced arthritic changes in the glenohumeral aspect of the joint without evidence of acute fracture. Right shoulder: Advanced degenerative changes. Apparent resection of the distal right clavicle. No acute fracture. [employer]: EXAMINATION: THREE XRAY VIEWS OF THE [...] No acute fracture or dislocation is noted. [employer] Phone: Cory, Mh[employer] Incoming Radiant Results From [employer] - 07/15/2020 3:49 PM EDT EXAMINATION: THREE [...] the distal right clavicle. No acute fracture. [employer] Work Phone: [employer] Work Phone: DEXA BONE DENSITY [facility] TOMLINSONLuz Maria 12-12-2019 1. The T-score in th e [...] 88 years. DEXA scan for this exam: [employer] RECOMMENDATIONS: The patient is at high risk of an osteoporotic fracture of the left hip. If not already instituted, suggest a assertive therapy to increase bone mass. Follow-up study in 2 years may be considered on a [email or web address] system. . [place], [place] EXAMINATION: BONE DENSITOMETRY 12/12/2019 10:39 am OT [...] young adult T-score of -2.3 representing osteopenia. [place], [place] Cory, M[employer] Incoming Radiant Results From [employer] - 12/12/2019 10:58 AM EDT EXAMINATION: BONE [...] 88 years. DEXA scan for this exam: [employer] RECOMMENDATIONS: The patient is at high risk of an osteoporotic fracture of the left hip. If not already instituted, suggest a assertive therapy to increase bone mass. Follow-up study in 2 years may be considered on a [email or web address] system. . [place], [place] Neurosurgery Office/Clinic N raúljuanchelly 04-03-2019 Neurosurgery Office/Clinic Note Chief Complaint Patient [...] by Tawnya Maxwell 04/03/2019 14:[address] [facility] XR Spine Lumbosacral 2/3 Vie ws [...] Dictated DT/TM: 04/03/2019 3:50 pm Signed by: Matt Parmar MD Signed (Electronic Signature): 04/03/2019 3:52 pm (If Report Is Signed, Electronically Signed in Other Vendor System) Normal [facility] Neurosurgery Office/Clinic N oteon 02-01-2019 Neurosurgery [...] - Extraction of tooth (02/2014) Cataract extraction (2017) colonscopy (2018) Laminectomy Lumbar Discectomy (Left) (01/06/2019) [...] by Tawnya Maxwell 02/01/2019 15:[address] [facility] Provider Letteron 02-01-2019 Provider Letter Alfred Pal [address] [facility] [address] [place] [address] Re: Stephanie Spear Date of Visit: 02/01/2019 Dear Alfred Pal, Thank You for referring Stephanie Spear to our office for care. Attached you will find my office note. Please Contact our office if you have any questions or concerns. Sincerely, Gene Cline MD The following document(s) were included in the letter: February 01, 2019 15:18:29 EST - (02/01/2019) Neurosurgery Office Visit Note Normal [facility] Neurosurgery Office/Clinic N oteon 01-18-2019 Neurosurgery [...] tabs, 0 Refill(s), 01/24/19 15:46:00 EST, Pharmacy: [id number] Problem List/Past Medical History Ongoing Acute rhinitis [...] - Extraction of tooth (02/2014) Cataract extraction (2017) colonscopy (2018) Laminectomy Lumbar Discectomy (Left) (01/06/2019) [...] and Sibling. Stroke: Mother. Electronically signed by Robbie ORTIZ Toña Loida 01/18/19 16:[address] [facility] Provider Letteron 01-18-2019 Provider Letter Alfred Pal, Re: Stephanie Spear Date of Visit: 01/18/2019 Dear Alfred Pal, Thank you for referring Stephanie to my office. Attached you will find my office note. Please let me know if you have any questions or concerns. Sincerely, Toña Avalos CNP [facility] [place] [address] The following document(s) were included in the letter: January 18, 2019 15:48:45 EST - (01/18/2019) Neurosurgery Office Visit Note Normal [facility] Inpatient Clinical Summaryon 01-07-2019 Inpatient Clinical Summary [address] [address] [facility] [address] [place] [address] Clinical Summary Person Information Name: Stephanie Spear Age: 73 Years : 1945 Sex: Female PCP: Robert LUGO, Alfred Moreno Marital Status: Phone: PCP: [phone] Race: White Ethnicity: Not or Language: Azeri Visit Id: Visit Reason: Speciality: Acuity: Enc Type: Observation Med Service: Surgery Arrival: 01/06/2019 09:24:00 Discharge: Dispo Type: Address: [address] [place], [place] [address] Diagnosis: Status post lumbar discectomy Discharged To: [...] Referring Physician: Follow up: With: Address: When: Gene Cline MD [address] [place] [phone] Within 2 to 4 weeks Comments: Follow up in 2 weeks with Toña Avalos and follow up in [address] Cline Type Location Start Finish State Post Op Visit [facility] 01/18/2019 15:00:00 01/18/2019 15:30:[address] [facility] Neurosurgery Progress Noteon 01-07-2019 Neurosurgery Progress [...] the operative report for details. Signed By: Jacob MENDOZA, Kody Harris Computed Tomography No qualifying data available. Ultrasound [...] MD, Magdy Morris 01/07/19 08:[address] [facility] Provider Letteron 01-07-2019 Provider Letter Alfred Pal, [address] [facility] [address] [place] [address] Re: Stephanie Hung Date of Visit: 01/06/2019 Dear Alfred Pal, Let me know if you have any questions or concerns. Sincerely, LANDON Dowd MD Providers: The following document(s) were included in the letter: January 07, 2019 08:12:35 EST - (01/07/2019) Discharge Summary Normal [facility] Operative Reporton 9 Operative Report Indication for Surgery 1. low back with left leg pain 2. MRI lumbar 09/21/18- T11 likely hemangioma, ddd, fa, L45 mild bilateral NF, mild/mod bilateral LR; L5S1 mod/severe NF, mild mod LR bilaterally 3. s/p left L34 discectomy 2003, unknown surgeon[facility] 4. tobacco use 1 ppd 5. osteoporosis 6. XR lumbar flex ex: no intersegmental instability 7. Xray of the left hip: normal Preoperative Diagnosis 1. low back with left leg pain 2. MRI lumbar 09/21/18- T1 likely hemangioma, ddd, fa, L45 mild bilateral NF, mild/mod bilateral LR; L5S1 mod/severe NF, mild mod LR bilaterally 3. s/p left L34 discectomy 2003, unknown surgeon, [facility] 4. tobacco use 1 ppd 5. osteoporosis 6. XR lumbar flex ex: no intersegmental instability 7. Xray of the left hip: normal Postoperative Diagnosis 1. low back with left leg pain 2. MRI lumbar 09/21/18- T1 likely hemangioma, ddd, fa, L45 mild bilateral NF, mild/mod bilateral LR; L5S1 mod/severe NF, mild mod LR bilaterally 3. s/p left L34 discectomy 2003, unknown surgeon, [facility] 4. tobacco use 1 ppd 5. osteoporosis 6. XR lumbar flex ex: no intersegmental instability 7. Xray of the left hip: normal Operation Left L4-5-S1 hemilaminotomy and foraminotomy and Left L4-5 discectomy Surgeon(s) Gene Cline MD Inside Sales Assistant Chapis WEINBERG Anesthesia general endotracheal Estimated Blood [...] surgical procedure was assisted by my physician?s assistant analyst. Her presence was needed throughout the case for positioning the surgical instruments as well as primarily assisting me through the procedure. Due to the complexity of condition, the skill set of a neurosurgical physician assistant analyst was needed throughout the case. During the surgical case, the behavioral health technician was working the back table and was not available for assistance. Sponge/Needle Count all accounted for Fluid Count 700cc Electronically signed by Gene Cline MD 01/06/19 13:[address] [facility] Potassiumon 01-06-2019 Potassium [Moles/Vol] 3.7 mmol/L Normal 3.4-4.8 [facility] Comment on above: Performed By: #### K ####[place] [address] XR Spine Lumbosacral 2/3 Vie laney Ralph 01-06-2019 XR Spine Lumbosacral 2/3 Views [...] Electronically Signed in Other Vendor System) Normal [facility] Neurosurgery Office/Clinic Majo watson 01-03-2019 Neurosurgery Office/Clinic Note Chief Complaint Patient [...] - Extraction of tooth (02/2014) Cataract extraction (2017) colonscopy (2018) Medications albuterol [...] and Sibling. Stroke: Mother. Electronically signed by Martha Avalos CNPissa Loida 01/03/19 12:[address] [facility] Provider Letteron 01-03-2019 Provider Letter Sydnee Tamez RN CFNP [address] [place] [phone] Re: Stephanie Spear Date of Visit: 01/03/2019 Dear Sydnee Tamez, Thank you for referring Stephanie to my office. Attached you will find my office note. Please let me know if you have any questions or concerns. Sincerely, Toña Avalos CNP [facility] [address] [address] The following document(s) were included in the letter: January 03, 2019 12:24:09 EST - (01/03/2019) Neurosurgery Office Visit Note Normal [facility] .UA Microscp Aon 12-12-2018 UA Mucus Present Abnormal Absent [facility] Comment on above: Performed By: #### C [id number] ####[id number] [place] [address] UA RBC Quant 0 /HPF Normal 0-5 [facility] Comment on above: Performed By: #### C [id number] ####[address] [address] UA Squepi Cells Quant <1 Normal 0-29 [facility] Comment on above: Performed By: #### C [id number] ####[address] [place] [address] UA WBC Quant 0 /HPF Normal 0-5 [facility] Comment on above: Performed By: #### C [id number] ####[address] [address] .eGFRon 12-12-2018 eGFR AA >60 Normal >=60 [facility] Comment on above: Result Comment: Resu lt = 0-14.9 mL/min/1.73 m2 Kidney failure or Dialysis Result = 15-29 mL/min/1.73 m2 Severe decrease in GFR Result = 30-59 mL/min/1.73 m2 Moderate decrease in GFR Result >= 60 mL/min/1.73 m2 Normal or increased GFR Performed By: #### E GFR ####[place] [address] eGFR Non-AA >60 Normal >=60 [facility] Comment on above: Result Comment: Resu [...] medication dosing. Performed By: #### E GFR ####[place] [address] ABO/Rhon 12-12-2018 ABO/Rh SD 11.1.19 DCon: 0 ABO/Rh: A POS Normal [facility] Comment on above: Performed By: #### A BORH ####[facility] (DEFAULT)[address] [place], [place] [address] [address] ABSC Autoon 12-12-2018 ABSC Auto Negative Normal [facility] Comment on above: Performed By: #### A SA ####[address] [address] CBC w/ Diffon 12-12-2018 Erythrocyte distribution width (RBC) [Ratio] 14.1 % Normal 11.6-14.8 [facility] Comment on above: Performed By: #### C BC ####[place] [id number] Hematocrit (Bld) [Volume fraction] 38.3 % Normal 36.0-46.0 [facility] Comment on above: Performed By: #### C BC ####[address] [address] Hemoglobin (Bld) [Mass/Vol] 12.5 g/dL Normal 12.0-16.0 [facility] Comment on above: Performed By: #### C BC ####[address] [address] MCH (RBC) [Entitic mass] 29.9 pg Normal 27.0-35.0 [facility] Comment on above: Performed By: #### C BC ####[address] [address] MCHC (RBC) [Mass/Vol] 32.6 % Normal 31.0-37.0 [facility] Comment on above: Performed By: #### C BC ####[address] [address] MCV (RBC) [Entitic vol] 91.8 fL Normal 80.0-100.0 [facility] Comment on above: Performed By: #### C BC ####[address] [address] Platelet mean volume (Bld) [Entitic vol] 9.2 fL Normal 6.7-10.6 [facility] Comment on above: Performed By: #### C BC ####[address] [address] Platelets (Bld) [#/Vol] 331 x10*3/mcL Normal 150-350 [facility] Comment on above: Performed By: #### C BC ####[address] [address] RBC (Bld) [#/Vol] 4.17 x10*6/mcL Normal 3.80-5.20 [facility] Comment on above: Performed By: #### C BC ####[address] [address] WBC (Bld) [#/Vol] 9.1 x10*3/mcL Normal 4.5-11.0 [facility] Comment on above: Performed By: #### C BC ####[address] [address] [facility] Albumin [Mass/Vol] 3.8 g/dL Normal 3.2-4.9 [facility] Comment on above: Result Comment: [facility] Laboratory updated the methodology used for albumin testing on 09/29/17. Albumin measurement was performed using a bromcresol purple dye-binding assay. Performed By: #### C OMP ####[address] [address] Albumin/Globulin [Mass ratio] 1.1 {ratio} Normal 1.1-2.2 [facility] Comment on above: Performed By: #### C OMP ####[address] [address] Alk Phos 67 IU/L Normal 32-91 [facility] Comment on above: Performed By: #### C OMP ####[address] [address] ALT [Catalytic activity/Vol] 11 U/L Low 14-54 [facility] Comment on above: Performed By: #### C OMP ####[address] [address] Anion gap [Moles/Vol] 9 mmol/L Normal 7-17 [facility] Comment on above: Performed By: #### C OMP ####[address] [address] AST [Catalytic activity/Vol] 15 U/L Normal 15-41 [facility] Comment on above: Performed By: #### C OMP ####[address] [address] Bili Total 0.8 mg/dL Normal 0.3-1.2 [facility] Comment on above: Performed By: #### C OMP ####[address] [address] Calcium [Mass/Vol] 8.9 mg/dL Normal 8.5-10.3 [facility] Comment on above: Performed By: #### C OMP ####[address] [address] Chloride [Moles/Vol] 104 mmol/L Normal 98-110 [facility] Comment on above: Performed By: #### C OMP ####[address] [address] CO2 [Moles/Vol] 31 mmol/L Normal 22-32 [facility] Comment on above: Performed By: #### C OMP ####[address] [address] Creatinine [Mass/Vol] 0.61 mg/dL Normal 0.44-1.03 [facility] Comment on above: Performed By: #### C OMP ####[address] [address] Glucose [Mass/Vol] 99 mg/dL Normal 74-118 [facility] Comment on above: Performed By: #### C OMP ####[address] [address] Potassium [Moles/Vol] 3.1 mmol/L Low 3.4-4.8 [facility] Comment on above: Performed By: #### C OMP ####[address] [address] Protein [Mass/Vol] 7.2 g/dL Normal 6.5-8.1 [facility] Comment on above: Performed By: #### C OMP ####[address] [address] Sodium [Moles/Vol] 141 mmol/L Normal 133-142 [facility] Comment on above: Performed By: #### C OMP ####[address] [address] Urea nitrogen [Mass/Vol] 10 mg/dL Normal 8-26 [facility] Comment on above: Performed By: #### C OMP ####[address] [address] Urea nitrogen/Creatinine [Mass ratio] 16.4 mg/mg Normal 10.0-20.0 [facility] Comment on above: Performed By: #### C OMP ####[address] [address] Diff Autoon 12-12-2018 Baso Absolute 0.1 x10*3/mcL Normal 0.0-0.2 [facility] Comment on above: Performed By: #### . Automated Diff ####[address] [address] Basophils/100 WBC (Bld) 0.6 % Normal 0.0-1.5 [facility] Comment on above: Performed By: #### . Automated Diff ####[address] [address] Eos Absolute 0.2 x10*3/mcL Normal 0.0-0.4 [facility] Comment on above: Performed By: #### . Automated Diff ####[address] [address] Eosinophils/100 WBC (Bld) 1.7 % Normal 0.0-5.4 [facility] Comment on above: Performed By: #### . Automated Diff ####[address] [address] Lymphocytes (Bld) [#/Vol] 1.5 x10*3/mcL Normal 1.0-4.8 [facility] Comment on above: Performed By: #### . Automated Diff ####[address] [address] Lymphocytes/100 WBC (Bld) 16.9 % Low 27.2-40.8 [facility] Comment on above: Performed By: #### . Automated Diff ####[address] [address] [place] Absolute 0.4 x10*3/mcL Normal 0.1-1.1 [facility] Comment on above: Performed By: #### . Automated Diff ####[address] [address] Monocytes/100 WBC (Bld) 4.6 % Normal 3.7-11.9 [facility] Comment on above: Performed By: #### . Automated Diff ####[address] [address] Neutro Absolute 6.9 x10*3/mcL Normal 1.8-7.7 [facility] Comment on above: Performed By: #### . Automated Diff ####[address] [address] Neutro Auto 76.2 % High 47.2-70.8 [facility] Comment on above: Performed By: #### . Automated Diff ####[address] [address] PTon 12-12-2018 INR Coag (PPP) [Relative time] 1.0 {INR} Normal <=3.5 [facility] Comment on above: Result Comment: INR has no normal range. INR Therapeutic range is: 2.0-3.0 (AF, CVA, TIAs, DVT prophylaxis, acute DVT) 2.5-3.5 [facility], recurrent [facility]/emboli) Performed By: #### P TINR ####[address] [address] PT Coag (PPP) [Time] 10.2 s Normal 9.2-11.7 [facility] Comment on above: Performed By: #### P TINR ####[address] [address] PTTon 12-12-2018 aPTT Coag (Bld) [Time] 25.0 s Normal 20.6-28.0 [facility] Comment on above: Performed By: #### P TT ####[address] [address] UA w Culture if Indon 2018 Color (U) Yellow Normal [facility] Comment on above: Performed By: #### U CI ####[address] [address] Glucose (U) [Mass/Vol] Negative Normal Negative [facility] Comment on above: Performed By: #### U CI ####[address] [place] [address] Ketones Ql (U) Negative Normal Negative [facility] Comment on above: Performed By: #### U CI ####[address] [address] UA Blood Negative Normal Negative [facility] Comment on above: Performed By: #### U CI ####[address] [place] [address] UA Clarity Clear Normal [facility] Comment on above: Performed By: #### U CI ####[address] [address] UA Leukocyte Esterase Negative Normal Negative [facility] Comment on above: Performed By: #### U CI ####[address] [place] [address] UA Nitrite Negative Normal Negative [facility] Comment on above: Performed By: #### U CI ####[address] [address] UA pH 8.0 Abnormal 4.5 - 7.8 [facility] Comment on above: Performed By: #### U CI ####[address] [address] UA Protein Negative Normal Negative [facility] Comment on above: Performed By: #### U CI ####[address] [address] UA Source Clean Catch Normal [facility] Comment on above: Performed By: #### U CI ####[address] [address] UA Spec Grav 1.010 Normal 1.003-1.035 [facility] Comment on above: Performed By: #### U CI ####[address] [address] UA Urobilinogen 0.2 mg/dL Normal 0.2 - 1.0 [facility] Comment on above: Performed By: #### U CI ####[address] [address] Urobilinogen Qn (U) Negative Normal Negative [facility] Comment on above: Performed By: #### U CI ####[address] [address] XR CHEST STANDARD (2 VW)on 0 11-02-2018 No acute cardiopulmonary disease or interval change. COPD. [place], [place] EXAMINATION: TWO XRA Y VIEWS OF THE [...] costophrenic angles. Bones and soft tissues stable. [place], [place] Cory, Mhpn Incoming Radiant Results From [employer] - 11/02/2018 5:50 PM EDT EXAMINATION: TWO [...] acute cardiopulmonary disease or interval change. COPD. [place], [place] .UA Microscp Aon 10-31-2018 UA Bacteria Present Abnormal Absent [facility] Comment on above: Performed By: #### C [id number] ####[address] [place] [address] UA Mucus Present Abnormal Absent [facility] Comment on above: Performed By: #### C [id number] ####[address] [place] [address] UA RBC Quant 0 /HPF Normal 0-5 [facility] Comment on above: Performed By: #### C [id number] ####[address] [address] UA Squepi Cells Quant <1 Normal 0-29 [facility] Comment on above: Performed By: #### C [id number] ####[address] [address] UA WBC Quant 0 /HPF Normal 0-5 [facility] Comment on above: Performed By: #### C [id number] ####[address] [address] .eGFRon 10-31-2018 eGFR Non-AA >60 Normal >=60 [facility] Comment on above: Result Comment: Resu [...] medication dosing. Performed By: #### E GFR ####[address] [address] eGFR AA >60 Normal >=60 [facility] Comment on above: Result Comment: Resu lt = 0-14.9 mL/min/1.73 m2 Kidney failure or Dialysis Result = 15-29 mL/min/1.73 m2 Severe decrease in GFR Result = 30-59 mL/min/1.73 m2 Moderate decrease in GFR Result >= 60 mL/min/1.73 m2 Normal or increased GFR Performed By: #### E GFR ####[address] [address] ABO/Rhon 10-31-2018 ABO/Rh SD 9.20.19 DCon: 0 ABO/Rh: A POS Normal [facility] Comment on above: Performed By: #### A ANGY ####[facility] (DEFAULT)[address] [place] [id number] [address] ABSC Autoon 10-31-2018 ABSC Auto Negative Normal [facility] Comment on above: Performed By: #### A SA ####[address] [address] CBC w/ Diffon 10-31-2018 Erythrocyte distribution width (RBC) [Ratio] 16.6 % High 11.6-14.8 [facility] Comment on above: Performed By: #### C BC #### [address] [address] Hematocrit (Bld) [Volume fraction] 40.0 % Normal 36.0-46.0 [facility] Comment on above: Performed By: #### C BC #### [address] [address] Hemoglobin (Bld) [Mass/Vol] 12.9 g/dL Normal 12.0-16.0 [facility] Comment on above: Performed By: #### C BC #### [address] [address] MCH (RBC) [Entitic mass] 29.5 pg Normal 27.0-35.0 [facility] Comment on above: Performed By: #### C BC #### [address] [address] MCHC (RBC) [Mass/Vol] 32.2 % Normal 31.0-37.0 [facility] Comment on above: Performed By: #### C BC #### [address] [address] MCV (RBC) [Entitic vol] 91.5 fL Normal 80.0-100.0 [facility] Comment on above: Performed By: #### C BC #### [address] [address] Platelet mean volume (Bld) [Entitic vol] 8.8 fL Normal 6.7-10.6 [facility] Comment on above: Performed By: #### C BC #### [address] [address] Platelets (Bld) [#/Vol] 358 x10*3/mcL High 150-350 [facility] Comment on above: Performed By: #### C BC #### [address] [address] RBC (Bld) [#/Vol] 4.37 x10*6/mcL Normal 3.80-5.20 [facility] Comment on above: Performed By: #### C BC #### [address] [address] WBC (Bld) [#/Vol] 12.1 x10*3/mcL High 4.5-11.0 [facility] Comment on above: Performed By: #### C BC #### [address] [address] CMPon 10-31-2018 Albumin [Mass/Vol] 4.1 g/dL Normal 3.2-4.9 [facility] Comment on above: Result Comment: [facility] Laboratory updated the methodology used for albumin testing on 09/29/17. Albumin measurement was performed using a bromcresol purple dye-binding assay. Performed By: #### C OMP ####[place] [id number] Albumin/Globulin [Mass ratio] 1.1 {ratio} Normal 1.1-2.2 [facility] Comment on above: Performed By: #### C OMP ####[address] [address] Alk Phos 70 IU/L Normal 32-91 [facility] Comment on above: Performed By: #### C OMP ####[address] [address] ALT [Catalytic activity/Vol] 16 U/L Normal 14-54 [facility] Comment on above: Performed By: #### C OMP ####[address] [address] AST [Catalytic activity/Vol] 19 U/L Normal 15-41 [facility] Comment on above: Performed By: #### C OMP ####[address] [address] Bili Total 0.7 mg/dL Normal 0.3-1.2 [facility] Comment on above: Performed By: #### C OMP ####[address] [address] Creatinine [Mass/Vol] 0.58 mg/dL Normal 0.44-1.03 [facility] Comment on above: Performed By: #### C OMP ####[address] [address] Protein [Mass/Vol] 7.7 g/dL Normal 6.5-8.1 [facility] Comment on above: Performed By: #### C OMP ####[address] [address] Urea nitrogen [Mass/Vol] 10 mg/dL Normal 8-26 [facility] Comment on above: Performed By: #### C OMP ####[address] [address] Urea nitrogen/Creatinine [Mass ratio] 17.2 mg/mg Normal 10.0-20.0 [facility] Comment on above: Performed By: #### C OMP ####[address] [address] Anion gap [Moles/Vol] 16 mmol/L Normal 7-17 [facility] Comment on above: Performed By: #### C OMP ####[address] [address] Calcium [Mass/Vol] 9.1 mg/dL Normal 8.5-10.3 [facility] Comment on above: Performed By: #### C OMP ####[address] [address] Chloride [Moles/Vol] 97 mmol/L Low 98-110 [facility] Comment on above: Performed By: #### C OMP ####[address] [address] CO2 [Moles/Vol] 27 mmol/L Normal 22-32 [facility] Comment on above: Performed By: #### C OMP ####[address] [address] Glucose [Mass/Vol] 92 mg/dL Normal 74-118 [facility] Comment on above: Performed By: #### C OMP ####[address] [address] Potassium [Moles/Vol] 3.4 mmol/L Normal 3.4-4.8 [facility] Comment on above: Performed By: #### C OMP ####[address] [address] Sodium [Moles/Vol] 137 mmol/L Normal 133-142 [facility] Comment on above: Performed By: #### C OMP ####[address] [address] Diff Autoon 10-31-2018 Baso Absolute 0.1 x10*3/mcL Normal 0.0-0.2 [facility] Comment on above: Performed By: #### . Automated Diff #### [address] [address] Basophils/100 WBC (Bld) 0.8 % Normal 0.0-1.5 [facility] Comment on above: Performed By: #### . Automated Diff #### [address] [address] Eos Absolute 0.1 x10*3/mcL Normal 0.0-0.4 [facility] Comment on above: Performed By: #### . Automated Diff #### [address] [address] Eosinophils/100 WBC (Bld) 0.8 % Normal 0.0-5.4 [facility] Comment on above: Performed By: #### . Automated Diff #### [address] [address] Lymphocytes (Bld) [#/Vol] 1.8 x10*3/mcL Normal 1.0-4.8 [facility] Comment on above: Performed By: #### . Automated Diff #### [address] [address] Lymphocytes/100 WBC (Bld) 15.0 % Low 27.2-40.8 [facility] Comment on above: Performed By: #### . Automated Diff #### [address] [address] [place] Absolute 0.7 x10*3/mcL Normal 0.1-1.1 [facility] Comment on above: Performed By: #### . Automated Diff #### [address] [address] Monocytes/100 WBC (Bld) 5.5 % Normal 3.7-11.9 [facility] Comment on above: Performed By: #### . Automated Diff #### [address] [address] Neutro Absolute 9.4 x10*3/mcL High 1.8-7.7 [facility] Comment on above: Performed By: #### . Automated Diff #### [address] [address] Neutro Auto 77.9 % High 47.2-70.8 [facility] Comment on above: Performed By: #### . Automated Diff #### [address] [address] PTon 10-31-2018 INR Coag (PPP) [Relative time] 1.0 {INR} Normal <=3.5 [facility] Comment on above: Result Comment: INR has no normal range. INR Therapeutic range is: 2.0-3.0 (AF, CVA, TIAs, DVT prophylaxis, acute DVT) 2.5-3.5 ([facility], recurrent thrombosis/emboli) Performed By: #### P TINR #### [address] [place] [address] PT Coag (PPP) [Time] 10.5 s Normal 9.2-11.7 [facility] Comment on above: Performed By: #### P TINR #### [address] [address] PTTon 10-31-2018 aPTT Coag (Bld) [Time] 25.0 s Normal 20.6-28.0 [facility] Comment on above: Performed By: #### P TT #### [address] [address] UA w Culture if Indon 2018 Color (U) Straw Normal [facility] Comment on above: Performed By: #### U CI #### [address] [address] Glucose (U) [Mass/Vol] Negative Normal Negative [facility] Comment on above: Performed By: #### U CI #### [address] [address] Ketones Ql (U) Negative Normal Negative [facility] Comment on above: Performed By: #### U CI #### [address] [place] [address] UA Blood Negative Normal Negative [facility] Comment on above: Performed By: #### U CI #### [address] [place] [address] UA Clarity Clear Normal [facility] Comment on above: Performed By: #### U CI #### [address] [address] UA Leukocyte Esterase Negative Normal Negative [facility] Comment on above: Performed By: #### U CI #### [address] [address] UA Nitrite Negative Normal Negative [facility] Comment on above: Performed By: #### U CI #### [address] [address] UA pH 8.0 Abnormal 4.5 - 7.8 [facility] Comment on above: Performed By: #### U CI #### [address] [address] UA Protein Negative Normal Negative [facility] Comment on above: Performed By: #### U CI #### [address] [address] UA Source Clean Catch Normal [facility] Comment on above: Performed By: #### U CI #### [address] [address] UA Spec Grav 1.005 Normal 1.003-1.035 [facility] Comment on above: Performed By: #### U CI #### [address] [address] UA Urobilinogen 0.2 mg/dL Normal 0.2 - 1.0 [facility] Comment on above: Performed By: #### U CI #### [place] [address] Urobilinogen Qn (U) Negative Normal Negative [facility] Comment on above: Performed By: #### U CI #### [place] [id number] Neurosurgery Office/Clinic N walter 10-13-2018 Neurosurgery Office/Clinic [...] repair (2003) SHOULDER ARTHROSCOPY/SURGERY (2005) Cataract extraction (2016) colonscopy (2018) Medications albuterol 90 mcg/inh inhalation [...] well. [5] [1] Neurosurgery Office Visit Note; Toña Avalos CNP 10/06/2018 13:26 EDT [2] Neurosurgery Office Visit Note; Toña Avalos CNP 10/06/2018 13:26 EDT [3] Neurosurgery Office Visit Note; Toña Avalos CNP 10/06/2018 13:26 EDT [4] XR Hip 2-3 Views Left; Inés Da Silva 10/06/2018 15:02 EDT [5] XR Spine Lumbosacral Bending 2-3 Views; Inés Da Silva 10/06/2018 15:02 EDT Electronically signed by Gene Cline MD 10/13/18 15:22 EDT Electronically signed by Bri Anderson 10/13/2018 15:[address] [facility] Neurosurgery Office/Clinic N walter 10-06-2018 Neurosurgery [...] tobacco 1ppd Medications: as listed Surgical history: 2003- L3 disc (?)- unknown surgeon, [facility] Family history: as listed Imaging: MRI lumbar [...] the left hip (plan to obtain at [facility]) she will f/u with Dr. Cline on [...] repair (2003) SHOULDER ARTHROSCOPY/SURGERY (2005) Cataract extraction (2016) colonscopy (2017) Medications albuterol [...] 14:25 EDT Electronically signed by Romana Brumfield Vladimir 10/06/2018 13:[address] [facility] Provider Letteron 10-06-2018 Provider Letter Alfred Pal NP [address] [place] [phone] Re: Stephanie Spear Date of Visit: 10/06/2018 Dear Alfred Pal, Thank you for referring Stephanie to my office. Attached you will find my office note. Please let me know if you have any questions or concerns. Sincerely, Toña Avalos CNP [facility] [address] [address] The following document(s) were included in the letter: October 06, 2018 13:26:08 EDT - (10/06/2018) Neurosurgery Office Visit Note Normal [facility] XR Hip 2-3 Views Lefton 09-22 [...] the lower lumbar spine. Final Dictated by: Jacob MENDOZA, Kody Harris Dictated DT/TM: 10/06/2018 8:59 pm Signed by: Kody James MD Signed (Electronic Signature): 10/06/2018 9:00 pm (If Report Is Signed, Electronically Signed in Other Vendor System) Normal [facility] XR Spine Lumbosacral Bending 2-3 Viewson 10-06-2018 [...] Electronically Signed in Other Vendor System) Normal [facility] Vital Signs Date Time Vital Sign Value Performing Clinician Vahid marte 04-07-2022 14:26-0500 Body height 160.02 cm RETA Tamez Work Phone: [facility] 04-07-2022 14:26-0500 Body weight 52.16 kg RETA Tamez Work Phone: [facility] 06-19-2021 15:54-0400 Diastolic blood pressure 75 mm[Hg] Shayne Conde DO Work Phone: [facility] 06-19-2021 15:54-0400 Heart rate 69 /min Shayne Conde DO Work Phone: [facility] 06-19-2021 15:54-0400 Systolic blood pressure 157 mm[Hg] Shayne Celistkowski DO Work Phone: [facility] 04-30-2021 14:00-0500 SaO2% (BldA) [Mass fraction] 97 % [facility] Work Phone: Encounters Encounter Date Encounter Type Care Provider Facility Start: 04-03-2023 End: 04-04-2023 ambulatory RAHAT VICK [facility] Start: 04-03-2023 End: 04-03-2023 Subsequent hospital visit by physician Sydnee Tamez Work Phone: [facility] Start: 02-25-2023 ambulatory [facility] Facility: [facility] Start: 02-23-2023 End: 02-25-2023 ambulatory [facility] Facility:CD:[id number] Start: 01-04-2023 End: 01-04-2023 ambulatory SYDNEE L RINE Not Available Start: 11-23-2022 End: 11-23-2022 Emergency department patient visit SYDNEE TAMEZ [facility] Start: 11-06-2022 End: 11-09-2022 ambulatory SOTO BRADY [facility] Start: 04-07-2022 End: 04-07-2022 ambulatory Sydnee L Rine Facility:[facility] Start: 04-07-2022 End: 04-07-2022 ambulatory CFNP Sydnee L Rine Work Phone: [facility] Work Phone: Start: 04-07-2022 End: 04-07-2022 Patient encounter procedure CFNP Sydnee Rine Work Phone: [facility] [place] Work Phone: Start: 04-03-2022 End: 04-03-2022 ambulatory Sydnee L Rine Facility:[facility] Start: 04-03-2022 End: 04-03-2022 ambulatory CFNP Sydnee L Rine Work Phone: [facility] Work Phone: Start: 04-03-2022 End: 04-03-2022 Patient encounter procedure CFPARISH Tamez Work Phone: [facility] [place] Work Phone: Start: 03-05-2022 End: 03-08-2022 [facility] Start: 03-05-2022 End: 03-07-2022 Subsequent hospital visit by physician [facility] MRI Comment on above: Falls frequently; Tremor; Confusion; Shuffling gait Start: 03-03-2022 End: 03-03-2022 Subsequent hospital visit by physician Sydnee Tamez Work Phone: [facility] Start: 01-30-2022 End: 01-30-2022 ambulatory SHAYNE CONDE Facility:[facility] Start: 12-08-2021 End: 12-10-2021 Subsequent hospital visit by physician Kaye Guzman Dr Room 4 [facility] Radiology Comment on above: Acute pain of right knee Start: 10-16-2021 End: 10-18-2021 Subsequent hospital visit by physician Kaye Mammography Room At [facility] Mammography Comment on above: Breast cancer screen ing by mammogram Start: 09-03-2021 End: 09-04-[address] PHANI FRANCIS Facility: Start: 08-26-2021 End: 08-28-2021 Subsequent hospital visit by physician Kaye Guzman Dr Room 4 [facility] Radiology Comment on above: Right shoulder pain, unspecified chronicity Pain in rib Start: 06-19-2021 End: 06-19-2021 Patient encounter procedure Shayne Conde DO Work Phone: Neurology Comment on above: Essential tremor (Pr imary Dx) Start: 05-20-2021 End: 05-20-2021 Subsequent hospital visit by physician Sydnee Tamez Work Phone: [facility] Start: 04-30-2021 End: 04-30-2021 Subsequent hospital visit by physician Kaye Pulmonary Function Room [facility] PFT Comment on above: Centrilobular emphys rivera (HCC) Start: 04-03-2021 End: 04-04-2021 ambulatory FAITH CARIAS [facility] Start: 04-03-2021 End: 04-03-2021 ambulatory JOANNE HOLBROOK [facility] Start: 03-12-2021 End: 03-12-2021 Subsequent hospital visit by physician Sydnee Tamez Work Phone: [facility] Start: 07-15-2020 End: 07-17-2020 Subsequent hospital visit by physician Kaye Guzman Dr Room [address] [place] [address] Radiology Comment on above: Injury of left knee, initial encounter Right shoulder pain, unspecified chronicity; Fall, initial encounter; Right arm pain Start: 06-19-2020 End: 05-23-2020 General Olga Carey PharmD Work Phone: [facility] Work Phone: Start: 05-23-2020 End: 05-23-2020 Patient encounter procedure Shannan Benavides Work Phone: [facility] Work Phone: Start: 12-12-2019 End: 12-14-2019 Subsequent hospital visit by physician Kaye Peck [facility] Mammography Comment on above: Osteoporosis, unspec ified osteoporosis type, unspecified pathological fracture presence Start: 04-03-2019 End: 04-04-2019 Patient encounter procedure Gene Cline Facility:[facility] Start: 01-24-2019 End: 01-26-2019 Subsequent hospital visit by physician Sydnee Tamez [facility] Radiology Start: 01-06-2019 End: 01-07-2019 Patient encounter procedure Gene Cline Facility:[facility] Start: 12-13-2018 End: 12-13-2018 Subsequent hospital visit by physician Kaye Cardiology Stress Room [facility] Stress Lab Comment on above: Abnormal EKG; Mixed hyperlipidemia; Orthostatic hypotension; Tobacco abuse; Shortness of breath on exertion Start: 12-12-2018 End: 12-13-2018 Patient encounter procedure Gene Cline Facility:[facility] Start: 11-22-2018 End: 12-22-2018 Preoperative state [address] Start: 11-02-2018 End: 11-04-2018 Subsequent hospital visit by physician Kaye Guzman Dr Room 2 [facility] Radiology Comment on above: Cough Start: 10-31-2018 End: 11-01-2018 Patient encounter procedure Gene Cline Facility:[facility] Start: 10-06-2018 End: 10-07-2018 Patient encounter procedure TOÑA AVALOS Facility:[facility] Procedures Date Procedure Procedure Detail Performing Clinician Start: 04-07-2022 MRI of neck vessels with contrast CFNP Sydnee Rine Work Phone: Start: 04-03-2022 Magnetic resonance angiography of head without contrast CFNP Sydnee Rine Work Phone: Start: 03-05-2022 Mri brain brain stem w/o w/contrast material Alfredsandra Pal Work Phone: Start: 03-03-2022 Basic metabolic pane l calcium total Alfred Frubecka Work Phone: Start: 12-08-2021 Radiologic examinati on knee 3 views Sydnee L Rine Work Phone: Start: 10-16-2021 Screening mammograph y bi 2-view breast inc cad Sydnee L Gilae Work Phone: Start: 08-26-2021 End: 08-26-2021 Radex shoulder complete minimum 2 views Sydnee L Rine Work Phone: Start: 05-20-2021 Blood count complete auto&auto difrntl wbc Francisco Ham MD Work Phone: Start: 04-30-2021 Pulmonary stress testing Faith Carias MD Work Phone: Start: 03-12-2021 Urnls dip stick/tabl et rgnt auto w/o microscopy Sydnee L Rine Work Phone: Start: 07-15-2020 End: 07-15-2020 Radiologic examination knee 3 views Sydnee L Rine Work Phone: Start: 06-19-2020 Imm. administration COVID19 Moderna dose 2 Olga Carey PharmD Work Phone: Start: 04-28-2021 SARS-CoV-2 vaccine, 0.5ml Moderna Olga Hoerastog PharmD Work Phone: Start: 05-23-2020 Imm. administration COVID19 Moderna dose 1 Shannan Benavides Work Phone: Start: 05-23-2020 SARS-CoV-2 vaccine, 0.5ml Moderna Shannan Benavides Work Phone: Start: 12-12-2019 Dxa bone density jamshid dy 1/> sites axial skel Sydnee Tamez Work Phone: Start: 11-02-2018 Radiologic exam ches t 2 views Sydnee Tamez Work Phone: Plan of Treatment Date Care Activity Detail Author Start: 11-24-2023 Depression Screen Depression Screen [facility] Start: 09-02-2023 End: 09-02-2023 Patient encounter procedure 09/02/2023 1:30 PM EDT Office Visit [facility] [address] [address] Vadim Ortiz, PULP DRIER FIRER - ACCOUNTANCY PROFESSOR [address] [facility] [address] [place], [place] [id number] emphysema 1 yr. f/u [facility] Comment on above: emphysema 1 yr. f/u Start: 01-18-2023 Annual Wellness Visit (Medicare) Annual Wellness Visit (Medicare) [facility] Start: 10-23-2022 COVID-19 Vaccine ( season) COVID-19 Vaccine ( season) [facility] Start: 09-22-2022 Influenza vaccination Flu vaccine (#1) [facility] Start: 09-09-2022 End: 09-09-2022 Patient encounter procedure 09/09/2022 Office Visit Pulmonology Soto Brady, DO [address] [facility] [address] [place], [place] [id number] [facility] Start: 03-05-2022 End: 03-05-2022 Patient encounter procedure 03/05/2022 Appointment Radiology [facility] Start: 02-20-2022 Lipid panel Lipids [facility] Start: 12-08-2021 COVID-19 Vaccine (5 - Booster for Moderna series) COVID-19 Vaccine (5 - Booster for Moderna series) [facility] Start: 10-23-2021 Influenza vaccination Flu vaccine (#1) [facility] Start: 09-22-2021 Influenza vaccination Flu vaccine (#1) [facility] Start: 09-04-2021 End: 09-04-2021 Patient encounter procedure 09/04/2021 Office Visit Pulmonology Vadim Ortiz, PULP DRIER FIRER - ACCOUNTANCY PROFESSOR [address] [facility] [address] [place], [place] [id number] [facility] Start: 08-07-2021 End: 08-07-2021 Patient encounter procedure 08/07/2021 Office Visit Pulmonology Faith Carias MD [address] [facility] [address] [place], [place] [id number] [facility] Start: 04-10-2021 End: 04-10-2021 Patient encounter procedure [facility] Start: 03-31-2021 End: 03-31-2021 Patient encounter procedure 03/31/2021 Appointment Echocardiography [facility] E[facility] Start: 03-27-2021 Screening for malignant neoplasm of lung [facility] Start: 02-22-2021 ADVANCE DIRECTIVE DISCUSSION ADVANCE DIRECTIVE DISCUSSION [facility] Start: 12-19-2020 COVID-19 Vaccine (3 - Booster for Moderna series) COVID-19 Vaccine (3 - Booster for Moderna series) [facility] Start: 11-19-2020 COVID-19 Vaccine (3 - Booster for Moderna series) COVID-19 Vaccine (3 - Booster for Moderna series) [facility] Start: 11-04-2020 Lipid screen Lipid screen [place], [place] Start: 10-23-2020 Influenza vaccination Flu vaccine (#1) [facility] Start: 06-19-2020 2nd Dose- COVID Vaccine [facility] Work Phone: Start: 04-04-2020 End: 04-04-2020 Office Visit 04/04/2020 Office Visit Pulmonology Faith Carias MD [address] [facility] [address] [place], [place] [id number] [facility] Start: 02-07-2020 Screening for malignant neoplasm of lung Low dose CT lung screening [place], [place] Start: 12-13-2019 Influenza vaccination Flu vaccine (#1) [place] Comment on above: Postponed from 10/23/2018 (Patient Refus ed) Start: 11-03-[address] lung screening Low dose CT lung screening [place] Start: 06-14-2019 Pneumococcal 65+ years Vaccine (2 - PPSV23 or PCV20) Pneumococcal 65+ years Vaccine (2 - PPSV23 or PCV20) [facility] Start: 06-14-2019 Pneumococcal 65+ years Vaccine (2 of 2 - PPSV23) Pneumococcal 65+ years Vaccine (2 of 2 - PPSV23) [facility] Start: 03-09-2019 End: 03-09-2019 Office Visit 03/09/2019 Office Visit Pulmonology Faith Carias MD [address] [facility] [address] [place], [place] [id number] [facility] [place] Start: 02-06-2019 End: 02-06-2019 Appointment 02/06/2019 Appointment Radiology [facility] CT Scan Start: 12-14-2018 End: 12-14-2018 Appointment 12/14/2018 Appointment Stress Lab [facility] Start: 10-23-2018 Influenza vaccination Flu vaccine (#1) [place] Start: 08-14-2018 Annual Wellness Visit (AWV) Annual Wellness Visit (AWV) [facility] Start: 11-04-2016 Lipid panel [facility] Start: 11-04-2016 Lipid screen Lipid screen [place], [place] Start: 2008 BONE DENSITY BONE DENSITY [facility] Start: 2008 Pneumococcal 65+ years Vaccine (2 of 2 - PPSV23) Pneumococcal 65+ years Vaccine (2 of 2 - PPSV23) [place] Start: 2008 PNEUMOVAX AGE 65 AND OVER WITH 5YR LOOKBACK (#1) PNEUMOVAX AGE 65 AND OVER WITH 5YR LOOKBACK (#1) [facility] Start: 2003 Respiratory Syncytial Virus (RSV) or age 60 yrs+ (1 - 1-dose 60+ series) Respiratory Syncytial Virus (RSV) or age 60 yrs+ (1 - 1-dose 60+ series) [facility] Start: 1993 Colon cancer screen colonoscopy Colon cancer screen colonoscopy [place], [place] Start: 1993 Shingles Vaccine (1 of 2) Shingles Vaccine (1 of 2) [facility] Start: 1993 SHINGRIX VACCINE (1 of 2) SHINGRIX VACCINE (1 of 2) [facility] Start: 1988 DIABETES SCREEN DIABETES SCREEN [facility] Start: 1962 DTaP/Tdap/Td vaccine (1 - Tdap) DTaP/Tdap/Td vaccine (1 - Tdap) [facility] Start: 1962 Urine microalbumin profile DTAP,TDAP,TD (1 - Tdap) [facility] Start: 1961 HEPATITIS C SCREENING HEPATITIS C SCREENING [facility] Start: 1961 Hepatitis C screening Hepatitis C screen [facility] Start: 1955 Adult depression screening assessment DEPRESSION SCREENING [facility] Start: 1955 Depression Screen Depression Screen [facility] Start: 1954 DTaP/Tdap/Td vaccine (1 - Tdap) DTaP/Tdap/Td vaccine (1 - Tdap) [place] Start: 1943 Annual Wellness Visit (AWV) Annual Wellness Visit (AWV) [facility] Start: 1943 Hepatitis C screening Hepatitis C screen [facility] End: 03-12-2021 Culture, Urine [facility] Work Phone: Comment on above: Once for 1 Occurrences starting 03/12/19 22 until [facility]12[facility] Immunization Date Immunization Notes Care Provider Fa aleena 06-19-2020 2nd Dose MODERNA COVID-19 Vaccine; Translations: [Moderna COVID-19 Vaccine] Yogesh Scott MD Work Phone: [facility] Work Phone: Comment on above: Note: Patient tolera heidy well. No signs or symptoms of adverse reactions. Patient waited a minimum of 15 minutes. 05-23-2020 2nd Dose MODERNA COVID-19 Vaccine; Translations: [Moderna COVID-19 Vaccine] [facility] Work Phone: Comment on above: Note: Patient tolera heidy well. No signs or symptoms of adverse reactions. Patient waited a minimum of 15 minutes. Payers Date Payer Category Payer Self-pay 2018 Medicare 2018 Unknown 2014 Medicare MEDICARE MEDICAR E PART A AND B xxxxxxxxxxx 2014-Present [phone] [place] [address] xxxxxxxxxxx [id number] 2014 Unknown [employer] [employer] [employer] [place] MEDIC[place] SUPP [id number] 2014-Present [phone] ATTN INDIVIDUAL CLAIMS [id number] [employer] [place], [place] [address] [id number] 2008 Unknown [id number] .[id number] 2008 Unknown [employer] [place] [employer] [place] MEDICARE SUPPLEMENT [id number] 2008-Present [phone] [id number] [employer] [place] [address] Indemnity [id number] 2008 Medicare MEDICARE MEDICAR E A AND B [id number] 2008-Present [phone] [place] [address] Medicare [id number] 1959 Medicare [id number] [id number] 1959 Unknown [id number] [id number] 99.5.10.6.3 1943 Unknown [id number] 2.16.840.1.324044.3.579.2.196 1943 Unknown [id number] 2.16.840.1.086821.3.579.2.196 1943 Unknown [id number] 2.16.840.1.704594.3.579.2.196 1943 Unknown [id number] 2.16.840.1.576812.3.579.2.196 1943 Unknown [id number] 2.16.840.1.456154.3.579.2.196 1943 Unknown [id number] 2.16.840.1.870571.3.579.2.593 1943 Unknown [id number] 2.16.840.1.643989.3.579.2.174 1943 Unknown [id number] 2.16.840.1.342628.3.579.2.174 1943 Unknown [id number] 2.16.840.1.825149.3.579.2.174 1943 Unknown [id number] 2.16.840.1.545248.3.579.2.125 9 1944 Unknown [id number] 2.16.840.1.687097.3.579.2.727 1943 Unknown [id number] 2.16.840.1.280967.3.579.2.173 1943 Unknown [id number] 2.16.840.1.596281.3.579.2.173 1943 Unknown [id number] 2.16.840.1.815552.3.579.2.173 Unknown [id number] 2.16.840.1.338161.3.579.2.531 Unknown [id number] [id number] Social History Date Type Detail Facility Start: 06-20-2015 Tobacco smoking stat [facility] Former smoker [place], [place] End: 06-04-2014 History of tobacco use Current [place]oker [place] Start: 06-20-2015 End: 11-22-2018 Cigarettes smoked current (pack per day) - Reported [employer] [facility] [employer] Start: 06-20-2015 End: 11-22-2018 Alcohol intake [facility] [employer] Start: 1945 Sex Assigned At Not on file [place], [place] Start: 12-08-2018 End: 10-16-2021 Tobacco smoking status ORIS Current every day smoker [place] Start: 12-08-2018 End: 09-09-2022 Alcohol intake Current non-drinker of alcohol (finding) [place] Start: 03-30-2019 End: 10-16-2021 Tobacco use and exposure [facility] [place] Exposure to SARS-CoV -2 (event) Not sure [place] Tobacco smoking status Unknown i f ever smoked [facility] Work Phone: History of tobacco use Cigarette Smoker [facility] Start: 1945 Sex Assigned At Female [facility] Frequency of Communi cation with Friends and Family Patient declined [employer] [facility] [employer] How often to you hav e a drink containing alcohol? Never LUIS ANGEL [facility] Clinical Notes 06-19-2020 to 01-30-2022 Patient InstructionsShayne Tess Conde, - 06/19/2021 4:08 PM Niurka Chowdhury, CELLULOID TRIMMER - 04/30/2021 3:30 PM EST Note Date & Type Note Facility 01-30-2022 Note HNO ID: [id number] Author: Shayne Conde DO Service: ? Author Type: Physician Type: Progress Notes Filed: 02/02/2022 11:04 AM Note Text: [facility] - FOLLOW UP EVALUATION Shayne Tess Conde [address] [facility] [address] Stephanie Spear is a 76 year old [...] Left pathological reflexes: Greyson's absent. Coordination Right: Gvrkju-ba-uwxw normal. Rapid alternating movement normal.Left: Xzonbk-jr-zgxn normal. Rapid alternating movement normal. Gait The [...] tremor (primary encounter (more content not included)... [facility] 06-19-2021 Note HNO ID: [id number] Author: Shayne Conde, DO Service: ? Author Type: Physician Type: Progress Notes Filed: 06/27/2021 4:48 PM Note Text: [facility] - NEW PATIENT EVALUATION Sydnee Tamez MD [address] [facility] [address] Stephanie Spear is a 76 year old [...] No leg edema, (more content not included)... [facility] 06-19-2021 Instructions Shayne Conde DO - 06/19/2021 4:41 PM EDT Primidone instructions Start Primidone 50mg for tremor 1 week: Take 1 tablet daily at bedtime. 1 week: Take 2 tablets daily at bedtime. 1 week: Take 3 tablets daily at bedtime. Continue: Take 4 tablets daily at bedtime. The patient will call ([phone]) if sedation, confusion or sleepiness occur. documented in this encounter [facility] 06-19-2021 History of Presen t illness Narrative [facility] - NEW PATIENT EVALUATION Sydnee Tamez MD [address] [facility] [address] Stephanie Spear is a 76 year old [...] Left pathological reflexes: Greyson's absent. Coordination Right: Zuoqht-tp-[id number] normal. Rapid alternating movement normal. Left: Ellgss-vm-wvtd normal. Rapid alternating movement normal. Gait Casual [...] counseling regarding preparing to see the patient, efby-uz-loil patient care, completing clinical documentation, obtaining and/or reviewing separately obtained history, performing a medically appropriate examination, counseling and educating the patient/family/caregiver, ordering medications, tests, or procedures and communicating results to the patient/family/caregiver. I tried to answer all of the patient's questions and concerns during this visit. Shayne Conde DO Senior Staff Neurologist - [facility] documented in this encounter [facility] 04-30-2021 History of Presen t illness Narrative [place] [address] Patient Name: Stephanie Spear 1945 A home oxygen evaluation has been completed. Patient arrived on room air with a walker at this time. SpO2 was 97 % on room air at rest. Patient was walked for 6 minutes. SpO2 was 98 % on room air during walking. Patient does not qualify for home oxygen at this time. documented in this encounter [employer] Phone: 06-19-2020 Evaluation note Includes: Assessments for all patient encounters Findings Encounter for Immunization 2nd Dose- COV ID Vaccine with Olga Carey PharmD 06/19/2020 Encounter for Immunization 1st COVID Vac cine with Shannan Benavides PharmD 05/23/2020 [facility] Work Phone: Evaluation note* Diagnosis Injury of left knee, initial encounter documented in this encounter [employer] Phone: evaluation note* Diagnosis Right shoulder pain, unspecified chronicity Fall, initial encounter Right arm pain Pain in limb documented in this encounter [employer] Phone: evaluation note* Diagnosis Centrilobular emphysema (HCC) Other emphysema documented in this encounter [employer] Phone: evaluation note* Diagnosis Essential tremor- Primary Essential and other specified forms of tremor [facility] Diagnosis Right shoulder pain, unspecified chronicity documented in this encounter [place] Phone: evaluation note* Diagnosis Pain in rib Chest pain, unspecified documented in this encounter [employer] Work Phone: evaluation note* Diagnosis Breast cancer screening by mammogram documented in this encounter [place] Phone: evaluation note* Diagnosis Acute pain of right knee documented in this encounter [employer] Phone: evaluation note* Diagnosis Falls frequently Personal history of fall Tremor Abnormal involuntary movements Confusion Unspecified psychosis Shuffling gait Abnormality of gait documented in this encounter [employer] [place] Phone: evaluation noteNo assessment information available [facility] Work Phone: History general Narrative - Reported Includes: Medical History in patient's chart No Medical History [facility] Work Phone: History of Present illness Narrative History of Present Illness not supported for this document type No History of Present Illness [facility] Work Phone: Instructions Instructions not supported for this document type No Instructions [facility] Work Phone: Patient problem outcome Narrative Includes: Evaluations & Outcomes for active Goals No Outcomes [facility] Work Phone: Reason for referral (narrative)No Reason for Referral [facility] Work Phone: Review of systems Narrative - Reported Review of Systems not supported for this document type No Review of Systems [facility] Work Phone: Assessments Diagnosis Cough Diagnosis Abnormal EKG Nonspecific abnormal electrocardiogram (ECG) (EKG) Mixed hyperlipidemia Orthostatic hypotension Tobacco abuse Tobacco use disorder Shortness of breath on exertion Shortness of breath Diagnosis Osteoporosis, unspecified osteoporosis type, unspecified pathological fracture presence Findings Encounter Date Encounter for Immunization 1st COVID Vaccine wit willis Benavides PharmD 05/23/2020 Advance Directives No Advanced Directives Records FoundDocuments on File Type Date Recorded Patient Meteorology Faculty Member Expl anation Advance Directives and Living Will Power of Business Liaison Officer Latest Code Status on File Code Status Date Activated Date Inactivated Comments Full Code 06/05/2014 11:47 PM 06/10/2014 3:31 PM Documents on File Type Date Recorded Patient Meteorology Faculty Member Expl anation Advance Directives and Living Will Power of Business Liaison Officer Latest Code Status on File Code Status Date Activated Date Inactivated Comments Full Code 06/05/2014 11:47 PM 06/10/2014 3:31 PM Documents on File Type Date Recorded Patient Meteorology Faculty Member Expl anation ACP-Advance Directive ACP-Power of Business Liaison Officer Documents on File Type Date Recorded Patient Meteorology Faculty Member Expl anation ACP-Advance Directive ACP-Power of Business Liaison Officer Advance Directive Response Recorded Date/ Time Advance Directives No March 27, 2022 11:30am Latest Code Status on File Code Status Date Activated Date Inactivated Comments Full Code 06/05/2014 11:47 PM 06/10/2014 3:31 PM Summary Purpose Family History No Family History [...] home with Condition: Good Diet: Regular [facility] Follow-up: 2 weeks [...] test, lexiscan HC NM SEST. REST STRESS MULT James Godoy MD [address] [place] [address] Status Reason Specialty Diagnoses / Procedures Referred By Contact Referred To Contact Pending Review Radiology Diagnoses Osteoporosis, unspecified osteoporosis type, unspecified pathological fracture presence Procedures DEXA BONE DENSITY AXIAL SKELETON Sydnee Tamez [address] [place] [address] Specialty Diagnoses / Procedures Referred By Contac t Referred To Contact Diagnoses Centrilobular emphysema (HCC) Procedures 6 Minute Walk Test Faith Carias MD [address] [facility] [address] [place] [address] Referral ID Status Reason Start Date Expiration Date Visits Re quested Visits Authorized [id number] Open 04/17/2021 04/17/2022 1 1 Specialty Diagnoses / Procedures Referred By Contac t Referred To Contact [facility] Diagnoses Essential tremor Procedures CONSULT TO AIR TRAFFIC CONTROL OPERATOR OCCUPATIONAL THERAPY EVAL HIGH COMPLEX 60 MINS Shayne Conde, DO [address] [place] [address] [facility] [place] [address] [place] [address] Referral ID Status Reason Start Date Expiration Date Visits Requested Visits Authorized [id number] Authorized PCP Requested Referral Auto-Generate d Referral 06/19/2021 06/19/2022 99 99 Specialty Diagnoses / Procedures Referred By Contac t Referred To Contact Radiology Diagnoses Breast cancer screening by mammogram Procedures SHARON SOLIS DIGITAL SCREEN SELF REFERRAL W OR WO CAD BILATERAL Rine, Sydnee L [address] [place] [id number] Referral ID Status Reason Start Date Expiration Date Visits Re quested Visits Authorized [id number] Closed 10/16/2021 10/16/2022 1 1 Specialty Diagnoses / Procedures Referred By Contac t Referred To Contact Radiology Diagnoses Falls frequently Tremor Confusion Shuffling gait Procedures MRI BRAIN W WO CONTRAST Alfred Pal [address] [place] [id number] Referral ID Status Reason Start Date Expiration Date Visits Re quested Visits Authorized [id number] Closed 03/03/2022 03/03/2023 1 1 Instructions Instructions [...] section and content) DATE CREATED AUTHOR 04/04/2019 [facility] DATE CREATED AUTHOR AUTHOR'S ORGANIZ ATION 06/27/2021 [facility] DATE CREATED AUTHOR AUTHOR'S ORGANIZ ATION 06/28/2021 [facility] DATE CREATED AUTHOR AUTHOR'S ORGANIZ ATION 09/10/2021 [facility] DATE CREATED AUTHOR AUTHOR'S ORGANIZ ATION 02/03/2022 [facility] DATE CREATED AUTHOR AUTHOR'S ORGANIZ ATION 03/07/2022 [facility] DATE CREATED AUTHOR AUTHOR'S ORGANIZ ATION 05/16/2022 [facility] DATE CREATED AUTHOR AUTHOR'S ORGANIZ ATION 01/05/2023 [facility] EPIC DATE CREATED AUTHOR AUTHOR'S ORGANIZ ATION 03/24/2023 [facility] DATE CREATED AUTHOR AUTHOR'S ORGANIZ ATION [facility] Reason for Visit (unrecogniz ed section and content) Status Reason Specialty Diagnoses / Procedures Referred By Contact Referred To Contact Authorized Cardiology Diagnoses Abnormal EKG Mixed hyperlipidemia Orthostatic hypotension Tobacco abuse Shortness of breath on exertion Procedures Stress test, lexiscan HC NM SEST. REST STRESS James Tello MD [address] [place] [address] Status Reason Specialty Diagnoses / Procedures Referre d By Contact Referred To Contact Closed Radiology Diagnoses Age-related osteoporosis without current pathological fracture Procedures HC DEXA AXIAL SKELETON Sydnee Tamez [address] [place] [address] [facility] [place] [address] [place] [phone] Specialty Diagnoses / Procedures Referred By Contac t Referred To Contact Diagnoses Centrilobular emphysema (HCC) Procedures 6 Minute Walk Test Faith Carias MD [address] [facility] [address] [place] [address] Referral ID Status Reason Start Date Expiration Date Visits Re quested Visits Authorized [id number] Open 04/17/2021 04/17/2022 1 1 Reason Comments New Patient Specialty Diagnoses / Procedures Referred By Contac t Referred To Contact Radiology Diagnoses Breast cancer screening by mammogram Procedures SHARON SOLIS DIGITAL SCREEN SELF REFERRAL W OR WO CAD BILATERAL Sydnee Tamez [address] [facility] [address] [place], [place] [id number] Referral ID Status Reason Start Date Expiration Date Visits Re quested Visits Authorized [id number] Closed 10/16/2021 10/16/2022 1 1 Specialty Diagnoses / Procedures Referred By Contac t Referred To Contact Radiology Diagnoses Falls frequently Tremor Confusion Shuffling gait Procedures MRI BRAIN W WO CONTRAST Alfred Pal [address] [facility] [address] [place], [place] [id number] Referral ID Status Reason Start Date Expiration Date Visits Re quested Visits Authorized [id number] Closed 03/03/2022 03/03/2023 1 1 Medical History (unrecognize d section and content) Includes: Medical History in patient's chartNo Medical History Recorded Evaluations & Outcomes (unre cognized section and content) Includes: Evaluations & Outcomes for active GoalsNo Outcomes Recorded Care Teams (unrecognized sec tion and content) Change Management Relationship Specialty Start Date End Date Jayant Tamezri L [address] [place] [address] PCP - General 06/20/15 Change Management Relationship Specialty Start Date End Date Jayant Tamezri L [address] [place] [address] PCP - General 06/20/15 Change Management Relationship Specialty Start Date End Date Jayant Tamezri L [address] [place] [address] PCP - General 06/20/15 Change Management Relationship Specialty Start Date End Date Sydnee Tamez L (Manager Research) [address] [place] [address] Referring Family Practice 03/20/21 Change Management Relationship Specialty Start Date End Date Jyaant Tamezri L [address] [place] [address] PCP - General 06/20/15 Change Management Relationship Specialty Start Date End Date Jayant Tamezri L [address] [place] [address] PCP - General 06/20/15 Change Management Relationship Specialty Start Date End Date Jayant Tamezri L [address] [place] [address] PCP - General 06/20/15 Change Management Relationship Specialty Start Date End Date Jayant Tamezri L [address] [place] [address] PCP - General 06/20/15 Team Status: Inactive Member Role Status Dates Bret Wade DO Attending Provider Active Sydnee L Cristy CFPARISH Primary Care Provider Active Team Status: Active Member Role Status Dates Sydnee L Cristy CFNP Primary Care Provider Active Change Management Relationship Specialty Start Date End Date Rine, Sydnee L [address] [place] [phone] PCP - General 06/20/15 Source Comments (unrecognize d section and content) In the event this informatio n is protected by the Federal Confidentiality of Alcohol and Drug Abuse Patient Records regulations: The Federal rules restrict any use of the information to criminally investigate or prosecute any alcohol or drug abuse patient.[facility] Goals (unrecognized section and content) Goals may [...] BE BASED ON THE PRIMARY CLINICAL RECORDS. [facility]. provides no warranty or guarantee of the accuracy or completeness of information in this document.
[2023-04-26 13:52] LABS: Basophils Absolute Auto 0.1 10^3/uL (0.0-0.1); Basophils Percent Auto 0.5 % (0.2-2.0); Eosinophils Absolute Auto 0.3 10^3/uL (0.0-0.7); Eosinophils Percent Auto 2.1 % (0.9-7.0); Hematocrit 29.7 % (36.0-48.0); Hemoglobin 9.1 g/dL (12.0-16.0); Immature Granulocytes Abs Auto 0.07 10^3/uL (0.00-0.03); Immature Granulocytes Pct Auto 0.6 % (0.0-0.5); Lymphocytes Absolute Auto 0.7 10^3/uL (1.2-3.8); Lymphocytes Percent Auto 5.9 % (20.5-60.0); Mean Corpuscular HGB Conc 30.6 g/dL (29.9-35.2); Mean Corpuscular Hemoglobin 31.3 pg (26.7-34.0); Mean Corpuscular Volume 102.1 fL (81.0-99.0); Mean Platelet Volume 11.7 fL (9.5-13.5); Monocytes Absolute Auto 0.9 10^3/uL (0.3-0.8); Monocytes Percent Auto 7.3 % (1.7-12.0); Neutrophils Absolute Auto 10.6 10^3/uL (1.4-6.5); Neutrophils Percent Auto 83.6 % (43.0-75.0); Platelet Count 283 10^3/uL (150-450); Red Blood Count 2.91 10^6/uL (4.20-5.40); Red Cell Distribution Width 15.1 % (11.0-15.0); White Blood Count 12.6 10^3/uL (4.0-11.0)
[2023-04-26 14:09] LABS: Alanine Aminotransferase 19 U/L (14-59); Albumin Globulin Ratio 0.7; Albumin Level 2.8 g/dL (3.4-5.0); Alkaline Phosphatase 56 U/L (46-116); Anion Gap 14.6; Aspartate Amino Transferase 17 U/L (15-37); BUN Creatinine Ratio 40.9; Bilirubin Total 0.3 mg/dL (0.2-1.0); Calcium 8.2 mg/dL (8.5-10.1); Carbon Dioxide 23.5 mmol/L (21.0-32.0); Chloride 104 mmol/L (98-107); Estimated GFR (African America >60 (>=60); Estimated GFR (Non-African Ame 58 (>=60); Glucose 96 mg/dL (74-106); Potassium 4.1 mmol/L (3.5-5.1); Sodium 138 mmol/L (136-145); Total Protein 6.8 g/dL (6.4-8.2)
[2023-04-26] MEDS: TOPIRAMATE 25 MG TABLET 50 MG PO (14:12)
[2023-04-26 14:14] LABS: Lactate/Lactic Acid 2.1 mmol/L (0.4-2.0)
[2023-04-26] MEDS: 0.9 % SODIUM CHLORIDE 1,000 ML 1000 ML IV (14:34)
[2023-04-26 14:37] VITALS: BP 131/62; PULSE 62; RESP 18; O2SAT 99
[2023-04-26 15:45] LABS: Bilirubin Urine NEGATIVE (NEGATIVE); Blood Urine NEGATIVE (NEGATIVE); Clarity Urine CLEAR (CLEAR); Color Urine LT. YELLOW (YELLOW); Glucose Urine UA NEGATIVE (NEGATIVE); Ketones Urine NEGATIVE (NEGATIVE); Leukocyte Esterase Urine NEGATIVE (NEGATIVE); Nitrite Urine NEGATIVE (NEGATIVE); Protein Urine NEGATIVE (NEG/TRACE); Specific Gravity Urine 1.015 (1.005-1.025); Urine Microscopic Indicated NO; Urobilinogen Urine 0.2 EU/dL (0.2-1.0); pH Urine 7.5 (5.0-9.0)
[2023-04-26 16:07] VITALS: BP 128/60; PULSE 82; RESP 18; O2SAT 99
[2023-04-26 17:16] LABS: Lactate/Lactic Acid 0.9 mmol/L (0.4-2.0)
== END 2023-04-26 17:58 | disposition home or self-care (01) ==
PROVIDERS: Emergency Provider Emergency Medicine Emergency Medical Services
DX: G40.909 Epilepsy, unspecified, not intractable, without status epilepticus (principal); M81.0 Age-related osteoporosis without current pathological fracture; G25.0 Essential tremor; E78.5 Hyperlipidemia, unspecified; F32.9 Major depressive disorder, single episode, unspecified; E03.9 Hypothyroidism, unspecified; M19.90 Unspecified osteoarthritis, unspecified site; J44.9 Chronic obstructive pulmonary disease, unspecified; N18.30 Chronic kidney disease, stage 3 unspecified; Z79.899 Other long term (current) drug therapy; Z79.890 Hormone replacement therapy; Z87.891 Personal history of nicotine dependence; Z98.890 Other specified postprocedural states
CPT/HCPCS: 36415; 71045; 80053; 81003; 83605; 85025; 87040; 99285

== ENCOUNTER 2023-06-01 10:47 | Emergency (ER) | payer MEDICARE, OTHER, SELFPAY ==
[2023-06-01] VITALS (18 sets, daily range): BP systolic 111–155; BP diastolic 63–76; PULSE 70–77; TEMP 36.9; O2SAT 71–100; BMI 23.9
--- NOTE | 2023-06-01 11:02 | XR_ITS ---
The [address] [address] Patient Name: SONYA SPEAR MRN: [id number] date: 1945 Sex: F Assigned Patient Location: ED.MAIN Current Patient Location: ED.MAIN Accession/Order Number: [id number] Exam Date: 06/01/2023 11:08 Report Date: 06/01/2023 11:36 At the request of: NATALIE LEO Procedure: XR chest 1V EXAMINATION: XR chest 1V HISTORY: siezure COMPARISON: 04/26/2023 TECHNIQUE: AP portable FINDINGS: LUNGS: No significant pulmonary parenchymal abnormalities. VASCULATURE: No increased pulmonary vasculature. PLEURA: No pneumothorax, effusion, or pleural thickening. CARDIAC: No cardiomegaly or cardiac silhouette abnormality. MEDIASTINUM: No visible mass or adenopathy. Aortic atherosclerosis BONES: No fracture or visible bone lesion. OTHER: Negative. XR/XR chest 1V IMPRESSION: No acute cardiopulmonary process Electronically authenticated by: PHANI FRANCIS Date: 06/01/2023 11:36
--- OUTSIDE RECORDS SUMMARY | 2023-06-01 11:07 | XMS_ITS | CCD ---
Author Organization [facility] Care Team Providers Care Career Specialist Name Role Phone Jayant Tamezri L Primary Care Provider [phone] TOÑA AVALOS Attending Unavailable Fruvaleria, Alfred Moreno Primary Care Unavailable ALFRED PAL Consulting Unavailable Gene Cline Admitting Unavailable Gene Cline Attending Unavailable Fruvaleria, Alfredsandra Moreno Primary Care Unavailable Gene Cline Attending Unavailable Fruth, Alfred Tiffanie Primary Care Unavailable KAE, ALFREDSANDRA MORENO Consulting Unavailable SATURNINO BRASHER Consulting Unavailable Gene Cline Attending Unavailable Kae, Alfred Tiffanie Primary Care Unavailable ALFRED PAL Consulting Unavailable Gene Cline Attending Unavailable JOI, SYDNEE CLIFTON Primary Care Unavailable JAYANT TAMEZRI CLIFTON Consulting Unavailable Unavailable Unavailable Unavailable Yogesh Scott MD Unavailable [phone] Rine, Sydnee L Primary Care Provider [phone] Rinjuan, Sydnee L Primary Care Provider [phone] Gilae, Sydnee L (Card Writer Hand) Unavailable [phone] PHANI FRANCIS V Consulting Unavailable [...] Care Unavailable DO Bret Wade Attending Provider RETA Tamez Sydnee L Primary Care Provider Rine, Sydnee L Primary Care Unavailable Bret Wade Attending Unavailabl e Bret Wade Admitting Unavailabl e Rine, Sydnee L Primary Care Unavailable Bret Wade Attending UnavailBret Barth Admitting Unavailabl e SHAIKH CAMARA Referring Unavailable Geoff JOSEPH Attending Unavailable RAHAT VICK Referring Unavailable RINE, SYDNEE L Primary Care Unavailable SOTO BRADY Attending Unavailable SOTO BRADY Referring Unavailable RINE, SYDNEE L Primary Care Unavailable RINE, SYDNEE L Primary Care Unavailable PHIL DYER Attending Unavailable RINE, SYDNEE L Attending Unavailable RINE, SYDNEE L Attending Unavailable Allergies Allergy Classification Reported Allergen(s) Allergy Type Date of Onset Reaction(s) Facility Aluminum aspirin (3 sources) Aluminum aspirin Drug Allergy 7 [facility] formoterol / Mometasone (3 sources) formoterol / Mometasone Drug Allergy 9 [facility] NSAIDs (3 sources) NSAIDs Drug Allergy 6 [facility] Penicillins (antibiotic) (3 sources) Penicillins Drug Allergy 2 [facility] Risedronate (3 sources) Risedronate Drug Allergy 4 [facility] (14 sources) NSAIDs; Translations: [NSAIDs] Propensity to adverse reactions to drug 6 [place] (15 sources) Penicillins; Translations: [penicillins] Propensity to adverse reactions to drug 2 [place] (16 sources) Risedronate Drug Allergy 4 [place] (15 sources) Aluminum aspirin Drug Allergy 7 [place] (15 sources) formoterol / Mometasone Drug Allergy 9 [place] (1 source) formoterol / Mometasone; Translations: [Dulera] Drug Allergy [facility] (1 source) Penicillins Drug Allergy 2 [facility] (1 source) NSAIDs Drug allergy (disorder) 6 [facility] (1 source) Penicillins Drug allergy (disorder) 5 [facility] (3 sources) Non-steroidal anti-inflammator y agent Propensity to adverse reactions to drug 6 [facility] (3 sources) Penicillins Propensity to adverse reactions to drug 2 [facility] (1 source) Unable to Assess Drug allergy (disorder) 3 [facility] Repository Medications Current Medications Medication Drug Class(es) [...] for Pain 12 tablet 0 06/20/2015 Active [id number] actuat albuterol 0.09 mg/actuat metered dose [...] mg by mouth once daily. sodium chloride 0.8434529 meq/mg nasal gel (3 sources) Start: 015 saline nasal gel (AYR) GEL by Nasal route as needed for Congestion. 1 Tube 3 06/10/2014 Active 28 actuat tiotropium 0.33020 mg/actuat metered dose inhaler (2 sources) Anticholinergic [...] 1 puff(s) by inhalation once daily Umeclidinium [place] (INCRUSE ELLIPTA) 62.5 MCG/INH AEPB Inhale 1 puff into the lungs daily 1 each 04/10/2021 Active Start: 12-15-2018 take 1 puff(s) by in halation once daily Umeclidinium [place] (INCRUSE ELLIPTA) 62.5 MCG/INH AEPB Inhale 1 [...] Facility Consultation Noteon 02-26-19 24 Consultation Note [id number] .[id number] Normal [facility] Operative Reporton 4 Operative Report [id number] .00TIFF Normal [facility] Brain Natri. Peptideon 11-23 Natriuretic peptide B (Bld) [Mass/Vol] 900 pg/mL High <300 [facility] Comment on above: Result Comment: An age-independent cutoff point of 300 pg/ml has a 98% negative predictive value excluding acute heart failure. Performed By: #### B BUSINESS TRAVEL CONSULTANT #### [facility] [address] [place] [address] [employer] Supervisor: Phani Patel MD CBC with Diffon 11-23-2022 Abs. Basophil 0.06 k/uL Normal 0.00-0.20 [facility] Comment on above: Performed By: #### C P, TROPI, CDP #### [facility] [address] [place] [address] [employer] Supervisor: Phain Patel MD Abs.Imm.Granulocyte 0.07 k/uL Normal 0.00-0.30 [facility] Comment on above: Performed By: #### ONEL Conti, CDP #### [address] [place] [address] [employer] Supervisor: Phani Patel MD Abs.Neutrophil (Seg) 11.15 k/uL High 1.50-8.10 [facility] Comment on above: Performed By: #### ONEL Conti, CDP #### [address] [place] [address] [employer] Supervisor: Phani Patel MD Basophils/100 WBC (Bld) 0 % Normal 0-2 [facility] Comment on above: Performed By: #### ONEL Conti, CDP #### [address] [place], [place] [address] [employer] Supervisor: Phani Patel MD Eosinophils (Bld) [#/Vol] 0.12 10*3/uL Normal 0.00-0.44 [facility] Comment on above: Performed By: #### ONEL Conti, CDP #### [address] [place], [facility] [employer] Supervisor: Phani Patel MD Eosinophils/100 WBC (Bld) 1 % Normal 1-4 [facility] Comment on above: Performed By: #### ONEL Conti, CDP #### [address] [place], [facility] [employer] Supervisor: Phani Patel MD Erythrocyte distribution width (RBC) [Ratio] 13.6 % Normal 11.8-14.4 [facility] Comment on above: Performed By: #### C PONEL, CDP #### [address] [place], [place] [id number] [employer] Supervisor: Phani Patel MD Hematocrit (Bld) [Volume fraction] 32.5 % Low 36.3-47.1 [facility] Comment on above: Performed By: #### C PONEL, CDP #### [address] [place], [place] [id number] [employer] Supervisor: Phani Patel MD Hemoglobin (Bld) [Mass/Vol] 10.7 g/dL Low 11.9-15.1 [facility] Comment on above: Performed By: #### C ONEL Carrizales, CDP #### [address] [place], [facility] [employer] Supervisor: Phani Patel MD Immature granulocytes/100 WBC (Bld) 1 % High 0 [facility] Comment on above: Performed By: #### C ONEL Carrizales, CDP #### [address] [place], [facility] [employer] Supervisor: Phani Patel MD Lymphocytes (Bld) [#/Vol] 1.83 10*3/uL Normal 1.10-3.70 [facility] Comment on above: Performed By: #### C ONEL Carrizales, CDP #### [address] [place], [facility] [employer] Supervisor: Phani Patel MD Lymphocytes/100 WBC (Bld) 13 % Low 24-43 [facility] Comment on above: Performed By: #### C PONEL, CDP #### [address] [place], [facility] [employer] Supervisor: Phani Patel MD MCH (RBC) [Entitic mass] 31.4 pg Normal 25.2-33.5 [facility] Comment on above: Performed By: #### C PLAURITAI, CDP #### [address] [place], [place] [id number] [employer] Supervisor: Phani Patel MD MCHC (RBC) [Mass/Vol] 32.9 g/dL Normal 28.4-34.8 [facility] Comment on above: Performed By: #### C P TROPI, CDP #### [address] [place], [place] [address] [employer] Supervisor: Phani Patel MD MCV (RBC) [Entitic vol] 95.3 fL Normal 82.6-102.9 [facility] Comment on above: Performed By: #### C PLAURITAI, CDP #### [address] [place], [place] [address] [employer] Supervisor: Phani Patel MD Monocytes (Bld) [#/Vol] 0.70 10*3/uL Normal 0.10-1.20 [facility] Comment on above: Performed By: #### C PLAURITAI, CDP #### [address] [place], [place] [address] [employer] Supervisor: Phani Patel MD Monocytes/100 WBC (Bld) 5 % Normal 3-12 [facility] Comment on above: Performed By: #### C PONEL, CDP #### [address] [place], [facility] [employer] Supervisor: Phani Patel MD Neutrophil (Seg) 80 % High 36-65 [facility] Comment on above: Performed By: #### C PONEL, CDP #### [address] [place], [facility] [employer] Supervisor: Phani Patel MD NRBC Automated 0.0 per 100 WBC Normal 0.0 [facility] Comment on above: Performed By: #### C PONEL, CDP #### [address] [place], [facility] [employer] Supervisor: Phani Patel MD Platelet mean volume (Bld) [Entitic vol] 11.0 fL Normal 8.1-13.5 [facility] Comment on above: Performed By: #### C P, TROPI, CDP #### [facility] [address] [place], [place] 8[address] [employer] Supervisor: Phani Patel MD Platelets (Bld) [#/Vol] 217 10*3/uL Normal 138-453 [facility] Comment on above: Performed By: #### C P, TROPI, CDP #### [facility] [address] [place] [address] [employer] Supervisor: Phani Patel MD RBC (Bld) [#/Vol] 3.41 10*6/uL Low 3.95-5.11 [facility] Comment on above: Performed By: #### C P, TROPI, CDP #### [facility] [address] [place], [place] [id number] ([address] [employer] Supervisor: Phani Patel MD WBC (Bld) [#/Vol] 13.9 10*3/uL High 3.5-11.3 [facility] Comment on above: Performed By: #### C P TROPI, CDP #### [facility] [address] [place], [place] [id number] [employer] Supervisor: Phani Patel MD Comp Metabolic Profon 2022 Albumin [Mass/Vol] 3.9 g/dL Normal 3.5-5.2 [facility] Comment on above: Performed By: #### C P TROPI, CDP #### [facility] [address] [place], [place] [address] [employer] Supervisor: Phani Patel MD Albumin/Glob Ratio 1.3 Normal 1.0-2.5 [facility] Comment on above: Performed By: #### C P TROPI, CDP #### [facility] [address] [place] [address] [employer] Supervisor: Phani Patel MD Alkaline Phos 62 U/L Normal 35-104 [facility] Comment on above: Performed By: #### C P, TROPI, CDP #### [facility] [address] [place], [place] [address] [employer] Supervisor: Phani Patel MD ALT [Catalytic activity/Vol] 13 U/L Normal 5-33 [facility] Comment on above: Performed By: #### C P, TROPI, CDP #### [facility] [address] [place], [place] [address]83 [employer] Supervisor: Phani Patel MD Anion gap [Moles/Vol] 13 mmol/L Normal 9-17 [facility] Comment on above: Performed By: #### C P, TROPI, CDP #### [address] [place], [place] [address]83 [employer] Supervisor: Phani Patel MD AST [Catalytic activity/Vol] 17 U/L Normal <32 [facility] Comment on above: Performed By: #### C P, TROPI, CDP #### [facility] [address] [place] [address] Dr[place], [place] [address]83 [employer] Supervisor: Phani Patel MD Bilirubin [Mass/Vol] 0.2 mg/dL Low 0.3-1.2 [facility] Comment on above: Performed By: #### C P, TROPI, CDP #### [address] [place], [place] [address]83 [employer] Supervisor: Phani Patel MD BUN/CRE Ratio 13 Normal 9-20 [facility] Comment on above: Performed By: #### C P, TROPI, CDP #### [facility] [address] [place], [place] [address] [employer] Supervisor: Phani Patel MD Calcium [Mass/Vol] 8.6 mg/dL Normal 8.6-10.4 [facility] Comment on above: Performed By: #### C P, TROPI, CDP #### [facility] [address] [place] [address] [employer] Supervisor: Phani Patel MD Chloride [Moles/Vol] 104 mmol/L Normal 98-107 [facility] Comment on above: Performed By: #### C P TROPI, CDP #### [facility] [address] [place], [place] [address] [employer] Supervisor: Phani Patel MD CO2 [Moles/Vol] 21 mmol/L Normal 20-31 [facility] Comment on above: Performed By: #### C P, TROPI, CDP #### [facility] [address] [place], [place] [address]83 [employer] Supervisor: Phani Patel MD Creatinine [Mass/Vol] 1.1 mg/dL High 0.5-0.9 [facility] Comment on above: Performed By: #### C P TROPI, CDP #### [facility] [address] [place] [address] [employer] Supervisor: Phani Patel MD GFR/1.73 sq M.predicted among non-blacks MDRD (S/P/Bld) [Vol rate/Area] 51 mL/min/{1.73_m2} Low >60 [facility] Comment on above: Result Comment: These [...] renal tubular secretion. Performed By: #### C P TROPI, CDP #### [facility] [address] [place] [address] [employer] Supervisor: Phani Patel MD Glucose [Mass/Vol] 130 mg/dL High 70-99 [facility] Comment on above: Performed By: #### C P, TROPI, CDP #### [facility] [address] [place] [address] [employer] Supervisor: Phani Patel MD Potassium [Moles/Vol] 3.6 mmol/L Low 3.7-5.3 [facility] Comment on above: Performed By: #### C P, TROPI, CDP #### [facility] [address] [place], [place] [address] [employer] Supervisor: Phani Patel MD Protein [Mass/Vol] 6.8 g/dL Normal 6.4-8.3 [facility] Comment on above: Performed By: #### C P, TROPI, CDP #### [facility] [address] [place], [place] [address] [employer] Supervisor: Phani Patel MD Sodium [Moles/Vol] 138 mmol/L Normal 135-144 [facility] Comment on above: Performed By: #### C P, TROPI, CDP #### [facility] [address] [place] [address] [place], [place] [address]83 [employer] Supervisor: Phani Patel MD Urea nitrogen [Mass/Vol] 14 mg/dL Normal 8-23 [facility] Comment on above: Performed By: #### C P, TROPI, CDP #### [facility] [address] [place] [address] [place], [place] [phone] [employer] Supervisor: Phani Patel MD Troponinon 11-23-2022 Troponin, High Sens 14 ng/L Normal 0-14 [facility] Comment on above: Result Comment: High Sensitivity Troponin values cannot be compared with other Troponin methodologies. Performed By: #### C P, TROPI, CDP #### [facility] [address] [place] [address] [employer] Supervisor: Phani Patel MD XR CHEST PORTABLEon 11-24-19 [...] Matt Zarco MD 11/23/22 Final result Normal [facility] CT CHEST LOW DOSE (LDCT)on 0 [...] Flaco Salgado DO 11/06/22 Final result Normal [facility] Creatinine (Bld) [Mass/Vol]O rdered By: Delfino Wade on 04-07-2022 Creatinine [Mass/Vol] 1.1 mg/dL 0.6-1.3 [facility] Comment on above: ER/ESD physician is notified/shown all ISTAT results.Critical values may be confirmed by laboratory testing ifdeemed necessary by ER attending doctor. ISTAT XRay CREon 04-07-2022 Creatinine [Mass/Vol] 1.1 mg/dL Normal 0.6-1.3 [facility] Comment on above: Result Comment: ER/E SD physician is notified/shown all ISTAT results. Critical values may be confirmed by laboratory testing if deemed necessary by ER attending doctor. Performed By: #### I SCRE #### [facility] [address] [place] [address] Point of Care testing , ISTAT GFR ( 58 [facility] Comment on above: Result Comment: GFR estimated reference range: According to KDOQI guidelines, <60 ml/min/1.73m2 is sufficient to diagnose a patient with chronic kidney disease. PERFORMED BY: [place] [address] PATHOLOGIST STICK ROLLER RAJ AGUILAR M.D. Performed By: #### I SCRE #### [address] Point of Care testing , ISTAT GFR (Non- Am 48 [facility] Comment on above: Performed By: #### I SCRE #### [facility] [address] [place] [address] Point of Care testing , MR angio neck wo/w conon MR angio neck wo/w con [facility] Main [place] [address] [place] [address] MRI Report Signed Patient: Stephanie Spear MR#: [id number] [birth year] : 1945 Acct:[id number] Age/Sex: 77 / F ADM Date: 04/07/22 Loc: MR Room: Type: [facility] Attending Dr: Bret Wade DO Copies to: Delfino Wade DO Ordering Provider: Delfino Wade DO Date of Service: 04/07/22 MR/MR angio neck wo/w con: I63.9 MRA OF THE CAROTID ARTERIES WITHOUT AND WITH INTRAVENOUS CONTRAST CLINICAL DATA: Balance issues. COMPARISON: None Nodq-fa-wnpqtc imaging of the carotid arteries was performed [...] Kierra Field M.D.04/07/2022 5:33 PM Dictation Location: [place] [address] Transcribed By: DEVORA 04/07/221732 Dictated By: Kierra Field MD 04/07/221726 Signed By: 04/07/221732 Normal [facility] No Panel InformationOrdered By: Delfino Wade on 04-07-2022 POC Estimated GFR 58 [facility] Comment on above: GFR estimated refere nce range: According to KDOQI guidelines, <60 ml/min/1.73m2 is sufficient to diagnose a patient with chronic kidney disease. POC Estimated GFR Non- Amer 48 [facility] MR angio MR brain w/oon 03-25 MR angio MR brain w/o [facility] [place] [address] MRI Report Signed Patient: Stephanie Spear MR#: [id number] [birth year] : 1945 Acct:[id number] Age/Sex: 77 / F ADM Date: 04/03/22 Loc: MR Room: Type: [facility] Attending Dr: Bret Wade DO Copies to: Delfino Wade DO Ordering Provider: Delfino Wade DO Date of Service: 04/03/22 MR/MR angio MR brain w/o: I63.9 MRI/MRA BRAIN WITHOUT CONTRAST CLINICAL DATA: Loss of balance, tremors at the hands and memory issues. COMPARISON: None Multiecho, multiplanar imaging of the brain was performed without contrast. 3-D ylnp-go-vlqbfk imaging of the [place] was also performed. There is [...] Kierra Field M.D.04/03/2022 5:37 PM Dictation Location: [place] [address] Transcribed By: [facility] 04/03/22 173 Dictated By: Kierra Field MD 04/03/22 1726 Signed By: 04/03/22 173 [facility] MRI BRAIN W WO CONTRASTon MRI [...] Phani Doll MD 03/05/22 Final result Normal [facility] 1. Nonspecific small 4 mm linear focus of restricted diffusion within the left splenium of the corpus callosum, may reflect an acute to subacute infarct. No hemorrhage, mass effect or abnormal enhancement. Short-term follow-up noncontrast enhanced brain MRI within 3-4 months is recommended. 2. Moderate atrophy and small vessel ischemic changes of the supratentorial white matter. : [facility] RIS CONSOLIDATED EXAM: MRI BRAIN W WO [...] these findings at 2:40 PM on 03/05/2022. [facility] Phani Newton MD - 03/05/2022 EXAM: MRI [...] changes of the supratentorial white matter. : [employer] Work Phone: Radiology Study observation (narrative) [employer] Phone: MRI BRAIN W WO CONTRASTOrder ed By: Phani Doll on 03-05-2022 [employer] Phone: Basic Metabolic Panelon 02-22 Anion gap [Moles/Vol] 9 mmol/L 9 - 17 mmol/L [employer] Calcium [Mass/Vol] 8.6 mg/dL 8.6 - 10. 4 mg/dL [employer] Chloride [Moles/Vol] 105 mmol/L 98 - 10 7 mmol/L [facility] CO2 [Moles/Vol] 26 mmol/L 20 - 31 mmol/L [facility] Creatinine [Mass/Vol] 0.93 mg/dL High 0.50 - 0.90 mg/dL [facility] GFR/1.73 sq M.predicted MDRD (S/P/Bld) [Vol rate/Area] - PINF [facility] Comment on above: Effective Nov 24, 2021 [...] [Mass/Vol] 83 mg/dL 70 - 99 mg/dL [facility] Interpretation and review of laboratory results Abnormal [facility] [employer] Potassium [Moles/Vol] 3.6 mmol/L Low 3.7 - 5.3 mmol/L [facility] Sodium [Moles/Vol] 140 mmol/L 135 - 144 mmol/L [facility] [employer] Urea nitrogen (BldV) [Mass/Vol] 15 mg/dL 8 - 23 mg/dL [facility] [employer] Urea nitrogen/Creatinine (Bld) [Mass ratio] 16 9 - 20 [facility]ENTERiFolloSELECT [facility] H[facility]INST[facility]-SALEMAutifony [employer]rapeutics [facility] CNOVchelly 01-30-2022 CNOV Office Visit (NRESFV ) STEPHANIE SPEAR ([id number]) 1945 F Date Time Provider Department 01/30/22 10:00 AM SHAYNE CONDE NRESFV During your visit today, we recorded the following information about you: Pulse Blood pressure Weight Height 72/minute 159/84 52.2 kg 1.613 m Shayne Pulido [place], DO 02/02/2022 11:04 AM Signed [facility] - FOLLOW UP EVALUATION Shayne Pulido [place] [address] [facility] [address] Stephanie Spear is a 76 year old [...] Left pathological reflexes: Greyson's absent. Coordination Right: Tapxxe-sm-wexn normal. Rapid alternating movement normal.Left: Qiwgrf-gx-razx normal. Rapid alternating movement normal. Gait The [...] examination. Ther (more content not included)... Normal [facility] XR KNEE RIGHT (3 VIEWS)on No acute findings. [facility] CONSOLIDATED EXAMINATION: THREE XRAY VIEWS OF THE RIGHT KNEE 12/08/2021 2:35 pm COMPARISON: None. HISTORY: ORDERING SYSTEM PROVIDED HISTORY: Acute pain of right knee FINDINGS: Knee alignment anatomic. No acute osseous abnormality. Generalized osteopenia. No significant joint effusion. Joint spaces preserved. Soft tissues unremarkable. [facility] CONSOLIDATED Damian FlacoDO - 12/08/2021 EXAMINATION: THREE XRAY VIEWS OF THE RIGHT KNEE 12/08/2021 2:35 pm COMPARISON: None. HISTORY: ORDERING SYSTEM PROVIDED HISTORY: Acute pain of right knee FINDINGS: Knee alignment anatomic. No acute osseous abnormality. Generalized osteopenia. No significant joint effusion. Joint spaces preserved. Soft tissues unremarkable. IMPRESSION: No acute findings. [employer] Phone: Radiology Study observation (narrative) [employer] Phone: XR KNEE RIGHT (3 VIEWS)Order ed By: Flaco Salgado on 12-08-2021 [employer] Phone: SHARON SOLIS DIGITAL SCREEN SELF REFERRAL W OR WO CAD BILATERALon 10-16-2021 No mammographic evidence of malignancy BIRADS: BIRADS - CATEGORY 1 Negative. Normal interval follow-up is recommended in 12 months. OVERALL ASSESSMENT - NEGATIVE A letter of notification will be sent to the patient regarding the results. The [employer] recommends annual mammograms for women 40 years and older. [facility] EXAMINATION: SCREENING DIGITAL BILATERAL MAMMOGRAM WITH TOMOSYNTHESIS, [...] [facility] RIS CONSOLIDATED Radiology Study observation (narrative) [employer] Phone: [employer] SOLIS DIGITAL SCREEN SELF REFERRAL W OR WO CAD BILATERALOrdered By: Flaco Salgado on 10-16-2021 [employer] Phone: CT CHEST WO CONon 09-04-2021 CT [...] by: PHANI FRANCIS Date: 2021-09-04 07:26 [address] [facility] [address] SHOULDER RT WO CONon 08-22 CT [...] Severe osteoarthritis of the glenohumeral joint with hfze-cf-nzzh articulation. Marginal osteophyte formation. High riding humeral head with remodeling of the acromial process consistent with a chronic rotator cuff tear. SOFT TISSUES: Negative. No visible soft tissue swelling. EFFUSION: None visible. OTHER: Moderate diffuse centrilobular emphysema IMPRESSION: Severe glenohumeral osteoarthritis with likely chronic rotator cuff tear/rupture No acute fracture or dislocation Electronically authenticated by: PHANI FRANCIS Date: 2021-09-03 19:58 Normal [facility] XR RIBS RIGHT (2 VIEWS)on No acute findings. [facility] EXAMINATION: XRAY VIEWS OF THE RIGHT RIBS 08/26/2021 3:00 pm COMPARISON: July 15, 2020 HISTORY: ORDERING SYSTEM PROVIDED HISTORY: Pain in rib FINDINGS: Lungs are clear. No pneumothorax or pleural effusion. Cardiac and mediastinal silhouettes unremarkable. Generalized osteopenia. No acute fracture. Specifically, no acute right rib fracture. [facility] Flaco Salgado DO - 08/27/2021 EXAMINATION: XRAY VIEWS OF THE RIGHT RIBS 08/26/2021 3:00 pm COMPARISON: July 15, 2020 HISTORY: ORDERING SYSTEM PROVIDED HISTORY: Pain in rib FINDINGS: Lungs are clear. No pneumothorax or pleural effusion. Cardiac and mediastinal silhouettes unremarkable. Generalized osteopenia. No acute fracture. Specifically, no acute right rib fracture. IMPRESSION: No acute findings. [employer] Phone: XR RIBS RIGHT (2 VIEWS)Order ed By: Flaco Salgado on 08-27-2021 [employer] Phone: XR SHOULDER RIGHT (MIN 2 VIE WS)on 08-27-2021 Marked degenerative and or post traumatic/postsurgica l changes in the right shoulder. No evidence of significant change when compared to the study of July 15, 2020. [facility] EXAMINATION: THREE XRAY VIEWS OF THE [...] humeral head may represent calcific tendinitis/tendinosis . [facility] Blanquita Bowman MD - 08/27/2021 EXAMINATION: THREE [...] to the study of July 15, 2020. [employer] Phone: XR SHOULDER RIGHT (MIN 2 VIE WS)Ordered By: Blanquita Richmond on 08-27-2021 [employer] Phone: XR RIBS RIGHT (2 VIEWS)on Radiology Study observation (narrative) [employer] Phone: XR SHOULDER RIGHT (MIN 2 VIE WS)on 08-26-2021 Radiology Study observation (narrative) [employer] Phone: Calciumon 06-26-2021 Calcium [Mass/Vol] 9.6 mg/dL Normal 8.6-10.2 [facility] [place] Customer Service Analyst Comment on above: Performed By: #### C LISA BENJAMIN #### [facility] [address] [place], [place] [id number] Creatinineon 06-26-2021 Creatinine [Mass/Vol] 0.7 mg/dL Normal 0.6-1.4 [facility] Comment on above: Performed By: #### LISA JIMENEZ #### [facility] [address] [place], [place] [id number] eGFRAA 95 mL/min/1.73m2 Normal >60 [facility] Customer Service Analyst Comment on above: Performed By: #### LISA JIMENEZ #### [facility] [address], [place] [id number] eGFRNAA 78 mL/min/1.73m2 Normal >60 [facility] Specialist Comment on above: Performed By: #### LISA JIMENEZ #### [facility] [address], [place] [id number] OVon 06-19-2021 CNOV Office Visit (NRESAV ) STEPHANIE SPEAR ([id number]) 1945 F Date Time Provider Department 06/19/21 4:00 PM SHAYNE CONDE NRESAV During your visit today, we recorded the following information about you: Pulse Blood pressure 69/minute 157/75 Shayne Conde DO 06/27/2021 4:48 PM Signed [facility] - NEW PATIENT EVALUATION Sydnee Tamez MD [address] [facility] [address] Stephanie Delarosa Hung is a 76 year old female who [...] General Medic (more content not included)... Normal [facility] CBC with Auto Differentialon 05-20-2021 Absolute Eos # 0.35 [facility] Immature Granulocyte 0.04 [facility] Absolute Lymph # 2.26 [facility] Absolute [place] # 0.63 [facility] Basophils (Bld) [#/Vol] 0.08 10*3/uL [facility] Basophils/100 WBC (Bld) 1 % 0 - 2 % [facility] Eosinophils/100 WBC (Bld) 3 % 1 - 4 % [facility] Hematocrit (Bld) [Volume fraction] 39.4 % 36.3 - 47.1 % [facility] Hemoglobin.gastrointes tinal spec 1 Ql (Stl) 12.7 g/dL 11.9 - 15.1 g/dL [facility] Immature granulocytes/100 WBC (Bld) 0 % 0 [facility] Interpretation and review of laboratory results Abnormal [facility] Lymphocytes/100 WBC (Bld) 19 % Low 24 - 43 % [facility] MCH (RBC) [Entitic mass] 30.9 pg 25.2 - 33.5 pg [facility] MCHC (RBC) [Mass/Vol] 32.2 g/dL 28.4 - 34.8 g/dL [facility] MCV (RBC) [Entitic vol] 95.9 fL 82.6 - 102.9 fL [facility] Monocytes/100 WBC (Bld) 5 % 3 - 12 % [facility] NRBC Automated 0.0 0.0 per 100 WBC [facility] Platelet distribution width (Bld) [Ratio] 13.9 % 11.8 - 14.4 % [facility] Platelet mean volume (Bld) [Entitic vol] 10.7 fL 8.1 - 13.5 fL [facility] Platelets (Bld) [#/Vol] 271 10*3/uL [facility] RBC (Bld) [#/Vol] 4.11 10*6/uL 3.95 - 5.1 1 m/uL [facility] Segmented neutrophils/100 WBC (Bld) 72 % High 36 - 65 % [facility] Segs Absolute 8.72 [facility] ([facility]ld[facility] [#/Vol] 12.1 10*3/uL High [facility] 6 Minute Walk Teston 022 Distance Walked ft [facility] Work Phone: [place] [phone] Patient Name: Stephanie Spear 1945 A home oxygen evaluation has been completed. Patient arrived on room air with a walker at this time. SpO2 was 97 % on room air at rest. Patient was walked for 6 minutes. SpO2 was 98 % on room air during walking. Patient does not qualify for home oxygen at this time. [facility] Work Phone: [facility] Work Phone: Calciumon 04-23-2021 Calcium [Mass/Vol] 9.3 mg/dL Normal 8.6-10.2 [facility] Comment on above: Performed By: #### C A, VITD, CREA #### [facility] [address] [place], [place] [id number] Creatinineon 04-23-2021 Creatinine [Mass/Vol] 0.7 mg/dL Normal 0.6-1.4 [facility] Comment on above: Performed By: #### C A, VITD, CREA #### [facility] [address], [place] [id number] eGFRAA 96 mL/min/1.73m2 Normal >60 [facility] Comment on above: Performed By: #### C A, VITD, CREA #### [facility] [address], [place] [id number] eGFRNAA 80 mL/min/1.73m2 Normal >60 [facility] Comment on above: Performed By: #### C A, VITD, CREA #### [facility] [address], [place] [id number] Vitamin D 25-OHon 04-23-2021 VIT D 25 OH 41 ng/ml Normal >29 [facility] Comment on above: Result Comment: Sury min D Status Deficiency <20 ng/mL Insufficiency 20-29 ng/mL Optimal 30-100 ng/mL Possible Toxicity >=150 ng/mL Performed By: #### C SOURAV, [place] #### [facility] [address], [place] [id number] PULMONARY FUNCTION (450)on 0 04-04-2021 PULMONARY FUNCTION (450) [facility] [address] [place] [address] PULMONARY FUNCTION PATIENT NAME: STEPHANIE SPEAR : 1945 MED REC NO: [id number] ROOM: ACCOUNT NO: [id number] ADMIT DATE: 04/03/2021 PROVIDER: Corey Balderas DATE [...] The DLCO is moderately decreased. COREY JOHNATHAN MARILU/Kinsey_TTRAD_I Doc#: [id number] CC: Normal [facility] [id number] 04-03-2021 SARS-CoV-2 (COVID-19) RNA DANIEL+probe Ql (Unsp spec) Not detected Normal [facility] Comment on above: Result Comment: Rapid NAAT: [...] management decisions. Fact sheet for Healthcare Providers: https://www.fda.gov/media/398617/download Fact sheet for Patients: https://www.fda.gov/media/359814/download Methodology: Isothermal Nucleic Acid Amplification Performed By: #### C OVRB #### [facility] [address] [place] [address] [employer] Supervisor: Phani Patel MD Urinalysison 03-12-2021 Bilirubin Urine Negative NEGATIVE [facility] Color, UA Yellow Yellow [facility] Glucose, Ur Negative NEGATIVE [facility] Ketones Ql (U) Negative NEGATIVE [facility] Leukocyte esterase Test strip Ql (U) Negative NEGATIVE [facility] Nitrite, Urine Negative NEGATIVE [facility] pH, UA 7.0 [facility] Protein, UA Negative NEGATIVE [facility] Specific [place], UA 1.010 [facility] Turbidity UA Clear Clear [facility] Urinalysis Comments NOT REPORTED [facility] Urine Hgb Negative NEGATIVE [facility] Urobilinogen, Urine Normal Normal [facility] Complete Blood Count with Au to Diffon 02-20-2021 Basophils (Bld) [#/Vol] 0.05 10*3/uL Normal 0.00-0.20 [facility] Customer Service Analyst Comment on above: Performed By: #### C BCAD, VITD, FT4, TSH, CMP, LIPD #### [facility] [address], [place] [id number] Basophils/100 WBC (Bld) 0.6 % Normal [facility] Customer Service Analyst Comment on above: Performed By: #### C BCAD, VITD, FT4, TSH, CMP, LIPD #### [facility] [address], [place] [id number] Eosinophils (Bld) [#/Vol] 0.27 10*3/uL Normal 0.02-0.50 [facility] Comment on above: Performed By: #### C BCAD, VITD, FT4, TSH, CMP, LIPD #### [facility] [address], [place] [id number] Eosinophils/100 WBC (Bld) 3.1 % Normal [facility] Comment on above: Performed By: #### C BCAD, VITD, FT4, TSH, CMP, LIPD #### [facility] [address], [place] [id number] Erythrocyte distribution width (RBC) [Ratio] 14.2 % Normal 11.0-15.0 [facility] Comment on above: Performed By: #### C BCAD, VITD, FT4, TSH, CMP, LIPD #### [facility] [address], [place] [id number] Hematocrit (Bld) [Volume fraction] 39.4 % Normal 35.0-47.0 [facility] Comment on above: Performed By: #### C BCAD, VITD, FT4, TSH, CMP, LIPD #### [facility] [address], [place] [id number] Hemoglobin (Bld) [Mass/Vol] 12.7 g/dL Normal 11.6-15.5 [facility] Comment on above: Performed By: #### C BCAD, VITD, FT4, TSH, CMP, LIPD #### [facility] [address], [place] [id number] Lymphocytes (Bld) [#/Vol] 2.0 10*3/uL Normal 0.9-3.9 [facility] Comment on above: Performed By: #### C BCAD, VITD, FT4, TSH, CMP, LIPD #### [facility] [address], [place] [id number] Lymphocytes/100 WBC (Bld) 22.1 % Normal [facility] Comment on above: Performed By: #### C BCAD, VITD, FT4, TSH, CMP, LIPD #### [facility] [address], [place] [id number] MCH (RBC) [Entitic mass] 29.6 pg Normal 27.0-33.0 [facility] Comment on above: Performed By: #### C BCAD, VITD, FT4, TSH, CMP, LIPD #### [facility] [address], [place] [id number] MCHC (RBC) [Mass/Vol] 32.2 g/dL Normal 32.0-36.0 [facility] Comment on above: Performed By: #### C BCAD, VITD, FT4, TSH, CMP, LIPD #### [facility] [address], [place] [id number] MCV (RBC) [Entitic vol] 92 fL Normal 80-100 [facility] Comment on above: Performed By: #### C BCAD, VITD, FT4, TSH, CMP, LIPD #### [facility] [address], [place] [id number] Monocytes (Bld) [#/Vol] 0.7 10*3/uL Normal 0.2-0.9 [facility] Comment on above: Performed By: #### C BCAD, VITD, FT4, TSH, CMP, LIPD #### [facility] [address], [place] [id number] Monocytes/100 WBC (Bld) 7.8 % Normal [facility] Comment on above: Performed By: #### C BCAD, VITD, FT4, TSH, CMP, LIPD #### [facility] [address], [place] [id number] Neutrophils (Bld) [#/Vol] 5.8 10*3/uL Normal 1.5-7.8 [facility] Comment on above: Performed By: #### C BCAD, VITD, FT4, TSH, CMP, LIPD #### [facility] [address], [place] [id number] Neutrophils/100 WBC (Bld) 66.2 % Normal [facility] Comment on above: Performed By: #### C BCAD, VITD, FT4, TSH, CMP, LIPD #### [facility] [address], [place] [id number] Platelet mean volume (Bld) [Entitic vol] 11.60 fL Normal 7.50-12.50 [facility] Comment on above: Performed By: #### C BCAD, VITD, FT4, TSH, CMP, LIPD #### [facility] [address], [place] [id number] Platelets (Bld) [#/Vol] 291 10*3/uL Normal 140-400 [facility] Comment on above: Performed By: #### C BCAD, VITD, FT4, TSH, CMP, LIPD #### [facility] [address], [place] [id number] RBC (Bld) [#/Vol] 4.29 10*6/uL Normal 3.90-5.20 [facility] Special[facility] Comment on above: Performed By: #### C BCAD, VITD, FT4, TSH, CMP, LIPD #### [facility] [address], [place] [id number] RDW-SD 47.6 fL Normal 37.0-50.0 [facility] Comment on above: Performed By: #### C BCAD, VITD, FT4, TSH, CMP, LIPD #### [facility] [address], [place] [id number] WBC (Bld) [#/Vol] 8.8 10*3/uL Normal 3.8-11.0 [facility] Customer Service Analyst Comment on above: Performed By: #### C BCAD, VITD, FT4, TSH, CMP, LIPD #### [facility] [address], [place] [id number] Comprehensive Metabolic Pane [facility] 02-20-2021 Albumin [Mass/Vol] 4.1 g/dL Normal 3.6-5.1 [facility] Customer Service Analyst Comment on above: Performed By: #### C BCAD, VITD, FT4, TSH, CMP, LIPD #### [facility] [address], [place] [id number] Albumin/Globulin [Mass ratio] 1.5 {ratio} Normal 1.0-2.5 [facility] Customer Service Analyst Comment on above: Performed By: #### C BCAD, VITD, FT4, TSH, CMP, LIPD #### [facility] [address], [place] [id number] ALP [Catalytic activity/Vol] 74 U/L Normal 35-119 [facility] Comment on above: Performed By: #### C BCAD, VITD, FT4, TSH, CMP, LIPD #### [facility] [address] [facility] [place] [place] [id number] ALT [Catalytic activity/Vol] 10 U/L Normal 6-33 [facility] Comment on above: Result Comment: 01/22 Female reference range changed. Performed By: #### C BCAD, VITD, FT4, TSH, CMP, LIPD #### [facility] [address], [place] [id number] Anion gap [Moles/Vol] 15 mmol/L Normal 12-20 [facility] Comment on above: Result Comment: Effe ctive 02/27/2019 reference range changed. Performed By: #### C BCAD, VITD, FT4, TSH, CMP, LIPD #### [facility] [address] [facility] [place] [id number] AST [Catalytic activity/Vol] 18 U/L Normal 9-34 [facility] Comment on above: Performed By: #### C BCAD, VITD, FT4, TSH, CMP, LIPD #### [facility] [address] [facility] [place] [place] [id number] Bilirubin [Mass/Vol] 0.36 mg/dL Normal 0.30-1.20 [facility] Comment on above: Performed By: #### C BCAD, VITD, FT4, TSH, CMP, LIPD #### [facility] [address] [facility] [place] [place] [id number] BUN/CREA 17 Ratio Normal 6-22 [facility] Comment on above: Performed By: #### C BCAD, VITD, FT4, TSH, CMP, LIPD #### [facility] [address] [facility] [id number] Calcium [Mass/Vol] 9.2 mg/dL Normal 8.6-10.2 [facility] Comment on above: Performed By: #### C BCAD, VITD, FT4, TSH, CMP, LIPD #### [facility] [address] [place] [id number] Chloride [Moles/Vol] 102 mmol/L Normal 98-107 [facility] Comment on above: Performed By: #### C BCAD, VITD, FT4, TSH, CMP, LIPD #### [facility] [address], [place] [id number] CO2 [Moles/Vol] 25 mmol/L Normal 20-31 [facility] Comment on above: Performed By: #### C BCAD, VITD, FT4, TSH, CMP, LIPD #### [facility] [address], [place] [id number] Creatinine [Mass/Vol] 0.7 mg/dL Normal 0.6-1.4 [facility] Comment on above: Performed By: #### C BCAD, VITD, FT4, TSH, CMP, LIPD #### [facility] [address], [place] [id number] eGFRAA 103 mL/min/1.73m2 Normal >60 [facility] Comment on above: Performed By: #### C BCAD, VITD, FT4, TSH, CMP, LIPD #### [facility] [address], [place] [id number] eGFRNAA 85 mL/min/1.73m2 Normal >60 [facility] Comment on above: Performed By: #### C BCAD, VITD, FT4, TSH, CMP, LIPD #### [facility] [address], [place] [id number] Globulin (S) [Mass/Vol] 2.7 g/dL Normal 1.9-3.7 [facility] Comment on above: Performed By: #### C BCAD, VITD, FT4, TSH, CMP, LIPD #### [facility] [address], [place] [id number] Glucose [Mass/Vol] 80 mg/dL Normal 65-99 [facility] Comment on above: Result Comment: For FASTING Glucose --- ADA reference ranges: Normal 65-99 mg/dl Prediabetes 100-125 Diabetes >/= 126 Performed By: #### C BCAD, VITD, FT4, TSH, CMP, LIPD #### [facility] [address], [place] [id number] Potassium [Moles/Vol] 3.8 mmol/L Normal 3.5-5.5 [facility] Comment on above: Performed By: #### C BCAD, VITD, FT4, TSH, CMP, LIPD #### [facility] [address], [place] [id number] Protein [Mass/Vol] 6.8 g/dL Normal 6.1-8.1 [facility] [place] Customer Service Analyst Comment on above: Performed By: #### C BCAD, VITD, FT4, TSH, CMP, LIPD #### [facility] [address], [place] [id number] Sodium [Moles/Vol] 138 mmol/L Normal 135-146 [facility] [place] Customer Service Analyst Comment on above: Performed By: #### C BCAD, VITD, FT4, TSH, CMP, LIPD #### [facility] [address], [place] [id number] Urea nitrogen [Mass/Vol] 11 mg/dL Normal 7-25 [facility] Customer Service Analyst Comment on above: Performed By: #### C BCAD, VITD, FT4, TSH, CMP, LIPD #### [facility] [address], [place] [id number] Free T4on 02-20-2021 Free T4 [Mass/Vol] 1.28 ng/dL Normal 0.80-1.80 [facility] [place] Customer Service Analyst Comment on above: Performed By: #### C BCAD, VITD, FT4, TSH, CMP, LIPD #### [facility] [address], [place] [id number] Lipid Panelon 02-20-2021 Cholesterol [Mass/Vol] 164 mg/dL Normal 125-200 No rthern [place] Customer Service Analyst Comment on above: Result Comment: Low risk < 200mg/dL Borderline risk 201-239 mg/dl High risk > or equal to 240 Performed By: #### C BCAD, VITD, FT4, TSH, CMP, LIPD #### [facility] [address], [place] [id number] Cholesterol in HDL [Mass/Vol] 57 mg/dL Normal >40 [facility] Customer Service Analyst Comment on above: Result Comment: High Cardiovascular Risk HDL <40 mg/dL Low Cardiovascular Risk HDL > or equal to 60 mg/dl Performed By: #### C BCAD, VITD, FT4, TSH, CMP, LIPD #### [facility] [address], [place] [id number] Cholesterol in LDL [Mass/Vol] 92 mg/dL Normal [facility] Comment on above: Result Comment: LDL ATP III CLASSIFICATION LDL less than 100 mg/dl Optimal LDL 100-129 mg/dl Near or above optimal LDL 130-159 Borderline high LDL 160-189 High LDL greater than 189 mg/dl Very High Performed By: #### C BCAD, VITD, FT4, TSH, CMP, LIPD #### [facility] [address], [place] [id number] Cholesterol in VLDL [Mass/Vol] 15 mg/dL Normal [facility] Customer Service Analyst Comment on above: Performed By: #### C BCAD, VITD, FT4, TSH, CMP, LIPD #### [facility] [address], [place] [id number] Cholesterol.total/Chol esterol in HDL [Mass ratio] 3 {ratio} Normal [facility] Comment on above: Performed By: #### C BCAD, VITD, FT4, TSH, CMP, LIPD #### [facility] [address], [place] [id number] Triglyceride [Mass/Vol] 75 mg/dL Normal 30-150 [facility] Customer Service Analyst Comment on above: Result Comment: TRIG ATPIII CLASSIFICATIONS TRIG less than 150 mg/dl Normal TRIG 150-199 mg/dl Borderline High TRIG 200-500 mg/dl High TRIG greather than 500 mg/dl Very High Performed By: #### C BCAD, VITD, FT4, TSH, CMP, LIPD #### [facility] [address], [place] [id number] Q - CULTURE,URINE,ROUTINEon 02-20-2021 CULTURE, URINE, ROUTINE SEE NOTE Abnormal [facility] Customer Service Analyst Comment on above: Order Comment: [facility] performed at: QPT, [facility], [address], [address] [facility], [place], [address], Mine Surveyor: Boby Ovalle Collection Date/Time: [id number] Results Received Date/Time: [id number] Reported Date/Time: Result Comment: LANI URE, URINE, ROUTINE Micro Number: [id number] Test Status: Final Specimen Source: Urine Specimen [...] LISA BENJAMIN #### [facility] [address] [place], [place] [id number] Q - UR CULT [id number] 2020 REFLEXIVE URINE CULTURE SEE NOTE Normal [facility] Comment on above: Order Comment: [facility] performed at: QPT, [facility], [address] [place] [address], [address] [place] [address], [address], Mine Surveyor: Boby Ovalle Collection Date/Time: [id number] Results Received Date/Time: [id number] Reported Date/Time: Result Comment: CULT URE INDICATED - RESULTS TO FOLLOW Performed By: #### LISA JIMENEZ #### [facility] [address], [place] [id number] Q - URINALYSIS,COMPLETE,WITH REFLEX TO CULTUREon 02-20-2021 Appearance (U) CLEAR Normal CLEAR [facility] Customer Service Analyst Comment on above: Order Comment: [facility] performed at: [facility], [employer] [facility], [address] [facility], [address] [place] [address], [address] [place] [address], Mine Surveyor: Boby Ovalle Collection Date/Time: [id number] Results Received Date/Time: [id number] Reported Date/Time: Performed By: #### LISA JIMENEZ #### [facility] [address], [place] [id number] BACTERIA FEW Abnormal NONE SEEN [facility] Customer Service Analyst Comment on above: Order Comment: [facility] performed at: [employer], [facility], [address] [facility], [address] [place] [address], [address] [place] [address], Mine Surveyor: Boby Ovalle Collection Date/Time: [id number] Results Received Date/Time: [id number] Reported Date/Time: Performed By: #### LISA JIMENEZ #### [facility] [address], [place] [id number] Bilirubin Ql (U) Negative Normal NEGATIVE [facility] Comment on above: Order Comment: [facility] performed at: [employer], [facility], [address], [address] [place] [address], [address] [place] [address], Mine Surveyor: Boby Ovalle Collection Date/Time: [id number] Results Received Date/Time: [id number] Reported Date/Time: Performed By: #### LISA JIMENEZ #### [facility] [address] [place], [place] [id number] Color (U) YELLOW Normal YELLOW [facility] Customer Service Analyst Comment on above: Order Comment: [facility] performed at: [facility], [facility], [address] [facility], [address] [place] [address], [phone], Mine Surveyor: Boby Ovalle Collection Date/Time: [id number] Results Received Date/Time: [id number] Reported Date/Time: Performed By: #### Susannah BENJAMIN, [place] #### [facility] [address], [place] [id number] Glucose Ql (U) Negative Normal NEGATIVE [facility] Customer Service Analyst Comment on above: Order Comment: [facility] performed at: [facility], [facility], [address] [facility], [address] [place] [address], [phone], Mine Surveyor: Boby Ovalle Collection Date/Time: [id number] Results Received Date/Time: [id number] Reported Date/Time: Performed By: #### Susannah BENJAMIN [place] #### [facility] [address] [place], [place] [id number] HYALINE CAST NONE SEEN Normal NONE SEEN [facility] Customer Service Analyst Comment on above: Order Comment: [facility] performed at: [facility], [facility], [address] [place] [address], [address] [place] [address], [phone], Mine Surveyor: Boby Ovalle Collection Date/Time: [id number] Results Received Date/Time: [id number] Reported Date/Time: Performed By: #### Susannah BENJAMIN, [place] #### [facility] [address] [place], [place] [id number] Ketones Ql (U) Negative Normal NEGATIVE [facility] Customer Service Analyst Comment on above: Order Comment: [facility] performed at: [facility], [facility], [address] [place] [address], [address] [place] [address], [address] [place] [address], Mine Surveyor: Boby Ovalle Collection Date/Time: [id number] Results Received Date/Time: [id number] Reported Date/Time: Performed By: #### LISA JIMENEZ #### [facility] [address] [place], [place] [id number] Leukocyte esterase Test strip Ql (U) 1+ Abnormal NEGATIVE [facility] Customer Service Analyst Comment on above: Order Comment: [facility] performed at: [facility], [employer] [facility], [address] [facility], [address] [place] [address], [address] [place] [address], Mine Surveyor: Boby Ovalle Collection Date/Time: [id number] Results Received Date/Time: [id number] Reported Date/Time: Performed By: #### LISA JIMENEZ #### [facility] [address] [place], [place] [id number] Nitrite Ql (U) Negative Normal NEGATIVE [facility] Customer Service Analyst Comment on above: Order Comment: [facility] performed at: [employer], [employer] [facility], [address] [place] [address], [address] [place] [address], [address] [place] [address], Mine Surveyor: Boby Ovalle Collection Date/Time: [id number] Results Received Date/Time: [id number] Reported Date/Time: Performed By: #### Susannah BENJAMIN CA #### [facility] [address] [place], [place] [id number] OCCULT BLOOD TRACE Abnormal NEGATIVE [facility] Customer Service Analyst Comment on above: Order Comment: [facility] performed at: [employer], [employer] [facility], [address] [facility], [address] [place] [address], [address] [place] [address], Mine Surveyor: Boby Ovalle Collection Date/Time: [id number] Results Received Date/Time: [id number] Reported Date/Time: Performed By: #### C SOURAV, CA #### [facility] [address] [place], [place] [id number] pH (U) 7.5 [pH] Normal 5.0-8.0 [facility] Customer Service Analyst Comment on above: Order Comment: [facility] performed at: [employer], [employer] [facility], [address] [facility], [address] [place] [address], [address] [place] [address], Mine Surveyor: Boby Ovalle Collection Date/Time: [id number] Results Received Date/Time: [id number] Reported Date/Time: Performed By: #### LISA JIMENEZ #### [facility] [address] [place], [place] [id number] Protein Ql (U) Negative Normal NEGATIVE [facility] Customer Service Analyst Comment on above: Order Comment: [facility] performed at: [facility], [address] [facility], [address] [place] [address], [address] [place] [address], Mine Surveyor: Boby Ovalle Collection Date/Time: [id number] Results Received Date/Time: [id number] Reported Date/Time: Performed By: #### LISA JIMENEZ #### [facility] [address] [place], [place] [id number] RBC NONE SEEN Normal < OR = 2 [facility] Customer Service Analyst Comment on above: Order Comment: [facility] performed at: [facility], [address] [facility], [address] [place] [address], [address] [place] [address], Mine Surveyor: Boby Ovalle Collection Date/Time: [id number] Results Received Date/Time: [id number] Reported Date/Time: Performed By: #### LISA JIMENEZ #### [facility] [address] [place], [place] [id number] Specific gravity (U) [Rel density] 1.007 Normal 1.001-1.035 [facility] Customer Service Analyst Comment on above: Order Comment: [facility] performed at: [employer], [employer] [facility], [address] [facility], [address] [place], [place], [address] [place] [address], Mine Surveyor: Boby Ovalle Collection Date/Time: [id number] Results Received Date/Time: [id number] Reported Date/Time: Performed By: #### LISA JIMENEZ #### [facility] [address] [place], [place] [id number] SQUAMOUS EPITHELIAL CELLS 0-5 Normal < OR = 5 [facility] Customer Service Analyst Comment on above: Order Comment: [facility] performed at: [employer], [employer] [facility], [address] [facility], [address] [place] [address], [address] [place] [address], Mine Surveyor: Boby Ovalle Collection Date/Time: [id number] Results Received Date/Time: [id number] Reported Date/Time: Performed By: #### LISA JIMENEZ #### [facility] [address] [place], [place] [id number] WBC 0-5 Normal < OR = 5 [facility] Customer Service Analyst Comment on above: Order Comment: [facility] performed at: [facility], [address] [facility], [address] [place] [address], [address] [place] [address], Mine Surveyor: Boby Ovalle Collection Date/Time: [id number] Results Received Date/Time: [id number] Reported Date/Time: Performed By: #### LISA JIMENEZ #### [facility] [address] [place], [place] [id number] TSHon 02-20-2021 TSH 1.650 uIU/mL Normal 0.400-4.500 [facility] Customer Service Analyst Comment on above: Performed By: #### C BCAD, VITD, FT4, TSH, CMP, LIPD #### [facility] [address] [place], [place] [id number] Vitamin D 25-OHon 02-20-2021 VIT D 25 OH 25 ng/ml Low >29 [facility] Customer Service Analyst Comment on above: Result Comment: Sury min D Status Deficiency <20 ng/mL Insufficiency 20-29 ng/mL Optimal 30-100 ng/mL Possible Toxicity >=150 ng/mL Performed By: #### C BCAD, VITD, FT4, TSH, CMP, LIPD #### [facility] [address] [place], [place] [id number] No Panel InformationOrdered By: Sydnee Tamez on 07-15-2020 Left knee: Mild degenerative changes. No acute osseous abnormality. Right humerus: Advanced arthritic changes in the glenohumeral aspect of the joint without evidence of acute fracture. Right shoulder: Advanced degenerative changes. Apparent resection of the distal right clavicle. No acute fracture. [employer] Phone: EXAMINATION: THREE XRAY VIEWS OF THE [...] No acute fracture or dislocation is noted. [employer] Phone: Cory, Mhpn Incoming Radiant Results From [employer] - 07/15/2020 3:49 PM EDT EXAMINATION: THREE [...] the distal right clavicle. No acute fracture. [employer] Work Phone: [employer] Work Phone: DEXA BONE DENSITY [facility] 12-12-2019 1. The T-score in th e [...] 90 years. DEXA scan for this exam: [employer] RECOMMENDATIONS: The patient is at high risk of an osteoporotic fracture of the left hip. If not already instituted, suggest a assertive therapy to increase bone mass. Follow-up study in 2 years may be considered on a Georgina Goodman system. . [facility] [place] EXAMINATION: BONE DENSITOMETRY 12/12/2019 10:39 am OT [...] young adult T-score of -2.3 representing osteopenia. [employer] [facility]- [place], [place] Cory, Mhpn Incoming Radiant Results From [employer] - 12/12/2019 10:58 AM EDT EXAMINATION: BONE [...] 88 years. DEXA scan for this exam: [employer] RECOMMENDATIONS: The patient is at high risk of an osteoporotic fracture of the left hip. If not already instituted, suggest a assertive therapy to increase bone mass. Follow-up study in 2 years may be considered on a Georgina Goodman system. . [place], [place] Neurosurgery Office/Clinic N walter 04-03-2019 Neurosurgery Office/Clinic [...] Letteron 02-01-2019 Provider Letter Alfred Pal [address] [facility] [address] [place] [address] Re: Stephanie Spear Date of Visit: 02/01/2019 Dear Alfred Pal, Thank You for referring Stephaine Spear to our office for care. Attached [...] 01/24/19 15:46:00 EST, Pharmacy: [id number] Problem List/Past Medical History Ongoing Acute rhinitis [...] Sibling. Stroke: Mother. Electronically signed by Robbie ORTIZToñay 01/18/19 16:45 EST Normal [facility] Provider Letteron 01-18-2019 Provider Letter Alfred Pal, Re: Stephanie Spear Date of Visit: 01/18/2019 Dear Alfred Pal, Thank you for referring Stephanie to my office. Attached you will find my office note. Please let me know if you have any questions or concerns. Sincerely, Toña Avalos CNP [facility] [place] [address] The following document(s) were included in the letter: January 18, 2019 15:48:45 EST - (01/18/2019) Neurosurgery Office Visit Note Normal [facility] Inpatient Clinical Summaryon 01-07-2019 [place] [address] [place] [address] Clinical Summary Person Information Name: Stephanie Spear Age: 73 Years : 1945 Sex: Female PCP: Kae LUGO, Alfred Moreno Marital Status: Phone: PCP: [phone] Race: White Ethnicity: Not or Language: Arabic Visit Id: Visit Reason: Speciality: Acuity: Enc Type: Observation Med Service: Surgery Arrival: 01/06/2019 09:24:00 Discharge: Dispo Type: Address: [address] [place], [place] [address] Diagnosis: Status post lumbar discectomy Discharged To: [...] up: With: Address: When: Gene Cline MD [address] [place] [phone] Within 2 to 4 weeks Comments: Follow [...] Provider Letteron 01-07-2019 Provider Letter Alfred Pal, [address] [place] [address] Re: Stephanie Spear Date of Visit: 01/06/2019 Dear Alfred Pal, Let me know if you have any questions or concerns. Sincerely, LANDON Dowd MD C Providers: The following document(s) were included in [...] Left L4-5 discectomy Surgeon(s) Gene Cline MD Junior Systems Analyst Chapis WEINBERG Anesthesia general endotracheal Estimated Blood [...] procedure was assisted by my physician?s assistant infant teacher. Her presence was needed throughout the case for positioning the surgical instruments as well as primarily assisting me through the procedure. Due to the complexity of condition, the skill set of a neurosurgical physician assistant infant teacher was needed throughout the case. During the surgical case, the ophthalmology surgical technician was working the back table and was not available for assistance. Sponge/Needle Count all accounted for Fluid Count 700cc Electronically signed by Gene Cline MD 01/06/19 13:39 EST Normal [facility] Potassiumon 01-06-2019 Potassium [Moles/Vol] 3.7 mmol/L Normal 3.4-4.8 [facility] Comment on above: Performed By: #### K ####[place] [address] XR Spine Lumbosacral 2/3 Vie ws in ORon 01-06-2019 XR Spine Lumbosacral 2/3 Views in [...] [facility] Dex watson 01-03-2019 Neurosurgery Office/Clinic Note Chief Complaint [...] Sibling. Stroke: Mother. Electronically signed by Robbie ORTIZToñay 01/03/19 12:31 EST Normal [facility] Provider Letteron 01-03-2019 Provider Letter Sydnee Tamez RN CFNP [address] [place] [phone] Re: Stephanie Spear Date of Visit: 01/03/2019 Dear Sydnee Tamez, Thank you for referring Stephanie to my office. Attached you will find my office note. Please let me know if you have any questions or concerns. Sincerely, Toña Avalos CNP [facility] [address] [address] The following document(s) were included in the letter: January 03, 2019 12:24:09 EST - (01/03/2019) Neurosurgery Office Visit Note Normal [facility] .UA Microscp Aon 12-12-2018 UA Mucus Present Abnormal Absent [facility] Comment on above: Performed By: #### C [id number] ####[address] [address] UA RBC Quant 0 /HPF Normal 0-5 [facility] Comment on above: Performed By: #### C [id number] ####[address] [address] UA Squepi Cells Quant <1 Normal 0-29 [facility] Comment on above: Performed By: #### C [id number] ####[address] [address] UA WBC Quant 0 /HPF Normal 0-5 [facility] Comment on above: Performed By: #### C [id number] ####[address] [address] .eGFRon 12-12-2018 eGFR AA >60 Normal >=60 [facility] Comment on above: Result Comment: Resu lt = 0-14.9 mL/min/1.73 m2 Kidney failure or Dialysis Result = 15-29 mL/min/1.73 m2 Severe decrease in GFR Result = 30-59 mL/min/1.73 m2 Moderate decrease in GFR Result >= 60 mL/min/1.73 m2 Normal or increased GFR Performed By: #### E GFR ####[place] [address] eGFR Non-AA >60 Normal >=60 [facility] [...] medication dosing. Performed By: #### E GFR ####[place] [address] ABO/Rhon 12-12-2018 ABO/Rh SD 11.1.19 DCon: 0 ABO/Rh: A POS Normal [facility] Comment on above: Performed By: #### A BORH ####[facility] [place], [place] [address]PCIFNYMNO [address] [address] [employer] Autoon 12-12-2018 [employer] Auto Negative Normal [facility] Comment on above: Performed By: #### A SA ####[place] [id number] CBC w/ Diffon 12-12-2018 Erythrocyte distribution width (RBC) [Ratio] 14.1 % Normal 11.6-14.8 [facility] Comment on above: Performed By: #### C BC ####[place] [address] Hematocrit (Bld) [Volume fraction] 38.3 % Normal 36.0-46.0 [facility] Comment on above: Performed By: #### C BC ####[address] [address] Hemoglobin (Bld) [Mass/Vol] 12.5 g/dL Normal 12.0-16.0 [facility] Comment on above: Performed By: #### C BC ####[address] [address] MCH (RBC) [Entitic mass] 29.9 pg Normal 27.0-35.0 [facility] Comment on above: Performed By: #### C BC ####[address] [address] MCHC (RBC) [Mass/Vol] 32.6 % Normal 31.0-37.0 [facility] Comment on above: Performed By: #### C BC ####[address] [address] MCV (RBC) [Entitic vol] 91.8 fL Normal 80.0-100.0 [facility] Comment on above: Performed By: #### C BC ####[address] [address] Platelet mean volume (Bld) [Entitic vol] 9.2 fL Normal 6.7-10.6 [facility] Comment on above: Performed By: #### C BC ####[address] [address] Platelets (Bld) [#/Vol] 331 x10*3/mcL Normal 150-350 [facility] Comment on above: Performed By: #### C BC ####[address] [address] RBC (Bld) [#/Vol] 4.17 x10*6/mcL Normal 3.80-5.20 [facility] Comment on above: Performed By: #### C BC ####[address] [address] WBC (Bld) [#/Vol] 9.1 x10*3/mcL Normal 4.5-11.0 [facility] Comment on above: Performed By: #### C BC ####[address] [address] [facility] 12-12-2018 Albumin [Mass/Vol] 3.8 g/dL Normal 3.2-4.9 [facility] Comment on above: Result Comment: [facility] Laboratory updated the methodology used for albumin testing on 09/29/17. Albumin measurement was performed using a bromcresol purple dye-binding assay. Performed By: #### C OMP ####[address] [address] Albumin/Globulin [Mass ratio] 1.1 {ratio} Normal 1.1-2.2 [facility] Comment on above: Performed By: #### C OMP ####[address] [address] Alk Phos 67 IU/L Normal 32-91 [facility] Comment on above: Performed By: #### C OMP ####[address] [address] ALT [Catalytic activity/Vol] 11 U/L Low 14-54 [facility] Comment on above: Performed By: #### C OMP ####[address] [address] Anion gap [Moles/Vol] 9 mmol/L Normal 7-17 [facility] Comment on above: Performed By: #### C OMP ####[address] [address] AST [Catalytic activity/Vol] 15 U/L Normal 15-41 [facility] Comment on above: Performed By: #### C OMP ####[address] [address] Bili Total 0.8 mg/dL Normal 0.3-1.2 [facility] Comment on above: Performed By: #### C OMP ####[address] [address] Calcium [Mass/Vol] 8.9 mg/dL Normal 8.5-10.3 [facility] Comment on above: Performed By: #### C OMP ####[address] [address] Chloride [Moles/Vol] 104 mmol/L Normal 98-110 [facility] Comment on above: Performed By: #### C OMP ####[address] [address] CO2 [Moles/Vol] 31 mmol/L Normal 22-32 [facility] Comment on above: Performed By: #### C OMP ####[address] [address] Creatinine [Mass/Vol] 0.61 mg/dL Normal 0.44-1.03 [facility] Comment on above: Performed By: #### C OMP ####[address] [address] Glucose [Mass/Vol] 99 mg/dL Normal 74-118 [facility] Comment on above: Performed By: #### C OMP ####[address] [address] Potassium [Moles/Vol] 3.1 mmol/L Low 3.4-4.8 [facility] Comment on above: Performed By: #### C OMP ####[address] [address] Protein [Mass/Vol] 7.2 g/dL Normal 6.5-8.1 [facility] Comment on above: Performed By: #### C OMP ####[address] [address] Sodium [Moles/Vol] 141 mmol/L Normal 133-142 [facility] Comment on above: Performed By: #### C OMP ####[address] [address] Urea nitrogen [Mass/Vol] 10 mg/dL Normal 8-26 [facility] Comment on above: Performed By: #### C OMP ####[address] [address] Urea nitrogen/Creatinine [Mass ratio] 16.4 mg/mg Normal 10.0-20.0 [facility] Comment on above: Performed By: #### C OMP ####[address] [address] Diff Autoon 12-12-2018 Baso Absolute 0.1 x10*3/mcL Normal 0.0-0.2 [facility] Comment on above: Performed By: #### . Automated Diff ####[address] [address] Basophils/100 WBC (Bld) 0.6 % Normal 0.0-1.5 [facility] Comment on above: Performed By: #### . Automated Diff ####[address] [address] Eos Absolute 0.2 x10*3/mcL Normal 0.0-0.4 [facility] Comment on above: Performed By: #### . Automated Diff ####[address] [address] Eosinophils/100 WBC (Bld) 1.7 % Normal 0.0-5.4 [facility] Comment on above: Performed By: #### . Automated Diff ####[address] [address] Lymphocytes (Bld) [#/Vol] 1.5 x10*3/mcL Normal 1.0-4.8 [facility] Comment on above: Performed By: #### . Automated Diff ####[address] [address] Lymphocytes/100 WBC (Bld) 16.9 % Low 27.2-40.8 [facility] Comment on above: Performed By: #### . Automated Diff ####[address] [address] [place] Absolute 0.4 x10*3/mcL Normal 0.1-1.1 [facility] Comment on above: Performed By: #### . Automated Diff ####[address] [address] Monocytes/100 WBC (Bld) 4.6 % Normal 3.7-11.9 [facility] Comment on above: Performed By: #### . Automated Diff ####[address] [address] Neutro Absolute 6.9 x10*3/mcL Normal 1.8-7.7 [facility] Comment on above: Performed By: #### . Automated Diff ####[place] [id number] Neutro Auto 76.2 % High 47.2-70.8 [facility] Comment on above: Performed By: #### . Automated Diff ####[place] [id number] PTon 12-12-2018 INR Coag (PPP) [Relative time] 1.0 {INR} Normal <=3.5 [facility] Comment on above: Result Comment: INR has no normal range. INR Therapeutic range is: 2.0-3.0 (AF, CVA, TIAs, DVT prophylaxis, acute DVT) 2.5-3.5 ([facility] heart valves, recurrent thrombosis/emboli) Performed By: #### P TINR ####[place] [id number] PT Coag (PPP) [Time] 10.2 s Normal 9.2-11.7 [facility] Comment on above: Performed By: #### P TINR ####[place] [id number] PTTon 12-12-2018 aPTT Coag (Bld) [Time] 25.0 s Normal 20.6-28.0 [facility] Comment on above: Performed By: #### P TT ####[place] [id number] UA w Culture if Indon 2018 Color (U) Yellow Normal [facility] Comment on above: Performed By: #### U CI ####[place] [id number] Glucose (U) [Mass/Vol] Negative Normal Negative [facility] Comment on above: Performed By: #### U CI ####[address] [place] [address] Ketones Ql (U) Negative Normal Negative [facility] Comment on above: Performed By: #### U CI ####[address] [address] UA Blood Negative Normal Negative [facility] Comment on above: Performed By: #### U CI ####[address] [place] [address] UA Clarity Clear Normal [facility] Comment on above: Performed By: #### U CI ####[address] [place] [address] UA Leukocyte Esterase Negative Normal Negative [facility] Comment on above: Performed By: #### U CI ####[address] [place] [address] UA Nitrite Negative Normal Negative [facility] Comment on above: Performed By: #### U CI ####[address] [address] UA pH 8.0 Abnormal 4.5 - 7.8 [facility] Comment on above: Performed By: #### U CI ####[address] [address] UA Protein Negative Normal Negative [facility] Comment on above: Performed By: #### U CI ####[address] [address] UA Source Clean Catch Normal [facility] Comment on above: Performed By: #### U CI ####[address] [address] UA Spec Grav 1.010 Normal 1.003-1.035 [facility] Comment on above: Performed By: #### U CI ####[address] [address] UA Urobilinogen 0.2 mg/dL Normal 0.2 - 1.0 [facility] Comment on above: Performed By: #### U CI ####[address] [address] Urobilinogen Qn (U) Negative Normal Negative [facility] Comment on above: Performed By: #### U CI ####[address] [address] XR CHEST STANDARD (2 VW)on 0 11-02-2018 No acute cardiopulmonary disease or interval change. COPD. [place], [place] EXAMINATION: TWO XRA Y VIEWS OF [...] costophrenic angles. Bones and soft tissues stable. [place], [place] Cory, [employer] Incoming Radiant Results From [employer] - 11/02/2018 5:50 PM EDT EXAMINATION: TWO [...] acute cardiopulmonary disease or interval change. COPD. [place], [place] .UA Microscp Aon 10-31-2018 UA Bacteria Present Abnormal Absent [facility] Comment on above: Performed By: #### C [id number] ####[address] [address] UA Mucus Present Abnormal Absent [facility] Comment on above: Performed By: #### C D:[id number] ####[place] [address] [place] [address] UA RBC Quant 0 /HPF Normal 0-5 [facility] Comment on above: Performed By: #### C [id number] ####[address] [address] UA Squepi Cells Quant <1 Normal 0-29 [facility] Comment on above: Performed By: #### C [id number] ####[address] [address] UA WBC Quant 0 /HPF Normal 0-5 [facility] Comment on above: Performed By: #### C [id number] ####[address] [address] .eGFRon 10-31-2018 eGFR Non-AA >60 Normal >=60 [...] medication dosing. Performed By: #### E GFR ####[address] [address] eGFR AA >60 Normal >=60 [facility] Comment on above: Result Comment: Resu lt = 0-14.9 mL/min/1.73 m2 Kidney failure or Dialysis Result = 15-29 mL/min/1.73 m2 Severe decrease in GFR Result = 30-59 mL/min/1.73 m2 Moderate decrease in GFR Result >= 60 mL/min/1.73 m2 Normal or increased GFR Performed By: #### E GFR ####[address] [address] ABO/Rhon 10-31-2018 ABO/Rh SD 9.20.19 DCon: 0 ABO/Rh: A POS Normal [facility] Comment on above: Performed By: #### A ANGY ####[facility] ([facility])[address] [place], [place] [address] [place] [address] [employer] Autoon 10-31-2018 [employer] Auto Negative Normal [facility] Comment on above: Performed By: #### A SA ####[address] [address] CBC w/ Diffon 10-31-2018 Erythrocyte distribution width (RBC) [Ratio] 16.6 % High 11.6-14.8 [facility] Comment on above: Performed By: #### C BC #### MERGED WITH [facility] [address] [place] [address] Hematocrit (Bld) [Volume fraction] 40.0 % Normal 36.0-46.0 [facility] Comment on above: Performed By: #### C BC #### MERGED WITH [facility] [address] [place] [address] Hemoglobin (Bld) [Mass/Vol] 12.9 g/dL Normal 12.0-16.0 [facility] Comment on above: Performed By: #### C BC #### MERGED WITH [facility] [address] [place] [address] MCH (RBC) [Entitic mass] 29.5 pg Normal 27.0-35.0 [facility] Comment on above: Performed By: #### C BC #### MERGED WITH [facility] [address] [place] [address] MCHC (RBC) [Mass/Vol] 32.2 % Normal 31.0-37.0 [facility] Comment on above: Performed By: #### C BC #### [address] [address] MCV (RBC) [Entitic vol] 91.5 fL Normal 80.0-100.0 [facility] Comment on above: Performed By: #### C BC #### [address] [address] Platelet mean volume (Bld) [Entitic vol] 8.8 fL Normal 6.7-10.6 [facility] Comment on above: Performed By: #### C BC #### [address] [address] Platelets (Bld) [#/Vol] 358 x10*3/mcL High 150-350 [facility] Comment on above: Performed By: #### C BC #### [address] [address] RBC (Bld) [#/Vol] 4.37 x10*6/mcL Normal 3.80-5.20 [facility] Comment on above: Performed By: #### C BC #### [address] [address] WBC (Bld) [#/Vol] 12.1 x10*3/mcL High 4.5-11.0 [facility] Comment on above: Performed By: #### C BC #### [address] [address] CMPon 10-31-2018 Albumin [Mass/Vol] 4.1 g/dL Normal 3.2-4.9 [facility] Comment on above: Result Comment: [facility] Laboratory updated the methodology used for albumin testing on 09/29/17. Albumin measurement was performed using a bromcresol purple dye-binding assay. Performed By: #### C OMP ####[address] [address] Albumin/Globulin [Mass ratio] 1.1 {ratio} Normal 1.1-2.2 [facility] Comment on above: Performed By: #### C OMP ####[address] [address] Alk Phos 70 IU/L Normal 32-91 [facility] Comment on above: Performed By: #### C OMP ####[address] [address] ALT [Catalytic activity/Vol] 16 U/L Normal 14-54 [facility] Comment on above: Performed By: #### C OMP ####[address] [address] AST [Catalytic activity/Vol] 19 U/L Normal 15-41 [facility] Comment on above: Performed By: #### C OMP ####[address] [address] Bili Total 0.7 mg/dL Normal 0.3-1.2 [facility] Comment on above: Performed By: #### C OMP ####[address] [address] Creatinine [Mass/Vol] 0.58 mg/dL Normal 0.44-1.03 [facility] Comment on above: Performed By: #### C OMP ####[address] [address] Protein [Mass/Vol] 7.7 g/dL Normal 6.5-8.1 [facility] Comment on above: Performed By: #### C OMP ####[address] [address] Urea nitrogen [Mass/Vol] 10 mg/dL Normal 8-26 [facility] Comment on above: Performed By: #### C OMP ####[address] [address] Urea nitrogen/Creatinine [Mass ratio] 17.2 mg/mg Normal 10.0-20.0 [facility] Comment on above: Performed By: #### C OMP ####[address] [address] Anion gap [Moles/Vol] 16 mmol/L Normal 7-17 [facility] Comment on above: Performed By: #### C OMP ####[address] [address] Calcium [Mass/Vol] 9.1 mg/dL Normal 8.5-10.3 [facility] Comment on above: Performed By: #### C OMP ####[address] [address] Chloride [Moles/Vol] 97 mmol/L Low 98-110 [facility] Comment on above: Performed By: #### C OMP ####[address] [address] CO2 [Moles/Vol] 27 mmol/L Normal 22-32 [facility] Comment on above: Performed By: #### C OMP ####[address] [address] Glucose [Mass/Vol] 92 mg/dL Normal 74-118 [facility] Comment on above: Performed By: #### C OMP ####[address] [address] Potassium [Moles/Vol] 3.4 mmol/L Normal 3.4-4.8 [facility] Comment on above: Performed By: #### C OMP ####[address] [address] Sodium [Moles/Vol] 137 mmol/L Normal 133-142 [facility] Comment on above: Performed By: #### C OMP ####[address] [address] Diff Autoon 10-31-2018 Baso Absolute 0.1 x10*3/mcL Normal 0.0-0.2 [facility] Comment on above: Performed By: #### . Automated Diff #### [address] [address] Basophils/100 WBC (Bld) 0.8 % Normal 0.0-1.5 [facility] Comment on above: Performed By: #### . Automated Diff #### [address] [address] Eos Absolute 0.1 x10*3/mcL Normal 0.0-0.4 [facility] Comment on above: Performed By: #### . Automated Diff #### [address] [address] Eosinophils/100 WBC (Bld) 0.8 % Normal 0.0-5.4 [facility] Comment on above: Performed By: #### . Automated Diff #### [address] [address] Lymphocytes (Bld) [#/Vol] 1.8 x10*3/mcL Normal 1.0-4.8 [facility] Comment on above: Performed By: #### . Automated Diff #### [address] [address] Lymphocytes/100 WBC (Bld) 15.0 % Low 27.2-40.8 [facility] Comment on above: Performed By: #### . Automated Diff #### [address] [address] [place] Absolute 0.7 x10*3/mcL Normal 0.1-1.1 [facility] Comment on above: Performed By: #### . Automated Diff #### [address] [address] Monocytes/100 WBC (Bld) 5.5 % Normal 3.7-11.9 [facility] Comment on above: Performed By: #### . Automated Diff #### [address] [address] Neutro Absolute 9.4 x10*3/mcL High 1.8-7.7 [facility] Comment on above: Performed By: #### . Automated Diff #### [address] [address] Neutro Auto 77.9 % High 47.2-70.8 [facility] Comment on above: Performed By: #### . Automated Diff #### [address] [address] PTon 10-31-2018 INR Coag (PPP) [Relative time] 1.0 {INR} Normal <=3.5 [facility] Comment on above: Result Comment: INR has no normal range. INR Therapeutic range is: 2.0-3.0 (AF, CVA, TIAs, DVT prophylaxis, acute DVT) 2.5-3.5 [facility]oli[facility] Performed By: #### P TINR #### [address] [address] PT Coag (PPP) [Time] 10.5 s Normal 9.2-11.7 [facility] Comment on above: Performed By: #### P TINR #### [address] [address] PTTon 10-31-2018 aPTT Coag (Bld) [Time] 25.0 s Normal 20.6-28.0 [facility] Comment on above: Performed By: #### P TT #### [address] [address] UA w Culture if Indon 2018 Color (U) Straw Normal [facility] Comment on above: Performed By: #### U CI #### [address] [address] Glucose (U) [Mass/Vol] Negative Normal Negative [facility] Comment on above: Performed By: #### U CI #### [address] [address] Ketones Ql (U) Negative Normal Negative [facility] Comment on above: Performed By: #### U CI #### [address] [place] [address] UA Blood Negative Normal Negative [facility] Comment on above: Performed By: #### U CI #### [address] [address] UA Clarity Clear Normal [facility] Comment on above: Performed By: #### U CI #### [address] [address] UA Leukocyte Esterase Negative Normal Negative [facility] Comment on above: Performed By: #### U CI #### [address] [address] UA Nitrite Negative Normal Negative [facility] Comment on above: Performed By: #### U CI #### [address] [address] UA pH 8.0 Abnormal 4.5 - 7.8 [facility] Comment on above: Performed By: #### U CI #### [address] [address] UA Protein Negative Normal Negative [facility] Comment on above: Performed By: #### U CI #### [address] [address] UA Source Clean Catch Normal [facility] Comment on above: Performed By: #### U CI #### [place] [id number] UA Spec Grav 1.005 Normal 1.003-1.035 [facility] Comment on above: Performed By: #### U CI #### [place] [id number] UA Urobilinogen 0.2 mg/dL Normal 0.2 - 1.0 [facility] Comment on above: Performed By: #### U CI #### [place] [id number] Urobilinogen Qn (U) Negative Normal Negative [facility] Comment on above: Performed By: #### U CI #### [place] [id number] Neurosurgery Office/Clinic Dex watson 10-13-2018 Neurosurgery Office/Clinic Note History of Present [...] by Bri Anderson 10/13/2018 15:06 EDT Normal [facility] Neurosurgery Office/Clinic Dex watson 10-06-2018 Neurosurgery Office/Clinic Note Chief Complaint Patient [...] 2003- L3 disc (?)- unknown surgeon[facility] [...] the left hip (plan to obtain at [facility]) she will f/u with Dr. Cline on [...] mild mod LR bilaterally Electronically signed by Robbie ORTIZToña 10/06/18 14:25 EDT Electronically signed by Romana Brumfield 10/06/2018 13:27 EDT Normal [facility] Provider Letteron 10-06-2018 Provider Letter Alfred Pal NP [address] [place] [id number] Re: Stephanie Spear Date of Visit: 10/06/2018 Dear Alfred Pal, Thank you for referring Stephanie to my office. Attached you will find my office note. Please let me know if you have any questions or concerns. Sincerely, Toña Avalos CNP [facility] [address] [address] The following document(s) were included in the [...] [facility] XR Spine Lumbosacral Bending 2-3 Viewson [...] height 160.02 cm RETA Tamez Work Phone: [facility] 04-07-2022 14:26-0500 Body weight 52.16 kg RETA Tamez Work Phone: [facility] 06-19-2021 15:54-0400 Diastolic blood pressure 75 mm[Hg] Shayne Conde DO Work Phone: [facility] 06-19-2021 15:54-0400 Heart rate 69 /min Shayne Conde DO Work Phone: [facility] 06-19-2021 15:54-0400 Systolic blood pressure 157 mm[Hg] Shayne Conde DO Work Phone: [facility] 04-30-2021 14:00-0500 SaO2% (BldA) [Mass fraction] 97 % [facility] Work Phone: Encounters Encounter Date Encounter Type Care Provider Facility Start: 05-19-2023 End: 05-19-2023 ambulatory SYDNEE L RINE Not Available Start: 04-03-2023 End: 04-04-2023 ambulatory RAHAT VICK [facility] Start: 04-03-2023 End: 04-03-2023 Subsequent hospital visit by physician Sydnee Tamez Work Phone: [facility] Laboratory Start: 02-25-2023 ambulatory [facility] Facility: [facility] [place] Start: 02-23-2023 End: 02-25-2023 ambulatory [facility] Facility:[id number] Start: 01-04-2023 End: 01-04-2023 ambulatory SYDNEE L RINE Not Available Start: 11-23-2022 End: 11-23-2022 Emergency department patient visit SYDNEE Noemi TAMEZ [facility] Start: 11-06-2022 End: 11-09-2022 ambulatory SOTO BRADY [facility] Start: 04-07-2022 End: 04-07-2022 ambulatory Sydnee L Rine Facility:[facility] Start: 04-07-2022 End: 04-07-2022 ambulatory CFNP Sydnee L Rine Work Phone: [facility] Work Phone: Start: 04-07-2022 End: 04-07-2022 Patient encounter procedure CFNP Sydnee Rine Work Phone: [facility] [place] Work Phone: Start: 04-03-2022 End: 04-03-2022 ambulatory Sydnee L Rine Facility:[facility] Start: 04-03-2022 End: 04-03-2022 ambulatory CFNP Sydnee L Rine Work Phone: [facility] Work Phone: Start: 04-03-2022 End: 04-03-2022 Patient encounter procedure RETA Tamez Work Phone: [facility] [place] Work Phone: Start: 03-05-2022 End: 03-08-2022 ambulatory [facility] Start: 03-05-2022 End: 03-07-2022 Subsequent hospital visit by physician [facility] MRI Comment on above: Falls frequently; Tremor; Confusion; Shuffling gait Start: 03-03-2022 End: 03-03-2022 Subsequent hospital visit by physician Sydnee Tamez Work Phone: [facility] Laboratory Start: 01-30-2022 End: 01-30-2022 ambulatory SHAYNE CONDE Facility:[facility] Start: 12-08-2021 End: 12-10-2021 Subsequent hospital visit by physician Kaye Guzman Dr Room 4 [facility] Radiology Comment on above: Acute pain of right knee Start: 10-16-2021 End: 10-18-2021 Subsequent hospital visit by physician [facility]amm[facility] Mammography Comment on above: Breast cancer screen ing by mammogram Start: 09-03-2021 End: 09-04-[address] PHANI FRANCIS Facility: Start: 08-26-2021 End: 08-28-2021 Subsequent hospital visit by physician Kaye Guzman Dr Room 4 [facility] Radiology Comment on above: Right shoulder pain, unspecified chronicity Pain in rib Start: 06-19-2021 End: 06-19-2021 Patient encounter procedure Shayne Conde DO Work Phone: Neurology Comment on above: Essential tremor (Pr imary Dx) Start: 05-20-2021 End: 05-20-2021 Subsequent hospital visit by physician Sydnee Tamez Work Phone: [facility] Laboratory Start: 04-30-2021 End: 04-30-2021 Subsequent hospital visit by physician Kaye Pulmonary Function Room [facility] PFT Comment on above: Centrilobular emphys rivera (HCC) Start: 04-03-2021 End: 04-04-2021 ambulatory FAITH CARIAS [facility] Start: 04-03-2021 End: 04-03-2021 ambulatory JOANNE HOLBROOK [facility] Start: 03-12-2021 End: 03-12-2021 Subsequent hospital visit by physician Sydnee Tamez Work Phone: [facility] Laboratory Start: 07-15-2020 End: 07-17-2020 Subsequent hospital visit by physician Kaye Guzman Dr Room [address] [place] [address] Radiology Comment on above: Injury of left knee, initial encounter Right shoulder pain, unspecified chronicity; Fall, initial encounter; Right arm pain Start: 06-19-2020 End: 05-23-2020 General Olga Carey PharmD Work Phone: [facility] Work Phone: Start: 05-23-2020 End: 05-23-2020 Patient encounter procedure Shannan Benavides Work Phone: [facility] Work Phone: Start: 12-12-2019 End: 12-14-2019 Subsequent hospital visit by physician Kaye Peck [facility] Mammography Comment on above: Osteoporosis, unspec ified osteoporosis type, unspecified pathological fracture presence Start: 04-03-2019 End: 04-04-2019 Patient encounter procedure Gene Alexanderen Facility:[facility] Start: 01-24-2019 End: 01-26-2019 Subsequent hospital visit by physician Sydnee Tamez [facility] Radiology Start: 01-06-2019 End: 01-07-2019 Patient encounter procedure Gene Cline Facility:[facility] Start: 12-13-2018 End: 12-13-2018 Subsequent hospital visit by physician Kaye Cardiology Stress Room [facility] Stress Lab Comment on above: Abnormal EKG; Mixed hyperlipidemia; Orthostatic hypotension; Tobacco abuse; Shortness of breath on exertion Start: 12-12-2018 End: 12-13-2018 Patient encounter procedure Gene Cline Facility:[facility] Start: 11-22-2018 End: 12-22-2018 Preoperative state [address] Start: 11-02-2018 End: 11-04-2018 Subsequent hospital visit by physician Kaye Guzman Dr Room 2 [facility] Radiology Comment on above: Cough Start: 10-31-2018 End: 11-01-2018 Patient encounter procedure Gene Cline Facility:[facility] Start: 10-06-2018 End: 10-07-2018 Patient encounter procedure TOÑA AVALOS Facility:[facility] Procedures Date Procedure Procedure Detail Performing Clinician Start: 04-07-2022 MRI of neck vessels with contrast CFNP Sydnee Rine Work Phone: Start: 04-03-2022 Magnetic resonance angiography of head without contrast CFNP Sydnee Rine Work Phone: Start: 03-05-2022 Mri brain brain stem w/o w/contrast material Alfredsandra Pal Work Phone: Start: 03-03-2022 Basic metabolic pane l calcium total Alfred Mountvacation Work Phone: Start: 12-08-2021 Radiologic examinati on [...] Imm. administration COVID19 Moderna dose 2 Olga Cherry PharmD Work Phone: Start: 06-19-2020 SARS-CoV-2 vaccine, 0.5ml Moderna Olga Hoerastog PharmD [...] Author Start: 11-24-2023 Depression Screen Depression Screen [facility] Start: 09-02-2023 End: 09-02-2023 Patient encounter procedure 09/02/2023 1:30 PM EDT Office Visit [facility] [address] [id number] Vadim Ortiz, ACUTE CARE PHYSICIAN - SERVICE TESTER [address] [id number] emphysema 1 yr. f/u [facility] Comment on above: emphysema 1 yr. f/u Start: 01-18-2023 Annual Wellness Visit (Medicare) Annual Wellness Visit (Medicare) [facility] Start: 10-23-2022 COVID-19 Vaccine ( season) COVID-19 Vaccine ( season) [facility] Start: 09-22-2022 Influenza vaccination Flu vaccine (#1) [facility] Start: 09-09-2022 End: 09-09-2022 Patient encounter procedure 09/09/2022 Office Visit Pulmonology Soto Brady DO [address] [facility] [address] [place], [place] [phone] [facility] OUTREACH PULM [facility] Start: 03-05-2022 End: 03-05-2022 Patient encounter procedure 03/05/2022 Appointment Radiology [facility] Start: 02-20-2022 Lipid panel Lipids [facility] Start: 12-08-2021 COVID-19 Vaccine (5 - Booster for Moderna series) COVID-19 Vaccine (5 - Booster for Moderna series) [facility] Start: 10-23-2021 Influenza vaccination Flu vaccine (#1) [facility] Start: 09-22-2021 Influenza vaccination Flu vaccine (#1) [facility] Start: 09-04-2021 End: 09-04-2021 Patient encounter procedure 09/04/2021 Office Visit Pulmonology Vadim Ortiz, ACUTE CARE PHYSICIAN - SERVICE TESTER [address] [facility] [address] [place], [place] [phone] [facility] OUTREACH PULM [facility] Start: 08-07-2021 End: 08-07-2021 Patient encounter procedure 08/07/2021 Office Visit Pulmonology Faith Carias MD [address] [facility] [address] [place], [place] [phone] [facility] OUTREACH PULM [facility] Start: 04-10-2021 End: 04-10-2021 Patient encounter procedure [facility] OUTREACH [facility] Start: 03-31-2021 End: 03-31-2021 Patient encounter procedure 03/31/2021 Appointment Echocardiography [facility] Echocardiography Start: 03-27-2021 Screening for malignant neoplasm of lung [facility] Start: 02-22-2021 ADVANCE DIRECTIVE DISCUSSION ADVANCE DIRECTIVE DISCUSSION [facility] Start: 12-19-2020 COVID-19 Vaccine (3 - Booster for Moderna series) COVID-19 Vaccine (3 - Booster for Moderna series) [facility] Start: 11-19-2020 COVID-19 Vaccine (3 - Booster for Moderna series) COVID-19 Vaccine (3 - Booster for Moderna series) [facility] Start: 11-04-2020 Lipid screen Lipid screen [place], [place] Start: 10-23-2020 Influenza vaccination Flu vaccine (#1) [facility] Start: 06-19-2020 2nd Dose- COVID Vaccine [facility] Work Phone: Start: 04-04-2020 End: 04-04-2020 Office Visit 04/04/2020 Office Visit Pulmonology Faith Carias MD [address] [facility] [address] [place], [place] [phone] [facility] OUTREACH PULM [facility] Start: 02-07-2020 Screening for malignant neoplasm of lung Low dose CT lung screening [place], [place] Start: 12-13-2019 Influenza vaccination Flu vaccine (#1) [place] Comment on above: Postponed from 10/23/2018 (Patient Refus ed) Start: 11-03-[address] lung screening Low dose CT lung screening [place], [place] Start: 06-14-2019 Pneumococcal 65+ years Vaccine (2 - PPSV23 or PCV20) Pneumococcal 65+ years Vaccine (2 - PPSV23 or PCV20) [facility] Start: 06-14-2019 Pneumococcal 65+ years Vaccine (2 of 2 - PPSV23) Pneumococcal 65+ years Vaccine (2 of 2 - PPSV23) [facility] Start: 03-09-2019 End: 03-09-2019 Office Visit 03/09/2019 Office Visit Pulmonology Faith Craias MD [address] [facility] [address] [place], [place] [phone] Special[facility] [place] Start: 02-06-2019 End: 02-06-2019 Appointment 02/06/2019 Appointment Radiology [facility] CT Scan Start: 12-14-2018 End: 12-14-2018 Appointment 12/14/2018 Appointment Stress Lab [facility] Stress Lab Start: 10-23-2018 Influenza vaccination Flu vaccine (#1) [place], [place] Start: 08-14-2018 Annual Wellness Visit (AWV) Annual Wellness Visit (AWV) [facility] Start: 11-04-2016 Lipid panel [facility] Start: 11-04-2016 Lipid screen Lipid screen [place], [place] Start: 2008 BONE DENSITY BONE DENSITY [facility] Start: 2008 Pneumococcal 65+ years Vaccine (2 of 2 - PPSV23) Pneumococcal 65+ years Vaccine (2 of 2 - PPSV23) [place], [place] Start: 2008 PNEUMOVAX AGE 65 AND OVER WITH 5YR LOOKBACK (#1) PNEUMOVAX AGE 65 AND OVER WITH 5YR LOOKBACK (#1) [facility] Start: 2003 Respiratory Syncytial Virus (RSV) or age 60 yrs+ (1 - 1-dose 60+ series) Respiratory Syncytial Virus (RSV) or age 60 yrs+ (1 - 1-dose 60+ series) [facility] Start: 1993 Colon cancer screen colonoscopy Colon cancer screen colonoscopy [place], [place] Start: 1993 Shingles Vaccine (1 of 2) Shingles Vaccine (1 of 2) [facility] Start: 1993 SHINGRIX VACCINE (1 of 2) SHINGRIX VACCINE (1 of 2) [facility] Start: 1988 DIABETES SCREEN DIABETES SCREEN [facility] Start: 1962 DTaP/Tdap/Td vaccine (1 - Tdap) DTaP/Tdap/Td vaccine (1 - Tdap) [facility] Start: 1962 Urine microalbumin profile DTAP,TDAP,TD (1 - Tdap) [facility] Start: 1961 HEPATITIS C SCREENING HEPATITIS C SCREENING [facility] Start: 1961 Hepatitis C screening Hepatitis C screen [facility] Start: 1955 Adult depression screening assessment DEPRESSION SCREENING [facility] Start: 1955 Depression Screen Depression Screen [facility] Start: 1954 DTaP/Tdap/Td vaccine (1 - Tdap) DTaP/Tdap/Td vaccine (1 - Tdap) [place], [place] Start: 1943 Annual Wellness Visit (AWV) Annual Wellness Visit (AWV) [facility] Start: 1943 Hepatitis C screening Hepatitis C screen [facility] End: 03-12-2021 Culture, Urine [facility] Work Phone: Comment on above: Once for 1 Occurrences starting 03/12/19 22 until 03/12/2021 [place] Immunizations Immunization Date Immunization Notes Care Provider Cindy flood 06-19-2020 2nd Dose MODERNA COVID-19 Vaccine; Translations: [Moderna COVID-19 Vaccine] Yogesh Scott MD Work Phone: [facility] Work Phone: Comment on above: Note: Patient tolera heidy well. No signs or symptoms of adverse reactions. Patient waited a minimum of 15 minutes. 05-23-2020 2nd Dose MODERNA COVID-19 Vaccine; Translations: [Moderna COVID-19 Vaccine] [facility] Work Phone: Comment on above: Note: Patient tolera heidy well. No signs or symptoms of adverse reactions. Patient waited a minimum of 15 minutes. Payers Date Payer Category Payer Self-pay 2018 Medicare 2018 Unknown 2014 Medicare MEDICARE MEDICAR E PART A AND B xxxxxxxxxxx 2014-Present [phone] [place] [address] xxxxxxxxxxx [id number] 2014 Unknown [employer] [place] [employer] [place] MED[place] SUPP [id number] 2014-Present [phone] ATTN INDIVIDUAL CLAIMS [address] [employer] [place] [address] [id number] [id number] .[id number] 2008 Unknown [id number] 1.2.840.308715.1.13.239.2.7.3 .[id number] 2008 Unknown [employer] [place] [employer] [place] MEDICARE SUPPLEMENT [id number] 2008-Present [phone] [address] [employer] [place] [address] Indemnity [id number] .[id number] 2008 Medicare MEDICARE MEDICAR E A AND B [id number] 2008-Present [phone] [address] [address] [place] [address] Medicare [id number] .[id number] 1959 Medicare [id number] 1.2.840.972294.1.13.239.2.7.3 .555994.315 1959 Unknown [id number] 2.16.840.1.639512.3.140.1.729 99.5.10.6.3 1943 Unknown [id number] 2.16.840.1.505379.3.579.2.196 1943 Unknown [id number] 2.16.840.1.411511.3.579.2.196 1943 Unknown [id number] 2.16.840.1.774326.3.579.2.196 1943 Unknown [id number] 2.16.840.1.031932.3.579.2.196 1943 Unknown [id number] 2.16.840.1.716365.3.579.2.196 1943 Unknown [id number] 2.16.840.1.502768.3.579.2.593 1943 Unknown [id number] 2.16.840.1.119875.3.579.2.174 1943 Unknown [id number] 2.16.840.1.321188.3.579.2.174 1943 Unknown [id number] 2.16.840.1.086269.3.579.2.174 1943 Unknown [id number] 2.16.840.1.727737.3.579.2.727 1943 Unknown [id number] 2.16.840.1.194876.3.579.2.173 1943 Unknown [id number] 2.16.840.1.684658.3.579.2.173 1943 Unknown [id number] 2.16.840.1.927569.3.579.2.173 1943 Unknown [id number] 2.16.840.1.287400.3.579.2.125 9 1943 Unknown [id number] 2.16.840.1.923305.3.579.2.125 9 Unknown [id number] 2.16.840.1.446540.3.579.2.531 Unknown [id number] 2.16.840.1.062679.3.579.2.531 Social History Date Type Detail Facility Start: 06-20-2015 [facility] [place] End: 06-04-2014 History of tobacco use Current smoker [place] Start: 06-20-2015 End: 11-22-2018 Cigarettes smoked current (pack per day) - [facility] Start: 06-20-2015 End: 11-22-2018 Alcohol intake No [facility] [employer] Start: 1945 Sex Assigned At Not on file [place] Start: 12-08-2018 End: 10-16-2021 Tobacco smoking status [facility] Current every day smoker [place], [place] Start: 12-08-2018 End: 09-09-2022 Alcohol intake Current non-drinker of alcohol (finding) [place] Start: 03-30-2019 End: 10-16-2021 Tobacco use and exposure [facility] [place] [place] Exposure to SARS-CoV -2 (event) Not sure [place] Tobacco smoking status Unknown i f ever smoked [facility] Work Phone: History of tobacco use Cigarette Smoker M [employer] Start: 1945 Sex Assigned At Female F [facility] Frequency of Communi cation with Friends and Family Patient declined [employer] How often to you hav e a drink containing alcohol? Never [facility] Clinical Notes 06-19-2020 to 01-30-2022 Patient InstructionsShayne Conde, - 06/19/2021 4:08 PM Niurka Chowdhury, RELATIONSHIP MGR - 04/30/2021 3:30 PM EST Note Date & Type Note Facility 01-30-2022 Note HNO ID: [id number] Author: Shayne Conde DO Service: ? Author Type: Physician Type: Progress Notes Filed: 02/02/2022 11:04 AM Note Text: [facility] - FOLLOW UP EVALUATION Shayne Conde [address] [facility] [address] Stephanie Spear is a 76 year old [...] Left pathological reflexes: Greyson's absent. Coordination Right: Fsluzs-sd-ubgn normal. Rapid alternating movement normal.Left: Yhpnby-sv-mtxp normal. Rapid alternating movement normal. Gait The [...] tremor (primary encounter (more content not included)... [facility] 06-19-2021 Note HNO ID: [id number] Author: Shayne Conde, DO Service: ? Author Type: Physician Type: Progress Notes Filed: 06/27/2021 4:48 PM Note Text: [facility] - NEW PATIENT EVALUATION Sydnee Tamez MD [address] [facility] [address] Stephanie Spear is a 76 year old [...] No leg edema, (more content not included)... [facility] 06-19-2021 Instructions Sahyne Conde DO - 06/19/2021 4:41 PM EDT Primidone instructions Start Primidone 50mg for tremor 1 week: Take 1 tablet daily at bedtime. 1 week: Take 2 tablets daily at bedtime. 1 week: Take 3 tablets daily at bedtime. Continue: Take 4 tablets daily at bedtime. The patient will call ([phone]) if sedation, confusion or sleepiness occur. documented in this encounter [facility] 06-19-2021 History of Presen t illness Narrative [facility] - NEW PATIENT EVALUATION Sydnee Tamez MD [address] [facility] [address] Stephanie Spear is a 76 year old [...] Left pathological reflexes: Greyson's absent. Coordination Right: Sonfur-vy-yeml normal. Rapid alternating movement normal. Left: Nvnwel-nx-tsld normal. Rapid alternating movement normal. Gait Casual [...] counseling regarding preparing to see the patient, ufhd-xe-avfe patient care, completing clinical documentation, obtaining and/or reviewing separately obtained history, performing a medically appropriate examination, counseling and educating the patient/family/caregiver, ordering medications, tests, or procedures and communicating results to the patient/family/caregiver. I tried to answer all of the patient's questions and concerns during this visit. Shayne Conde DO Senior Staff Neurologist - [facility] documented in this encounter [facility] 04-30-2021 History of Presen t illness Narrative [place] [address] Patient Name: Stephanie Spear 1945 A home oxygen evaluation has been completed. Patient arrived on room air with a walker at this time. SpO2 was 97 % on room air at rest. Patient was walked for 6 minutes. SpO2 was 98 % on room air during walking. Patient does not qualify for home oxygen at this time. documented in this encounter [facility] Phone: 06-19-2020 Evaluation note Includes: Assessments for all patient encounters Findings Encounter for Immunization 2nd Dose- COV ID Vaccine with Olga Carey PharmD 06/19/2020 Encounter for Immunization 1st COVID Vac cine with Shannan Benavides PharmD 05/23/2020 [facility] Work Phone: Evaluation note* Diagnosis Injury of left knee, initial encounter documented in this encounter [facility] Phone: evaluation note* Diagnosis Right shoulder pain, unspecified chronicity Fall, initial encounter Right arm pain Pain in limb documented in this encounter [facility] Phone: evaluation note* Diagnosis Centrilobular emphysema (HCC) Other emphysema documented in this encounter [facility] Phone: evalpwyacr note* Diagnosis Essential tremor- Primary Essential and other specified forms of tremor [facility]* Diagnosis Right shoulder pain, unspecified chronicity documented in this encounter [facility] Phone: evaluation note* Diagnosis Pain in rib Chest pain, unspecified documented in this encounter [employer] Phone: evaluation note* Diagnosis Breast cancer screening by mammogram documented in this encounter [facility] Phone: evalivesrz note* Diagnosis Acute pain of right knee documented in this encounter [employer] Phone: evalwbsxfh note* Diagnosis Falls frequently Personal history of fall Tremor Abnormal involuntary movements Confusion Unspecified psychosis Shuffling gait Abnormality of gait documented in this encounter [employer] Phone: evalcwnahs noteNo assessment information available [facility] Work Phone: History general Narrative - Reported Includes: Medical History in patient's chart No Medical History [facility] Work Phone: History of Present illness Narrative History of Present Illness not supported for this document type No History of Present Illness [facility] Work Phone: Instructions Instructions not supported for this document type No Instructions [facility] Work Phone: Patient problem outcome Narrative Includes: Evaluations & Outcomes for active Goals No Outcomes [facility] Work Phone: Reason for referral (narrative)No Reason for Referral [facility] Work Phone: Review of systems Narrative - Reported Review of Systems not supported for this document type No Review of Systems [facility] Work Phone: Assessments Diagnosis Cough Diagnosis Abnormal [...] FoundDocuments on File Type Date Recorded Patient Line Assigner Expl anation Advance Directives and Living Will Power of Spinner Open End Latest Code Status on File Code Status Date Activated Date Inactivated Comments Full Code 06/05/2014 11:47 PM 06/10/2014 3:31 PM Documents on File Type Date Recorded Patient Line Assigner Expl anation Advance Directives and Living Will Power of Spinner Open End Latest Code Status on File Code Status Date Activated Date Inactivated Comments Full Code 06/05/2014 11:47 PM 06/10/2014 3:31 PM Documents on File Type Date Recorded Patient Line Assigner Expl anation ACP-Advance Directive ACP-Power of Spinner Open End Documents on File Type Date Recorded Patient Line Assigner Expl anation ACP-Advance Directive ACP-Power of Spinner Open End Advance Directive Response Recorded Date/ Time Advance [...] home with Condition: Good Diet: Regular Education: [facility] neurosurgery education form Follow-up: 2 weeks neurosurgery [...] SEST. REST STRESS James Tello MD [address] [place] [address] Status Reason Specialty Diagnoses / Procedures Referred By Contact Referred To Contact Pending Review Radiology Diagnoses Osteoporosis, unspecified osteoporosis type, unspecified pathological fracture presence Procedures DEXA BONE DENSITY AXIAL SKELETON Sydnee Tamez [address] [place] [address] Specialty Diagnoses / Procedures Referred By Contac t Referred To Contact Diagnoses Centrilobular emphysema (HCC) Procedures 6 Minute Walk Test Faith Carias MD [address] [facility] [address] [place] [address] Referral ID Status Reason Start Date Expiration Date Visits Re quested Visits Authorized [id number] Open 04/17/2021 04/17/2022 1 1 Specialty Diagnoses / Procedures Referred By Contac t Referred To Contact [facility] Diagnoses Essential tremor Procedures CONSULT TO DRAFTER ASSISTANT OCCUPATIONAL THERAPY EVAL HIGH COMPLEX 60 MINS Shayne Conde, DO [address] [place] [address] [facility] [place] [address] [place] [address] Referral ID Status Reason Start Date Expiration Date Visits Requested Visits Authorized [id number] Authorized PCP Requested Referral Auto-Generate d Referral 06/19/2021 06/19/2022 99 99 Specialty Diagnoses / Procedures Referred By Contac t Referred To Contact Radiology Diagnoses Breast cancer screening by mammogram Procedures SHARON SOLIS DIGITAL SCREEN SELF REFERRAL W OR WO CAD BILATERAL Jayant Tamezri L [address] [place] [address] Referral ID Status Reason Start Date Expiration Date Visits Re quested Visits Authorized [id number] Closed 10/16/2021 10/16/2022 1 1 Specialty Diagnoses / Procedures Referred By Contac t Referred To Contact Radiology Diagnoses Falls frequently Tremor Confusion Shuffling gait Procedures MRI BRAIN W WO CONTRAST Alfred Pal [address] [place] [address] Referral ID Status Reason Start Date Expiration Date Visits Re quested Visits Authorized [id number] Closed 03/03/2022 03/03/2023 1 1 Instructions Instructions [...] DATE CREATED AUTHOR AUTHOR'S ORGANIZ ATION 06/27/2021 [facility] dical Specialist DATE CREATED AUTHOR AUTHOR'S ORGANIZ ATION 06/28/2021 [facility] DATE CREATED AUTHOR AUTHOR'S ORGANIZ ATION 09/10/2021 [facility] DATE CREATED AUTHOR AUTHOR'S ORGANIZ ATION 02/03/2022 [facility] DATE CREATED AUTHOR AUTHOR'S ORGANIZ ATION 03/07/2022 Tammie [facility]al DATE CREATED AUTHOR AUTHOR'S ORGANIZ ATION 05/16/2022 [facility] DATE CREATED AUTHOR AUTHOR'S ORGANIZ ATION 03/24/2023 [facility] DATE CREATED AUTHOR AUTHOR'S ORGANIZ ATION 04/04/2023 [facility] DATE CREATED AUTHOR AUTHOR'S ORGANIZ ATION 05/21/2023 [facility] dical Specialists EPIC Reason for Visit (unrecogniz ed section and content) Status Reason Specialty Diagnoses / Procedures Referred By Contact Referred To Contact Authorized Cardiology Diagnoses Abnormal EKG Mixed hyperlipidemia Orthostatic hypotension Tobacco abuse Shortness of breath on exertion Procedures Stress test, lexiscan HC NM SEST. REST STRESS TRIT James Godoy MD [address] [place] [address] Status Reason Specialty Diagnoses / Procedures Referre d By Contact Referred To Contact Closed Radiology Diagnoses Age-related osteoporosis without current pathological fracture Procedures HC DEXA AXIAL SKELETON Jayant Tamezri L [address] [place] [address] [facility] [place] [id number] Specialty Diagnoses / Procedures Referred By Contac t Referred To Contact Diagnoses Centrilobular emphysema (HCC) Procedures 6 Minute Walk Test Faith Carias MD [address] [facility] [address] [place] [address] Referral ID Status Reason Start Date Expiration Date Visits Re quested Visits Authorized [id number] Open 04/17/2021 04/17/2022 1 1 Reason Comments New Patient Specialty Diagnoses / Procedures Referred By Contac t Referred To Contact Radiology Diagnoses Breast cancer screening by mammogram Procedures SHARON SOLIS DIGITAL SCREEN SELF REFERRAL W OR WO CAD BILATERAL GilaJayant martinezri L [address] [facility] [address] [place] [address] Referral ID Status Reason Start Date Expiration Date Visits Re quested Visits Authorized [id number] Closed 10/16/2021 10/16/2022 1 1 Specialty Diagnoses / Procedures Referred By Contac t Referred To Contact Radiology Diagnoses Falls frequently Tremor Confusion Shuffling gait Procedures MRI BRAIN W WO CONTRAST Alfred Pal [address] [facility] [address] [place], [place] [id number] Referral ID Status Reason Start Date Expiration Date Visits Re quested Visits Authorized [id number] Closed 03/03/2022 03/03/2023 1 1 Medical History (unrecognize d section and content) Includes: Medical History in patient's chartNo Medical History Recorded Evaluations & Outcomes (unre cognized section and content) Includes: Evaluations & Outcomes for active GoalsNo Outcomes Recorded Care Teams (unrecognized sec tion and content) Career Specialist Relationship Specialty Start Date End Date Sydnee Tamez [address] [place] [address] PCP - General 06/20/15 Career Specialist Relationship Specialty Start Date End Date Sydnee Tamez L [address] [place] [address] PCP - General 06/20/15 Career Specialist Relationship Specialty Start Date End Date Sydnee Tamez L [address] [place] [address] PCP - General 06/20/15 Career Specialist Relationship Specialty Start Date End Date Sydnee Tamez (Card Writer Hand) [address] [place] [address] Referring Family Practice 03/20/21 Career Specialist Relationship Specialty Start Date End Date Sydnee Tamez L [address] [place] [address] PCP - General 06/20/15 Career Specialist Relationship Specialty Start Date End Date Sydnee Tamez L [address] [place] [address] PCP - General 06/20/15 Career Specialist Relationship Specialty Start Date End Date Sydnee Tamez L [address] [place] [address] PCP - General 06/20/15 Career Specialist Relationship Specialty Start Date End Date Sydnee Tamez L [address] [place] [address] PCP - General 06/20/15 Team Status: Inactive Member Role Status Dates Bret Wade , Attending Provider Active [facility] [place] Primary Care Provider Active Team Status: Active Member Role Status Dates Sydnee Noemi RETA Tamez Primary Care Provider Active Career Specialist Relationship Specialty Start Date End Date Sydnee Tamez [address] [place] [address] PCP - General 06/20/15 Source Comments (unrecognize d section and content) In the event this informatio n is protected by the Federal Confidentiality of Alcohol and Drug Abuse Patient Records regulations: The Federal rules restrict any use of the information to criminally investigate or prosecute any alcohol or drug abuse patient.[facility] Goals (unrecognized section and content) Goals may [...] BE BASED ON THE PRIMARY CLINICAL RECORDS. [employer] [facility]. provides no warranty or guarantee of the accuracy or completeness of information in this document.
[2023-06-01] MEDS: 0.9 % SODIUM CHLORIDE 1,000 ML 100 ML IV (11:13)
--- NOTE | 2023-06-01 11:16 | ED.SEIZURE1 ---
HPI - Seizure General Chief Complaint: Seizure Stated Complaint: seizure like activity Time Seen by Provider: 06/01/23 10:56 Source: patient and family Mode of arrival: ambulance Limitations: no limitations History of Present Illness HPI Narrative: This patient was seen and interviewed before her arrived. I have met her 1 month ago when she had a breakthrough seizure. She has not been back to see her neurologist but she did see our nurse practitioner. They did not adjust her medications any further. The history today given by the , is that she seizure yesterday. She was in a wheelchair when it occurred but he describes her face grimacing her eyes twitching and her eyes rolling in her head lasting a brief time. She did not actually have tonic-clonic activity. Brief but then she just seemed to be in a daze and staring for approximately a total of 1-1/2 hours. She does not remember the details of this when I ask her personally. She did not have a seizure today. She was scheduled to have some routine lab work by her primary care doctor today. She has not had any falls or trauma. She is not running any fever that is aware of. She has had previous episodes of sepsis and other medical problems is well-documented in her medical records. She is brought to us by squad. Seizure History: Yes Place: home Related Data Home Medications ?Medication ?Instructions ?Recorded ?Confirmed midodrine 2.5 mg tablet 2.5 mg PO BID 01/19/23 02/18/23 omeprazole 20 mg capsule,delayed 20 mg PO DAILY 01/19/23 02/18/23 release pantoprazole 40 mg tablet,delayed 40 mg PO DAILY 01/19/23 06/01/23 release trospium 20 mg tablet 20 mg PO DAILY 01/19/23 02/18/23 acetaminophen 500 mg tablet 1,000 mg PO Q6H PRN fever or pain 02/18/23 06/01/23 atorvastatin 10 mg tablet 10 mg PO DAILY 02/18/23 06/01/23 bupropion HCl 150 mg 24 hr tablet, 150 mg PO DAILY 02/18/23 06/01/23 extended release (Wellbutrin XL) chlorthalidone 25 mg tablet 25 mg PO DAILY 02/18/23 06/01/23 docusate sodium 100 mg capsule 100 mg PO DAILY 02/18/23 06/01/23 (Col-Rite) gabapentin 100 mg capsule 100 mg PO TID 02/18/23 02/18/23 levothyroxine 50 mcg tablet 75 mcg PO DAILY 02/18/23 06/01/23 primidone 50 mg tablet 150 mg PO DAILY 02/18/23 06/01/23 rivastigmine 9.5 mg/24 hour 9.5 mg transdermal DAILY 02/18/23 06/01/23 transdermal patch sertraline 50 mg tablet 75 mg PO DAILY 02/18/23 06/01/23 tolterodine 4 mg capsule,extended 4 mg PO Q24H 02/18/23 02/18/23 release 24 hr topiramate 25 mg tablet 50 mg PO BID 02/18/23 06/01/23 bupropion HCl 150 mg 24 hr tablet, 150 mg PO DAILY 06/01/23 06/01/23 extended release (Wellbutrin XL) cholecalciferol (vitamin D3) 125 125 mcg PO DAILY 06/01/23 06/01/23 mcg (5,000 unit) tablet potassium chloride 20 mEq 20 meq PO DAILY 06/01/23 06/01/23 tablet,extended release(part/cryst) sodium chloride 1,000 mg soluble 1,000 mg feeding tube BID 06/01/23 06/01/23 tablet tramadol 50 mg tablet 50 mg PO QID 06/01/23 06/01/23 Previous Rx's ?Medication ?Instructions ?Recorded benzonatate 100 mg capsule 200 mg (2 x 100 mg) PO Q8H PRN 02/25/23 cough #1 cap dexamethasone 4 mg tablet 4 mg PO DAILY 4 days #4 tabs 02/25/23 ipratropium 0.5 mg-albuterol 3 mg 3 ml inhalation Q4H PRN Shortness 02/25/23 (2.5 mg base)/3 mL nebulization Of Breath Or Wheezing #90 mL soln lactose-reduced food with fiber 1 ea G-tube Q8H #237 mL 02/25/23 0.06 gram-1.5 kcal/mL oral liquid (Jevity 1.5 Tony) lactulose 10 gram/15 mL oral 20 g (30 mL) PO BID #0 mL 02/25/23 solution (Constulose) midodrine 5 mg tablet 2.5 mg (1/2 x 5 mg) PO BID #0 tabs 02/25/23 Allergies Allergy/AdvReac Type Severity Reaction Status Date / Time codeine Allergy Unknown Verified 01/19/23 09:11 formoterol [From Dulera] Allergy Unknown Verified 01/19/23 09:11 ibuprofen [From Motrin] Allergy Unknown Verified 01/19/23 09:11 mometasone furoate Allergy Unknown Verified 01/19/23 09:11 [From Dulera] Penicillins Allergy Unknown Verified 01/19/23 09:11 pseudoephedrine Allergy Unknown Verified 01/19/23 09:11 risedronate sodium Allergy Unknown Verified 01/19/23 09:11 tolmetin Allergy Unknown Verified 01/19/23 09:11 triprolidine Allergy Unknown Verified 01/19/23 09:11 [facility] Medical History (Updated 06/01/23 @ 14:48 by Joshua Venegas MD) Severe protein-calorie malnutrition ?E43 - Unspecified severe protein-calorie malnutrition (ICD-10) Hyperammonemia ?E72.20 - Disorder of urea cycle metabolism, unspecified (ICD-10) Metabolic encephalopathy ?G93.41 - Metabolic encephalopathy (ICD-10) Seizure disorder ?G40.909 - Epilepsy, unspecified, not intractable, without status epilepticus (ICD-10) Leukocytosis ?D72.829 - Elevated white blood cell count, unspecified (ICD-10) Lactic acidosis ?E87.20 - Acidosis, unspecified (ICD-10) Syncope ?R55 - Syncope and collapse (ICD-10) Transient hypotension ?I95.9 - Hypotension, unspecified (ICD-10) Seizure ?R56.9 - Unspecified convulsions (ICD-10) Age-related osteoporosis without current pathological fracture ?M81.0 - Age-related osteoporosis without current pathological fracture (ICD-10) Essential tremor ?G25.0 - Essential tremor (ICD-10) Adjustment disorder with anxiety ?F43.22 - Adjustment disorder with anxiety (ICD-10) Major depressive disorder ?F32.9 - Major depressive disorder, single episode, unspecified (ICD-10) Hyperlipidemia ?E78.5 - Hyperlipidemia, unspecified (ICD-10) Hypothyroidism ?E03.9 - Hypothyroidism, unspecified (ICD-10) Osteoarthritis ?M19.90 - Unspecified osteoarthritis, unspecified site (ICD-10) Hypotension ?I95.9 - Hypotension, unspecified (ICD-10) Syncope and collapse ?R55 - Syncope and collapse (ICD-10) COPD (chronic obstructive pulmonary disease) ?J44.9 - Chronic obstructive pulmonary disease, unspecified (ICD-10) Chronic kidney disease, stage 3 unspecified ?N18.30 - Chronic kidney disease, stage 3 unspecified (ICD-10) Surgical History (Updated 02/18/23 @ 23:12 by Brandee Luz) Hx of foot surgery ?Z98.890 - Other specified postprocedural states (ICD-10) Hx of rotator cuff surgery ?Z98.890 - Other specified postprocedural states (ICD-10) Social History Smoking status: Former smoker Highest level of school completed/degree received: don't know Exam Narrative Exam Narrative: She is awake and alert she does remember me but she is not quite as fluid with her speech as last time I met her. She does not appear ill or toxic. Her vital signs are. She is afebrile. Examining her oral cavity she did not bite her mouth or oral mucosa. Her neck is soft and supple with no meningeal irritation. Cranial nerves II to XII are normal there is no nystagmus. There is no facial asymmetry. There is no slurring of her speech and content is normal. Her lungs are clear and her heart sounds are regular. She does not have any focal neurological deficits. Constitutional Vital Signs, click to edit/add: Last Vital Signs Temp 98.5 F 06/01/23 10:50 Pulse 75 06/01/23 12:01 Resp 13 06/01/23 10:50 BP 146/63 H 06/01/23 12:01 Pulse Ox 100 06/01/23 12:01 O2 Del Method Room Air 06/01/23 10:50 Course Vital Signs Vital signs: Vital Signs Temperature 98.5 F 06/01/23 10:50 Pulse Rate 73 06/01/23 10:50 Respiratory Rate 13 06/01/23 10:50 Blood Pressure 155/64 H 06/01/23 10:50 Pulse Oximetry 99 06/01/23 10:50 Oxygen Delivery Method Room Air 06/01/23 10:50 Temperature 98.5 F 06/01/23 10:50 Pulse Rate 75 06/01/23 12:01 Respiratory Rate 13 06/01/23 10:50 Blood Pressure 146/63 H 06/01/23 12:01 Pulse Oximetry 100 06/01/23 12:01 Oxygen Delivery Method Room Air 06/01/23 10:50 MDM - Seizure MDM Narrative Medical decision making narrative: Laboratory testing done and we want to make sure she does not have any sepsis which is what triggered these events about a year or so ago. Noted but the routine blood work shows her white count to be 14.7 but no other . Acute abnormalities. We did a CT of her head without contrast and there is no acute findings. I spoke with her neurologist in [place] and she is only seen this patient once. Her recommendation is that we increase the Topamax and then also study her with outpatient EEG MRI with and without contrast. She indicated that she will order those test and contact the patient to get those done and then schedule an outpatient follow-up. All this was discussed with the . Patient is listening to these recommendations and seems to be aware of the situation and the recommendation Lab Data Labs: Lab Results 06/01/23 Range/Units 11:05 WBC 14.7 H (4.0-11.0) 10^3/uL RBC 3.22 L (4.20-5.40) 10^6/uL Hgb 10.0 L (12.0-16.0) g/dL Hct 32.0 L (36.0-48.0) % MCV 99.4 H (81.0-99.0) fL MCH 31.1 (26.7-34.0) pg MCHC 31.3 (29.9-35.2) g/dL RDW 13.1 (11.0-15.0) % Plt Count 238 (150-450) 10^3/uL MPV 12.0 (9.5-13.5) fL Neut % (Auto) 81.0 H (43.0-75.0) % Lymph % (Auto) 7.2 L (20.5-60.0) % [place] % (Auto) 9.1 (1.7-12.0) % Eos % (Auto) 2.0 (0.9-7.0) % Baso % (Auto) 0.4 (0.2-2.0) % Neut # (Auto) 11.9 H (1.4-6.5) 10^3/uL Lymph # (Auto) 1.1 L (1.2-3.8) 10^3/uL [place] # (Auto) 1.3 H (0.3-0.8) 10^3/uL Eos # (Auto) 0.3 (0.0-0.7) 10^3/uL Baso # (Auto) 0.1 (0.0-0.1) 10^3/uL Abs Immat Gran (auto) 0.05 H (0.00-0.03) 10^3/uL Imm/Tot Granulo (auto) 0.3 (0.0-0.5) % VBG pH 7.417 (7.330-7.430) VBG pCO2 33.3 L (40.0-52.0) mmHg Sodium 140 (136-145) mmol/L Potassium 3.8 (3.5-5.1) mmol/L Chloride 105 (98-107) mmol/L Carbon Dioxide 21.6 (21.0-32.0) mmol/L Anion Gap 17.2 BUN 37.0 H (7.0-18.0) mg/dL Creatinine 0.90 (0.55-1.02) mg/dL Est GFR ( Amer) >60 (>=60) Est GFR (Non-Af Amer) >60 (>=60) BUN/Creatinine Ratio 41.1 Glucose 111 H (74-106) mg/dL Lactate 1.0 (0.4-2.0) mmol/L Calcium 9.1 (8.5-10.1) mg/dL Total Bilirubin 0.2 (0.2-1.0) mg/dL AST 21 (15-37) U/L ALT 22 (14-59) U/L Alkaline Phosphatase 59 (46-116) U/L Total Protein 7.0 (6.4-8.2) g/dL Albumin 2.6 L (3.4-5.0) g/dL Globulin 4.4 g/dL Albumin/Globulin Ratio 0.6 TSH 0.135 L (0.358-3.740) uIU/mL Urine Color Lt. yellow (YELLOW) Urine Clarity Clear (CLEAR) Urine pH 8.0 (5.0-9.0) Ur Specific [place] 1.020 (1.005-1.025) Urine Protein Negative (NEG/TRACE) mg/dL Urine Glucose (UA) Negative (NEGATIVE) mg/dL Urine Ketones Negative (NEGATIVE) mg/dL Urine Occult Blood Negative (NEGATIVE) Urine Nitrite Negative (NEGATIVE) Urine Bilirubin Negative (NEGATIVE) Urine Urobilinogen 0.2 (0.2-1.0) EU/dL Ur Leukocyte Esterase Negative (NEGATIVE) Discharge Plan Discharge Stand Alone Forms: Portal Instructions Chief Complaint: Seizure Clinical Impression: Breakthrough seizure Patient Disposition: Home, Self-Care Time of Disposition Decision: 14:48 Prescriptions / Home Meds: No Action potassium chloride 20 mEq tablet,ER particles/crystals 20 meq PO DAILY sodium chloride 1,000 mg tablet,soluble 1,000 mg feeding tube BID cholecalciferol (vitamin D3) 125 mcg (5,000 unit) tablet 125 mcg PO DAILY tramadol 50 mg tablet 50 mg PO QID bupropion HCl [Wellbutrin XL] 150 mg tablet extended release 24 hr 150 mg PO DAILY midodrine 2.5 mg tablet 2.5 mg PO BID omeprazole 20 mg capsule,delayed release(DR/EC) 20 mg PO DAILY Hold Instructions: Order Change pantoprazole 40 mg tablet,delayed release (DR/EC) 40 mg PO DAILY trospium 20 mg tablet 20 mg PO DAILY Hold Instructions: Doctor's Order Rx Instructions: administer on an empty stomach primidone 50 mg tablet 150 mg PO DAILY atorvastatin 10 mg tablet 10 mg PO DAILY tolterodine 4 mg capsule,extended release 24hr 4 mg PO Q24H topiramate 25 mg tablet 50 mg PO BID Hold Instructions: Doctor's Order chlorthalidone 25 mg tablet 25 mg PO DAILY levothyroxine 50 mcg tablet 75 mcg PO DAILY gabapentin 100 mg capsule 100 mg PO TID sertraline 50 mg tablet 75 mg PO DAILY rivastigmine 9.5 mg/24 hour patch 24 hour 9.5 mg transdermal DAILY bupropion HCl [Wellbutrin XL] 150 mg tablet extended release 24 hr 150 mg PO DAILY docusate sodium [Col-Rite] 100 mg capsule 100 mg PO DAILY acetaminophen 500 mg tablet 1,000 mg PO Q6H PRN (Reason: fever or pain) ipratropium-albuterol 0.5 mg-3 mg(2.5 mg base)/3 mL Solution For Nebulization 3 ml inhalation Q4H PRN (Reason: Shortness Of Breath Or Wheezing) Qty: 90 0RF midodrine 5 mg Tablet 2.5 mg PO BID Qty: 0 0RF benzonatate 100 mg Capsule 200 mg PO Q8H PRN (Reason: cough) Qty: 1 0RF lactulose [Constulose] 10 gram/15 mL Solution 20 g PO BID Qty: 0 0RF Jevity 1.5 Tony 0.06 gram-1.5 kcal/mL Liquid 1 ea G-tube Q8H Qty: 237 0RF dexamethasone 4 mg tablet 4 mg PO DAILY 4 Days Qty: 4 0RF Print Language: Dominican Additional Instructions: Increase Topamax 75 mg 2 times a day for 7 days then 100 mg 2 times a day. Your neurologist will contact you for outpatient testing Referrals: Physician,Non-Staff, MD [Primary Care Provider] - 1 week
[2023-06-01 11:22] LABS: Basophils Absolute Auto 0.1 10^3/uL (0.0-0.1); Basophils Percent Auto 0.4 % (0.2-2.0); Eosinophils Absolute Auto 0.3 10^3/uL (0.0-0.7); Immature Granulocytes Abs Auto 0.05 10^3/uL (0.00-0.03); Immature Granulocytes Pct Auto 0.3 % (0.0-0.5); Lymphocytes Absolute Auto 1.1 10^3/uL (1.2-3.8); Lymphocytes Percent Auto 7.2 % (20.5-60.0); Mean Corpuscular HGB Conc 31.3 g/dL (29.9-35.2); Mean Corpuscular Hemoglobin 31.1 pg (26.7-34.0); Mean Corpuscular Volume 99.4 fL (81.0-99.0); Monocytes Absolute Auto 1.3 10^3/uL (0.3-0.8); Monocytes Percent Auto 9.1 % (1.7-12.0); Neutrophils Absolute Auto 11.9 10^3/uL (1.4-6.5); Platelet Count 238 10^3/uL (150-450); Red Blood Count 3.22 10^6/uL (4.20-5.40); Red Cell Distribution Width 13.1 % (11.0-15.0); White Blood Count 14.7 10^3/uL (4.0-11.0)
[2023-06-01 11:25] LABS: Bilirubin Urine NEGATIVE (NEGATIVE); Blood Urine NEGATIVE (NEGATIVE); Clarity Urine CLEAR (CLEAR); Color Urine LT. YELLOW (YELLOW); Glucose Urine UA NEGATIVE (NEGATIVE); Ketones Urine NEGATIVE (NEGATIVE); Leukocyte Esterase Urine NEGATIVE (NEGATIVE); Nitrite Urine NEGATIVE (NEGATIVE); PCO2 VBG 33.3 mmHg (40.0-52.0); Protein Urine NEGATIVE (NEG/TRACE); Urobilinogen Urine 0.2 EU/dL (0.2-1.0); pH VBG 7.417 (7.330-7.430)
[2023-06-01 11:31] LABS: Urine Microscopic Indicated NO
[2023-06-01 11:52] LABS: Alanine Aminotransferase 22 U/L (14-59); Albumin Globulin Ratio 0.6; Albumin Level 2.6 g/dL (3.4-5.0); Alkaline Phosphatase 59 U/L (46-116); Anion Gap 17.2; Aspartate Amino Transferase 21 U/L (15-37); BUN Creatinine Ratio 41.1; Bilirubin Total 0.2 mg/dL (0.2-1.0); Calcium 9.1 mg/dL (8.5-10.1); Carbon Dioxide 21.6 mmol/L (21.0-32.0); Chloride 105 mmol/L (98-107); Estimated GFR (African America >60 (>=60); Estimated GFR (Non-African Ame >60 (>=60); Globulin 4.4 g/dL; Glucose 111 mg/dL (74-106); Potassium 3.8 mmol/L (3.5-5.1); Sodium 140 mmol/L (136-145); Thyroid Stimulating Hormone 0.135 uIU/mL (0.358-3.740)
--- NOTE | 2023-06-01 12:47 | CT_ITS ---
The [address] [address] Patient Name: SONYA SPEAR MRN: [id number] date: 1945 Sex: F Assigned Patient Location: ER Current Patient Location: ER Accession/Order Number: [id number] Exam Date: 06/01/2023 12:40 Report Date: 06/01/2023 13:21 At the request of: NATALIE LEO Procedure: CT head/brain wo con EXAM: CT head/brain wo con HISTORY: Seizure . History of dementia. COMPARISON: Comparison made to head CT dated 02/19/2023. TECHNIQUE: Contiguous transaxial images were obtained from skull base to vertex without administration of intravenous contrast. Dose reduction: mA and/or kV are were adjusted by automated exposure control software based upon patients height and weight. FINDINGS: There is no focal scalp soft tissue swelling or acute calvarial fracture. The visualized globes and orbits are grossly normal. Visualized paranasal sinuses are clear. Bilateral mastoid air cells are clear. The ventricles and sulci are prominent bilaterally. There is periventricular and deep subcortical white matter low-attenuation consistent with small vessel ischemic disease. There are old tiny caudate head, internal capsule/basal ganglia, and thalamic lacunar infarcts. There is a small hypoattenuating foci within the bruce, likely sequela of small vessel ischemic disease. There is no intraparenchymal hemorrhage, extraaxial fluid collection, mass lesion, or acute large territory ischemia by noncontrast CT. There is intracranial atherosclerosis. CT/CT head/brain wo con IMPRESSION: 1. No acute intracranial hemorrhage or acute large territory ischemia by noncontrast CT. 2. Cerebral atrophy and chronic small vessel ischemic disease, increased since previous examination. 3. Intracranial atherosclerosis. If the patient has a focal neurologic deficit or there is clinical suspicion for acute cerebrovascular accident, brain MRI would be recommended for further evaluation. Electronically authenticated by: KEVIN TOBAR Date: 06/01/2023 13:21
--- NOTE | 2023-06-01 14:46 | ECG_ITS ---
The [facility] Test Date: 2023-06-01 Pat Name: SONYA SPEAR Department: Room: - Gender: Female Vitamin Manager: : 1945 Requested By: Order Number: [id number] Reading MD: ROBINSON CARRIZALES Measurements Intervals [place] Rate: 73 P: 51 CO: 146 QRS: -6 QRSD: 76 T: 49 QT: 382 QTc: 408 Interpretive Statements 1100 Sinus rhythm 9110 normal ECG Electronically Signed On 06-01-2023 23:12:06 EDT by ROBINSON CARRIZALES
[2023-06-01] MEDS: TOPIRAMATE 25 MG TABLET 75 MG PO (15:00)
== END 2023-06-01 15:18 | disposition home or self-care (01) ==
PROVIDERS: Emergency Provider Emergency Medicine Emergency Medical Services
DX: G40.909 Epilepsy, unspecified, not intractable, without status epilepticus (principal); M81.0 Age-related osteoporosis without current pathological fracture; G25.0 Essential tremor; F32.9 Major depressive disorder, single episode, unspecified; E78.5 Hyperlipidemia, unspecified; E03.9 Hypothyroidism, unspecified; M19.90 Unspecified osteoarthritis, unspecified site; J44.9 Chronic obstructive pulmonary disease, unspecified; N18.9 Chronic kidney disease, unspecified; Z87.891 Personal history of nicotine dependence; Z79.899 Other long term (current) drug therapy; Z79.890 Hormone replacement therapy
CPT/HCPCS: 36415; 70450; 71045; 80053; 81003; 82800; 83605; 84443; 85025; 93005; 99285